=== PATIENT | male | born 1950 | race Caucasian/White ===

== ENCOUNTER 2018-08-12 02:45 | Inpatient (IN) | payer MEDICARE, MEDICAID ==
[~2018-08-12] VITALS: Ht 177.8 cm; Wt 70.3 kg
[~2018-08-12 02:45] MED LIST: BENZ2AMP PO; CALC-261 PO; CLON0.5T PO; DIVA250T4 PO; DIVA500T2 PO; DOCU250C14 PO; HALO2TAB7 PO; HALO5VIA9 IM; IBUP-1955 PO; MAG355OR18 PO; MAGN400O6 PO; MULT1TAB11 PO; PROP20TA7 PO; PSYL1PAC8 PO; TEST200V3 IM; TRAZ-214 PO; TYL2T PO
[2018-08-12] MEDS ORDERED: VANCOMYCIN 1 GM VIAL ONE (03:26)
[2018-08-12] MEDS ORDERED: VANCOMYCIN 1 GM in IV D5W 250 ML IV ONE (03:30)
[2018-08-12] MEDS ORDERED: CEFEPIME 1 GM in IV D5W 50 ML IV ONE (03:30)
[2018-08-12] MEDS ORDERED: IV NS 0.9% 1,000 ML BAG IV ONE (03:30)
--- NOTE | 2018-08-12 03:30 | NUR ---
18G IV TO L AC X 1 ATTEMPT USING ASEPTIC TECH, BLOOD CULT X 2 AND BLOOD HANDED OVER TO THE LAB AT BEDSIDE. IV FLUSHES EASILY WITH NS, NO S/S INFILTRATION NOTED AT THIS TIME.
[2018-08-12 03:44] LABS: BASOPHILS % (AUTO) 0.2 % (0.0-2.0); HEMATOCRIT 33 % (39-51); HEMOGLOBIN 10.7 g/dL (13.5-17.5); LYMPHOCYTES # (AUTO) 0.9 /CMM (0.8-4.8); LYMPHOCYTES % (AUTO) 6.7 % (20.0-44.0); MEAN CORPUSCULAR HGB CONC 33 g/dl (31.0-36.0); MEAN CORPUSCULAR VOLUME 96 fL (80-96); MONOCYTES # (AUTO) 1.2 /CMM (0.1-1.30); MONOCYTES % (AUTO) 8.5 % (2.0-12.0); NEUTROPHILS # (AUTO) 11.8 /CMM (1.8-8.9); NEUTROPHILS % (AUTO) 84.6 % (43.0-81.0); PLATELET COUNT (AUTO) 157 /CMM (150-450); RDW COEFFICIENT OF VARIATION 13.6 (11.5-15.0); RED BLOOD CELL COUNT(AUTO) 3.42 MIL/uL (4.5-6.0); WHITE BLOOD COUNT (AUTO) 13.9 K/uL (4.3-11.0)
[2018-08-12] MEDS ORDERED: CEFEPIME 1 GM VIAL ONE (03:48)
--- NOTE | 2018-08-12 03:50 | NUR ---
URINE SPECIMEN COLLECTED AND SENT TO LAB. ALSO PT WENT TO CT SCAN
[2018-08-12 03:53] LABS: POTASSIUM 4.3 mmol/L (3.5-5.1)
[2018-08-12 03:57] LABS: INR 1.1 (0.87-1.13)
[2018-08-12 03:57] LABS: APPEARANCE,URINE CLEAR (CLEAR); BILIRUBIN,URINE NEGATIVE (NEGATIVE); BLOOD, URINE 3+ Ery/uL (NEGATIVE); COLOR,URINE YELLOW (YELLOW); KETONES,URINE NEGATIVE (NEGATIVE); LEUKOCYTE ESTERASE ,URINE NEGATIVE (NEGATIVE); NITRITE, URINE NEGATIVE (NEGATIVE); PH,URINE 5.5 (5.0-8.0); PROTEIN,URINE NEGATIVE (NEGATIVE); UGLUCOSE NEGATIVE (NEGATIVE); UROBILINOGEN,URINE 0.2 EU/dL (0.2)
[2018-08-12 04:00] LABS: ALBUMIN 3.1 g/dL (3.4-5.0); BILIRUBIN,DIRECT 0.1 mg/dL (0.0-0.2); BILIRUBIN,TOTAL 0.3 mg/dL (0.2-1.0); TOTAL PROTEIN, SERUM 7.1 g/dL (6.4-8.2)
--- NOTE | 2018-08-12 04:00 | NUR ---
PT CAME BACK FROM CT SCAN.
[2018-08-12 04:01] LABS: TROPONIN I 0.07 ng/mL (0.00-0.056)
[2018-08-12 04:15] LABS: BACTERIA,URINE None seen /HPF (None Seen); SQUAMOUS EPITHELIAL CELL,UR Few /HPF (None Seen); WBC,URINE 0-2 /HPF (0-3)
[2018-08-12] MEDS ORDERED: DIVA125C2 PO ×2 (04:58)
[2018-08-12] MEDS ORDERED: ASPI-1169 PO (04:58)
[2018-08-12] MEDS ORDERED: MELA3TAB PO (04:58)
[2018-08-12] MEDS ORDERED: PSYL0.4C2 PO (04:58)
--- NOTE | 2018-08-12 05:15 | NUR ---
REPORT GIVEN TO PAMELA MATTHEW AND TRANSFER THE PT TO TELE 1 FLOOR VIA YELITZA.
[2018-08-12 06:00] VITALS: BP 124/78
[2018-08-12 08:00] VITALS: BP 112/60
[2018-08-12] MEDS ORDERED: DOSE PER PHARMACY (MD SPECIFY MEDICATION) 1 EA IV PRN (08:00)
[2018-08-12] MEDS ORDERED: IV NS 0.9% 1,000 ML BAG IV PRN (08:00)
[2018-08-12] MEDS ORDERED: DIVALPROEX SODIUM 125 MG CAP.SPRINK PO SCH (09:00)
[2018-08-12] MEDS: DIVALPROEX SODIUM 125 MG CAP.SPRINK PO SCH ×2 (09:58→17:03)
[2018-08-12] MEDS: HALOPERIDOL 1 MG TABLET PO SCH ×2 (09:58→17:04)
[2018-08-12] MEDS ORDERED: Z GUARD REMEDY 2 OZ OINT TP PRN (10:00)
[2018-08-12] MEDS: ASPIRIN 81 MG TAB.CHEW PO SCH (10:00)
[2018-08-12] MEDS: PSYLLIUM SEED 1 PKT PACKET PO SCH (10:00)
[2018-08-12] MEDS: MEROPENEM 1 G in IV NS 0.9% 100 ML IV SCH ×2 (10:01→21:47)
[2018-08-12 10:41] LABS: BASOPHILS % (AUTO) 0.2 % (0.0-2.0); EOSINOPHILS % (AUTO) 0.2 % (0.0-6.0); HEMATOCRIT 29 % (39-51); HEMOGLOBIN 9.4 g/dL (13.5-17.5); LYMPHOCYTES # (AUTO) 1.5 /CMM (0.8-4.8); LYMPHOCYTES % (AUTO) 13.7 % (20.0-44.0); MEAN CORPUSCULAR HGB CONC 33 g/dl (31.0-36.0); MEAN CORPUSCULAR VOLUME 95 fL (80-96); MONOCYTES # (AUTO) 1.6 /CMM (0.1-1.30); NEUTROPHILS # (AUTO) 7.5 /CMM (1.8-8.9); NEUTROPHILS % (AUTO) 70.9 % (43.0-81.0); PLATELET COUNT (AUTO) 136 /CMM (150-450); RDW COEFFICIENT OF VARIATION 14.1 (11.5-15.0); RED BLOOD CELL COUNT(AUTO) 3.03 MIL/uL (4.5-6.0); WHITE BLOOD COUNT (AUTO) 10.6 K/uL (4.3-11.0)
[2018-08-12 10:50] LABS: CREATININE 1.9 mg/dL (0.6-1.3); POTASSIUM 3.7 mmol/L (3.5-5.1)
[2018-08-12 12:00] VITALS: BP 132/61
[2018-08-12 16:00] VITALS: BP 133/73
[2018-08-12] MEDS: BENZTROPINE MESYLATE (1 MG) 1 MG TABLET PO SCH (17:04)
[2018-08-12] MEDS: IV NS 0.9% 1,000 ML IV PRN (18:42)
--- NOTE | 2018-08-12 19:20 | NUR ---
SALES FACILITATOR OPENING NOTES RECEIVED PT IN BED AWAKE , A/OX2 .ON TELE MONITORING SR 70.IV LAC #18 , RUNNING NS @ 75ML/HR. PT HAS LOW GRADE TEMPERATURE , WILL CALL FOR TYLENOL ORDER. SAFETY PRECAUTIONS IN PLACE, CALL LIGHT IS WITHIN REACH. WILL CONTINUE TO MONITOR.
--- NOTE | 2018-08-12 19:25 | NUR ---
TEXTED DR BRITTON FOR TYLENOL ORDER AND GOT APPROVED FOR TYLENOL 650 ML Q6H PRN
[2018-08-12 20:00] VITALS: BP 126/63
[2018-08-12] MEDS: TRAZODONE 50 MG TABLET PO SCH (21:47)
[2018-08-12] MEDS: ATORVASTATIN 10 MG TABLET PO SCH (21:48)
[2018-08-12] MEDS: ACETAMINOPHEN 325 MG TABLET PO PRN (21:48)
[2018-08-13] VITALS: BP 131/74
[2018-08-13] MEDS: IV NS 0.9% 1,000 ML IV PRN ×2 (02:21→21:16)
[2018-08-13 04:00] VITALS: BP 126/62
[2018-08-13 05:49] LABS: BASOPHILS % (AUTO) 0.5 % (0.0-2.0); EOSINOPHILS % (AUTO) 1.1 % (0.0-6.0); HEMATOCRIT 30 % (39-51); HEMOGLOBIN 9.9 g/dL (13.5-17.5); LYMPHOCYTES # (AUTO) 1.6 /CMM (0.8-4.8); LYMPHOCYTES % (AUTO) 20.4 % (20.0-44.0); MEAN CORPUSCULAR HGB CONC 33 g/dl (31.0-36.0); MEAN CORPUSCULAR VOLUME 96 fL (80-96); MONOCYTES # (AUTO) 1.1 /CMM (0.1-1.30); MONOCYTES % (AUTO) 13.6 % (2.0-12.0); NEUTROPHILS # (AUTO) 5.1 /CMM (1.8-8.9); NEUTROPHILS % (AUTO) 64.4 % (43.0-81.0); PLATELET COUNT (AUTO) 153 /CMM (150-450); RDW COEFFICIENT OF VARIATION 14.2 (11.5-15.0); RED BLOOD CELL COUNT(AUTO) 3.11 MIL/uL (4.5-6.0); WHITE BLOOD COUNT (AUTO) 7.9 K/uL (4.3-11.0)
[2018-08-13 06:00] LABS: CALCIUM, SERUM 8.4 mg/dL (8.5-10.1); CREATININE 1.2 mg/dL (0.6-1.3); POTASSIUM 3.9 mmol/L (3.5-5.1)
--- NOTE | 2018-08-13 06:51 | NUR ---
ASSISTANT BOOKKEEPER CLOSING NOTES PT IN BED AWAKE , A/OX2 .ON TELE MONITORING SR 62.IV LAC #18 ONGOING NS 0.9% @ 75ML/HR. NO S/S ACUTE DISTRESS NOTED, PT DENIES PAIN AT THIS TIME. WILL ENDORSE TO NEXT SHIFT FOR LEANNA.
--- NOTE | 2018-08-13 07:57 | NUR ---
CIVIL RIGHTS INVESTIGATOR OPENING NOTES RECEIVED PATIENT IN STABLE CONDITION. IN NO APPARENT DISTRESS. BEDSIDE RAILS ARE UPX2. BED IS LOCKED AND LOWERED. CALL LIGHT IS WITHIN REACH. IV LINE IS INTACT AND PATENT. WILL CONTINUE TO MONITOR PATIENT.
--- NOTE | 2018-08-13 07:59 | NUR ---
WOUND CARE CONSULT: PT PRESENTS WITH REDNESS TO BILATERAL LOWER LEGS, SACRAL DIMPLE AND BRUISING TO BUTTOCKS, PRESENT ON ADMISSION. PT IS INCONTINENT. ALL SKIN PROTECTION RECOMMENDATIONS DISCUSSED WITH NURSING STAFF. WILL SEE PRN. BURKETT IN AGREEMENT WITH PLAN OF CARE. Addendum: 08/13/18 at 0800 by MARIE LEONE WNDNU Amended: Links added.
[2018-08-13 08:00] VITALS: BP 143/75
[2018-08-13] MEDS: PSYLLIUM SEED 1 PKT PACKET PO SCH (09:00)
[2018-08-13] MEDS: HALOPERIDOL 1 MG TABLET PO SCH ×2 (09:57→16:11)
[2018-08-13] MEDS: DIVALPROEX SODIUM 125 MG CAP.SPRINK PO SCH ×2 (09:57→16:11)
[2018-08-13] MEDS: BENZTROPINE MESYLATE (1 MG) 1 MG TABLET PO SCH ×2 (09:57→16:12)
[2018-08-13] MEDS: ASPIRIN 81 MG TAB.CHEW PO SCH (09:57)
[2018-08-13] MEDS: MEROPENEM 1 G in IV NS 0.9% 100 ML IV SCH ×2 (09:57→21:16)
[2018-08-13 12:00] VITALS: BP 130/70
[2018-08-13 16:00] VITALS: BP 147/81
--- NOTE | 2018-08-13 18:18 | NUR ---
CONSTRUCTION SAFETY CONSULTANT CLOSING NOTES PATIENT IN STABLE CONDITION. IN NO APPARENT DISTRESS. BEDSIDE RAILS ARE UPX2. BED IS LOCKED AND LOWERED. CALL LIGHT IS WITHIN REACH. IV LINE IS INTACT AND PATENT. ALL NEEDS WERE MET. WILL ENDORSE CARE TO COMPUTED TOMOGRAPHY TECHNOLOGIST NURSE FOR LEANNA.
[2018-08-13 20:00] VITALS: BP 149/73
--- NOTE | 2018-08-13 20:00 | NUR ---
TELE 1 RN NOTE PT IN BED AWAKE. A/O X 1-2, CONFUSED AND TALKING TO SELF AT TIMES. NO SOB, NO DISTRESS OR DISCOMFORT NOTED. DENIES PAIN. ON TELE MONITOR HR 78. IVF NS AT 75 ML/HR INFUSING WELL, NO S/S OF INFILTRATION NOTED. SIDE RAILS UP X 2 AND CALL LIGHT WITHIN REACH. VSS. CONTINUE TO MONITOR HIM.
[2018-08-13] MEDS: TRAZODONE 50 MG TABLET PO SCH (21:17)
[2018-08-13] MEDS: ATORVASTATIN 10 MG TABLET PO SCH (21:17)
[2018-08-14] VITALS (7 sets, daily range): BP systolic 106–160; BP diastolic 41–79
[2018-08-14] MEDS: ACETAMINOPHEN 325 MG TABLET PO PRN ×2 (03:57→12:04)
--- NOTE | 2018-08-14 03:58 | NUR ---
TELE 1 RN NOTE PT NOTED WITH FEVER 100.4, TYLENOL 650 MG PO GIVEN.
--- NOTE | 2018-08-14 05:00 | NUR ---
TELE 1 RN NOTE TEMP CAME DOWN TO 99. PT IN NO DISTRESS OR DISCOMFORT. IVF INFUSING WELL. NO S/S OF INFILTRATION NOTED.
--- NOTE | 2018-08-14 06:40 | NUR ---
TELE 1 RN NOTE PT IN BED ASLEEP, AROUSABLE. NO CHANGE IN CONDITION. IVF INFUSING WELL, NO S/S OF INFILTRATION NOTED. KEPT HIM DRY AND CLEAN. ALL NEEDS ATTENDED. REPOSITION HIM Q2H. WILL ENDORSE TO DAY SHIFT NURSE FOR CONTINUE TO CARE.
--- NOTE | 2018-08-14 07:25 | NUR ---
MATERIAL INSPECTOR OPENING NOTES RECEIVED REPORT FROM [facility] NURSE. PATIENT AWAKE AND RESTLESS. NO APPARENT SIGNS OR SYMPTOMS OF RESPIRATORY DISTRESS OR ACUTE PAIN. IV FLUIDS RUNNING IV SITE CLEAN NO WARMTH OR REDNESS NOTED. WILL CONTINUE TO MONITOR .
--- NOTE | 2018-08-14 07:30 | NUR ---
TRUCK LOADER AND UNLOADER HANDOFF NOTES NABEEL RN TO TAKE OVER PATIENT CARE. REPORT GIVEN
--- NOTE | 2018-08-14 08:00 | NUR ---
MS RN RECEIVED ON BED, AWAKE,ALERT,ORIENTED X2,NOT IN ANY FORM OF DISTRESS, RESPIRATIONS EVEN AND UNLABORED,NO SOB NOTED, LUNGS ARE CLEAR,ABDOMEN SOFT,POSITIVE BOWEL SOUNDS, DENIES PAIN AT THIS TIME, WILL MONITOR PATIENT'S CONDITION.
[2018-08-14] MEDS: BENZTROPINE MESYLATE (1 MG) 1 MG TABLET PO SCH ×2 (09:04→18:52)
[2018-08-14] MEDS: PSYLLIUM SEED 1 PKT PACKET PO SCH (09:04)
[2018-08-14] MEDS: MEROPENEM 1 G in IV NS 0.9% 100 ML IV SCH ×2 (09:04→21:01)
[2018-08-14] MEDS: ASPIRIN 81 MG TAB.CHEW PO SCH (09:04)
[2018-08-14] MEDS: HALOPERIDOL 1 MG TABLET PO SCH ×2 (09:04→18:51)
[2018-08-14] MEDS: DIVALPROEX SODIUM 125 MG CAP.SPRINK PO SCH ×2 (09:04→18:50)
--- NOTE | 2018-08-14 09:30 | NUR ---
MS MATTHEW BREAKFAST SERVED,DUE MEDS GIVEN,TOLERATED WELL.
--- NOTE | 2018-08-14 19:30 | NUR ---
INSULATION ENGINEMAN NOTE PT RECEIVED IN BED. A/0 X1-2 WITH NOTED CONFUSION AND INCOHERENT SPEECH. ON ROOM AIR AND SATURATING WELL. BREATHING REGULAR AND UNLABORED. NO C/O PAIN OR DISCOMFORT NOTED. BED ALARM ENABLED AND LOCKED IN PLACE. CALL LIGHT WITHIN REACH. WILL CONTINUE TO MONITOR.
[2018-08-14] MEDS: IV NS 0.9% 1,000 ML IV PRN (19:43)
[2018-08-14] MEDS: ATORVASTATIN 10 MG TABLET PO SCH (22:19)
[2018-08-14] MEDS: TRAZODONE 50 MG TABLET PO SCH (22:19)
[2018-08-15] VITALS: BP 132/65
[2018-08-15 04:00] VITALS: BP 149/74
--- NOTE | 2018-08-15 06:52 | NUR ---
DEICER FINISHER NOTE NO ACUTE DISTRESS NOTED. ALL NEEDS ATTENDED TO PROMPTLY. BED ALARM ENABLED. REPOSITIONED Q2H. KEPT CLEAN AND DRY. CALL LIGHT WITHIN REACH. WILL ENDORSE TO NEXT SHIFT FOR CONTINUITY OF CARE.
[2018-08-15 08:00] VITALS: BP 112/58
--- NOTE | 2018-08-15 08:00 | NUR ---
RN NOTES RECEIVED PATIENT COMFORTABLY LYINH IN BED,ALERT AND ORIENTESX1, ABLE TO MAKE NEDDS KNOWN, NO SIGN OF DISTRESS AT THIS TIME, BREATHING EVEN AND UNLABORED, WITH NASAL CANNULA AT 2LPM, SATURATING WELL AT 94%, AFEBRILE AT 98.7, ON TELEMONITOR HR AT 74, SINUS RHYTHM, WITH IVC ON THE LEFT ARM, INTACT AND FLUSING WELL, WITH NS RUNNING AT 75CC/HR, ORIENTED TO FLOOR, CALL LIGHT WITHIN EASY REACH, BED LOW AND LOCKED, SRx4 DUE TO PATIENT'S ATTEMPT OF GETTING OUT OF BED, WILL CONTINUE TO MONITOR CLOSELY
[2018-08-15] MEDS: MEROPENEM 1 G in IV NS 0.9% 100 ML IV SCH (08:40)
[2018-08-15] MEDS: PSYLLIUM SEED 1 PKT PACKET PO SCH (08:41)
[2018-08-15] MEDS: DIVALPROEX SODIUM 125 MG CAP.SPRINK PO SCH (08:41)
[2018-08-15] MEDS: HALOPERIDOL 1 MG TABLET PO SCH (08:41)
[2018-08-15] MEDS: ASPIRIN 81 MG TAB.CHEW PO SCH (08:42)
[2018-08-15] MEDS: BENZTROPINE MESYLATE (1 MG) 1 MG TABLET PO SCH (08:42)
[2018-08-15] MEDS: IV NS 0.9% 1,000 ML IV PRN (11:54)
[2018-08-15 12:00] VITALS: BP 134/61
--- NOTE | 2018-08-15 12:00 | NUR ---
RN NOTES SEEN AND EXAMINED BY DR BRITTON. PER MD WILL DISCHARGE PATIENT TODAY
--- NOTE | 2018-08-15 15:37 | NUR ---
RN NOTES REPORT FOR CONTINUITY OF CARE GIVEN TO CUBA MACIAS RN. ALL MEDICATION INSTRUCTION GIVEN TO THE LATER; CONTINUE ALL SNF MEDICATION AND EMPHASIZE ON THE IV ANTIBIOTIC (MEROPENEM 1G) Q 12HR FOR 3 MORE DAYS.
--- NOTE | 2018-08-15 15:55 | NUR ---
RN NOTES PATIENT DISCHARGE. EXIT CARE DONE. PHOTOS TAKEN AND FILED. BELONGINGS CHECKED BUT PATIENT NO BELONGINGS ON ADMISSION. ALL DISCHARGE AND MEDICATION INSTRUCTION GIVEN TO CUBA MACIAS RN (ADMITTING NURSE-EMPERIAL CARE.) ON ENDORSEMEANT. ALL PERTINET INFORMATION DURING HOSPITAL COURSE PRINTED AND FILED ON PACKET. PACKET HANDED TO 2 EMT. PATIENT TRANSFERRED OUT OF THE FACILITY VIA GURNEY ACCOMPANIED BY 2 EMT.
== END 2018-08-15 15:55 | DRG 871 ==
LOC: ER 02:45 → TELE1 05:03 → MEDSG1 08-15 14:06
PROVIDERS: ADMIT Internal Medicine; ATTEND Internal Medicine
DX: A41.9 Sepsis, unspecified organism (principal); I21.4 Non-ST elevation (NSTEMI) myocardial infarction; N39.0 Urinary tract infection, site not specified; G93.40 Encephalopathy, unspecified; N17.9 Acute kidney failure, unspecified; I10 Essential (primary) hypertension; G20 Parkinson's disease; F03.90 Unspecified dementia, unspecified severity, without behavioral disturbance, psychotic disturbance, mood disturbance, and anxiety; D63.8 Anemia in other chronic diseases classified elsewhere; Z87.891 Personal history of nicotine dependence; I25.10 Atherosclerotic heart disease of native coronary artery without angina pectoris; D17.71 Benign lipomatous neoplasm of kidney
CPT/HCPCS: 36415; 71045-TC; 76770-TC; 80048-TC; 80076-TC; 81000-TC; 83605-TC; 83880; 84484-TC; 85025-TC; 85730-TC; 87040-TC; 87081-TC; 87086-TC; 93307-TC; A4606; J0692; J2185; J3370; J7030; J7040; J7060; Q2036; Z7610

== ENCOUNTER 2019-11-30 09:16 | Inpatient (IN) | payer MEDICARE, MEDICAID ==
[2019-11-30] VITALS (19 sets, daily range): BP systolic 73–138; BP diastolic 44–76
[~2019-11-30] VITALS: Ht 175.3 cm; Wt 67.6 kg
[~2019-11-30 09:16] MED LIST changes: +ASPI-1169 PO; -CALC-261 PO; -CLON0.5T PO; +DIVA125C2 PO; -DIVA250T4 PO; -DIVA500T2 PO; -DOCU250C14 PO; +HALO2TAB2 PO; -HALO2TAB7 PO; -HALO5VIA9 IM; -IBUP-1955 PO; -MAG355OR18 PO; -MAGN400O6 PO; +MELA3TAB63 PO; -MULT1TAB11 PO; -PROP20TA7 PO; +PSYL0.4C2 PO; -PSYL1PAC8 PO; -TEST200V3 IM; -TRAZ-214 PO; +TRAZ-257 PO; -TYL2T PO
[2019-11-30 09:44] LABS: BASOPHILS % (AUTO) 0.3 % (0.0-2.0); EOSINOPHILS % (AUTO) 1.3 % (0.0-6.0); HEMATOCRIT 31 % (39-51); HEMOGLOBIN 10.2 g/dL (13.5-17.5); LYMPHOCYTES # (AUTO) 0.8 /CMM (0.8-4.8); LYMPHOCYTES % (AUTO) 4.9 % (20.0-44.0); MEAN CORPUSCULAR HGB CONC 33 g/dl (31.0-36.0); MEAN CORPUSCULAR VOLUME 95 fL (80-96); MONOCYTES # (AUTO) 2.2 /CMM (0.1-1.30); MONOCYTES % (AUTO) 14.2 % (2.0-12.0); NEUTROPHILS # (AUTO) 12.5 /CMM (1.8-8.9); NEUTROPHILS % (AUTO) 79.3 % (43.0-81.0); PLATELET COUNT (AUTO) 201 /CMM (150-450); WHITE BLOOD COUNT (AUTO) 15.8 K/uL (4.3-11.0)
[2019-11-30 09:47] LABS: CALCIUM, SERUM 8.6 mg/dL (8.5-10.1); CARBON DIOXIDE 32 mmol/L (21-32); CHLORIDE 104 mmol/L (98-107); CREATININE 3.1 mg/dL (0.6-1.3); GLUCOSE 90 mg/dL (74-106); POTASSIUM 5.5 mmol/L (3.5-5.1); SODIUM SERUM 145 mmol/L (136-145); UREA NITROGEN, BLOOD 55 mg/dL (7-18)
--- NOTE | 2019-11-30 09:56 | NUR ---
URINE SAMPLE COLLECTED VIA STRAIGHT CATHETER, SENT TO LAB
[2019-11-30 10:01] LABS: ALANINE AMINOTRANSFERASE 12 U/L (12-78); ALBUMIN 2.1 g/dL (3.4-5.0); ALKALINE PHOSPHATASE 110 U/L (46-116); ASPARTATE AMINOTRANSFERASE 19 U/L (15-37); B-TYPE NATRIURETIC PEPTIDE 1892 PG/ML (0-125); BILIRUBIN,TOTAL 0.2 mg/dL (0.2-1.0); TOTAL PROTEIN, SERUM 6.4 g/dL (6.4-8.2)
[2019-11-30 10:02] LABS: APPEARANCE,URINE Clear (CLEAR); BILIRUBIN,URINE Negative (NEGATIVE); BLOOD, URINE Large Ery/uL (NEGATIVE); COLOR,URINE Yellow (YELLOW); KETONES,URINE Negative (NEGATIVE); LEUKOCYTE ESTERASE ,URINE Negative (NEGATIVE); NITRITE, URINE Negative (NEGATIVE); PH,URINE 5.5 (5.0-8.0); PROTEIN,URINE 30 mg/dl (NEGATIVE); UGLUCOSE Negative (NEGATIVE); UROBILINOGEN,URINE 0.2 EU/dL (0.2)
[2019-11-30 10:11] LABS: BACTERIA,URINE Few /HPF (None Seen); RBC,URINE 21-50 /HPF (0-2); SQUAMOUS EPITHELIAL CELL,UR Few /HPF (None Seen)
[2019-11-30] MEDS ORDERED: PIPERACILLIN /TAZOBACTAM 3.375 G in IV D5W 50 ML IV ONE (10:30)
[2019-11-30] MEDS ORDERED: IV NS 0.9% 1,000 ML BAG IV ONE (10:30)
[2019-11-30] MEDS ORDERED: VANCOMYCIN 1 GM in IV D5W 250 ML IV ONE (10:30)
--- NOTE | 2019-11-30 10:57 | NUR ---
CALLED NURSING SUP FOR TELE BED.
--- NOTE | 2019-11-30 11:00 | NUR ---
CALLED [facility].
--- NOTE | 2019-11-30 11:00 | NUR ---
Pt noted to be tachypneic, gurgly O2Sats persistently on 86-88% w/O2FM at 6L Dr Stevenson made aware RT Called for breathing Tx and suctioning
--- NOTE | 2019-11-30 11:07 | NUR ---
PAGED DR. BRITTON
[2019-11-30] MEDS ORDERED: IPRATROPIUM NEB FS 0.5 MG/2.5 ML AMPUL.NEB ONE (11:10)
[2019-11-30] MEDS ORDERED: ALBUTEROL FS 2.5 MG/0.5 ML VIAL.NEB ONE (11:10)
--- NOTE | 2019-11-30 11:10 | NUR ---
RT AT BEDSIDE FOR BREATHING TX
--- NOTE | 2019-11-30 11:17 | NUR ---
CALLED NURSING SUP TO UPGRADE FOR ICU BED.
--- NOTE | 2019-11-30 11:19 | NUR ---
CALLED DR. BRITTON SECOND ATTEMPT.
--- NOTE | 2019-11-30 11:21 | NUR ---
RT AT BEDSIDE FOR SUCTION
[2019-11-30] MEDS ORDERED: IPRATROPIUM NEB FS 0.5 MG/2.5 ML AMPUL.NEB NEB ONE (11:30)
[2019-11-30] MEDS ORDERED: ALBUTEROL FS 2.5 MG/0.5 ML VIAL.NEB NEB ONE (11:30)
--- NOTE | 2019-11-30 11:40 | NUR ---
RT AT BEDSIDE, OLACED PATIENT ON BIPAP. SETTINGS: IPAP 10 EPAP 5 O2 100% RATE 12
--- NOTE | 2019-11-30 12:45 | NUR ---
ROOM 264
--- NOTE | 2019-11-30 13:00 | NUR ---
REPORT GIVEN TO ALONSO OF ICU
--- NOTE | 2019-11-30 13:16 | NUR ---
DR BRITTON AT BEDSIDE
[2019-11-30 13:54] LABS: ABG BASE EXCESS 0.6 mmol/L; ABG OXYGEN SATURATION 98.7 % (92.0-98.5); ABG PCO2 124.8 mmHg (35.0-45.0); ABG PH 7.045 (7.350-7.450); ABG PO2 261.1 mmHg (75.0-100.0); AaDO2 327.1 mmHg; COHb 0.3 % (0.5-1.5); MetHb 0.8 % (0.0-1.5); O2Hb 97.6 % (94.0-97.0); SITE, ABG Right Radial
--- NOTE | 2019-11-30 14:02 | NUR ---
PATIENT UNRESPONSIVE TO PAINFUL STIMULI, MADE MD AWARE, PREPARED FOR INTUBATION
--- NOTE | 2019-11-30 14:17 | NUR ---
DR JARRELL VERBALLY ORDERED ETOMIDATE 20MG IVP AND SUCCINYLCHOLINE 100MG IVP. CARRIED OUT.
--- NOTE | 2019-11-30 14:18 | NUR ---
RT NOTES PT INTUBATED BY ER WITH 7.5 ETT AT 24CM AT THE LIP. COLOR CHANGED ON CO2 DETECTOR NOTED. MIST IN TUBE NOTED. PT HAS GOOD CHEST RISE AND EQUAL BREATH SOUNDS. PT PLACED ON [facility] VENT ON MD ORDERED SETTINGS. SUCTIONED MODERATE AMOUNT OF NICOLE SECRETIONS. ALARMS SET AND AUDIBLE. VENT CONNECTED TO RED OUTLET. AMBUBAG AT BEDSIDE. WILL CONT TO MONITOR. Addendum: 11/30/19 at 1458 by VINNY PARSON RT Amended: Links added.
--- NOTE | 2019-11-30 14:18 | NUR ---
INTUBATION DONE BY DR JARRELL. ET SIZE: 7.5 24 AT THE LIP +COLOR CHANGE +BILATERAL CHEST RISE AND FALL. +BILATERAL LUNG SOUNDS
--- NOTE | 2019-11-30 14:30 | NUR ---
PATIENT ADMITTED FROM ER TO ICU WITH DIAGNOSIS OF RESPIRATORY FAILURE SECONDARY TO PNEUMONIA. PATIENT ORALLY INTUBATED - CONNECTED TO VENT BY RT UPON ARRIVAL. PLACED ON MONITOR- SHOWING AFIB RATE 110. SBP<70'S. WILL PLACED CALL TO ADMITTING MD REGARDING ADMISSION ORDERS.
--- NOTE | 2019-11-30 14:33 | NUR ---
PATIENT BROUGHT TO ICU WITH RT AND TECH.
--- NOTE | 2019-11-30 14:45 | NUR ---
ORDERS FROM DR. BRITTON-PLACED AND CARRIED OUT.
[2019-11-30] MEDS ORDERED: ETOMIDATE 2 MG/ML VIAL IV ONE ×2 (15:00→16:58)
[2019-11-30] MEDS ORDERED: SUCCINYLCHOLINE CHLORIDE 20 MG/ML VIAL IV ONE ×2 (15:00→16:58)
[2019-11-30] MEDS ORDERED: PHENYLEPHRINE 80 MG in IV D5W 250 ML IV PRN (15:00)
--- NOTE | 2019-11-30 15:10 | NUR ---
SPOKE TO DR. NEELIMA GRIFFITHS UPDATED WITH PATIENT CONDITION. REPEAT ABG AT 1600 WITH PARAMETERS GIVEN.
--- NOTE | 2019-11-30 15:15 | NUR ---
SBP REMAINS 70'S- NEOSYNEPRINE GTT STARTED 100 MCG/MIN PER PROTOCOL.
[2019-11-30] MEDS: PROPOFOL 100 ML IV PRN ×2 (15:27→23:38)
[2019-11-30] MEDS: IV NS 0.9% 1,000 ML IV PRN (15:33)
[2019-11-30] MEDS ORDERED: FEE PK DOSING 1 MIN EA MC ONE (15:49)
--- NOTE | 2019-11-30 15:50 | NUR ---
DR. BRITTON NOTIFIED OF PATIENT RHYTHM-AFIB WITH RVR. REPEAT EKG, 2D ECHO ORDERED.
--- NOTE | 2019-11-30 15:55 | NUR ---
UABLE TO REACG FAMILY FOR PICC LINE ANNEMARIE Villarreal MD AWARE. WILL INSERT EMERGENCY PROCEDURE.
--- NOTE | 2019-11-30 16:15 | NUR ---
VERIFIED WITH BERNADETTE PHARMACIST REGARDING ZOSYN DOSE-OKAY TO GIVE..
--- NOTE | 2019-11-30 16:55 | NUR ---
DR. BRITTON MADE AWARE OF EKG RESULT-AFIB WITH NO NEW ORDER GIVEN.
[2019-11-30 16:59] LABS: ABG BASE EXCESS -1.9 mmol/L; ABG OXYGEN SATURATION 98.9 % (92.0-98.5); ABG PCO2 41.4 mmHg (35.0-45.0); ABG PH 7.368 (7.350-7.450); ABG PO2 380.2 mmHg (75.0-100.0); AaDO2 291.4 mmHg; COHb 0.2 % (0.5-1.5); MetHb 0.5 % (0.0-1.5); O2Hb 98.2 % (94.0-97.0); PEEP,BG 5 cm H2O; SITE, ABG Right Radial; VT, ABG 550 mL
--- NOTE | 2019-11-30 17:00 | NUR ---
ABG-7.368 / 41.4 / 380 / 23. WILL TITRATE FIO2 BY RT.
[2019-11-30] MEDS: PIPERACILLIN /TAZOBACTAM 3.375 G in IV D5W 50 ML IV SCH (17:03)
[2019-11-30] MEDS: PANTOPRAZOLE 40 MG VIAL IV SCH (17:03)
--- NOTE | 2019-11-30 17:15 | NUR ---
CONVERTED TO SINUS TIM-DR. BRITTON MADE AWARE.
[2019-11-30] MEDS: HEPARIN SODIUM, PORCINE 5000 UNITS/1 ML VIAL SQ SCH (21:45)
[2019-12-01] VITALS (89 sets, daily range): BP systolic 76–138; BP diastolic 44–72
[2019-12-01] MEDS: PIPERACILLIN /TAZOBACTAM 3.375 G in IV D5W 50 ML IV SCH ×5 (00:53→23:01)
[2019-12-01 05:24] LABS: CALCIUM, SERUM 7.9 mg/dL (8.5-10.1); CARBON DIOXIDE 30 mmol/L (21-32); CHLORIDE 108 mmol/L (98-107); CREATININE 2.6 mg/dL (0.6-1.3); GLUCOSE 74 mg/dL (74-106); POTASSIUM 4.5 mmol/L (3.5-5.1); SODIUM SERUM 145 mmol/L (136-145); UREA NITROGEN, BLOOD 48 mg/dL (7-18)
[2019-12-01] MEDS: IV NS 0.9% 1,000 ML IV PRN (06:00)
[2019-12-01] MEDS: PROPOFOL 100 ML IV PRN ×2 (07:20→18:02)
--- NOTE | 2019-12-01 07:30 | NUR ---
RN NOTE: Received patient in bed, intubated/sedated ETT 7.5 attached to the lip line at 26cm. Respiration even and unlabored saturating well with current ventilator setting. HOB elevated. Remained on NPO status. OGT in placed and placement verification was done by auscultation. (L) UA PICC line noted intact and patent infusing Diprivan @20mcg/min and Neosynephrine drip. Patient was bradycardic 40's-50's heart rate. (B) soft wrist restraints were in placed to prevent the patient from self-extubation. Dewitt catheter in placed draining yellow urine to gravity. Bed alarmed and locked at all times. Needs anticipated. Awaiting for Dr. Thomson to make his rounds.
[2019-12-01] MEDS: HEPARIN SODIUM, PORCINE 5000 UNITS/1 ML VIAL SQ SCH ×2 (08:11→21:40)
--- NOTE | 2019-12-01 08:31 | NUR ---
RN NOTE: Dr. Thomson made rounds and gave him an update regarding the patient's condition including the bradycardia and glucose this morning. MD with new orders, noted and carried out. MD was also asked to do medication reconciliation, but he refused to give any medication at this time. Dr. Thomson wanted OGT to be kept clamped and with no medication administration or any tube feeding.
[2019-12-01] MEDS: IV D5W 1,000 ML IV PRN (08:55)
[2019-12-01] MEDS: DOPamine 400 MG in IV D5W 250 ML IV PRN (09:05)
[2019-12-01] MEDS ORDERED: MULT-439 PO (09:05)
[2019-12-01] MEDS ORDERED: CRAN450C PO (09:05)
[2019-12-01] MEDS ORDERED: AMIN887L PO (09:05)
[2019-12-01] MEDS ORDERED: HALO100A2 IM (09:05)
[2019-12-01] MEDS ORDERED: IPRA3AMP23 IH (09:05)
[2019-12-01] MEDS ORDERED: MAG30ORA PO (09:05)
[2019-12-01] MEDS ORDERED: MAGN400O6 PO (09:05)
[2019-12-01] MEDS ORDERED: FAMO20TA8 PO (09:05)
[2019-12-01] MEDS ORDERED: CALC100T2 PO (09:05)
[2019-12-01] MEDS ORDERED: IBUP-1953 PO (09:05)
[2019-12-01] MEDS ORDERED: LACT10SO PO (09:05)
[2019-12-01] MEDS ORDERED: BENZ1TAB7 PO (09:05)
[2019-12-01] MEDS ORDERED: DOCU-141 PO (09:05)
[2019-12-01] MEDS ORDERED: NA P133E RC (09:05)
--- NOTE | 2019-12-01 10:20 | NUR ---
RN NOTE: Received a new order for the mechanical ventilator setting from Dr. Alvarez based on the current ABG result. RT Flavio aware of the changes.
[2019-12-01] MEDS ORDERED: VANCOMYCIN 1 GM in IV D5W 250 ML IV SCH ×2 (14:00→23:00)
[2019-12-01] MEDS: PANTOPRAZOLE 40 MG VIAL IV SCH (15:29)
--- NOTE | 2019-12-01 19:09 | NUR ---
RN NOTE: Bedside report was given to TIFF Lopez for continuity of care. Patient remained intubated and sedated infusing Diprivan 20mcg/min and Dopamine 5mcg/min. Dewitt catheter in placed with yellow urine draining to gravity. No hematuria noted. Frequent suctioning through the mouth and ETT was rendered by RT Flavio and assigned nurse. No bowel movement during the shift. Patient kept NPO per Dr. Thomson's order.
--- NOTE | 2019-12-01 19:25 | NUR ---
RN NOTE, Received Patient in bed, sedated at this time, on mechanical ventilator tolerating settings well, ETT 75/26, ac 18, tv500, fio2 505, no peep, sinus shay in the tele monitor with hr 50s at this time, ZHENG picc line patent an intact, on Diprivan 20mcg/min, Dopamine 5mcg/min and D5w t 75ml/hr all infusing well and patient tolerated well, Dewitt catheter in placed with yellow urine draining to gravity, on bilateral soft wrist restrains, no abnormality at site or circulation compromised at this time, NPO per Dr. Thomson's order, bilateral s/r of bed up, call light w/i raech, dry and clean and well repositioned at this time, will continue to monitor closely.
[2019-12-02] VITALS (92 sets, daily range): BP systolic 84–158; BP diastolic 46–110
[2019-12-02] MEDS: IV D5W 1,000 ML IV PRN (01:12)
[2019-12-02] MEDS: DOPamine 400 MG in IV D5W 250 ML IV PRN ×2 (01:17→20:53)
[2019-12-02] MEDS: PROPOFOL 100 ML IV PRN ×4 (01:30→20:54)
--- NOTE | 2019-12-02 02:36 | NUR ---
RT NOTE Pt rec'd orally intubated via ETT sz #7.5 secured at 26cm @ the lip line on [facility] vent on AC mode settings. No resp distress or SOB noted. Sx'd for thick mod amt of pale yellow secretions. Alarms are set and audible, Vent plugged into red outlet. Ambu bag bedside. Addendum: 12/02/19 at 0237 by KOBY FORTUNE RT Amended: Links added.
[2019-12-02 04:53] LABS: CALCIUM, SERUM 8.3 mg/dL (8.5-10.1); CARBON DIOXIDE 30 mmol/L (21-32); CHLORIDE 105 mmol/L (98-107); CREATININE 2.4 mg/dL (0.6-1.3); GLUCOSE 97 mg/dL (74-106); POTASSIUM 3.9 mmol/L (3.5-5.1); SODIUM SERUM 142 mmol/L (136-145); UREA NITROGEN, BLOOD 41 mg/dL (7-18)
[2019-12-02] MEDS: PIPERACILLIN /TAZOBACTAM 3.375 G in IV D5W 50 ML IV SCH ×4 (05:34→23:29)
--- NOTE | 2019-12-02 07:17 | NUR ---
RN NOTE: Received patient in bed, intubated/sedated ETT 7.5 attached to the lip line at 26cm. Respiration even and unlabored saturating well with current ventilator setting. HOB elevated. Remained on NPO status. OGT in placed and placement verification was done by auscultation. (L) UA PICC line noted intact and patent infusing Diprivan @20mcg/min and Dopamine 4mcg/min and D5 @75ml/hr. (B) soft wrist restraints were in placed to prevent the patient from self-extubation. Dewitt catheter in placed draining yellow urine to gravity. Bed alarmed and locked at all times. Needs anticipated.
--- NOTE | 2019-12-02 07:18 | NUR ---
RN NOTES, NO SIGNIFICANT CHANGE IN CONDITION DURING THE NIGHT, ENDORSED AT THIS TIME TO TIFF GRAY FOR CONTINUATION OF CARE, CONTINUE ON DIPRIVAN 20MCG , DOPAMINE 4MCG AND D5W AT 100ML/HR 0 ORDERED VIA ZHENG PICC LINE.
--- NOTE | 2019-12-02 07:47 | NUR ---
RT Pt received orally intubated on mechanical ventilation with noted settings. Vent alarms are set and is plugged into red outlet. No SOB or respiratory distress noted. Addendum: 12/02/19 at 0841 by SENTHIL ISAAC RT Amended: Links added.
[2019-12-02 09:13] LABS: ABG BASE EXCESS 3.2 mmol/L; ABG OXYGEN SATURATION 97.9 % (92.0-98.5); ABG PCO2 33.3 mmHg (35.0-45.0); ABG PH 7.511 (7.350-7.450); ABG PO2 122.6 mmHg (75.0-100.0); AaDO2 124.3 mmHg; COHb 0.3 % (0.5-1.5); MetHb 0.4 % (0.0-1.5); O2Hb 97.2 % (94.0-97.0); PEEP,BG 0 cm H2O; SITE, ABG Right Radial; VT, ABG 500 mL
--- NOTE | 2019-12-02 09:16 | NUR ---
RN NOTE: Dr. Nassar was informed of the ABG result for the patient and he ordered a vent change. Order, noted and carried out. RT Flavio made aware.
[2019-12-02] MEDS: HYDROCORTISONE SOD SUCCINATE 100 MG/2 ML VIAL IV SCH ×3 (09:41→16:31)
[2019-12-02] MEDS: HEPARIN SODIUM, PORCINE 5000 UNITS/1 ML VIAL SQ SCH ×2 (09:42→20:43)
[2019-12-02] MEDS ORDERED: IV NS 0.9% 1,000 ML IV PRN (12:00)
[2019-12-02] MEDS: NEPRO 1,000 ML BOTTLE GT PRN (14:25)
[2019-12-02] MEDS: PANTOPRAZOLE 40 MG VIAL IV SCH (16:31)
[2019-12-02] MEDS: VANCOMYCIN 1 GM in IV D5W 250 ML IV SCH (18:46)
--- NOTE | 2019-12-02 19:35 | NUR ---
RN NOTE: Bedside report was given to TIFF Evans for continuity of care. Patient remained sedated and intubated. OGT feeding of Nephro @25ml/hr was well tolerated. Patient with good amount of urine output within the day.
--- NOTE | 2019-12-02 19:45 | NUR ---
RN NOTES RECEIVED PATIENT ORALLY INTUBATED WITH ETT 7.5 AND 26 CM AT LIP LINE WITH VENT SETTING OF AC 16 TV 500 FIO2 35% NO PEEP. NO ACUTE RESPIRATORY DISTRESS. WARMTH TO TOUCH AND ST 120'S ON TELE MONITOR. TEMPERATURE CHECKED WITH LOW GRADE FEVER AT 100 DEGREE FHARENHEIGHT. PATIENT IS MODERATELY AGITATED , ON DIPRIVAN TITRATED ORDERED PROTOCOL. WITH IV SITE ON ZHENG WITH DIPRIVAN , NS AND DOPAMINE INTACT AND PATENT. ALSO HAD OGT NEPHRO @ 25 ML/HR WILL TITRATED TO GOAL OF 40 TOLERATED. KEPT PT CLEAN AND DRY. OFFLOADED EXT WITH PILLOWS. COOLING MEASURES PROVIDED FOR LOW GRADE TEMPERATURE. TURNED AND REPOSITIONED FOR SKIN MGMT. WILL CONT. TO MONITOR.
[2019-12-03] VITALS (51 sets, daily range): BP systolic 74–167; BP diastolic 42–121
[2019-12-03] MEDS: PROPOFOL 100 ML IV PRN ×6 (00:45→23:31)
--- NOTE | 2019-12-03 02:30 | NUR ---
RN NOTES DOPAMINE OFF AT THIS TIME VSS STABLE. SEE VS DATA SCOPE
[2019-12-03 05:02] LABS: CARBON DIOXIDE 28 mmol/L (21-32); CHLORIDE 106 mmol/L (98-107); CREATININE 2.4 mg/dL (0.6-1.3); GLUCOSE 125 mg/dL (74-106); POTASSIUM 3.5 mmol/L (3.5-5.1); SODIUM SERUM 143 mmol/L (136-145); UREA NITROGEN, BLOOD 43 mg/dL (7-18)
[2019-12-03] MEDS: PIPERACILLIN /TAZOBACTAM 3.375 G in IV D5W 50 ML IV SCH ×4 (05:27→23:29)
--- NOTE | 2019-12-03 07:00 | NUR ---
RN NOTES PATIENT SEDATED WITH DIPRIVAN. ETT AND VENT SETTING TOLERATED WELL. AFEBRILE. VSS. NSR ON TELE MONITOR. NO SIGNIFICANT CHANGES THROUGHOUT THE SHIFT. OFF FROM DOPAMINE, DIPRIVAN TITRATED ORDERED. IVF DISCONTINUE BY . F/C DRAINED WELL WITH ADEQ. URINE OUTPUT. KEPT PT CLEAN AND DRY. ENDORSED CONTINUITY OF CARE TO AM NURSE.
--- NOTE | 2019-12-03 07:15 | NUR ---
AUTOMATIC COIL MACHINE OPERATOR NOTES RECEIVED BEDSIDE REPORT FROM NOC. PT SEDATED. NO S/S OF RESPIRATORY DISTRESS. INTUBATED WITH ETT 7.04/06 TOLERATING VENT SETTINGS ORDERED SATURATING 100%. NORMAL SINUS ON MONITOR. WHITLEY CATH DRAINING CLEAR YELLOW URINE. OGT FEEDING NEPRO @ 30 ML/HR WITH GOAL OF 40ML/HR. BILATERAL WRIST RESTRAINTS IN PLACE CIRCULATION CHECKED, ZHENG PICC RUNNING PROPOFOL @ 40 MCG/MIN SAFETY AND ASPIRATION PRECAUTIONS IN PLACE BED IN LOW LOCKED POSITION WILL CONT TO MONITOR ACCORDINGLY
[2019-12-03 08:15] LABS: ABG BASE EXCESS 2.2 mmol/L; ABG OXYGEN SATURATION 98.1 % (92.0-98.5); ABG PCO2 36.2 mmHg (35.0-45.0); ABG PH 7.471 (7.350-7.450); ABG PO2 130.6 mmHg (75.0-100.0); AaDO2 76.9 mmHg; COHb 0.3 % (0.5-1.5); MetHb 0.4 % (0.0-1.5); O2Hb 97.4 % (94.0-97.0); SITE, ABG Right Radial
[2019-12-03] MEDS: HYDROCORTISONE SOD SUCCINATE 100 MG/2 ML VIAL IV SCH ×3 (08:17→17:05)
[2019-12-03] MEDS: IV NS 0.9% 250 ML IV PRN (08:18)
[2019-12-03] MEDS: HEPARIN SODIUM, PORCINE 5000 UNITS/1 ML VIAL SQ SCH ×2 (08:19→20:54)
--- NOTE | 2019-12-03 08:56 | NUR ---
SPOKE WITH PUBLIC GUARDIAN YOAN MC TO STATUS OF PT CONDITION
--- NOTE | 2019-12-03 09:51 | NUR ---
ABGS DRAWN PT PLACED ON 5 LTRS NASAL CANNULA Addendum: 12/03/19 at 1022 by CATARINA ISAAC RN CHARTED ON WRONG PT
--- NOTE | 2019-12-03 14:00 | NUR ---
Bed bath given oral care rendered pt tolerated
[2019-12-03] MEDS: PANTOPRAZOLE 40 MG/PACK PACK GT SCH (15:31)
--- NOTE | 2019-12-03 15:33 | NUR ---
BED BATH GIVEN ORAL CARE RENDERED REPOSITIONED FOR COMFORT
[2019-12-03] MEDS: NEPRO 1,000 ML BOTTLE GT PRN (17:45)
[2019-12-03] MEDS: BLOOD SUGAR DIAGNOSTIC 1 EACH STRIP IN SCH ×2 (17:54→23:36)
[2019-12-03] MEDS ORDERED: BLOOD SUGAR DIAGNOSTIC 1 EACH STRIP IN SCH (18:00)
[2019-12-03] MEDS ORDERED: DEXTROSE 50%-WATER 50 ML DISP.SYRIN IV PRN (18:00)
[2019-12-03] MEDS ORDERED: *INSULIN REGULAR(HUMULIN R)HUM 100 UNIT/ML VIAL SQ PRN (18:00)
[2019-12-03] MEDS: VANCOMYCIN 1 GM in IV D5W 250 ML IV SCH (18:45)
--- NOTE | 2019-12-03 19:19 | NUR ---
No significant changes throughout shift pt stable endorsed to noc
--- NOTE | 2019-12-03 19:30 | NUR ---
RN NOTES RECEIVED PATIENT ORALLY INTUBATED WITH ETT 7.5/26 CM CONNECTED TO VENT SETTING AC 12 TV 500 FIO2 35% NO PEEP TOLERATED WELL. NO ACUTE RESPIRATORY DISTRESS. PATIENT IS SEDATED WITH DIPRIVAN. NSR ON TELE MONITOR. WITH PICC LINE ON A PEDRO PABLO RUNNING WITH PROPOFOL @ 40 MCG/KG/MIN AND IV VANCOMYCIN TOLERATED WELL. OGT INTACT AND PATENT WITH RESIDUAL OF 60 CC. WHITLEY CATH DRAINED VIA GRAVITY KEEP OFF FROM THE FLOOR. HOB KEPT ELEVATED. KEPT PT CLEAN AND DRY. BED LOCKED AND SECURED. WILL CONTINUE TO MONITOR.
--- NOTE | 2019-12-03 20:24 | NUR ---
RECEIVED PT INTUBATED ON VENT. PT TOLERATING VENT SETTINGS. SX'D FOR SML AMT OF THICK WHITE SECRETIONS. VENT ALARMS SET AND AUDIBLE. AMBU BAG AT BEDSIDE. CONTINUE [facility] VENT SUPPORT. Addendum: 12/03/19 at 2024 by DOMINIQUE SYED RT Amended: Links added.
[2019-12-04] VITALS (27 sets, daily range): BP systolic 91–154; BP diastolic 39–118
[2019-12-04 04:39] LABS: BASOPHILS % (AUTO) 0.3 % (0.0-2.0); HEMATOCRIT 27 % (39-51); HEMOGLOBIN 9.2 g/dL (13.5-17.5); LYMPHOCYTES # (AUTO) 1.6 /CMM (0.8-4.8); MEAN CORPUSCULAR HGB CONC 34 g/dl (31.0-36.0); MEAN CORPUSCULAR VOLUME 93 fL (80-96); MONOCYTES # (AUTO) 1.2 /CMM (0.1-1.30); MONOCYTES % (AUTO) 11.5 % (2.0-12.0); NEUTROPHILS # (AUTO) 7.6 /CMM (1.8-8.9); NEUTROPHILS % (AUTO) 73.2 % (43.0-81.0); PLATELET COUNT (AUTO) 193 /CMM (150-450); WHITE BLOOD COUNT (AUTO) 10.4 K/uL (4.3-11.0)
[2019-12-04 05:14] LABS: CALCIUM, SERUM 7.7 mg/dL (8.5-10.1); CARBON DIOXIDE 29 mmol/L (21-32); CHLORIDE 105 mmol/L (98-107); GLUCOSE 100 mg/dL (74-106); POTASSIUM 3.5 mmol/L (3.5-5.1); SODIUM SERUM 144 mmol/L (136-145); UREA NITROGEN, BLOOD 64 mg/dL (7-18)
[2019-12-04] MEDS: PROPOFOL 100 ML IV PRN ×4 (05:18→23:54)
[2019-12-04] MEDS: PIPERACILLIN /TAZOBACTAM 3.375 G in IV D5W 50 ML IV SCH ×3 (05:18→18:07)
--- NOTE | 2019-12-04 05:30 | NUR ---
RN NOTES RECEIVED A CALL FROM RADIOLOGY THAT ENTERIC TUBE NEED TO PUSH DOWN ABOUT 8 CM. DOUBLE CHECKED CXR AND PATENCY OF OGT NO GURGLING SOUND. ADVANCED OGT TUBE 8 CM LONG TUBE AT 60 CM AT LIP WITH GURGLING SOUND HEARD DOUBLE CHECKED BY BRAYDEN AUTO OVERHAULER.
[2019-12-04] MEDS: BLOOD SUGAR DIAGNOSTIC 1 EACH STRIP IN SCH ×3 (06:03→18:06)
--- NOTE | 2019-12-04 06:24 | NUR ---
RN NOTES CONTINUE WITH ETT SAME SETTING TOLERATED WELL. AFEBRILE. REMAINED SEDATED WITH DIPRIVAN. NO ACUTE RESPIRATORY DISTRESS. SB LOWEST 43 WHEN PATIENT ASLEEP, SR MOST OF THE TIME ON DIPRIVAN TITRATED PROTOCOL ORDERED. BEDBATH DONE AND TOLERATED WELL. OGT PUSH DOWN 8 CM RADIOLOGIST STATED WITH GURGLING SOUND AND RESIDUAL. KEPT PT CLEAN AND DRY. WHITLEY CATH KEPT OFF FROM THE FLOOR. WILL CONTINUE TO MONITOR.
--- NOTE | 2019-12-04 07:10 | NUR ---
HOOK AND EYE ATTACHER NOTES RECEIVED BEDSIDE REPORT FROM NOC. PT SEDATED. NO S/S OF RESPIRATORY DISTRESS. INTUBATED WITH ETT 7.04/06 TOLERATING VENT SETTINGS ORDERED SATURATING 100%. NORMAL SINUS ON MONITOR. WHITLEY CATH DRAINING CLEAR YELLOW URINE. OGT FEEDING NEPRO @ 40 ML/HR WITH NO RESIDUAL . BILATERAL WRIST RESTRAINTS IN PLACE CIRCULATION CHECKED, ZHENG PICC RUNNING PROPOFOL @ 25 MCG/MIN SAFETY AND ASPIRATION PRECAUTIONS IN PLACE BED IN LOW LOCKED POSITION WILL CONT TO MONITOR ACCORDINGLY
--- NOTE | 2019-12-04 08:00 | NUR ---
PT ON SEDATION VACATION FOR WEANING PURPOSES ABGS TO BE DRAWN MID AFTERNOON
[2019-12-04] MEDS: PANTOPRAZOLE 40 MG/PACK PACK GT SCH (08:31)
[2019-12-04] MEDS: HYDROCORTISONE SOD SUCCINATE 100 MG/2 ML VIAL IV SCH ×2 (08:31→18:07)
[2019-12-04] MEDS: HEPARIN SODIUM, PORCINE 5000 UNITS/1 ML VIAL SQ SCH ×2 (08:33→21:25)
[2019-12-04] MEDS: IV NS 0.9% 250 ML IV PRN (09:46)
[2019-12-04 09:53] LABS: ABG BASE EXCESS 1.2 mmol/L; ABG OXYGEN SATURATION 96.5 % (92.0-98.5); ABG PCO2 36.2 mmHg (35.0-45.0); ABG PH 7.456 (7.350-7.450); ABG PO2 91.7 mmHg (75.0-100.0); AaDO2 79.7 mmHg; COHb 0.3 % (0.5-1.5); MetHb 0.4 % (0.0-1.5); O2Hb 95.8 % (94.0-97.0); PEEP,BG 5 cm H2O; VT, ABG 500 mL
[2019-12-04] MEDS: INSULIN REGULAR, HUMAN 100 UNIT/ML 3 ML VIAL SQ PRN ×2 (11:48→18:07)
--- NOTE | 2019-12-04 13:00 | NUR ---
Bed bath and oral care rendered pt tolerated.
--- NOTE | 2019-12-04 14:15 | NUR ---
Per Dr Thomson remove Dewitt cath ok to place condom cath on for strict I&Os
--- NOTE | 2019-12-04 14:30 | NUR ---
AMMUNITION ASSEMBLY LABORER NOTES PT REMAINED STABLE AND AFEBRILE THROUGHOUT SHIFT. CONT ON 30MCG OF PROPOFOL FOR AGITATION. NO S/S OF RESPIRATORY DISTRESS OR ACUTE PAIN. KEPT CLEAN AND DRY AND REPOSITIONED NEEDED. SAFETY AND ASPIRATION PRECAUTIONS IN PLACE BED IN LOW LOCKED POSITION CALL LIGHT WITHIN REACH
[2019-12-04] MEDS: NEPRO 1,000 ML BOTTLE GT PRN (18:07)
--- NOTE | 2019-12-04 20:00 | NUR ---
RN NOTES PATIENT IS ORALLY INTUBATED, WIT ETT 7.04/06 ON AC MODE RATE 12 TV 500 AND FIO2 35%. WITH LOW GRADE FEVER 100.[address] ON TELE MONITOR BUT UNABLE TO GET GOOD READING DUE TO PARKINSONS. PATIENT ON CHRISTINE CATH WITH 30 ML OF URINE, OGT NEPHRO @ 40 ML/HR INTACT AND PATENT IV SITE ON PEDRO PABLO PICC LINE WITH PROPOFOL TITRATED ORDERED PROTOCOL. . KEPT PT CLEAN AND DRR WILL CONTINUE TO MONITOR. KEPT PT CLEAN AND DRY. BED LOCKED AND IN LOSE BED IN POSSIBLE LOW POSITION.
[2019-12-05] VITALS (28 sets, daily range): BP systolic 85–191; BP diastolic 46–112
[2019-12-05] MEDS: PIPERACILLIN /TAZOBACTAM 3.375 G in IV D5W 50 ML IV SCH ×4 (00:23→18:13)
[2019-12-05] MEDS: BLOOD SUGAR DIAGNOSTIC 1 EACH STRIP IN SCH ×4 (00:27→18:00)
[2019-12-05 05:04] LABS: CALCIUM, SERUM 8.2 mg/dL (8.5-10.1); CARBON DIOXIDE 28 mmol/L (21-32); CHLORIDE 108 mmol/L (98-107); CREATININE 2.8 mg/dL (0.6-1.3); GLUCOSE 85 mg/dL (74-106); POTASSIUM 3.5 mmol/L (3.5-5.1); SODIUM SERUM 148 mmol/L (136-145); UREA NITROGEN, BLOOD 74 mg/dL (7-18)
[2019-12-05] MEDS: PROPOFOL 100 ML IV PRN ×4 (05:47→20:59)
--- NOTE | 2019-12-05 07:09 | NUR ---
RN NOTES PATIENT REMAINED STABLE. CONTINUE WITH ETT AND VENT SETTING TOLERATED WELL. .SB BR ON TELE MONITOR. CONTINEU WITH DIPRIVAN TITRATED PROTOCOL ORDERED. OGTF TOLERATED WELL. CONDOM CATH REMAINED INTACT AND PATENT. BMX2. KEPT PT CLEAN AND DRY. ENDORSED CONTINUITY OFCARE TO AM NURSE. Addendum: 12/05/19 at 0803 by EMY ZARAGOZA RN Received patient @ 0700. Report received from Cristina MATTHEW. Patient in bed, HOB elevated. Sedated with propofol drip. Intubated, tolerating well AC mode settings. Not in distress. OGtube feeding tolerated well. Soft rerstraints to both wrists intact, circulation intact.
[2019-12-05 07:59] LABS: ABG BASE EXCESS 2.1 mmol/L; ABG OXYGEN SATURATION 95.6 % (92.0-98.5); ABG PCO2 36.5 mmHg (35.0-45.0); ABG PH 7.467 (7.350-7.450); ABG PO2 83.2 mmHg (75.0-100.0); AaDO2 123.9 mmHg; COHb 0.2 % (0.5-1.5); MetHb 0.4 % (0.0-1.5); PEEP,BG 0 cm H2O; SITE, ABG Right Radial; VT, ABG 500 mL
--- NOTE | 2019-12-05 08:17 | NUR ---
Dr. Thomson seen patient today, updated by RN with laboratory results today, re: elevated BUN (74) No new order made.
[2019-12-05] MEDS: PANTOPRAZOLE 40 MG/PACK PACK GT SCH (08:55)
[2019-12-05] MEDS: HYDROCORTISONE SOD SUCCINATE 100 MG/2 ML VIAL IV SCH ×2 (08:56→17:04)
[2019-12-05] MEDS: HEPARIN SODIUM, PORCINE 5000 UNITS/1 ML VIAL SQ SCH ×2 (08:56→21:31)
[2019-12-05] MEDS: IV 1/2NS 1000 ML 1,000 ML IV PRN (08:57)
--- NOTE | 2019-12-05 16:40 | NUR ---
Message sent to Dr. Evan Thomson, re: patient's temperature of 103 F. He replied to order blood cultures X2, 8 ml each bottle, procalcitonin level, LFT, urinalysis, and urine culture. No antipyretic ordered. All labs orders put in. Sponge bath and cold compress rendered to patient. Will monitor temperature.
--- NOTE | 2019-12-05 17:40 | NUR ---
Temp. 101.5. Cooling measures applied continuously.
--- NOTE | 2019-12-05 19:00 | NUR ---
Report given to Melissa Real RN. Patient remains on vent throu ETT, tolerated well. On cooling measures for fever. OGtube tolerated well. Propofol drip and IV 0.45% infusing well to the Left upper arm PICC line.
[2019-12-05 19:03] LABS: ALBUMIN 1.9 g/dL (3.4-5.0); BILIRUBIN,TOTAL 0.2 mg/dL (0.2-1.0); TOTAL PROTEIN, SERUM 5.7 g/dL (6.4-8.2)
[2019-12-05 19:17] LABS: APPEARANCE,URINE CLEAR (CLEAR); BILIRUBIN,URINE NEGATIVE (NEGATIVE); BLOOD, URINE LARGE Ery/uL (NEGATIVE); COLOR,URINE YELLOW (YELLOW); KETONES,URINE NEGATIVE (NEGATIVE); LEUKOCYTE ESTERASE ,URINE NEGATIVE (NEGATIVE); NITRITE, URINE NEGATIVE (NEGATIVE); PROTEIN,URINE NEGATIVE (NEGATIVE); UGLUCOSE NEGATIVE (NEGATIVE); UROBILINOGEN,URINE 0.2 EU/dL (0.2)
--- NOTE | 2019-12-05 19:30 | NUR ---
PATIENT ASSESSMENT COORDINATOR RCD PT W/DX RESP FAIL. PT IS SEDATED ON PROPOFOL AT 35 MCG/KG/MIN. SB 42 ON MONITOR. INTUBATED 7@ 23 W/VENT SETTINGS AC 12 500 35%; RENDERED ORAL CARE PT HAS THIN WHITE SECRETIONS. CONDOM CATH IN PLACE. CONTINUE TO MONITOR.
--- NOTE | 2019-12-05 20:00 | NUR ---
DIRECT MARKETING EXECUTIVE TEMP 101.[address]; NO ACETAMINOPHEN PER MD. CONTINUE TO MONITOR.
[2019-12-06] VITALS (39 sets, daily range): BP systolic 92–165; BP diastolic 43–130
[2019-12-06] MEDS: PROPOFOL 100 ML IV PRN ×3 (01:25→18:18)
[2019-12-06 05:26] LABS: CALCIUM, SERUM 7.4 mg/dL (8.5-10.1); CARBON DIOXIDE 26 mmol/L (21-32); CHLORIDE 112 mmol/L (98-107); GLUCOSE 98 mg/dL (74-106); SODIUM SERUM 149 mmol/L (136-145); UREA NITROGEN, BLOOD 78 mg/dL (7-18)
[2019-12-06 05:30] LABS: POTASSIUM 2.3 mmol/L (3.5-5.1)
[2019-12-06] MEDS: PIPERACILLIN /TAZOBACTAM 3.375 G in IV D5W 50 ML IV SCH ×4 (05:30→12:19)
[2019-12-06] MEDS: BLOOD SUGAR DIAGNOSTIC 1 EACH STRIP IN SCH ×4 (05:30→17:33)
--- NOTE | 2019-12-06 07:00 | NUR ---
TOOL PLANNER PT MAINTAINED TEMP OF 103 WELL BUE TREMORS THROUGHOUT THE SHIFT. NO ORDERS AT THIS TIME. CONTINUE TO MONITOR.
[2019-12-06] MEDS: POTASSIUM CHLORIDE 20 MEQ POWDER PACKET NG SCH ×5 (07:34→11:57)
--- NOTE | 2019-12-06 07:40 | NUR ---
AGRICULTURE SCIENCE TEACHER: pt.is sedated with 35 mcg/kg/m Diprivan, can open eyes spont. for seconds, no SOB, no distress, O2sat over 95%, hands tremor (Parkinson Dx), HR 160-170 on monitor d/t tremor by report, Afib history, SB 45-55 when relax with continues sedation, SBP over 90 below 150, K+ 2.3, saw pt., updated by night nurse, ordered 50 meq KCl(10meq q1h) via GT, confirmed ok for PO meds by report, IVF: 1/2NS@40ml/h, Na+ 149, OGTF residual 15ml, keep HOB over 40, on wrists restraints/skin is intact, no redness
--- NOTE | 2019-12-06 07:41 | NUR ---
HEMSTITCHING MACHINE OPERATOR: note correction- ordered 100meq KCl GT (20meq q1h)
--- NOTE | 2019-12-06 07:45 | NUR ---
ASSOCIATE MEDIA PLANNER: PICC white lumen is occluded
--- NOTE | 2019-12-06 07:50 | NUR ---
REPROGRAPHICS ASSOCIATE: pt is with severe hands tremor now, no grimacing, can open eyes, coughing, RR 18-24, increased Diprivan to 40 mcg/kg/m, SB 45-55, getting KCl
--- NOTE | 2019-12-06 08:15 | NUR ---
WALKING DRAGLINE OPERATOR: RT updated with pt.current condition, sedation level, switched pt.to CPAP mode
--- NOTE | 2019-12-06 08:30 | NUR ---
SUPERVISOR DRILLING AND SHOOTING: pt is on CPAP mode now, O2sat. 98-99%, RR 14-18, decreased sedation of Diprivan, RT is in room/updated, SB 42-46 now, BP 116/67, continue monitoring
[2019-12-06] MEDS: PANTOPRAZOLE 40 MG/PACK PACK GT SCH (08:33)
[2019-12-06] MEDS: HYDROCORTISONE SOD SUCCINATE 100 MG/2 ML VIAL IV SCH ×2 (08:33→17:12)
[2019-12-06] MEDS: HEPARIN SODIUM, PORCINE 5000 UNITS/1 ML VIAL SQ SCH ×2 (08:36→21:33)
--- NOTE | 2019-12-06 09:06 | NUR ---
OPHTHALMOLOGIST: pt is on CPAP, O2sat. 98-99%, RR 23-24, 20 mcg/kg/m Diprivan gtt now, pt.is open eyes, no any eyes contact, tracking reaction, no grimacing, severe arms tremor, upper body tremor, HR 140-160 on monitor ?by tremor, R waves peaks are around 60 beats per min, BP 122/95, next : ABG
--- NOTE | 2019-12-06 10:15 | NUR ---
RAILROAD PURCHASING AGENT: pt.is with 20 mcg/kg/m Diprivan, with open eyes, no contact reaction, unable to decreased sedation d/t pt.severe tremor, suction well, O2sat.97-98%, RR 28-34, waiting ABG, physical therapy asst
[2019-12-06 10:51] LABS: ABG OXYGEN SATURATION 97.6 % (92.0-98.5); ABG PH 7.436 (7.350-7.450); ABG PO2 121.4 mmHg (75.0-100.0); AaDO2 125.9 mmHg; COHb 0.2 % (0.5-1.5); MetHb 0.6 % (0.0-1.5); O2Hb 96.8 % (94.0-97.0); PEEP,BG 5 cm H2O; SITE, ABG Right Radial; VENT MODE, BG CPAP PSV=15
--- NOTE | 2019-12-06 11:00 | NUR ---
DIRECTOR PRODUCT SAFETY: pt.is on CPAP during 2 hrs, tachypnea, RR 28-32, chert laboring, diaphoretic, HR 140-150 on monitor ?d/t tremor, R waves around 60 per min, SBP 158, still with severe tremor, grimacing, on 20mcg/kg/m Diprivan now, ABG: pH7.43/33/121/21, is in room, updated with all above, spoke with RTs, said: place back on AC mode, keep pt.sedated well
[2019-12-06] MEDS: IV 1/2NS 1000 ML 1,000 ML IV PRN (11:24)
--- NOTE | 2019-12-06 12:11 | NUR ---
WOOD PATTERNMAKER: T 101.2, cooling measures initiated
--- NOTE | 2019-12-06 12:45 | NUR ---
FUEL AGENT: is in room, updated with pt.current, neurostatus, VS, SIMV mode attempt during 2 hrs today, severe tremor with low sedation level, distress, IVF, OGTF, IVF, labs, ABG, O2sat., bradycardia, K+ replacement order, I/O, gave verbal order: start Sinemet 25/100mg q6h via GT
[2019-12-06] MEDS ORDERED: MEROPENEM 500 MG in IV NS 0.9% 50 ML IV ONE (14:00)
[2019-12-06] MEDS ORDERED: FEE PK DOSING 1 MIN EA MC ONE (14:00)
[2019-12-06] MEDS: CARBIDOPA/LEVODOPA 25/100 MG 1 UDTAB GT SCH ×2 (14:16→17:33)
--- NOTE | 2019-12-06 15:44 | NUR ---
BOX BLANK MACHINE OPERATOR: notified RT re Sputum induction order
[2019-12-06] MEDS: VANCOMYCIN 1 GM in IV D5W 250 ML IV SCH (15:56)
--- NOTE | 2019-12-06 16:00 | NUR ---
HOUSING MANAGER: O2sat. over 97%, RR 18-20 now, pt rest now, on 40 mcg/kg/m Diprivan gtt, mild tremor, suctioned well, SB 48-55, SBP 100-110, is in room to reevaluate pt./updated
[2019-12-06] MEDS: INSULIN REGULAR, HUMAN 100 UNIT/ML 3 ML VIAL SQ PRN (17:35)
--- NOTE | 2019-12-06 18:44 | NUR ---
HUMAN RESOURCE ASSISTANT: pt is sedated well with 35 mcg/kg/m of Diprivan, reactive by touch, SB, 44-50, up to 80 by activity/suction, O2sat. over 98%, condom cath is intact/patent, all PM/skin/wound care done, Vanush,RT got sputum sample, [id number] miscellaneous order placed in as miscellaneous lab order
[2019-12-06] MEDS: NEPRO 1,000 ML BOTTLE GT PRN ×2 (21:30)
--- NOTE | 2019-12-06 22:20 | NUR ---
PUMP AND STILL OPERATOR PT NOTED WITH INCREASED TREMORS. CONTINUE TO MONITOR.
[2019-12-07] VITALS (24 sets, daily range): BP systolic 117–162; BP diastolic 46–101
[2019-12-07] MEDS: IV NS 0.9% 250 ML IV PRN
--- NOTE | 2019-12-07 | NUR ---
POWER REACTOR SUPERVISOR TEMP 101.2 CONTINUE TO MONITOR NO ORDER AT THIS TIME.
[2019-12-07 05:30] LABS: CALCIUM, SERUM 7.2 mg/dL (8.5-10.1); CARBON DIOXIDE 25 mmol/L (21-32); CHLORIDE 119 mmol/L (98-107); CREATININE 2.4 mg/dL (0.6-1.3); GLUCOSE 173 mg/dL (74-106); UREA NITROGEN, BLOOD 74 mg/dL (7-18)
[2019-12-07] MEDS: BLOOD SUGAR DIAGNOSTIC 1 EACH STRIP IN SCH ×4 (05:30→17:42)
[2019-12-07] MEDS: CARBIDOPA/LEVODOPA 25/100 MG 1 UDTAB GT SCH ×4 (05:30→17:42)
[2019-12-07 05:31] LABS: SODIUM SERUM 156 mmol/L (136-145)
[2019-12-07 05:32] LABS: POTASSIUM 2.4 mmol/L (3.5-5.1)
[2019-12-07] MEDS: INSULIN REGULAR, HUMAN 100 UNIT/ML 3 ML VIAL SQ PRN ×3 (05:44→17:47)
[2019-12-07] MEDS: POTASSIUM CHLORIDE 20 MEQ POWDER PACKET NG SCH ×6 (06:35→12:06)
--- NOTE | 2019-12-07 07:15 | NUR ---
AIR POLLUTION SPECIALIST NOTES RECEIVED PATIENT SEDATED, RESPONSIVE TO PAIN STIMULI NOTED WITH OCCASIONAL TREMORS , NOT IN ACUTE DISTRESS , RESPIRATIONS EVEN AND UNLABORED WITH SPO2 OF 100% , ETT 7.5/ IN PLACE WITH VENT SETTINGS ORDERED , SB 45 ON BEDSIDE MONITOR , CONDOM CATH IN PLACE DRAINING VIA GRAVITY, OGT IN PLACE WITH NEPHRO @ 45MLHR INFUSING WELL WITH NO RESIDUALS , DIPRIVAN @ 15MCG/KG/MIN , WITH 1/S NS @ 40ML/HR INFUSING WELL , ALL NEEDS ATTENDED , BED ON LOW AND LOCKED POSITION , SIDE RAILS X2 CALL LIGHT WITHIN REACH , HOB @ 35 , WILL CONTINUE TO MONITOR
--- NOTE | 2019-12-07 08:10 | NUR ---
SALES DEPARTMENT CLERK NOTES PT ON SEDATION VACATION , DIPRIVAN HELD , PT PLACED ON BILATERAL SOFT WRIST RESTRAINS , TOLERATING CURRENT VENT SETTINGS , WILL CONTINUE TO MONITOR
[2019-12-07] MEDS: HYDROCORTISONE SOD SUCCINATE 100 MG/2 ML VIAL IV SCH ×2 (08:33→16:05)
[2019-12-07] MEDS: PANTOPRAZOLE 40 MG/PACK PACK GT SCH (08:33)
[2019-12-07] MEDS: HEPARIN SODIUM, PORCINE 5000 UNITS/1 ML VIAL SQ SCH ×2 (08:35→20:57)
[2019-12-07 09:12] LABS: ABG BASE EXCESS -1.7 mmol/L; ABG OXYGEN SATURATION 95.4 % (92.0-98.5); ABG PH 7.451 (7.350-7.450); ABG PO2 84.5 mmHg (75.0-100.0); AaDO2 91.8 mmHg; COHb 0.3 % (0.5-1.5); MetHb 0.5 % (0.0-1.5); O2Hb 94.6 % (94.0-97.0); PEEP,BG 0 cm H2O; SITE, ABG Right Radial; VT, ABG 500 mL
--- NOTE | 2019-12-07 10:29 | NUR ---
COOK FRY NOTES SEEN AND EVALUATED BY DR KEEN , NOTIFIED REGARDING PT STATUS ,ABG , LABS , PT ABLE TO OPENS EYES OFF SEDATION , WITH OCCASIONAL TREMORS DUE TO PARKINSONS DISEASE , SB 40-50 WITH HR OF 150-190 DURING TREMORS , TOLERATING CURRENT VENT SETTING , AFEBRILE . PER MD PUT PT ON SIMV MODE OF 4 PSV 12-15 PEEP OF 5 , ORDERS CARRIED OUT , CALLED RT FOR VENT CHANGES
--- NOTE | 2019-12-07 10:59 | NUR ---
ASSOCIATE PROFESSOR OF SOCIOLOGY NOTES PLACE PT ON SIMV MODE SETTINGS ORDERED , PT OPENS EYES , TRACKS , VS STABLE WITH OCCASIONAL TREMORS CAUSING HR OF 150-160 THEN GOES BACK AT SB 45 TO SR OF 60 , VSS AFEBRILE , WILL CONTINUE TO MONITOR .
[2019-12-07] MEDS ORDERED: MEROPENEM 500 MG in IV NS 0.9% 100 ML IV SCH (12:00)
[2019-12-07] MEDS: MEROPENEM 500 MG in IV NS 0.9% 100 ML IV SCH ×3 (12:06)
[2019-12-07 12:20] LABS: ABG BASE EXCESS -2.4 mmol/L; ABG OXYGEN SATURATION 96.4 % (92.0-98.5); ABG PCO2 31.8 mmHg (35.0-45.0); ABG PO2 96.5 mmHg (75.0-100.0); COHb 0.2 % (0.5-1.5); MetHb 0.4 % (0.0-1.5); O2Hb 95.8 % (94.0-97.0); PEEP,BG 5 cm H2O; SITE, ABG Right Radial; VENT MODE, BG SIMV PS=12; VT, ABG 500 mL
--- NOTE | 2019-12-07 12:24 | NUR ---
DIE REPAIRER FORGING NOTES SEEN AND EVALUATED BY DR KEEN ON SIMV MODE , TOLERATING CURRENT VENT SETTINGS , NO DISTRES NOTED , DISCUSSED ABG RESULT , BP OF 142/58 , RR 18-22 , TEMP OF 99.9 , HR OF 40-45 WITH OCCASIONAL HR OF 181 ARTIFACTS ? DUE TO TREMORS , PER MD KEEP SIMV MODE SETTINGS ORDERED AND AC PUT PT ON AC MODE AT NIGHT
[2019-12-07] MEDS ORDERED: POTASSIUM CHLORIDE 20 MEQ POWDER PACKET NG ONE (13:30)
--- NOTE | 2019-12-07 13:45 | NUR ---
HEALTH PSYCHOLOGIST NOTES, PT PLACED ON AC MODE ORDERED , PT RR OF 30-45 CPM , HR 120-130 BPM WITH SEVERE TREMORS NOTED , DIPRIVAN STARTED @ 5MCG/KG/MIN , DR KEEN NOTIFIED
[2019-12-07] MEDS: PROPOFOL 100 ML IV PRN ×2 (13:46)
[2019-12-07] MEDS: PRIMIDONE 50 MG TABLET NG SCH (14:20)
[2019-12-07] MEDS ORDERED: IV D5W 1,000 ML IV PRN (15:30)
[2019-12-07] MEDS: VANCOMYCIN 1 GM in IV D5W 250 ML IV SCH (16:05)
[2019-12-07] MEDS: NEPRO 1,000 ML BOTTLE GT PRN (16:41)
[2019-12-07] MEDS ORDERED: Z GUARD REMEDY 4 OZ OINT TP PRN (17:00)
--- NOTE | 2019-12-07 17:48 | NUR ---
RT NOTE: PATIENT RECEIVED ORALLY INTUBATED WITH 7.5 ETT SECURED AT 26 CM MID LIP LINE ON PB 840 VENT. ALARMS VERIFIED AND AUDIBLE. SUCTIONED AND LAVAGED MODERATE-LARGE THICK NICOLE SECRETIONS. VENT PLUGGED INTO RED OUTLET. AMBU BAG AT [facility].
--- NOTE | 2019-12-07 18:59 | NUR ---
DIRECTOR OF AUDIOLOGY NOTES PATIENT STABLE , SEDATED, RESPONSIVE TO PAIN STIMULI NOTED WITH OCCASIONAL TREMORS , NOT IN ACUTE DISTRESS , RESPIRATIONS EVEN AND UNLABORED WITH SPO2 OF 100% , ETT 7.5/[address] WITH VENT SETTINGS ORDERED , SB 40 ON BEDSIDE MONITOR , CONDOM CATH IN PLACE DRAINING VIA GRAVITY, OGT IN PLACE WITH NEPHRO @ 45MLHR INFUSING WELL WITH NO RESIDUALS , DIPRIVAN @ 05MCG/KG/MIN , WITH D5W @ 40ML/HR INFUSING WELL , ALL NEEDS ATTENDED , BED ON LOW AND LOCKED POSITION , SIDE RAILS X2 CALL LIGHT WITHIN REACH , HOB @ 35 , REPORT GIVEN TO ALMAS FOR CONTINUITY OF CARE
[2019-12-08] VITALS (30 sets, daily range): BP systolic 95–167; BP diastolic 21–149
[2019-12-08] MEDS: CARBIDOPA/LEVODOPA 25/100 MG 1 UDTAB GT SCH ×2 (00:21→06:04)
[2019-12-08] MEDS: BLOOD SUGAR DIAGNOSTIC 1 EACH STRIP IN SCH ×5 (00:21→23:41)
[2019-12-08] MEDS: MEROPENEM 500 MG in IV NS 0.9% 100 ML IV SCH ×3 (00:21→23:41)
[2019-12-08] MEDS: PROPOFOL 100 ML IV PRN ×2 (00:22→10:29)
[2019-12-08 05:37] LABS: CALCIUM, SERUM 7.6 mg/dL (8.5-10.1); CARBON DIOXIDE 25 mmol/L (21-32); CHLORIDE 118 mmol/L (98-107); GLUCOSE 122 mg/dL (74-106); POTASSIUM 3.9 mmol/L (3.5-5.1); SODIUM SERUM 155 mmol/L (136-145); UREA NITROGEN, BLOOD 71 mg/dL (7-18)
--- NOTE | 2019-12-08 06:50 | NUR ---
DESK ASSISTANT PT REMAINED WITH ELEVATE TEMP W/NO ORDERS FOR ANTIPYRETICS. CONTINUE TO MONITOR.
--- NOTE | 2019-12-08 07:15 | NUR ---
DIRECTOR OF ANNUAL GIVING NOTES RECEIVED PATIENT SEDATED, NOTED WITH SEVERE CONTINUOUS TREMORS , NOT IN ACUTE DISTRESS , RESPIRATIONS EVEN AND UNLABORED WITH SPO2 OF 100% , ETT 7.[address] WITH VENT SETTINGS ORDERED , ST 105 ON BEDSIDE MONITOR , CONDOM CATH IN PLACE DRAINING VIA GRAVITY, OGT IN PLACE WITH NEPHRO @ 45MLHR INFUSING WELL WITH NO RESIDUALS , DIPRIVAN @ 20MCG/KG/MIN , WITH D5W @ 40ML/HR INFUSING WELL , ALL NEEDS ATTENDED , BED ON LOW AND LOCKED POSITION , SIDE RAILS X2 CALL LIGHT WITHIN REACH , HOB @ 35 , WILL CONTINUE TO MONITOR
--- NOTE | 2019-12-08 07:15 | NUR ---
AIRCRAFT CLEANER NOTES TEMP OF 103.1 , COOLING MEASURES GIVEN , NOTIFIED DR BRITTON REGARDING TEMP AND CONTINUOUS SEVERE TREMORS , AWAITING FOR CALL BACK
--- NOTE | 2019-12-08 08:00 | NUR ---
MEDICAL INSTRUMENT CABLE FABRICATOR NOTES UNABLE TO DO SEDATION VACATION , PT NOTED WITH HR OF 110-120 , UNCONTROLLED TREMORS , RR OF 30-35 CPM , WITH SPO2 OF 89-92%
[2019-12-08] MEDS: HYDROCORTISONE SOD SUCCINATE 100 MG/2 ML VIAL IV SCH ×2 (08:16→16:14)
[2019-12-08] MEDS: PANTOPRAZOLE 40 MG/PACK PACK GT SCH (08:16)
[2019-12-08] MEDS: PRIMIDONE 50 MG TABLET NG SCH (08:18)
[2019-12-08] MEDS ORDERED: LORAZEPAM INJ 2 MG/ML VIAL IV ONE ×2 (08:30→09:00)
--- NOTE | 2019-12-08 08:30 | NUR ---
READY TO WEAR DEPARTMENT MANAGER NOTES TEMP OF 102.1 , COOLING BLANKET APPLIED WILL CONTINUE TO MONITOR
--- NOTE | 2019-12-08 08:37 | NUR ---
LIGHTING EQUIPMENT OPERATOR NOTES TREMORS STOPPED AFTER GIVING ATIVAN 2MG , BP OF 138/75 , HR 76 , SPO2 OF 95% VIA MECHANICAL VENT SETTINGS ORDERED , RR 25CPM , TEMP OF 102.3 WILL CONTINUE TO MONITOR NOTIFIED DR ORTEZ AND DR BRITTON THAT TREMORS STOPPED AFTER ATIVAN 2MG , PROCEED WITH EEG AND MIGHT START ATIVAN DRIP IF TREMORS COME BACK
--- NOTE | 2019-12-08 09:30 | NUR ---
INSTALLATION DRAFTER NOTES SEEN AND EVALUATED BY DR ORTEZ , DISCUSSED PT STATUS , CURRENT VENT SETTINGS , LABS , TEMP OF 102.1 , NO TREMORS SEIZURE ? AFTER ATIVAN 2MG IVP , EEG ORDERED . PT FAILED WEANING X2 , NEURO STATUS OPENS EYES DOESN'T FOLLOW COMMANDS , NO TRACKING NOTED , ORDERED RAPID INFLUENZA SWAB , ORDER CARRIED OUT
[2019-12-08] MEDS: LORAZEPAM INJ 2 MG/ML VIAL IV PRN ×3 (10:57→23:41)
--- NOTE | 2019-12-08 11:00 | NUR ---
TAR POT WORKER NOTES PT NOTED WITH TREMORS , , SEIZURE LIKE ACTIVITY FOR 35-40 SECONDS , HR OF 120-130 , ATIVAN 2 MG GIVEN , SEIZURES STOP AFTER ATIVAN 2MG IVP , WILL CONTINUE TO MONITOR
[2019-12-08] MEDS: INSULIN REGULAR, HUMAN 100 UNIT/ML 3 ML VIAL SQ PRN ×2 (11:11→23:46)
[2019-12-08] MEDS ORDERED: NEPRO 1,000 ML BOTTLE GT PRN (12:00)
--- NOTE | 2019-12-08 12:01 | NUR ---
WELL DIGGER NOTES NOTIFIED DR BRITTON THAT PT HAS NO CBC SINCE DECEMBER 04 , DIETARY IS RECOMMENDING TO DECREASE GT FEEDING OF NEPHRO FROM 45 TO 35ML/HR , PER MD OK TO ORDER CBC FOR TODAY AND OK TO DECREASE TUBE FEEDING ORDERS CARRIED OUT
--- NOTE | 2019-12-08 12:35 | NUR ---
SUPPORT GROUP MANAGER NOTES NOTIFIED DR SCHULER REGARDING HR OF SB 30-35 BMP POST ATIVAN 2MG , PT ON DIPRIVAN @ 10MCG/KG/MIN , BP OF 124/59 , SEDATED , MD AWARE NO NEW ORDERS
[2019-12-08 12:59] LABS: BASOPHILS # (AUTO) 0.2 /CMM (0.0-0.2); BASOPHILS % (AUTO) 1.1 % (0.0-2.0); HEMATOCRIT 26 % (39-51); HEMOGLOBIN 8.5 g/dL (13.5-17.5); LYMPHOCYTES # (AUTO) 1.9 /CMM (0.8-4.8); LYMPHOCYTES % (AUTO) 13.3 % (20.0-44.0); MEAN CORPUSCULAR HGB CONC 32 g/dl (31.0-36.0); MEAN CORPUSCULAR VOLUME 96 fL (80-96); MONOCYTES # (AUTO) 1.2 /CMM (0.1-1.30); MONOCYTES % (AUTO) 8.2 % (2.0-12.0); NEUTROPHILS # (AUTO) 10.9 /CMM (1.8-8.9); NEUTROPHILS % (AUTO) 77.4 % (43.0-81.0); PLATELET COUNT (AUTO) 327 /CMM (150-450); RED BLOOD CELL COUNT(AUTO) 2.74 MIL/uL (4.5-6.0); WHITE BLOOD COUNT (AUTO) 14.1 K/uL (4.3-11.0)
--- NOTE | 2019-12-08 13:14 | NUR ---
PT RECEIVED ORALLY INTUBATED ON MECHANICAL VENT W/ SETTINGS PER MD. VENT IN RED OUTLET, VENT ALARMS CHECKED AND AUDIBLE, AMBUBAG AT BEDSIDE. PT SX'ED AND LAVAGED PRN. BS EQUAL AND DIMINISHED. ETT TUBE SECURED, PATENT, CLEAN AND DRY. ABG HELD PER DR. ORTEZ. NO RESP DISTRESS NOTED. PLAN IS TO CONTINUE CARE UNDER CURRENT MD ORDERS AND MONITOR FOR CHANGES. Addendum: 12/08/19 at 1314 by BENNIE ADAMES RT Amended: Links added.
[2019-12-08 15:53] LABS: LYMPHOCYTES % (MANUAL) 7 % (16-48); MONOCYTES % (MANUAL) 4 % (0-11.0); NEUTROPHILS % (MANUAL) 89 (42-76)
--- NOTE | 2019-12-08 15:55 | NUR ---
OUTSIDE SALESMAN NOTES NOTIFIED [facility] THAT VANCOMYCIN DOSE IS NOT AVAILABLE , SCHEDULE FOR 1500 , NOTIFIED REGARDING THROUGH , PER PHARMACY THEY WILL SEND IT
[2019-12-08] MEDS: VANCOMYCIN 1 GM in IV D5W 250 ML IV SCH (17:07)
[2019-12-08] MEDS ORDERED: Z GUARD REMEDY 4 OZ OINT TP PRN (17:30)
--- NOTE | 2019-12-08 18:00 | NUR ---
DIGITAL PRESS OPERATOR NOTES POWER MARKETER AT BEDSIDE ,
--- NOTE | 2019-12-08 19:00 | NUR ---
INSURANCE SALES PRODUCER NOTES PATIENT STABLE S/P ATIVAN 2MG DUE TO SEVERE TREMORS , SEDATED NOT IN ACUTE DISTRESS , RESPIRATIONS EVEN AND UNLABORED WITH SPO2 OF 100% , ETT 7.5/[address] WITH VENT SETTINGS ORDERED , SB 35-40 ON BEDSIDE MONITOR , CONDOM CATH IN PLACE DRAINING VIA GRAVITY, OGT IN PLACE WITH NEPHRO @ 35MLHR INFUSING WELL WITH NO RESIDUALS , DIPRIVAN @ 5 MCG/KG/MIN , WITH NS @ TKO INFUSING WELL , ALL NEEDS ATTENDED , BED ON LOW AND LOCKED POSITION , SIDE RAILS X2 CALL LIGHT WITHIN REACH , HOB @ 35 , REPORT GIVEN TO ROGER FOR CONTINUITY OF CARE
[2019-12-09] VITALS (48 sets, daily range): BP systolic 108–153; BP diastolic 47–125
--- NOTE | 2019-12-09 04:51 | NUR ---
PT RECEIVED ORALLY INTUBATED WITH NOTED SETTING. ETT PATENT AND SECURE VIA ANCHOR FAST. CONTROL SYSTEMS SPECIALIST NOTED. PT TOLERATING SETTING WELL. BILATERAL BS NOTED. NO SOB OR DISTRESS NOTED ON SHIFT. VENT TO RED OUTLET AND ALARMS SET AND AUDIBLE. Addendum: 12/09/19 at 0454 by CHRISTIANO MURILLO RT Amended: Links added.
[2019-12-09 05:28] LABS: CALCIUM, SERUM 8.1 mg/dL (8.5-10.1); CARBON DIOXIDE 27 mmol/L (21-32); CHLORIDE 121 mmol/L (98-107); CREATININE 1.6 mg/dL (0.6-1.3); GLUCOSE 136 mg/dL (74-106); UREA NITROGEN, BLOOD 74 mg/dL (7-18)
[2019-12-09 05:49] LABS: POTASSIUM 2.7 mmol/L (3.5-5.1); SODIUM SERUM 156 mmol/L (136-145)
[2019-12-09] MEDS: BLOOD SUGAR DIAGNOSTIC 1 EACH STRIP IN SCH ×3 (06:16→17:53)
[2019-12-09] MEDS: LORAZEPAM INJ 2 MG/ML VIAL IV PRN ×2 (07:26→14:16)
--- NOTE | 2019-12-09 07:48 | NUR ---
PATIENT REMAINS IN NO ACUTE DISTRESS IN BED. PATINET DID NOT HAVE ANY SIGNIFICANT CHANGE IN CONDITION DURING SHIFT. ALL NEEDS MET, ALL ORDERS CARRIED OUT. WILL ENDORSE CARE TO AM RN FOR CONTINUITY OF CARE.
[2019-12-09 07:50] LABS: MAGNESIUM 2.4 mg/dL (1.8-2.4); THYROID STIMULATING HORMONE 0.583 uIU/mL (0.358-3.74)
[2019-12-09] MEDS: POTASSIUM CHLORIDE 20 MEQ POWDER PACKET NG SCH ×4 (08:12→11:53)
[2019-12-09] MEDS: HYDROCORTISONE SOD SUCCINATE 100 MG/2 ML VIAL IV SCH ×2 (08:13→17:52)
[2019-12-09] MEDS: PANTOPRAZOLE 40 MG/PACK PACK GT SCH (08:13)
[2019-12-09 09:31] LABS: ABG PCO2 29.7 mmHg (35.0-45.0); ABG PH 7.468 (7.350-7.450); ABG PO2 73.1 mmHg (75.0-100.0); AaDO2 105.9 mmHg; COHb 0.3 % (0.5-1.5); MetHb 0.6 % (0.0-1.5); O2Hb 93.2 % (94.0-97.0); PEEP,BG 0 cm H2O; SITE, ABG Right Radial; VT, ABG 500 mL
[2019-12-09] MEDS: PROPOFOL 100 ML IV PRN ×2 (09:35→17:55)
[2019-12-09] MEDS: PRIMIDONE 50 MG TABLET NG SCH (09:49)
--- NOTE | 2019-12-09 10:20 | NUR ---
WOUND CARE CONSULT: PT PRESENTS WITH RASH TO INNER THIGHS, PERINEUM AND GROIN AREAS WELL SACRAL SCARRING. PT IS INCONTINENT OF URINE AND STOOL. RECOMMENDATIONS MADE FOR SKIN CARE AND PROTECTION. DISCUSSED WITH NURSING STAFF. PT ON BURTON ISOFLEX LOW AIRLOSS BED. WILL SEE PRN. BURKETT IN AGREEMENT WITH PLAN OF CARE. CURRENT MATHIEU SCORE IS 11. Addendum: 12/09/19 at 1021 by MARIE LEONE WNDNU Amended: Links added.
[2019-12-09] MEDS: MEROPENEM 500 MG in IV NS 0.9% 100 ML IV SCH (11:04)
[2019-12-09] MEDS: IV D5W 1,000 ML IV SCH (13:46)
--- NOTE | 2019-12-09 14:00 | NUR ---
ICU/RN ATIVAN 2MG IV GIVEN ORDERED BEFORE CT SCAN.
--- NOTE | 2019-12-09 15:00 | NUR ---
ICU/RN CT OF THE HEAD DONE ORDERED.PT IS BACK TO THE ROOM.
[2019-12-09] MEDS: JEVITY 1.2 CAL 1,000 ML BOTTLE GT PRN (15:31)
[2019-12-09] MEDS: VANCOMYCIN 1 GM in IV D5W 250 ML IV SCH (15:31)
[2019-12-09] MEDS: CLOTRIMAZOLE 1% 15 GM TUBE TP SCH (15:34)
--- NOTE | 2019-12-09 18:30 | NUR ---
ICU/RN PM CARE PROVIDED.DUE MEDS ARE GIVEN ORDERED.SUCTION PROVIDED.REPOSITION FOR COMFORT.
--- NOTE | 2019-12-09 21:15 | NUR ---
ABA TUTOR. INITIAL ASSESSMENT. RECEIVED THE PT REST ON THE BED, ORALLY INTUBATED. SEDATED WITH DIPRIVAN. ETT 7.5,LIP 26,AC 12,TV 500,FIO2 30%. SAT 96%, PROJECT CREW WORKER SHOWING S TIM. IV LT UPPER ARM PICC LINE DIPRIVAN 5MCG/KG/MIN,IVF D5W 40ML/H. NGT FLESH WITH WATER 150ML Q6H,OGT FEEDING JEVITY 60ML/H. HOB ELEVATED,. PAOLA UPPER EXTREMITY CONTRACTED. WILL CONTINUE TO MONITOR VITALS.
[2019-12-10] VITALS (41 sets, daily range): BP systolic 82–156; BP diastolic 14–93
[2019-12-10] MEDS: MEROPENEM 500 MG in IV NS 0.9% 100 ML IV SCH ×2 (00:05→11:56)
[2019-12-10] MEDS: BLOOD SUGAR DIAGNOSTIC 1 EACH STRIP IN SCH ×3 (00:05→11:56)
--- NOTE | 2019-12-10 04:46 | NUR ---
SUPERVISOR TRAIN OPERATIONS. AM CARE, ORAL CARE, BED BATH GIVEN. LINEN CHANGED. REMAINING SAME VENT SETTING TOLERATED WELL. SAT 96#. NO ACUTE DISTRESS NOTED CARDIAC E SHOWING NSR, AND FC PATENT. URINE DRAINING, TURN AND REPOSITION Q2H. TEMPERATURE 100. WILL CONTINUE TO MONITOR VITALS.
[2019-12-10 04:47] LABS: CALCIUM, SERUM 8.4 mg/dL (8.5-10.1); CARBON DIOXIDE 23 mmol/L (21-32); CREATININE 1.9 mg/dL (0.6-1.3); GLUCOSE 123 mg/dL (74-106); POTASSIUM 4.5 mmol/L (3.5-5.1); UREA NITROGEN, BLOOD 62 mg/dL (7-18)
[2019-12-10 04:58] LABS: SODIUM SERUM 157 mmol/L (136-145)
[2019-12-10 04:59] LABS: CHLORIDE 126 mmol/L (98-107)
[2019-12-10] MEDS: PANTOPRAZOLE 40 MG/PACK PACK GT SCH (08:53)
[2019-12-10] MEDS: HYDROCORTISONE SOD SUCCINATE 100 MG/2 ML VIAL IV SCH ×2 (08:53→17:00)
[2019-12-10] MEDS: PRIMIDONE 50 MG TABLET NG SCH (08:53)
[2019-12-10] MEDS: CLOTRIMAZOLE 1% 15 GM TUBE TP SCH ×2 (08:54→17:00)
[2019-12-10] MEDS: LORAZEPAM INJ 2 MG/ML VIAL IV PRN (11:57)
[2019-12-10] MEDS: IV D5W 1,000 ML IV SCH (14:01)
--- NOTE | 2019-12-10 19:00 | NUR ---
RECEIVED PATIENT ORALLY INTUBATED TO THE VENTILATOR ON AC MODE,ON MILD SEDATION ON PROPOFOL,AWAKENS EASILY ,OPENS EYES, WITH CONTINUOUS TREMORS (pARKINSONS DISEASE) .TREMORS STOPS ONCE IN AN WHILE IN VERY SHORT PERIOD ONLY. NOT IN ANY RESPIRATORY DISTRESS. ON TUBE FEEDING VIA OGT,TOLERATING WELL,ASPIRATION PRECAUTION IMPLEMENTED. COMFORT CARE DONE.
--- NOTE | 2019-12-10 22:00 | NUR ---
STILL WITH TREMORS, EASILY AWAKENS,OPENS EYES,DOES NOT FOLLOW COMMANDS.IF CALM /WITH NO TREMORS, HR=60'S. BUT ASYMPTOMATIC.
[2019-12-11] VITALS (48 sets, daily range): BP systolic 85–183; BP diastolic 46–111
--- NOTE | 2019-12-11 | NUR ---
FEBRILE,T=101.4, COOLING MEASURES DONE. STILL WITH CONTINUOUS TREMORS. 0015 TREMORS IS WORST , THAT PATIENT IS BECOMING TACHYPNEIC RR=30'S, TACHYCARDIC NN=536'S. PIP=38 WITH LABORED BREATHING.ATIVAN 2 MG IVP GIVEN.
[2019-12-11] MEDS: LORAZEPAM INJ 2 MG/ML VIAL IV PRN ×4 (00:15→22:19)
--- NOTE | 2019-12-11 00:15 | NUR ---
PATIENT WITH BAD TREMORS THAT PATIENT BECOMING TACHYPNEIC, WITH VERY LABORED BREATHING , PIP=38, RR=38. ATIVAN 2 MG IVP GIVEN
--- NOTE | 2019-12-11 02:00 | NUR ---
PATIENT NOW CALM, WITH NO TREMORS AFTER ATIVAN DOSE.WHEN CALM HR=55-60'S , BP STABLE
[2019-12-11] MEDS: JEVITY 1.2 CAL 1,000 ML BOTTLE GT PRN (03:59)
--- NOTE | 2019-12-11 04:00 | NUR ---
AM BATH DONE.
[2019-12-11 05:00] LABS: CALCIUM, SERUM 7.5 mg/dL (8.5-10.1); CARBON DIOXIDE 25 mmol/L (21-32); CHLORIDE 122 mmol/L (98-107); GLUCOSE 176 mg/dL (74-106); POTASSIUM 4.4 mmol/L (3.5-5.1); SODIUM SERUM 155 mmol/L (136-145); UREA NITROGEN, BLOOD 60 mg/dL (7-18)
--- NOTE | 2019-12-11 06:00 | NUR ---
STATUS UNCHANGED,STARTED TREMORING AGAIN . PRN ATIVAN GIVEN
--- NOTE | 2019-12-11 07:00 | NUR ---
REPORT GIVEN TO BERTO MATTHEW.
--- NOTE | 2019-12-11 07:30 | NUR ---
REACTOR TECHNICIAN OPENING NOTE RECEIVED REPORT FROM PM NURSE.PATIENT ORALLY INTUBATED TO THE VENTILATOR ON AC MODE.TOLERATING SETTINGS WELL.NO SOB NO DISTRESS NOTED.ON PROPOFOL.AWAKENS EASILY ,OPENS EYES, WITH TREMORS. ON TUBE FEEDING VIA OGT,TOLERATING WELL.SAFETY AND ASPIRATION PRECAUTIONS IN PLACE.BED I SLOW AND IN LOCKED POSITION.CALL LIGHT IN REACH.BED ALARM ON.SRX3.WILL CONTINUE TO MONITOR.
--- NOTE | 2019-12-11 07:55 | NUR ---
RT PATIENT REC'D ORALLY INTUBATED ON [facility] VENT WITH ORDERED SETTINGS. VENT ALARMS CHECKED + AUDIBLE. CONT CURRENT PLAN OF RESP CARE. Addendum: 12/11/19 at 1047 by JACK LANGSTON RT Amended: Links added.
[2019-12-11] MEDS: HYDROCORTISONE SOD SUCCINATE 100 MG/2 ML VIAL IV SCH ×2 (09:06→16:40)
[2019-12-11] MEDS: PANTOPRAZOLE 40 MG/PACK PACK GT SCH (09:06)
[2019-12-11] MEDS: IV D5W 1,000 ML IV SCH (09:12)
[2019-12-11] MEDS: CLOTRIMAZOLE 1% 15 GM TUBE TP SCH ×2 (09:12→16:38)
--- NOTE | 2019-12-11 09:30 | NUR ---
LOGISTICS TECHNICIAN NOTE SEEN BY .UPDATED ABOUT PATIENT CONDITION.NNO.WILL CONTINUE TO MONITOR.
[2019-12-11] MEDS: PROPOFOL 100 ML IV PRN ×3 (12:54→22:20)
--- NOTE | 2019-12-11 19:19 | NUR ---
DIRECTOR MEDICARE SALES CLOSING NOTE PATIENT ORALLY INTUBATED TO THE VENTILATOR ON AC MODE.TOLERATING SETTINGS WELL.NO SOB NO DISTRESS NOTED.ON PROPOFOL.AWAKENS EASILY ,OPENS EYES, WITH TREMORS. ON TUBE FEEDING VIA OGT,TOLERATING WELL.SAFETY AND ASPIRATION PRECAUTIONS IN PLACE.BED IS LOW AND IN LOCKED POSITION.CALL LIGHT IN REACH.BED ALARM ON.SRX3.AFEBRILE.ENDORSED TO PM NURSE FOR LEANNA.
[2019-12-12] VITALS (45 sets, daily range): BP systolic 56–164; BP diastolic 30–99
[2019-12-12] MEDS: JEVITY 1.2 CAL 1,000 ML BOTTLE GT PRN (01:00)
[2019-12-12 05:02] LABS: CALCIUM, SERUM 7.9 mg/dL (8.5-10.1); CARBON DIOXIDE 27 mmol/L (21-32); CHLORIDE 121 mmol/L (98-107); CREATININE 1.5 mg/dL (0.6-1.3); GLUCOSE 144 mg/dL (74-106); POTASSIUM 3.7 mmol/L (3.5-5.1); SODIUM SERUM 155 mmol/L (136-145); UREA NITROGEN, BLOOD 56 mg/dL (7-18)
[2019-12-12] MEDS: LORAZEPAM INJ 2 MG/ML VIAL IV PRN ×4 (05:27→21:32)
[2019-12-12] MEDS: PROPOFOL 100 ML IV PRN ×2 (06:42→16:01)
--- NOTE | 2019-12-12 07:05 | NUR ---
Patient remains in no acute distress in bed. patient did not have any significant change in condition during shift. all needs met, all order carried out, will endorse care to am rn for continuity of care. patient tolerated vent setting well.
[2019-12-12] MEDS: IV D5W 1,000 ML IV SCH (07:47)
--- NOTE | 2019-12-12 08:31 | NUR ---
received pt from restaurant shift leader, calmly sedated on Diprivan at 20mcg, does not follow commands, tremors at times, SB, intubated, lungs partially congested, some non pitting edema, OG to feeding tolerates well, f/c OK output, v/s stable, no pain, pt turned and repositioned, seen by Dr Hassan.
[2019-12-12 08:41] LABS: ABG BASE EXCESS -0.8 mmol/L; ABG PCO2 29.4 mmHg (35.0-45.0); ABG PH 7.491 (7.350-7.450); ABG PO2 101.2 mmHg (75.0-100.0); AaDO2 78.2 mmHg; COHb 0.3 % (0.5-1.5); MetHb 0.8 % (0.0-1.5); O2Hb 95.9 % (94.0-97.0); PEEP,BG 0 cm H2O; SITE, ABG Right Radial
[2019-12-12] MEDS: HYDROCORTISONE SOD SUCCINATE 100 MG/2 ML VIAL IV SCH ×2 (09:32→16:22)
[2019-12-12] MEDS: PANTOPRAZOLE 40 MG/PACK PACK GT SCH (09:32)
[2019-12-12] MEDS: CLOTRIMAZOLE 1% 15 GM TUBE TP SCH ×2 (09:33→16:23)
--- NOTE | 2019-12-12 16:15 | NUR ---
pt is resting in the bed, calmly sedated on Diprivan at 20mcg, SR, tolerates feeding, OK urine output, v/s stable, no pain, pt cleaned, changed and repositioned q2hrs.
--- NOTE | 2019-12-12 20:02 | NUR ---
PT RCVD ORALLY INTUBATED WITH 7.5 ETT SECURED @ 26 CM LIP LINE ON VENT WITH NOTED SETTINGS. PT IS SEDATED . VENT ALARMS ARE SET AND AUDIBLE. EQUAL CHEST RISE NOTED. VENT PLUGGED INTO RED OUTLET. MIXING SUPERVISOR DONE. SUCTIONED DONE PRN. AMBU BAG @ BEDSIDE. WILL CONTINUE TO MONITOR THE PT T/O SHIFT.
--- NOTE | 2019-12-12 20:55 | NUR ---
icurn notes Received pt from Day shift, remains on ventilator with ac settings well tolerated by pt,On SB on the monitor ,Pt is calmly sedated on Diprivan at 20mcg, does not follow commands, tremors at times, intubated, lungs sound diminished , OG to feeding jevity 1.2 at 60cc/hr tolerates well no residual noted v/s stable afebrile ,sating 97% ,Hob elevated at all times for aspiration precaution ,Pt turned and repositioned.no sob no distress noted ,all needs attended too , suction secretion done.pt on piccline at jeremy 3lumen intact and patent, will continue to monitor .on condom cath draining with yellowish urine output.kept pts clean dry and comfortable .
[2019-12-13] VITALS (41 sets, daily range): BP systolic 102–173; BP diastolic 28–131
[2019-12-13] MEDS: JEVITY 1.2 CAL 1,000 ML BOTTLE GT PRN (00:14)
[2019-12-13] MEDS: PROPOFOL 100 ML IV PRN ×4 (00:15→22:46)
[2019-12-13] MEDS: LORAZEPAM INJ 2 MG/ML VIAL IV PRN ×4 (01:57→21:13)
--- NOTE | 2019-12-13 07:13 | NUR ---
sericulture teacher notes pt in bed remain on ventilator ,intubated and sedated ,on propolol at 20mcg ,sb on monitor , no sob no distress noted ,will endorse to rn day shift for continuity of care.
[2019-12-13] MEDS: IV D5W 1,000 ML IV SCH (07:38)
--- NOTE | 2019-12-13 08:13 | NUR ---
received pt from awake overnight counselor, calmly sedated on Diprivan at 20mcg, SB, on the vent, lungs partially congested, some non pitting edema, tolerates feeding, condom cath good output, v/s stable, no pain, pt turned and repositioned.
[2019-12-13] MEDS: HYDROCORTISONE SOD SUCCINATE 100 MG/2 ML VIAL IV SCH ×2 (08:56→16:44)
[2019-12-13] MEDS: PANTOPRAZOLE 40 MG/PACK PACK GT SCH (08:56)
[2019-12-13] MEDS: CLOTRIMAZOLE 1% 15 GM TUBE TP SCH ×2 (08:57→16:40)
[2019-12-13 09:54] LABS: ABG BASE EXCESS 0.4 mmol/L; ABG PH 7.484 (7.350-7.450); ABG PO2 87.9 mmHg (75.0-100.0); AaDO2 88.4 mmHg; COHb 0.3 % (0.5-1.5); MetHb 0.6 % (0.0-1.5); O2Hb 95.1 % (94.0-97.0); PEEP,BG 0 cm H2O; SITE, ABG Left Radial; VT, ABG 500 mL
--- NOTE | 2019-12-13 16:21 | NUR ---
pt is calmly sedated on Diprivan at 20mcg, SR, tolerating diet, good urine output, v/s stable, no pain, pt cleaned, changed and repositioned.
--- NOTE | 2019-12-13 20:00 | NUR ---
icurn notes Received pt in bed, remains on ventilator with ac settings well tolerated by pt,On SB-45 on the monitor ,Pt is calmly sedated on Diprivan at 25mcg, does not follow commands, tremors at times, intubated, lungs sound diminished , OG to feeding jevity 1.2 at 60cc/hr tolerates well no residual noted v/s stable afebrile ,sating 99% ,Hob elevated at all times for aspiration precaution ,Pt turned and repositioned.no sob no distress noted ,all needs attended too , suction secretion done.pt on piccline at jeremy 3lumen intact and patent, will continue to monitor .on condom cath draining with yellowish urine output.kept pts clean dry and comfortable .
[2019-12-14] VITALS (30 sets, daily range): BP systolic 92–172; BP diastolic 44–126
[2019-12-14] MEDS: PROPOFOL 100 ML IV PRN ×4 (05:39→23:31)
[2019-12-14 05:53] LABS: BASOPHILS # (AUTO) 0.1 /CMM (0.0-0.2); BASOPHILS % (AUTO) 0.6 % (0.0-2.0); EOSINOPHILS % (AUTO) 2.2 % (0.0-6.0); HEMATOCRIT 28 % (39-51); LYMPHOCYTES # (AUTO) 1.6 /CMM (0.8-4.8); LYMPHOCYTES % (AUTO) 16.2 % (20.0-44.0); MEAN CORPUSCULAR HGB CONC 33 g/dl (31.0-36.0); MEAN CORPUSCULAR VOLUME 96 fL (80-96); MONOCYTES # (AUTO) 0.7 /CMM (0.1-1.30); MONOCYTES % (AUTO) 6.9 % (2.0-12.0); NEUTROPHILS # (AUTO) 7.4 /CMM (1.8-8.9); NEUTROPHILS % (AUTO) 74.1 % (43.0-81.0); PLATELET COUNT (AUTO) 381 /CMM (150-450)
--- NOTE | 2019-12-14 05:53 | NUR ---
sustainable agriculture faculty notes pt in bed remain on ventilator ,intubated and sedated ,on propolol at 20mcg ,sb on monitor , no sob no distress noted ,will endorse to rn day shift for continuity of care.
[2019-12-14 06:03] LABS: ALBUMIN 1.8 g/dL (3.4-5.0); BILIRUBIN,TOTAL 0.2 mg/dL (0.2-1.0); CREATININE 1.2 mg/dL (0.6-1.3); POTASSIUM 3.4 mmol/L (3.5-5.1)
[2019-12-14 06:07] LABS: CALCIUM, SERUM 7.6 mg/dL (8.5-10.1)
--- NOTE | 2019-12-14 07:20 | NUR ---
CHERRY PICKER OPERATOR NOTES [facility]. NO DISCOMFORT NOTED AT THIS TIME. ORAL FEEDING TUBE AUSCULTATED AND NO RESIDUAL NOTED AT THIS TIME. PN JEVITY 1.2 60 ML/HR TOLERATING WELL. PATIENT ON CONDOM CATHETER. NO ISOLATION , ZHENG PICC LINE PATENT ON D5 40 ML/HR. CALL LIGHT WITHIN REACH, BED AT THE LOWEST POSITION LOCKED, PATIENT BODY ALIGNED AT ANATOMICAL POSITION, BONY PROMINENCES COVERED WITH PILLOW. WILL CONTINUE TO MONITOR.
--- NOTE | 2019-12-14 07:45 | NUR ---
RT RECEIVED PT ORALLY INTUBATED, VENT DEPENDENT W/ ETT 7.5 MARKED @ 26CM LIP, WITH NOTED VENT SETTINGS. GAMMA FACILITIES OPERATOR DONE AND AIRWAY IS SECURE. VENT ALARMS CHECKED AND AUDIBLE. VENT PLUGGED IN RED OUTLET. AMBU BAG NOTED HOB. PAOLA B/S DIMINISHED, SX W/ MOD THK YELLOW SECRETIONS. WILL CONTINUE TO MONITOR T/O SHIFT.
[2019-12-14] MEDS: PANTOPRAZOLE 40 MG/PACK PACK GT SCH (08:49)
[2019-12-14] MEDS: HYDROCORTISONE SOD SUCCINATE 100 MG/2 ML VIAL IV SCH ×2 (08:50→14:00)
[2019-12-14] MEDS: CLOTRIMAZOLE 1% 15 GM TUBE TP SCH ×2 (08:53→17:14)
[2019-12-14] MEDS: JEVITY 1.2 CAL 1,000 ML BOTTLE GT PRN (09:33)
[2019-12-14] MEDS: IV D5W 1,000 ML IV PRN (10:22)
[2019-12-14] MEDS ORDERED: POTASSIUM CHLORIDE 20 MEQ POWDER PACKET PO SCH (11:30)
--- NOTE | 2019-12-14 15:01 | NUR ---
TOMBSTONE ERECTOR NOTES CONTACTED DR BRITTON ABOUT THE [address] BRITTON ORDERED NOT TO ADMINISTER THE MED. IT WAS GIVEN IN THE MORNING. MED NOT ADMINISTRATED.
--- NOTE | 2019-12-14 19:10 | NUR ---
COLOR TECHNICIAN NOTE RECEIVED PATIENT IN BED WITH HOB ELEVATED. PATIENT IS ON PROPOFOL IV. SEDATED. ON D5 IV HYDRATION. ON VENT. BREATHING IS EVEN AND NON LABORED. ON ORAL TUBE FEEDING, JEVITY 1.2 AT 60 ML/HR RUNNING. ON CONDOM CATH. URINE APPEARS CLEAR AND YELLOW IN COLOR. BED IS LOWERED TO LOWEST POSITION FOR SAFETY. CALL LIGHT IS WITHIN REACH. WILL CONTINUE TO MONITOR.
--- NOTE | 2019-12-14 19:36 | NUR ---
BUSINESS UNIT LEADER NOTES PATIENT IN BED ON PROPOFOL, NO RESIDUAL NOTED AT THIS TIME. NO SOB OR DISCOMFORT NOTED. ALL NEEDS ATTENDED, MEDICATION ADMINISTRATED. CALL LIGHT WITHIN REACH, BED AT THE LOWEST POSITION LOCKED. ENDORSED TO NEEDLE PUNCH OPERATOR NURSE FOR LEANNA.
[2019-12-14] MEDS: LORAZEPAM INJ 2 MG/ML VIAL IV PRN (21:13)
[2019-12-15] VITALS (25 sets, daily range): BP systolic 94–166; BP diastolic 51–107
[2019-12-15] MEDS: JEVITY 1.2 CAL 1,000 ML BOTTLE GT PRN (02:00)
--- NOTE | 2019-12-15 02:25 | NUR ---
DECORATING SUPERVISOR NOTE PATIENT IS IN BED RESTING WITH HOB ELEVATED. STILL ON PROPOFOL AND IV HYDRATION ORDERED AND TOLERATED WELL. IN NO APPARENT DISTRESS NOTED AT THIS TIME. BREATHING IS EVEN AND NON LABORED. ON VENT. ON ORAL TUBE FEEDING AND TOLERATED WELL. ON CONDOM CATH AND DRAINING WELL. CALL LIGHT IS WITHIN EASY REACH. WILL ENDORSE TO DECORATING SUPERVISOR FOR CONTINUATION OF CARE.
--- NOTE | 2019-12-15 02:30 | NUR ---
CLINICAL SERVICES CONSULTANT NOTES RESUMED CARE OF THIS 69 YEAR OLD MALE, ORALLY INTUBATED ON MECHANICAL VENTILATION. ZHENG PICC INFUSING IV FLUIDS D5W @ 40ML/HR AND DIPRIVAN DRIP, CURRENTLY @ 35 MCG/KG/MIN. PATIENT SEDATED, NOT IN ACUTE DISTRESS AT THIS TIME. WILL CONTINUE TO CLOSELY MONITOR
[2019-12-15] MEDS: PROPOFOL 100 ML IV PRN ×4 (03:02→20:54)
--- NOTE | 2019-12-15 04:00 | NUR ---
TECHNICAL COMMUNICATOR NOTES FULL BED BATH GIVEN, PATIENT TOLERATED WELL. NO SIGNS AND SYMPTOMS OF INCREASED AGITATION NOTED. WILL CONTINUE CLOSE MONITORING
[2019-12-15 05:38] LABS: CALCIUM, SERUM 7.3 mg/dL (8.5-10.1); CARBON DIOXIDE 27 mmol/L (21-32); CHLORIDE 111 mmol/L (98-107); CREATININE 1.4 mg/dL (0.6-1.3); GLUCOSE 102 mg/dL (74-106); POTASSIUM 3.6 mmol/L (3.5-5.1); SODIUM SERUM 143 mmol/L (136-145); UREA NITROGEN, BLOOD 40 mg/dL (7-18)
[2019-12-15] MEDS: PANTOPRAZOLE 40 MG/PACK PACK GT SCH (08:08)
[2019-12-15] MEDS: HYDROCORTISONE SOD SUCCINATE 100 MG/2 ML VIAL IV SCH (08:08)
[2019-12-15] MEDS: CLOTRIMAZOLE 1% 15 GM TUBE TP SCH ×2 (09:07→17:43)
[2019-12-15] MEDS: IV D5W 1,000 ML IV PRN ×2 (14:00→18:57)
--- NOTE | 2019-12-15 14:30 | NUR ---
RT NOTE Pt rec'd orally intubated via ETT sz #7.5 secured @ 26cm at the lipline. Pt on [facility] vent on AC mode settings as charted. pt shows no signs of resp distress or sob. pt sx'd for thick mod amt of pale yellow secretions. Alarms are set and audible. Vent plugged into red outlet. Will continue to monitor. Addendum: 12/15/19 at 1431 by KOBY FORTUNE RT Amended: Links added.
--- NOTE | 2019-12-15 17:30 | NUR ---
Called shoe repair supervisor, Jaja at [facility] for patients most recent doctors orders/ MAR for med reconciliation. Melanie stated she will fax this evening.
[2019-12-16] VITALS (29 sets, daily range): BP systolic 93–163; BP diastolic 42–109
--- NOTE | 2019-12-16 | NUR ---
RN NOTES Patient has fever of 100.2 F.patient has no order for Tylenol at this time. will do cooling measures instead. will recheck body temp in an hour and will call MD if body temp is not WNL. will continue to monitor patient closely.
[2019-12-16] MEDS: PROPOFOL 100 ML IV PRN ×5 (02:05→22:30)
[2019-12-16] MEDS: IV D5W 1,000 ML IV PRN (05:18)
--- NOTE | 2019-12-16 08:00 | NUR ---
ICU/RN AM SHIFT OPENING NOTES RECEIVED PT ASLEEP IN BED, EASILY AROUSED, PT ALERT, OPEN EYES, NON-VERBAL, NO GRIMACING OR DISTRESS NOTED. PT IS INTUBATED, WITH 25CM ON LIP, VENT RATES: AC 12, TV 500, FIO2 50%, PEEP 0. SATURATING @ 100%, RESPIRATIONS EVEN & UNLABORED, LUNG SOUNDS, CLEAR, SUCTIONED FOR AIRWAY CLEARANCE. ON TELE WITH SINUS RHYTHM, HR 64. WITH ON GOING IV INFUSION OF PROPOFOL WITH 35MCG/KG/MIN AND D5W @ 40CC/HR, PICC LINE PATENT WITH NO S/S OF INFECTION. FEEDING VIA OG @ 60CC/HR, NO GASTRIC RESIDUAL NOTED. ABG DRAWN, PENDING RESULT. PT IS COMFORTABLE, SCHEDULED AM MEDS TO BE GIVEN. CL WITHIN REACHED AND SAFETY MAINTAINED. ON GOING MONITORING.
[2019-12-16 08:37] LABS: ABG BASE EXCESS -1.5 mmol/L; ABG OXYGEN SATURATION 98.2 % (92.0-98.5); ABG PCO2 29.4 mmHg (35.0-45.0); AaDO2 49.4 mmHg; MetHb 0.4 % (0.0-1.5); O2Hb 97.8 % (94.0-97.0); PEEP,BG 0 cm H2O; SITE, ABG Right Brachial; VT, ABG 500 mL
[2019-12-16] MEDS: PANTOPRAZOLE 40 MG/PACK PACK GT SCH (08:42)
[2019-12-16] MEDS: HYDROCORTISONE SOD SUCCINATE 100 MG/2 ML VIAL IV SCH (08:42)
[2019-12-16] MEDS: CLOTRIMAZOLE 1% 15 GM TUBE TP SCH ×2 (08:42→17:14)
--- NOTE | 2019-12-16 09:18 | NUR ---
ICU/RN VENT CHANGE - TV NOTIFIED DR. ORTEZ OF RESULT OF ABG. RECEIVED VERBAL ORDER TO REDUCE TIDAL VOLUME FROM 500 TO 450. RTSILVINO NOTIFIED. ORDER NOTED AND CARRIED. MONITORING CONTINUED.
--- NOTE | 2019-12-16 12:11 | NUR ---
ICU/RN ROUNDS - DR. BRITTON UPDATED PT'S CONDITION. PT SEEN & EXAMINED BY DR. BRITTON. NO NEW ORDER RECEIVED. MONITORING CONTINUED.
[2019-12-16] MEDS: JEVITY 1.2 CAL 1,000 ML BOTTLE GT PRN (12:45)
--- NOTE | 2019-12-16 17:00 | NUR ---
ICU/RN AFTERNOON ROUNDS PM CARE PROVIDED. NO CHANGE OF CONDITION. ON GOING MONITORING.
--- NOTE | 2019-12-16 17:48 | NUR ---
RT NOTE: PATIENT RECEIVED ORALLY INTUBATED WITH 7.5 ETT SECURED AT 26 CM MID LIP LINE ON PB840 VENT. VENT PLUGGED INTO RED OUTLET. AMBU BAG AT [facility].
--- NOTE | 2019-12-16 19:00 | NUR ---
RN OPENING NOTES RECEIVED PATIENT IN BED, SEDATED. ON TELE MONITOR SR WITH HR 70'S. ON ETT [facility] VENT SETTINGS: AC 12, TV 450, FIO2 30%, PEEP 0, TOLERATING WELL, SATURATING 99%, NO SOB OR RESP DISTRESS NOTED. IV SITE ZHENG PICC FLUSHING AND PATENT, SITE C/D/I, WITH ON GOING IV INFUSION OF PROPOFOL WITH 35MCG/KG/MIN AND D5W AT 40ML/HR, TOLERATING WELL, NO INFILTRATION NOTED. FEEDING VIA OG AT 60ML/HR, MINIMAL RESIDUAL NOTED. CONDOM CATH INTACT AND DRAINING WELL. SAFETY MEASURES IN PLACE; CL WITHIN REACH, SR UP X2, HOB ELEVATED, BED LOCKED AND IN LOWEST POSITION. WILL CONT TO MONITOR PT CLOSELY.
--- NOTE | 2019-12-16 19:20 | NUR ---
ICU/RN AM SHIFT END NOTES ALL NEEDS MET. NO ACUTE CHANGE OF CONDITION NOTED DURING THE SHIFT. PT ENDORSED TO PM NURSE TO CONTINUE CARE. CL WITHIN REACHED AND SAFETY MAINTAINED.
[2019-12-16] MEDS: LORAZEPAM INJ 2 MG/ML VIAL IV PRN (22:56)
--- NOTE | 2019-12-16 22:56 | NUR ---
RN NOTES PATIENT NOTED WITH TREMORS AND TACHYPNEIC WITH RR 27-29BPM. ADMINISTERED PRN ATIVAN 2MG IVP. WILL CONT TO MONITOR CLOSELY.
[2019-12-17] VITALS (35 sets, daily range): BP systolic 95–212; BP diastolic 46–124
[2019-12-17] MEDS: PROPOFOL 100 ML IV PRN (03:31)
[2019-12-17] MEDS: IV D5W 1,000 ML IV PRN (04:00)
[2019-12-17] MEDS: JEVITY 1.2 CAL 1,000 ML BOTTLE GT PRN (04:02)
--- NOTE | 2019-12-17 07:00 | NUR ---
ICU/RN AM SHIFT OPENING NOTES RECEIVED PT AWAKE, ALERT, EYES OPEN, TRACKS. NO GRIMACING OR DISTRESS NOTED. PT IS INTUBATED, WITH 25CM ON LIP, STARTED SIMV MODE: RATE 4, PEEP 5, PSV 15. PROPOFOL IS OFF, RESTRAINTS PLACED FOR SAFETY. SATURATING @ 100%, RESPIRATIONS EVEN & UNLABORED, LUNG SOUNDS, CLEAR, SUCTIONED FOR AIRWAY CLEARANCE. ON TELE WITH SINUS RHYTHM, HR 69. WITH ON GOING IV INFUSION OF D5W @ 40CC/HR, PICC LINE PATENT WITH NO S/S OF INFECTION. FEEDING VIA OG @ 60CC/HR, NO GASTRIC RESIDUAL NOTED. PT IS COMFORTABLE, SCHEDULED AM MEDS TO BE GIVEN. CL WITHIN REACHED AND SAFETY MAINTAINED. ON GOING MONITORING. Addendum: 12/17/19 at 0753 by ALISA MEIER RN ADDENDUM: CONDOM CATHETER INTACT, NOTED WITH CLEAR YELLOW URINE OUTPUT.
--- NOTE | 2019-12-17 07:15 | NUR ---
RN CLOSING NOTES PATIENT RESTING IN BED, A/OX1, NONVERBAL. PROPOFOL ON HOLD PER MD ORDER, TITRATED PER PROTOCOL. ON TELE MONITOR SR WITH HR 80'S. ON ETT MECH VENT SETTINGS TOLERATING WELL, NO SOB OR RESP DISTRESS NOTED, SATURATING 100%. IV SITE ZHENG PICC FLUSHING AND PATENT, SITE C/D/I, WITH ON GOING IV INFUSION D5W AT 40ML/HR, TOLERATING WELL, NO INFILTRATION NOTED. FEEDING VIA OG AT 60ML/HR, MINIMAL RESIDUAL NOTED. CONDOM CATH INTACT AND DRAINING WELL. REPOSITIONED Q2H. KEPT PT CLEAN, DRY, AND COMFORTABLE. SAFETY MEASURES IN PLACE; CL WITHIN REACH, SR UP X2, HOB ELEVATED, BED LOCKED AND IN LOWEST POSITION. ENDORSED TO AM RN FOR LEANNA.
--- NOTE | 2019-12-17 07:29 | NUR ---
vent changes below for weaning trial as order. SIMV 4 VT 450 ML PS 15 FIO2 30% PEEP +5 Addendum: 12/17/19 at 0730 by NINO JACOBS RT Amended: Links added.
[2019-12-17] MEDS: HYDROCORTISONE SOD SUCCINATE 100 MG/2 ML VIAL IV SCH (08:28)
[2019-12-17] MEDS: PANTOPRAZOLE 40 MG/PACK PACK GT SCH (08:28)
[2019-12-17] MEDS: CLOTRIMAZOLE 1% 15 GM TUBE TP SCH ×2 (08:28→17:53)
--- NOTE | 2019-12-17 08:57 | NUR ---
WOUND CARE FOLLOW UP: PT SEEN FOR RASH ON PERINEUM, INNER THIGHS/BUTTOCKS WHICH IS NOW IMPROVING BUT PT CONTINUES TO BE INCONTINENT AND NOTED TO HAVE INCONTINENCE ASSOCIATED SKIN DAMAGE TO GLUTEAL CREASE AREA OVER PREVIOUS SCARRING. RECOMMENDATIONS MADE FOR SKIN CARE AND PROTECTION. DISCUSSED WITH NURSING STAFF. PT ON CHANTE ISOFLEX LOW AIRLOSS BED. PT REMAINS INTUBATED. WILL SEE PRN. BURKETT IN AGREEMENT WITH PLAN OF CARE. Addendum: 12/17/19 at 0859 by MARIE LEONE WNDNU Amended: Links added.
[2019-12-17] MEDS ORDERED: DC PROPOFOL WHEN EXTUBATED XX PRN (09:00)
--- NOTE | 2019-12-17 09:00 | NUR ---
ICU/OFFICE MANAGER EXECUTIVE ASSISTANT RE-ASSESSMENT PT SEEN BY WOUND NURSE MARIE. RE-ASSESSED PT'S SKIN CONDITION.
[2019-12-17 09:12] LABS: ABG BASE EXCESS 0.5 mmol/L; ABG OXYGEN SATURATION 97.4 % (92.0-98.5); ABG PH 7.431 (7.350-7.450); ABG PO2 103.3 mmHg (75.0-100.0); COHb 0.3 % (0.5-1.5); MetHb 0.3 % (0.0-1.5); O2Hb 96.8 % (94.0-97.0); PEEP,BG 5 cm H2O; SITE, ABG Right Radial; VT, ABG 450 mL
--- NOTE | 2019-12-17 09:30 | NUR ---
PT. IS AWAKE AND FOLLOW COMMANDS EXTUBATED @ 0930 AND PLACED ON NASAL CANNULA @ 2 LPM O2 FLOW. SPO2 96 - 98% NO SOB NOTED. Addendum: 12/17/19 at 1025 by NINO JACOBS RT Amended: Links added.
--- NOTE | 2019-12-17 09:30 | NUR ---
ICU/RN EXTUBATED PT EXTUBATED, PT PLACED ON 2L O2 VIA N/C. DEEP SUCTIONING PROVIDED, PT VERY CONGESTED.
--- NOTE | 2019-12-17 10:00 | NUR ---
ICU/RN GASTRO TUBE UNABLE TO INSET NASAL GT, RESISTANCE NOTED ON BOTH NARES. ATTEMPTED TO PLACE ORAL GT, ALSO UNABLE. CHARGE NURSE AWARE. ON GOING MONITORING.
--- NOTE | 2019-12-17 11:39 | NUR ---
ICU/RN MOUTH BREATHER PT PLACED ON 4L SIMPLE MASK, SATURATING @ 96%, AT THIS TIME. MONITORING CONTINUED.
[2019-12-17] MEDS: ACETYLCYSTEINE 10% SOLN 400 MG/4 ML VIAL NEB SCH ×2 (11:53→15:46)
--- NOTE | 2019-12-17 12:00 | NUR ---
ICU/RN NASAL TRUMPET RT INSERTED NASAL TRUMPET ON LEFT NARE. MONITORING CONTINUED.
--- NOTE | 2019-12-17 17:00 | NUR ---
ICU/RN AFTERNOON ROUNDS PM CARE AND DEEP SUCTIONING PROVIDED. UNABLE TO COMPLETELY CLEAR SECRETION. ON 6L O2 SIMPLE MASK, SATURATING WELL. ON GOING MONITORING.
--- NOTE | 2019-12-17 19:33 | NUR ---
ICU/RN AM SHIFT END NOTES ALL NEEDS MET. PT STILL HAS CONGESTION, UNABLE TO COMPLETELY CLEAR SECRETION EVEN WITH DEEP SUCTIONING. NO GASTRO ACCESS, UNABLE TO INSERT WITH MULTIPLE ATTEMPTS DURING SHE SHIFT. WITH ON GOING IV INFUSION OF DW5 @ 40CC/HR. PT ENDORSED TO PM NURSE TO CONTINUE CARE. CL WITHIN REACHED AND SAFETY MAINTAINED.
--- NOTE | 2019-12-17 19:45 | NUR ---
ICU/FOOD PORTER RECEIVED REPORT FROM DAY NURSE. SEE NURSING FLOWSHEET FOR ASSESSMENT. THERE ARE MANY SKIN ISSUES WHICH ARE ADDRESSED ON THE FLOWSHEET ALONG WITH THE INTERVENTIONS. PT WAS ORALLY EXTUBATED TODAY, TOLERATING CURRENT SIMPLE MASK WITH SATURATION AT 95%.PT REQUIRES FREQUENT SUCTIONING. PT NO LONGER HAS ANY TUBE FEEDING, UNABLE TO REINSERT THIS.NO ACUTE DISTRESS SEEN AT THIS TIME, PT WAS TURNED AND REPOSITIONED FOR COMFORT AND CARE WILL CONTINUE TO MONITOR THIS PT.
--- NOTE | 2019-12-17 20:10 | NUR ---
ICU/MACHINE LACER PT REQUIRES FREQUENT SUCTIONING. THERE IS THICK, WHITE SECRETIONS WHEN SUCTIONED THROUGH THE LEFT NARE. WILL CONTINUE TO MONITOR THIS PT AND CONTINUE TO SUCTION PT NEEDED. SATURATION IS 96-97%. PT JUST EXTUBATED EARLIER DURING DAY SHIFT.
--- NOTE | 2019-12-17 21:18 | NUR ---
ICU/GRADUATE ENGINEER CALLED THE LABEL PRINTING MACHINIST FOR DR BRITTON FOR SBP INCREASING OVER THE PAST FEW HOURS TO WHAT IT IS NOW CURRENTLY 175/104. LINO ZACARIAS GAVE ORDER FOR VASOTEC 1.25MG IVP FOR SBP GREATER THAN 160 EVERY 4 HOURS. THIS ORDER WAS NOTED AND PLACED INTO THE COMPUTER AND CARRIED OUT. WILL CONTINUE TO MONITOR THIS PT AND HIS BLOOD PRESSURE.
[2019-12-17] MEDS: ENALAPRILAT INJ (1.25 MG/ML) 1.25 MG/ML VIAL IV PRN (21:34)
--- NOTE | 2019-12-17 23:16 | NUR ---
ICU/BOOKING POLICE OFFICER PT REQUIRES EVERY 30-45 MINUTES SUCTIONING, LOTS OF THICK MUCOUS. SATURATION IS CURRENTLY 96% ON 6 LITERS SIMPLE MASK. WILL CONTINUE TO MONITOR THIS PT AND HIS SATURATION.
[2019-12-18] VITALS (26 sets, daily range): BP systolic 88–180; BP diastolic 50–96
--- NOTE | 2019-12-18 00:30 | NUR ---
ICU/GREASE CUP FILLER PT'S MIDNIGHT TEMP WAS 101.8, NO TYLENOL NOR WILL MD GIVE AN ORDER FOR IT. COOLING MEASURES WERE PUT IN PLACE WITH ICE PACKS. WILL CONTINUE TO MONITOR PT'S TEMP.
[2019-12-18] MEDS: ENALAPRILAT INJ (1.25 MG/ML) 1.25 MG/ML VIAL IV PRN (03:14)
--- NOTE | 2019-12-18 03:26 | NUR ---
ICU/PUMP ASSEMBLER VASOTEC 1.25MG IVP GIVEN FOR SBP 169/89 BY NEWSPAPER PHOTO EDITOR FOR THIS. ALSO AT THIS TIME RECHECKED PT'S TEMP IT WAS 99.8 AX FROM 101.8 AT MIDNIGHT. WILL CONTINUE TO MONITOR THIS PT FOR HIS INCREASED BLOOD PRESSURE AND ALSO TEMPERATURE.
--- NOTE | 2019-12-18 04:30 | NUR ---
ICU/LIGHTING TECHNICIAN TEMP WAS RECHECKED NOW IS 99.1 FROM 101.8. WILL CONTINUE TO MONITOR THIS PT'S TEMP.
[2019-12-18] MEDS: IV D5W 1,000 ML IV PRN (04:54)
--- NOTE | 2019-12-18 07:00 | NUR ---
SCREEN MACHINE OPERATOR- OPENING PATIENT A/OX1 PATIENT RESPONDS TO NAME, ABLE TO ANSWER SIMPLE QUESTIONS. PATIENT IS ON 6 L SIMPLE MASK PATIENT IS SATURATING WELL >95 % PATIENT , NO PAIN, NO ACUTE RESPIRATORY DISTRESS. LUNG SOUNDS SECRETIONS ON BILATERAL LOBES. PATIENT HAS CONDOMCATH. PATENT AND INTACT. SACRAL SCARE COVERED WITH MEPILEX. L 4 ARM PICC WITH ALL LINES PATIENT AND INTACT. NO SIGNS OF INFILTRATION, OR INFECTION. PATIENT HAS D5W @ 40ML/ HR. BED LOCKED AND LOWEST POSITION CALL LIGHT WITH IN REACH ALL SAFETY MEASURES IMPLEMENTED PER HOSPITAL POLICY
[2019-12-18] MEDS: CLOTRIMAZOLE 1% 15 GM TUBE TP SCH ×2 (09:09→17:34)
[2019-12-18] MEDS: ACETYLCYSTEINE 10% SOLN 400 MG/4 ML VIAL NEB SCH ×2 (09:15→16:05)
--- NOTE | 2019-12-18 12:00 | NUR ---
[employer] - AFTER NOON PATIENT SECRETIONS SUCTIONED 2X TIMES.
[2019-12-18 12:29] LABS: ALANINE AMINOTRANSFERASE 21 U/L (12-78); ALKALINE PHOSPHATASE 88 U/L (46-116); ASPARTATE AMINOTRANSFERASE 19 U/L (15-37); BILIRUBIN,TOTAL 0.4 mg/dL (0.2-1.0); CARBON DIOXIDE 28 mmol/L (21-32); CHLORIDE 101 mmol/L (98-107); CREATININE 1.4 mg/dL (0.6-1.3); GLUCOSE 275 mg/dL (74-106); POTASSIUM 3.9 mmol/L (3.5-5.1); SODIUM SERUM 135 mmol/L (136-145); TOTAL PROTEIN, SERUM 5.5 g/dL (6.4-8.2); UREA NITROGEN, BLOOD 28 mg/dL (7-18)
--- NOTE | 2019-12-18 13:30 | NUR ---
SPOKE TO DR. BRITTON-PLACE PATIENT ON NPO, HOLD ANY TUBE FEEDINGS FOR NOW. WILL REPEAT SWALLOW BOBO IN 2 DAYS.
--- NOTE | 2019-12-18 13:35 | NUR ---
SOLUTIONS MANAGER - DR BRITTON PER DR BRITTON ORDERS 1/ NS W K+ 20MEG 70ML/HR CHANGE PATIENT PICC LINE- POSSIBLE SITE OF INFECTION. PERF. IV ACCESS IF POSSIBLE. IF NOT ORDER MIDLINE FOR PATIENT
--- NOTE | 2019-12-18 18:42 | NUR ---
HAND RIGGER- OPENING PATIENT A/OX1 PATIENT RESPONDS TO NAME, ABLE TO ANSWER SIMPLE QUESTIONS. PATIENT IS ON 10L SIMPLE MASK PATIENT IS SATURATING WELL >95 % PATIENT , NO PAIN, NO ACUTE RESPIRATORY DISTRESS. LUNG SOUNDS SECRETIONS ON BILATERAL LOBES. PATIENT HAS CONDOMCATH. PATENT AND INTACT. SACRAL SCARE COVERED WITH MEPILEX. L 4 ARM PICC WITH ALL LINES PATIENT AND INTACT. NO SIGNS OF INFILTRATION, OR INFECTION. PATIENT HAS 1/2 NS WITH K + 20MEG @ 70 ML/HR..PATIENT TURNED AND REPOSITIONED PER HOSPITAL POLICY BED LOCKED AND LOWEST POSITION CALL LIGHT WITH IN REACH ALL SAFETY MEASURES IMPLEMENTED PER HOSPITAL POLICY Addendum: 12/18/19 at 1843 by ROGER LOPEZ RN HAND RIGGER- CLOSING PATIENT A/OX1 PATIENT RESPONDS TO NAME, ABLE TO ANSWER SIMPLE QUESTIONS. PATIENT IS ON 10L SIMPLE MASK PATIENT IS SATURATING WELL >95 % PATIENT , NO PAIN, NO ACUTE RESPIRATORY DISTRESS. LUNG SOUNDS SECRETIONS ON BILATERAL LOBES. PATIENT HAS CONDOMCATH. PATENT AND INTACT. SACRAL SCARE COVERED WITH MEPILEX. L 4 ARM PICC WITH ALL LINES PATIENT AND INTACT. NO SIGNS OF INFILTRATION, OR INFECTION. PATIENT HAS 1/2 NS WITH K + 20MEG @ 70 ML/HR..PATIENT TURNED AND REPOSITIONED PER HOSPITAL POLICY BED LOCKED AND LOWEST POSITION CALL LIGHT WITH IN REACH ALL SAFETY MEASURES IMPLEMENTED PER HOSPITAL POLICY
--- NOTE | 2019-12-18 19:30 | NUR ---
DISPLAY DEPARTMENT MANAGER NOTE RECEIVED PT A/O TO NAME WITH GARBLED SPEECH AND MUMBLING. ABLE TO FOLLOW SIMPLE COMMANDS. FOUND ON 10L OF O2 VIA SIMPLE FACE MASK AND SATURATING 100%. NOTED WITH PRODUCTIVE COUGH BUT PT SWALLOWS SECRETIONS. HOB ELEVATED AND ON ASPIRATION PRECAUTIONS. TELE- SR. IV ZHENG PICC PATENT WITH IV FLUIDS INFUSING. CONDOM CATHETER IN PLACE AND DRAINING. BED ALARM ENABLED. CALL LIGHT WITHIN REACH. WILL NG SUCTION NEEDED. WILL MONITOR.
[2019-12-19] VITALS (26 sets, daily range): BP systolic 110–144; BP diastolic 59–98
[2019-12-19 04:42] LABS: BASOPHILS # (AUTO) 0.1 /CMM (0.0-0.2); BASOPHILS % (AUTO) 0.8 % (0.0-2.0); EOSINOPHILS % (AUTO) 0.9 % (0.0-6.0); HEMATOCRIT 29 % (39-51); HEMOGLOBIN 9.3 g/dL (13.5-17.5); LYMPHOCYTES # (AUTO) 1.5 /CMM (0.8-4.8); LYMPHOCYTES % (AUTO) 10.1 % (20.0-44.0); MEAN CORPUSCULAR HGB CONC 32 g/dl (31.0-36.0); MEAN CORPUSCULAR VOLUME 95 fL (80-96); MONOCYTES # (AUTO) 0.8 /CMM (0.1-1.30); MONOCYTES % (AUTO) 5.6 % (2.0-12.0); NEUTROPHILS # (AUTO) 11.9 /CMM (1.8-8.9); NEUTROPHILS % (AUTO) 82.6 % (43.0-81.0); PLATELET COUNT (AUTO) 341 /CMM (150-450); RED BLOOD CELL COUNT(AUTO) 3.03 MIL/uL (4.5-6.0); WHITE BLOOD COUNT (AUTO) 14.4 K/uL (4.3-11.0)
--- NOTE | 2019-12-19 06:51 | NUR ---
AUTOMOTIVE INTERNET SALES MANAGER NOTE PT REMAINED STABLE DURING SHIFT. NO ACUTE DISTRESS NOTED. HOB ELEVATED AND ON ASPIRATION PRECAUTIONS. TITRATED PT TO 6L OF O2 VIA SIMPLE FACE MASK AND TOLERATING WELL. NG SUCTIONED REPEATEDLY WITH NOSE TRUMPET IN PLACE. PT REMAINS WITH GOOD SATURATION. ALL NEEDS ATTENDED TO PROMPTLY. REPOSITIONED Q2H. REMAINS NPO. WILL ENDORSE TO NEXT SHIFT FOR CONTINUITY OF CARE.
--- NOTE | 2019-12-19 07:51 | NUR ---
BILLING SUPERVISOR: ptis A/Ox1 now,
--- NOTE | 2019-12-19 07:52 | NUR ---
GROCERY CASHIER: pt.is A/Ox1 now, no pain now, rest, slightly hands tremor now, unable to follow commands now, SR, SBP over 100, on 6L O2 SM, O2sat. over 94%, no SOB, was NT suctioned q2h with large amount over night by report, LatashaRT is aware, NPO, waiting second swallow eval by report, condom cath is intact, injury prevention measures are implemented, got POC explanation
[2019-12-19 08:10] LABS: ABG BASE EXCESS -2.5 mmol/L; ABG OXYGEN SATURATION 98.6 % (92.0-98.5); ABG PCO2 40.5 mmHg (35.0-45.0); ABG PH 7.365 (7.350-7.450); ABG PO2 180.2 mmHg (75.0-100.0); AaDO2 87.4 mmHg; COHb 0.3 % (0.5-1.5); MetHb 0.5 % (0.0-1.5); O2Hb 97.8 % (94.0-97.0); SITE, ABG Right Radial; VENT MODE, BG S/M 6LPM
[2019-12-19] MEDS: CLOTRIMAZOLE 1% 15 GM TUBE TP SCH ×2 (08:15→17:25)
--- NOTE | 2019-12-19 08:45 | NUR ---
NAVAL ARCHITECT: is in room, updated with pt.current condition, neuro status, VS, ABG, large amount of suction, see new orders
[2019-12-19] MEDS: ACETYLCYSTEINE 10% SOLN 400 MG/4 ML VIAL NEB SCH ×2 (09:12→16:51)
--- NOTE | 2019-12-19 09:37 | NUR ---
PIPE MACHINE OPERATOR: ST updated with pt.current condition, suction amount
--- NOTE | 2019-12-19 10:59 | NUR ---
REPAIRER HELPER: pt.was suctioned nasopharyngeally deeply x2 by RT, o2sat. over 96%, no SOB, pt.is uncooperative with suction, got detailed explanation for suction reason and desaturation risks, encouraged to be cooperative for resp.Tx and suction
--- NOTE | 2019-12-19 14:20 | NUR ---
TILE GRADER: O2sat.92-94% now, RR 16 on 10L SM
--- NOTE | 2019-12-19 14:21 | NUR ---
SOLUTION MAKE UP OPERATOR: previous note is error
--- NOTE | 2019-12-19 15:15 | NUR ---
RAILROAD INSPECTOR: pt is A/Ox1, uncooperative, said: don't touch me, no any pain, O2sat. 97-99% now, no SOB, coughing/gargling, but pt needs to be suction well, got explanation for risks/encouraged to follow POC and prevent for aspiration, NPh suctioned with large secretion amount
--- NOTE | 2019-12-19 17:37 | NUR ---
BUCKLE FRAME SHAPER: pt.is A/Ox1, no pain now, more awake, got resp.Tx, suctioned deeply again with large suction amount as multiple times before by RT/RN, lungs sounds are better now, O2sat. over 94% on 6L SM, no SOB, SR, SBP over 100, all PM/skin/wound care done, pt.is with uncooperative Tx refusing episodes, encouraged again to get Tx, suction well, pt.is still unable to cough up well/spit out secretion/saliva, got explanation re aspiration risk and need upper airway toilet/suction well, still hands tremor episodes
[2019-12-19] MEDS: LORAZEPAM INJ 2 MG/ML VIAL IV PRN (23:46)
[2019-12-20] VITALS (28 sets, daily range): BP systolic 121–166; BP diastolic 61–112
--- NOTE | 2019-12-20 07:50 | NUR ---
MAINTENANCE SUPERVISOR 2ND SHIFT: pt is A/Ox1, more awake then yesterday, rest now, no pain, hands tremors with activity, uncooperative for suction/got explanation re POC, aspiration risk, request for good suction/upper airway toilet, anxious, SR, SBP over 100 below 160, O2sat. over 97% on 6L SM, RT,Vanush updated/follows for regular deep suction, resp.Tx, pt.is NPO, ST was unable to perform swallow eval yesterday d/t large secretion, IVF: 1/2NS with 20 meq KCl@70ml/h, no labs today/will s/w , Midline is in, no order for PICC tip micro, will remove PICC per order, T WNL
[2019-12-20] MEDS: CLOTRIMAZOLE 1% 15 GM TUBE TP SCH ×2 (08:58→16:57)
--- NOTE | 2019-12-20 09:45 | NUR ---
BILLET STRAIGHTENER: is in room, updated with pt.current condition, neurostatus, VS, NPh suction amount, O2sat. on 6L SM, ABG, CXR from yesterday, IVF, NPO, swallow eval failed, meds, wants to see labs today, said: keep pt.in ICU and suction well with resp.Tx
[2019-12-20] MEDS: ACETYLCYSTEINE 10% SOLN 400 MG/4 ML VIAL NEB SCH ×2 (10:12→17:00)
[2019-12-20 10:20] LABS: BASOPHILS # (AUTO) 0.1 /CMM (0.0-0.2); BASOPHILS % (AUTO) 1.1 % (0.0-2.0); EOSINOPHILS % (AUTO) 2.4 % (0.0-6.0); HEMATOCRIT 23 % (39-51); HEMOGLOBIN 7.4 g/dL (13.5-17.5); LYMPHOCYTES # (AUTO) 0.9 /CMM (0.8-4.8); LYMPHOCYTES % (AUTO) 8.6 % (20.0-44.0); MEAN CORPUSCULAR HGB CONC 32 g/dl (31.0-36.0); MEAN CORPUSCULAR VOLUME 95 fL (80-96); MONOCYTES # (AUTO) 0.6 /CMM (0.1-1.30); MONOCYTES % (AUTO) 5.7 % (2.0-12.0); NEUTROPHILS # (AUTO) 8.1 /CMM (1.8-8.9); NEUTROPHILS % (AUTO) 82.2 % (43.0-81.0); PLATELET COUNT (AUTO) 263 /CMM (150-450); RED BLOOD CELL COUNT(AUTO) 2.45 MIL/uL (4.5-6.0); WHITE BLOOD COUNT (AUTO) 9.9 K/uL (4.3-11.0)
[2019-12-20 10:26] LABS: CALCIUM, SERUM 7.1 mg/dL (8.5-10.1); POTASSIUM 3.8 mmol/L (3.5-5.1)
--- NOTE | 2019-12-20 11:00 | NUR ---
HEAD MILLER: pt.got respTx and suctioned well by RT, pt.is restless now, agitating, tried x2 to remove O2mask, O2sat. over 9&%, SR, severe hands tremor, PICC was removed f/u protocol/no bleeding
[2019-12-20] MEDS: LORAZEPAM INJ 2 MG/ML VIAL IV PRN ×2 (11:20→22:49)
--- NOTE | 2019-12-20 11:26 | NUR ---
INSTRUCTIONAL AIDE: BG 61, pt.is NPO, spoke with /ordered: add D5 to IVF
[2019-12-20] MEDS: Potassium Chloride 20 MEQ in IV D5/0.45 NACL 1,000 ML IV PRN (12:50)
--- NOTE | 2019-12-20 16:44 | NUR ---
GRAPHITE DISK ASSEMBLER: is in room, updated with pt.current condition, neuro status, nasopharyngeally deeply suction amount, O2sat., VS, I/O, NPO, current IVF, failed swallow eval attempt, LAbs, H/H, ordered: place in NGT, start NGTF Jevity 1.2 rate 10ml/h, increase by 10 ml q4h, goal 60ml/h, keep pt.in ICU
--- NOTE | 2019-12-20 17:30 | NUR ---
HEAVY EQUIPMENT FIELD MECHANIC: L.NGT is placed in with Angelica,RN verification, pt was suctioned deeply well before
[2019-12-20] MEDS: JEVITY 1.2 CAL 1,000 ML BOTTLE GT PRN (18:12)
--- NOTE | 2019-12-20 19:30 | NUR ---
HAND FUR CLEANER NOTE RECEIVED PT AWAKE/ALERT TO SELF. ON 6L OF O2 VIA FACE MASK AND SATURATING WELL. ON ASPIRATION PRECAUTIONS AND HOB ELEVATED. BREATHING UNLABORED. DENIES PAIN. TELE-SR. NOTED WITH A PRODUCTIVE COUGH AND NASOTRACHEAL SUCTIONED WITH MODERATE CLEAR/WHITE SECRETIONS. INSTRUCTED PT TO COUGH UP SECRETIONS AND SPIT OUT AND PT UNABLE TO FOLLOW. PT REFUSING TO BE SUCTIONED AND EXPLAINED RISKS AND BENEFITS WITH REINFORCEMENT NEEDED. WILL SUCTION NEEDED. NGT IN PLACE WITH POSITIVE PLACEMENT AND NO RESIDUALS NOTED. CONDOM CATHETER IN PLACE AND DRAINING. BED ALARM ENABLED AND LOCKED IN PLACE. WILL MONITOR.
[2019-12-21] VITALS (25 sets, daily range): BP systolic 118–178; BP diastolic 59–122
[2019-12-21] MEDS: Potassium Chloride 20 MEQ in IV D5/0.45 NACL 1,000 ML IV PRN (04:19)
--- NOTE | 2019-12-21 07:15 | NUR ---
SURVEILLANCE ANALYST NOTES RECEIVED PATIENT AWAKE ALERT TO SELF , NOT IN ACUTE DISTRESS , RESPIRATIONS EVEN AND UNLABORED WITH SPO2 OF 100% VIA 6LPM SIMPLE MASK , ST 105 ON BEDSIDE MONITOR , CONDOM CATH IN PLACE DRAINING VIA GRAVITY , LEFT NARE NGT PATENT AND INTACT WITH JEVITY @ 30ML/HR INFUSING WELL WITH NO RESIDUALS NOTED , PEDRO PABLO MIDLINE WITH D5 1/2 NS WITH 20 MEQ KCL @ 70ML/HR INFUSING WELL , ALL NEEDS ATTENDED , BED ON LOW AND LOCKED POSITION , SIDE RAILS X2, CALL LIGHT WITHIN REACH , HOB @ 45 WILL CONTINUE TO MONITOR
[2019-12-21] MEDS: CLOTRIMAZOLE 1% 15 GM TUBE TP SCH ×2 (08:21→17:08)
[2019-12-21] MEDS: ACETYLCYSTEINE 10% SOLN 400 MG/4 ML VIAL NEB SCH ×2 (10:07→17:20)
--- NOTE | 2019-12-21 14:05 | NUR ---
WIND TURBINE MACHINIST NOTES PAGED [facility] TO NOTIFY BUN 78 , CREATININE 3.1 , PHOS 6.6 AND MAG OF 2.5 WITH GOOD URINE OUTPUT , SPOKE WITH STEVEN AWAITING FOR CALL BACK Addendum: 12/21/19 at 1411 by JOSE L COURTNEY RN WRONG PATIENT
--- NOTE | 2019-12-21 14:06 | NUR ---
CHEMICAL ENGINEERING TECHNICIAN NOTES NOTIFIED DR QUIROS REGARDING HIGH BP OF 176/101 AFTER HYDRALAZINE 20MG @ 1205 AND LOPRESSOR 5MG @ 1315 , PER MD ALEJO PT ON CLONIDINE PATCH 0.3MG Q WEEK , ORDER CARRIED OUT Addendum: 12/21/19 at 1411 by JOSE L COURTNEY RN WRONG PT
[2019-12-21] MEDS ORDERED: CLONIDINE HCL 0.3 MG/24H PTWK 1 EA PATCH TD SCH (14:30)
[2019-12-21] MEDS: LORAZEPAM INJ 2 MG/ML VIAL IV PRN ×2 (16:11→21:14)
--- NOTE | 2019-12-21 16:30 | NUR ---
CONFIGURATION SPECIALIST NOTES SEEN AND EVALUATED BY DR BRITTON , DISCUSSED PT CURRENT STATUS , VSS STABLE ,AFEBRILE , MORE AWAKE , MODERATE THICK SECRETIONS VIA DEEP SUCTIONING , ON 6LPM MASK SPO2 OF 100% NO DISTRESS , TOLERATING GT FEEDING OF JEVITY @ 60ML/HR , NOTIFIED PT HAS NO LABS TODAY , PER MD ORDER BMP CBC AND BNP , DC IVF AND ADD H2O FLUSHES 250ML Q6 , ORDERS CARRIED OUT
--- NOTE | 2019-12-21 18:33 | NUR ---
LSW NOTES SPOKE WITH DR BRITTON , NOTIFIED PT IS COMPLAINING OF PAIN 6/10 ON HIS BACK , PER MD START PT ON TYLENOL 650MG Q4 PRN , ORDER CARRIED OUT
[2019-12-21] MEDS: ACETAMINOPHEN 650 MG/20.3 ML UDC NG PRN (18:48)
--- NOTE | 2019-12-21 20:00 | NUR ---
ARMATURE AND ROTOR WINDER NOTES RECEIVED PATIENT AWAKE ALERT TO SELF , NOT IN ACUTE DISTRESS , RESPIRATIONS EVEN AND UNLABORED WITH SPO2 OF 100% VIA 6LPM SIMPLE MASK , ST 105 ON BEDSIDE MONITOR , CONDOM CATH IN PLACE DRAINING VIA GRAVITY , LEFT NARE NGT PATENT AND INTACT WITH JEVITY @ 60 ML/HR INFUSING WELL WITH NO RESIDUALS NOTED , PEDRO PABLO MIDLINE , ALL NEEDS ATTENDED , BED ON LOW AND LOCKED POSITION , SIDE RAILS X2, CALL LIGHT WITHIN REACH , HOB @ 45 WILL CONTINUE TO MONITOR
[2019-12-22] VITALS (28 sets, daily range): BP systolic 111–157; BP diastolic 54–118
[2019-12-22] MEDS: LORAZEPAM INJ 2 MG/ML VIAL IV PRN (03:10)
[2019-12-22 04:13] LABS: BASOPHILS # (AUTO) 0.1 /CMM (0.0-0.2); BASOPHILS % (AUTO) 0.7 % (0.0-2.0); EOSINOPHILS % (AUTO) 4.3 % (0.0-6.0); HEMATOCRIT 26 % (39-51); HEMOGLOBIN 8.3 g/dL (13.5-17.5); LYMPHOCYTES # (AUTO) 0.9 /CMM (0.8-4.8); LYMPHOCYTES % (AUTO) 11.1 % (20.0-44.0); MEAN CORPUSCULAR HGB CONC 33 g/dl (31.0-36.0); MEAN CORPUSCULAR VOLUME 94 fL (80-96); MONOCYTES # (AUTO) 0.7 /CMM (0.1-1.30); MONOCYTES % (AUTO) 7.8 % (2.0-12.0); NEUTROPHILS # (AUTO) 6.5 /CMM (1.8-8.9); NEUTROPHILS % (AUTO) 76.1 % (43.0-81.0); PLATELET COUNT (AUTO) 280 /CMM (150-450); RED BLOOD CELL COUNT(AUTO) 2.72 MIL/uL (4.5-6.0); WHITE BLOOD COUNT (AUTO) 8.5 K/uL (4.3-11.0)
[2019-12-22 04:39] LABS: CALCIUM, SERUM 8.5 mg/dL (8.5-10.1); CREATININE 1.1 mg/dL (0.6-1.3); POTASSIUM 3.7 mmol/L (3.5-5.1)
[2019-12-22] MEDS: JEVITY 1.2 CAL 1,000 ML BOTTLE GT PRN ×2 (06:46→23:22)
--- NOTE | 2019-12-22 07:40 | NUR ---
ICU/TN PT IS IN THE BED ON SIMPLE MASK AT 6L ,SAT 02-100%.PT HAS A LOT OF SECRETIONS UNABLE TO COUGH THEM OUT,NEEDS DEEP SUCTIONING. S/P EXTUBATION 12/17/09.HAS NG TUBE INFUSING WITH JEVITY AT 60 ML/HR.NO RESIDUAL NOTED.V/S STABLE,AFEBRILE.NO PAIN REPORTED AT THIS TIME.RIGHT ML-HL.CONDOM CATH DRAINING WITH YELLOW URINE.PT IS CONTRACTED,HAS TREMOR.OPEN EYES,SPEECH UNCLEAR.REPOSITION FOR COMFORT.
[2019-12-22] MEDS: CLOTRIMAZOLE 1% 15 GM TUBE TP SCH ×2 (08:11→16:28)
[2019-12-22] MEDS: ACETYLCYSTEINE 10% SOLN 400 MG/4 ML VIAL NEB SCH ×2 (09:03→17:34)
--- NOTE | 2019-12-22 11:00 | NUR ---
ICU/RN DEEP SUCTION PROVIDED.PT PLACED ON 4L N/C .SAT O2-99%.V/S STABLE.CONTINUE MONITORING.
[2019-12-22] MEDS: ACETAMINOPHEN 650 MG/20.3 ML UDC NG PRN (17:00)
--- NOTE | 2019-12-22 17:00 | NUR ---
ICU/RN PM CARE PROVIDED.WOUND DRESSING DONE ORDERED. T-100.6.TYLENOL 650 MG VIA NG TUBE GIVEN.SUCTION PROVIDED.REPOSITION FOR COMFORT.
--- NOTE | 2019-12-22 20:20 | NUR ---
BEADWORKER NOTES RECEIVED PATIENT AWAKE, NOT IN ACUTE DISTRESS , RESPIRATIONS EVEN AND UNLABORED WITH SPO2 OF 100% VIA 3L NC, ST 86 ON BEDSIDE MONITOR , CONDOM CATH WAS REPLACED, DRAINING VIA GRAVITY , LEFT NARE NGT PATENT AND INTACT WITH JEVITY @ 60 ML/HR INFUSING WELL WITH NO RESIDUALS NOTED , PEDRO PABLO MIDLINE, PATENT AND NO S/S OF INFILTRATION NOTED. BED ON LOW AND LOCKED POSITION , SIDE RAILS X3, CALL LIGHT WITHIN REACH , HOB @ 45 WILL CONTINUE TO MONITOR
[2019-12-23] VITALS (29 sets, daily range): BP systolic 118–188; BP diastolic 55–132
--- NOTE | 2019-12-23 07:30 | NUR ---
MELLOWING MACHINE OPERATOR NOTES PATIENT IN BED SLEEPING, NOT IN ACUTE DISTRESS , RESPIRATIONS EVEN AND UNLABORED WITH SPO2 OF 100% VIA 3L NC, ST 100 ON BEDSIDE MONITOR , CONDOM CATH DRAINING CLEAR YELLOW URIN VIA GRAVITY , LEFT NARE NGT PATENT AND INTACT WITH JEVITY @ 60 ML/HR INFUSING WELL WITH NO RESIDUALS NOTED , PEDRO PABLO MIDLINE, PATENT AND NO S/S OF INFILTRATION NOTED. BED ON LOW AND LOCKED POSITION , SIDE RAILS X3, CALL LIGHT WITHIN REACH , HOB @ 45 ENDORSED THE PATIENT TO AM RN FOR LEANNA
[2019-12-23] MEDS: ACETYLCYSTEINE 10% SOLN 400 MG/4 ML VIAL NEB SCH ×2 (08:09→16:36)
[2019-12-23] MEDS: ACETAMINOPHEN 650 MG/20.3 ML UDC NG PRN (08:33)
[2019-12-23] MEDS: CLOTRIMAZOLE 1% 15 GM TUBE TP SCH ×2 (08:44→16:42)
--- NOTE | 2019-12-23 08:50 | NUR ---
NGT PLACEMENT CONFIRMED WITH AUSCULTATION NO RESIDUALS MEDS GIVEN
[2019-12-23] MEDS: VALPROIC ACID 250 MG/5 ML UDC NG SCH ×2 (13:21→21:13)
--- NOTE | 2019-12-23 15:41 | NUR ---
BED BATH GIVEN ORAL CARE AND WOUND CARE RENDERED
[2019-12-23] MEDS: risperiDONE LIQUID 1 MG/ML ML NG SCH ×2 (15:50→21:13)
[2019-12-23] MEDS: JEVITY 1.2 CAL 1,000 ML BOTTLE GT PRN (16:42)
--- NOTE | 2019-12-23 19:00 | NUR ---
Received patient awake,alert,talking loud ,seems to be aware, knows what he wants but not answering any questions of orientation,seems to understand but wont follow any commands. + twitching/shaking a lot.Unable to get accurate BP reading from the arms due to shaking(BP cuff placed on the leg). On O2 via nasal cannula 3 L/min. not in any respiratory distress but has copious amount of secretions and patient unable to clear out airway himself,requiring very frequent suctioning.Aspiration Precaution implemented,maintained on high means's position.On tube feeding via NGT ,closely monitor residuals.
--- NOTE | 2019-12-23 19:33 | NUR ---
REPORT ENDORSED TO NOC
--- NOTE | 2019-12-23 22:00 | NUR ---
REMAINS STABLE,NOT IN NEO DISTRESS BUT STILL HAVING TREMORS.COMFORT CARE DONE.
[2019-12-24] VITALS (43 sets, daily range): BP systolic 103–187; BP diastolic 48–132
--- NOTE | 2019-12-24 | NUR ---
STATUS UNCHANGED,STILL REQUIRES VERY FREQUENT SUCTIONING.ASPIRATION PRECAUTION ONSERVED AT ALL TIMES
--- NOTE | 2019-12-24 04:00 | NUR ---
REMAINS STABLE,NOT IN ANY RESPIRATORY DISTRESS.AM BATH DONE,TOLERATED WELL.
--- NOTE | 2019-12-24 06:00 | NUR ---
STATUS UNCHAGED,STILL WITH TREMORS,STILL WITH COPIOUS AMOUNT OF SECRETIONS REQUIRING FREQUENT SUCTIONING.NOT INANY DISTRESS,SATURATING 98-99% ON 3 L VIA NC. 0700 REPORT GIVEN TO BERTO MATTHEW.
--- NOTE | 2019-12-24 07:30 | NUR ---
FINANCIAL SALES ADVISOR OPENING NOTE 'RECEIVED REPORT FROM PM NURSE.PATIENT IN BED.AXOX1.NO SOB NO DISTRESS NOTED.ON O2 3L VOA NASAL CANULA.CONGESTION NOTED.ORAL SUCTION DONE.PATIENT ABLE TO COUGH.IV LINE INTACT AND PATENT.CONDOM CATH DRAINING CLEAR YELLOW URINE.ON GT FEEDING.SAFETY AND ASPIRATION MEASURES IN PLACE.BED IS LOW AND IN LOCKED POSITION.CALL LIGHT IN REACH.BED ALARM ON SRX3.WILL CONTINUE TO MONITOR.
--- NOTE | 2019-12-24 08:27 | NUR ---
CLIENT SUPPORT ADMINISTRATOR NOTE SEEN BY ,UPDATED ABOUT PATIENT DONT HAVE ANY TWITCHING MOVEMENT WHILE ASSESSING TRAIN OF FOUR.OFF FROM [place] .RECOMMENDING TO TAPER DOWN FENTANYL AND VERSED AND TO MONITOR HIS MENTAL STATUS.LEFT MESSAGE TO .SPOKE TO BROOK IN DOCTORS OFFICE.GOT CALL BACK FROM ,UPDATED ABOUT PATIENT CONDITION AND TRAIN OF FOUR ASSESSMENT5 AND RESULT.MADE AWARE PATIENT OFF FROM [place].REQUESTED ABOUT COVER SEAMER RECOMMENDATION. PER NO MORE TITRATING DOWN VERSED AND FENTANYL UNTIL PATIENT BACK FROM [place] EFFECT.WAIT UNTIL TOMORROW MORNING.CONTINUE TO MONITOR. MADE AWARE THAT PATIENT HAS ABDOMINAL DISTENTION AND GENERALIZED EDEMA.GOT NEW ORDER FOR KUB.WILL CONTINUE TO MONITOR. Addendum: 12/24/19 at 1023 by BERTO MILLIGAN RN ERROR WRONG ENTRY
[2019-12-24] MEDS: ACETYLCYSTEINE 10% SOLN 400 MG/4 ML VIAL NEB SCH ×2 (08:29→16:12)
[2019-12-24] MEDS: FUROSEMIDE 20 MG/2 ML VIAL IV SCH (09:11)
[2019-12-24] MEDS: VALPROIC ACID 250 MG/5 ML UDC NG SCH ×2 (09:11→21:54)
[2019-12-24] MEDS: risperiDONE LIQUID 1 MG/ML ML NG SCH ×2 (09:11→21:54)
[2019-12-24] MEDS: CLOTRIMAZOLE 1% 15 GM TUBE TP SCH ×2 (09:12→17:44)
--- NOTE | 2019-12-24 09:15 | NUR ---
WOOD TURNER NOTE SEEN BY UPDATED ABOUT PATIENT CONDITION.GOT NEW ORDER FOR SWALLOW EVAL.NOTED AND CARRIED OUT.
[2019-12-24] MEDS: ENALAPRILAT INJ (1.25 MG/ML) 1.25 MG/ML VIAL IV PRN (09:16)
[2019-12-24] MEDS: JEVITY 1.2 CAL 1,000 ML BOTTLE GT PRN (09:24)
--- NOTE | 2019-12-24 14:57 | NUR ---
ONCOLOGY TRANSPLANT NETWORK MANAGER NOTE SWALLOW EVAL DONE BY SPEECH THERAPIST.GOT NEW ORDERS.
--- NOTE | 2019-12-24 18:59 | NUR ---
NAVAL AIRCREWMAN TACTICAL HELICOPTER CLOSING NOTE .PATIENT IN BED.AXOX1.NO SOB NO DISTRESS NOTED.ON O2 3L VOA NASAL CANULA.CONGESTION NOTED.ORAL SUCTION DONE.PATIENT ABLE TO COUGH.IV LINE INTACT AND PATENT.CONDOM CATH DRAINING CLEAR YELLOW URINE.ON GT FEEDING.SAFETY AND ASPIRATION MEASURES IN PLACE.BED IS LOW AND IN LOCKED POSITION.CALL LIGHT IN REACH.BED ALARM ON SRX3.ENDORSEE TO PM NURSE FOR LEANNA.EAT 30% FOR DINNER
--- NOTE | 2019-12-24 19:20 | NUR ---
CONFIGURATION MANAGEMENT ARCHITECT NOTES, PATIENT IN BED AWAKE A/O TO SELF, ABLE TO VERBALIZED NEEDS AND CONCERNS, ON 3LPM VIA NC, NO SOB/ DISTRESS NOTED AT THIS TIME, NSR IN TELE MONITOR WITH HR IN 80S AT HIS TIME, PEDRO PABLO MIDLINE IN PLACED PATENT AND INTACT, NOTED PATIENT WITH INCREASED SECRETIONS AND ORALLY SUCTIONED PROVIDED, OPTIMAL O2 SATURATION AT THIS TIME, > 98%, AND PATIENT ALSO ABLE TO COUGH SECRETIONS, CONDOM CATH IN PLACED DRAINING CLEAR YELLOW URINE BY GRAVITY, NG TUBE IN LEFT NARE, ON JEVITY 1.2 AT 60ML/HR, MINIMAL RESIDUAL NOTED, ASPIRATION MEASURES IN PLACE, BED LOCKED AND IN LOWEST POSITION, CALL LIGHT W/I REACH, BED ALARM ON SRX3, WILL CONTINUE TO MONITOR CLOSELY.
[2019-12-25] VITALS (33 sets, daily range): BP systolic 81–129; BP diastolic 30–103
[2019-12-25] MEDS: JEVITY 1.2 CAL 1,000 ML BOTTLE GT PRN (03:37)
--- NOTE | 2019-12-25 07:00 | NUR ---
SHIP'S ENGINEER CLOSING NOTE: PATIENT IN BED SLEEPING, ON 3 LPM VIA NC, NO SOB/ DISTRESS NOTED AT THIS TIME, NSR IN TELE MONITOR WITH HR IN 70'S AT HIS TIME, RIGHT UPPER ARM MIDLINE IN PLACE, MIDLINE PATENT AND INTACT. PATIENT SECRETIONS IMPROVED WITH O2 SAT 99-100%, CONDOM CATH IN PLACE, DRAINING CLEAR YELLOW URINE BY GRAVITY, NG TUBE IN LEFT NARE AND INTACT. PATIENT ON JEVITY 1.2 FEEDING RUNNING AT 60ML/HR WITH MINIMAL RESIDUAL NOTED, ASPIRATION MEASURES IN PLACE, BED LOCKED AND IN LOWEST POSITION, CALL LIGHT WITHIN REACH, BED ALARM ON, WILL ENDORSE PATIENT TO AM NURSE FOR LEANNA..
[2019-12-25] MEDS: ACETYLCYSTEINE 10% SOLN 400 MG/4 ML VIAL NEB SCH ×2 (07:44→16:38)
--- NOTE | 2019-12-25 08:34 | NUR ---
received pt from anaesthesiologist, alert, follows commands, SR, on 3L 02 sat well, lungs partially congested, no edema, NG to feeding tolerates well, condom cath good output, v/s stable, no pain, pt turned and repositioned.
[2019-12-25] MEDS: VALPROIC ACID 250 MG/5 ML UDC NG SCH ×2 (08:43→21:07)
[2019-12-25] MEDS: CLOTRIMAZOLE 1% 15 GM TUBE TP SCH ×2 (08:43→16:23)
[2019-12-25] MEDS: risperiDONE LIQUID 1 MG/ML ML NG SCH ×2 (08:43→21:07)
[2019-12-25] MEDS: FUROSEMIDE 20 MG/2 ML VIAL IV SCH (08:43)
--- NOTE | 2019-12-25 16:21 | NUR ---
pt is resting in the bed, alert, follows commands, SR, on 3L sat well, tolerated feeding, good urine output, v/s stable, no pain, pt cleaned, changed and repositioned q2hrs.
[2019-12-26] VITALS (17 sets, daily range): BP systolic 118–138; BP diastolic 60–89
[2019-12-26] MEDS: JEVITY 1.2 CAL 1,000 ML BOTTLE GT PRN (05:19)
[2019-12-26] MEDS: ACETYLCYSTEINE 10% SOLN 400 MG/4 ML VIAL NEB SCH ×2 (08:11→17:35)
--- NOTE | 2019-12-26 08:21 | NUR ---
received pt from manufacturing supervisor 2nd shift, alert, follows commands, SR, on 3L 02 sat well, no edema, NG to feeding tolerates well, condom cath good urine output, v/s stable, no pain, seen by Dr Thomson, pt turned and repositioned.
[2019-12-26] MEDS: CLOTRIMAZOLE 1% 15 GM TUBE TP SCH ×2 (08:48→18:15)
[2019-12-26] MEDS: VALPROIC ACID 250 MG/5 ML UDC NG SCH ×2 (08:48→20:47)
[2019-12-26] MEDS: FUROSEMIDE 20 MG/2 ML VIAL IV SCH (08:48)
[2019-12-26] MEDS: risperiDONE LIQUID 1 MG/ML ML NG SCH ×2 (08:48→20:47)
[2019-12-26 09:56] LABS: CALCIUM, SERUM 8.5 mg/dL (8.5-10.1); CREATININE 1.2 mg/dL (0.6-1.3); POTASSIUM 3.9 mmol/L (3.5-5.1)
--- NOTE | 2019-12-26 10:30 | NUR ---
RN NOTE RECEIVED PATIENT VIA BED. REPORT GIVEN AT BEDSIDE. ON 3L, NO COMPLAINS OF ANY SOB OR PAIN AT THIS TIME. ALERT AND ORIENTED X2, DELAYED SPEECH. HAS A CONDOM CATH WITH CLEAR AND YELLOW URINE. HAS A RIGHT UA IV SITE. DR BRITTON SAW THE PATIENT THIS AM. NNO. BED LOCKED AND IN LOWEST POSITION. CALL LIGHT WITHIN REACH. WILL CONTINUE TO MONITOR
--- NOTE | 2019-12-26 10:51 | NUR ---
pt transferred to [facility], ACLS followed, v/s stable, no pain.
--- NOTE | 2019-12-26 17:16 | NUR ---
RN NOTE CALLED PHARMACY AND ASKED FOR LOTRIMIN CREAM
--- NOTE | 2019-12-26 18:43 | NUR ---
RN CLOSING NOTE PATIENT IN BED, ASLEEP BUT EASILY AROUSABLE. PATIENT REFUSED TO EAT DINNER RIGHT NOW, HE SAID WILL EAT LATER. HE WANTED TO REST. NO COMPLAINS OF ANY SOB NOR PAIN, ON 3L NC. ALL DUE MEDS GIVEN. ALL NEEDS MET. REPOSITIONED PER PROTOCOL. WILL ENDORSE TO NOC SHIFT FOR LEANNA
--- NOTE | 2019-12-26 19:25 | NUR ---
[facility]/RN NOTES PATIENT RECEIVED IN BED, AWAKE, WATCHING TV. ALERT AND ORIENTED X2. IN NO ACUTE DISTRESS. BREATHING EVEN AND UNLABORED. NO SHORTNESS OF BREATH NOTED. ON O2 3LPM VIA NASAL CANULA. ON TELE WITH SINUS RHYTHM. MIDLINE IN PLACE. PATENT, FLUSHED WITH NS. CONDOM CATH IN PLACE, PATENT, DRAINING WITH YELLOW COLOR URINE. SAFETY MAINTAINED, BED AT THE LOWEST, LOCKED POSITION. CALL LIGHT WITHIN REACH. WILL CONTINUE TO MONITOR PER PLAN OF CARE.
[2019-12-26] MEDS: ACETAMINOPHEN 650 MG/20.3 ML UDC NG PRN (22:18)
[2019-12-27] VITALS: BP 128/77
[2019-12-27 04:00] VITALS: BP 128/69
--- NOTE | 2019-12-27 06:55 | NUR ---
[facility]/RN NOTES PATIENT REMAINED IN BED, RESTING COMFORTABLY , ALERT AND ORIENTED X2. IN NO ACUTE DISTRESS. BREATHING EVEN AND UNLABORED. NO SHORTNESS OF BREATH NOTED. ON O2 3LPM VIA NASAL CANULA, SATURATION 97%. ON TELE WITH SINUS RHYTHM. MIDLINE IN PLACE. PATENT, FLUSHED WITH NS. CONDOM CATH IN PLACE, PATENT, DRAINING WITH YELLOW COLOR URINE. SAFETY MAINTAINED, BED AT THE LOWEST, LOCKED POSITION. CALL LIGHT WITHIN REACH. KEPT CLEAN AND DRY. HOB REMAINED ELEVAED TO SEMI TOM POSITION. NEEDS ATTENDANT. DUE MEDS GIVEN ORDERED, TOLERATED WELL. TREATMENTS RENDEREED. WILL ENDORSE TO AM SHIFT NURSE FOR LEANNA.
[2019-12-27 07:11] LABS: BASOPHILS % (AUTO) 0.5 % (0.0-2.0); EOSINOPHILS % (AUTO) 4.9 % (0.0-6.0); HEMATOCRIT 29 % (39-51); HEMOGLOBIN 9.3 g/dL (13.5-17.5); LYMPHOCYTES # (AUTO) 1.5 /CMM (0.8-4.8); LYMPHOCYTES % (AUTO) 19.3 % (20.0-44.0); MEAN CORPUSCULAR HGB CONC 33 g/dl (31.0-36.0); MEAN CORPUSCULAR VOLUME 92 fL (80-96); MONOCYTES # (AUTO) 0.7 /CMM (0.1-1.30); MONOCYTES % (AUTO) 9.5 % (2.0-12.0); NEUTROPHILS # (AUTO) 5.1 /CMM (1.8-8.9); NEUTROPHILS % (AUTO) 65.8 % (43.0-81.0); PLATELET COUNT (AUTO) 240 /CMM (150-450); RED BLOOD CELL COUNT(AUTO) 3.11 MIL/uL (4.5-6.0); WHITE BLOOD COUNT (AUTO) 7.7 K/uL (4.3-11.0)
--- NOTE | 2019-12-27 07:30 | NUR ---
RN NOTES RECEIVED PATIENT IN BED. AWAKE, ALERT AND ORIENTED X2, ABLE TO MAKE NEEDS KNOWN, ABLE TO RESPOND APPROPRIATELY. BREATHING EVEN AND UNLABORED. NO SHORTNESS OF BREATH NOTED AT THIS TIME. ON OXYGEN SUPPORT VIA NASAL CANNULA WITH 3LPMM. SATING FINE. NO COMPLAINTS OF PAIN NOTED AT THIS TIME. MIDLINE NOTED ON THE PEDRO PABLO: SALINE LOCKED. "CAN I HAVE ICE CREAM?" INFORMED PATIENT THAT BREAKFAST WILL BE SERVE SOON. HOB KEPT ELEVATED. SAFETY MEASURES OBSERVED AND MAINTAINED. BED INN LOW AND LOCKED CALL LIGHT WITHIN REACHH. WILL CCONTINUE TO MONITOR PATIENT ACCORDINGLY
[2019-12-27] MEDS: ACETYLCYSTEINE 10% SOLN 400 MG/4 ML VIAL NEB SCH ×2 (07:34→15:08)
[2019-12-27 07:51] LABS: B-TYPE NATRIURETIC PEPTIDE 252 PG/ML (0-125); CALCIUM, SERUM 8.8 mg/dL (8.5-10.1); CARBON DIOXIDE 34 mmol/L (21-32); CHLORIDE 101 mmol/L (98-107); CREATININE 1.4 mg/dL (0.6-1.3); GLUCOSE 91 mg/dL (74-106); POTASSIUM 4.5 mmol/L (3.5-5.1); SODIUM SERUM 141 mmol/L (136-145); UREA NITROGEN, BLOOD 38 mg/dL (7-18)
[2019-12-27 08:00] VITALS: BP 125/75
[2019-12-27] MEDS: FUROSEMIDE 20 MG/2 ML VIAL IV SCH (08:38)
[2019-12-27] MEDS: risperiDONE LIQUID 1 MG/ML ML NG SCH ×2 (08:39→21:00)
[2019-12-27] MEDS: VALPROIC ACID 250 MG/5 ML UDC NG SCH ×2 (08:39→22:07)
[2019-12-27] MEDS: CLOTRIMAZOLE 1% 15 GM TUBE TP SCH ×2 (08:39→16:33)
[2019-12-27 12:00] VITALS: BP 117/68
[2019-12-27 16:00] VITALS: BP 119/77
--- NOTE | 2019-12-27 19:18 | NUR ---
RN NOTES ENDORSED PATIENT FOR CONTINUITY OF CARE. NOT ON ANY FORM OF DISTRESS. NO SHORTNESS OF BREATH NOTED. NO INDICATION OF PAIN. CHEST TUBE IN PLACCE AND ATTACHED PROPERLY. ALL NURSING NEEDS ATTENDED AND MET. SAFETY MEASURES IN PLACE. HOB ELEVAATED. CALL LIGHT WITHIN REACH. Addendum: 12/27/19 at 1918 by KADY WEEKS RN DISREGARD " CHHEST TUBE IN PLACE PROPERLY
[2019-12-27 20:00] VITALS: BP 121/76
[2019-12-27] MEDS: PRIMIDONE 50 MG TABLET PO SCH (22:07)
[2019-12-28] VITALS (7 sets, daily range): BP systolic 127–136; BP diastolic 72–79
--- NOTE | 2019-12-28 07:41 | NUR ---
RN NOTES RECEIVED PATIENT IN BED. AWAKE, ALERT AND ORIENTED X2, ABLE TO MAKE NEEDS KNOWN, ABLE TO RESPOND BREATHING EVEN AND UNLABORED. NO SHORTNESS OF BREATH NOTED AT THIS TIME. ON OXYGEN S VIA NASAL CANNULA WITH 3LPMM. NO COMPLAINTS OF PAIN NOTED AT THIS TIME. MIDLINE NOTED ON THE PEDRO PABLO IN PLACE ,HOB KEPT ELEVATED. SAFETY MEASURES OBSERVED AND MAINTAINED. BED IN LOW AND LOCKED CALL LIGHT WITHIN REACH. WILL CONTINUE TO MONITOR PATIENT CLOSELY, TURN REPOSITION DONE, RT AT BEDSIDE ON BREATHING TX
[2019-12-28] MEDS: ACETYLCYSTEINE 10% SOLN 400 MG/4 ML VIAL NEB SCH ×2 (07:44→17:12)
[2019-12-28] MEDS: VALPROIC ACID 250 MG/5 ML UDC NG SCH ×2 (08:49→21:29)
[2019-12-28] MEDS: CLOTRIMAZOLE 1% 15 GM TUBE TP SCH ×2 (08:50→16:52)
[2019-12-28] MEDS: risperiDONE LIQUID 1 MG/ML ML NG SCH ×2 (09:39→21:28)
--- NOTE | 2019-12-28 10:47 | NUR ---
[facility] RN NOTE TURN REPOSITION, ALL NEEDS ATTENDED, WILL F\U
--- NOTE | 2019-12-28 16:00 | NUR ---
POLICE CAPTAIN NOTE DR BRITTON AT BEDSIDE AWARE THAT PATIENT STILL COUGH WITH ORDER PT EVAL ,ORDER CARRIED OUT
--- NOTE | 2019-12-28 19:22 | NUR ---
STORAGE BRINE WORKER NOTE ALL NEEDS ATTENDED ,NO SOB NOTED AT THIS TIME ,CALL LIGHT WITHIN REACH, WILL CONT TO MONITOR
--- NOTE | 2019-12-28 19:30 | NUR ---
RN NOTES RECEIVED PATIENT IN BED, AWAKE , ALERT AND ORIENTED X2, ABLE TO VERBALIZED NEEDS AND CONCERNS, BREATHING EVEN AND UNLABORED, NO SOB/ACUTE DISTRESS NOTED AT THIS TIME, ON 2LPM VIA NC SATING WELL, DENIES PAIN OR DISCOMFORT AT THIS TIME, PEDRO PABLO MIDLINE IN PLACED, FLUSHED PATENT AND INTACT, HOB KEPT ELEVATED, SAFETY MEASURES OBSERVED AND MAINTAINED, BED LOCKED AND LOW POSITION, CALL LIGHT WITHIN REACH, WILL CONTINUE TO MONITOR CLOSELY.
[2019-12-28] MEDS: PRIMIDONE 50 MG TABLET PO SCH (21:30)
[2019-12-29] VITALS: BP 121/69
[2019-12-29 04:00] VITALS: BP 122/65
--- NOTE | 2019-12-29 06:47 | NUR ---
RN NOTES, NO SIGNIFICANT CHANGE IN CONDITION DURING THE NIGHT, WILL ENDORSE CONTINUITY OF CARE TO ONCOMING NURSE.
--- NOTE | 2019-12-29 07:40 | NUR ---
RN OPENING NOTES Patient received on 3L o2 nasal cannula. Patient remains a/o x1 at this time. Shows no S/S of pain at this time. Condom cath present. Pureed diet. Awaiting for PT eval for possible DC. Bed at the lowest setting, call light within reach, side rails u px2.
[2019-12-29 08:00] VITALS: BP 134/70
[2019-12-29] MEDS: risperiDONE LIQUID 1 MG/ML ML NG SCH ×2 (08:23→21:22)
[2019-12-29] MEDS: CLOTRIMAZOLE 1% 15 GM TUBE TP SCH ×2 (08:24→17:17)
[2019-12-29] MEDS: VALPROIC ACID 250 MG/5 ML UDC NG SCH ×2 (08:24→21:21)
[2019-12-29] MEDS: ACETYLCYSTEINE 10% SOLN 400 MG/4 ML VIAL NEB SCH ×2 (08:58→17:54)
--- NOTE | 2019-12-29 11:19 | NUR ---
WOUND CARE CONSULT: PT PRESENTS WITH RASH TO CHEST AND RESOLVING RASH TO GROIN/PERINEAL AREAS, WITH RESOLVING INCONTINENCE ASSOCIATED SKIN DAMAGE TO GLUTEAL CREASE OVER PREVIOUS SCARRING (SACRAL SCARRING NOTED PRESENT ON ADMISSION). DR BRITTON IN TO EXAMINE PT AND ORDERS RECEIVED FOR CHEST RASH. DISCUSSED WITH NURSING STAFF. WILL SEE PRN. BURKETT IN AGREEMENT WITH PLAN OF CARE. PT ON [address] [facility]OFLEX LOW AIRLOSS BED. Addendum: 12/29/19 at 1122 by MARIE LEONE WNDNU Amended: Links added.
[2019-12-29 12:00] VITALS: BP 135/69
[2019-12-29 14:53] LABS: ALBUMIN 2.2 g/dL (3.4-5.0); BILIRUBIN,TOTAL 0.1 mg/dL (0.2-1.0); CALCIUM, SERUM 8.8 mg/dL (8.5-10.1); CREATININE 1.2 mg/dL (0.6-1.3); TOTAL PROTEIN, SERUM 6.3 g/dL (6.4-8.2)
[2019-12-29 16:00] VITALS: BP 132/68
[2019-12-29] MEDS: FLUOCINONIDE 0.05% CREAM 60 GM TUBE TP SCH (17:00)
--- NOTE | 2019-12-29 18:05 | NUR ---
rn closing notes Patient remains on 3L nasal cannula, no sob noted, patient denies pain at this time. Patient able to verbalize needs and wants. Condom cath remains intact and is draining. Pureed diet with crushed medications. No new labs today. Bed at the lowest setting, call light within reach, side rails up x2.
--- NOTE | 2019-12-29 19:30 | NUR ---
RN NOTES, RECEIVED PATIENT IN BED, AWAKE , ALERT AND ORIENTED X2, ABLE TO VERBALIZED NEEDS AND CONCERNS, BREATHING EVEN AND UNLABORED, NO SOB/ACUTE DISTRESS NOTED AT THIS TIME, ON 3LPM VIA NC SATING WELL, DENIES PAIN OR DISCOMFORT AT THIS TIME, PEDRO PABLO MIDLINE IN PLACED, PATENT AND INTACT, HOB ELEVATED, AT ALL TIMES FOR ASPIRATION PRECAUTIONS, SAFETY MEASURES OBSERVED AND MAINTAINED, BED LOCKED AND LOW POSITION, CALL LIGHT WITHIN REACH, WILL CONTINUE TO MONITOR CLOSELY.
[2019-12-29 20:00] VITALS: BP 124/77
[2019-12-29] MEDS: PRIMIDONE 50 MG TABLET PO SCH (21:22)
[2019-12-30] VITALS (7 sets, daily range): BP systolic 124–148; BP diastolic 66–77
--- NOTE | 2019-12-30 06:52 | NUR ---
RN NOTES, PATIENT IN BED, ASLEEP AT THIS TIME, BUT AROUSABLE TO VERBAL STIMULI, BREATHING EVEN AND UNLABORED, NO SOB/ACUTE DISTRESS NOTED, NO SIGNIFICANT CHANGE IN CONDITION DURING THE NIGHT, HOB ELEVATED FOR ASPIRATION PRECAUTION, ALL SAFETY MEASURES IN PLACED, S/R OF BED ORDERED, WILL ENDORSE CONTINUITY OF CARE TO ONCOMING NURSE.
[2019-12-30 07:30] LABS: BASOPHILS # (AUTO) 0.1 /CMM (0.0-0.2); BASOPHILS % (AUTO) 0.5 % (0.0-2.0); EOSINOPHILS % (AUTO) 3.5 % (0.0-6.0); HEMATOCRIT 31 % (39-51); HEMOGLOBIN 10.2 g/dL (13.5-17.5); LYMPHOCYTES # (AUTO) 1.8 /CMM (0.8-4.8); LYMPHOCYTES % (AUTO) 15.4 % (20.0-44.0); MEAN CORPUSCULAR HGB CONC 33 g/dl (31.0-36.0); MEAN CORPUSCULAR VOLUME 92 fL (80-96); MONOCYTES # (AUTO) 1.1 /CMM (0.1-1.30); MONOCYTES % (AUTO) 9.2 % (2.0-12.0); NEUTROPHILS # (AUTO) 8.3 /CMM (1.8-8.9); NEUTROPHILS % (AUTO) 71.4 % (43.0-81.0); PLATELET COUNT (AUTO) 369 /CMM (150-450); WHITE BLOOD COUNT (AUTO) 11.7 K/uL (4.3-11.0)
--- NOTE | 2019-12-30 08:00 | NUR ---
filament welder Opening Notes Patient received from night shift supervisor. Patient is resting in bed comfortably. No signs of distress. No complaints of pain. VSS. Bed in lowest position and call light within reach. All measures taken to ensure patient safety.
[2019-12-30] MEDS: risperiDONE LIQUID 1 MG/ML ML NG SCH (08:47)
[2019-12-30] MEDS: VALPROIC ACID 250 MG/5 ML UDC NG SCH (08:48)
[2019-12-30] MEDS: CLOTRIMAZOLE 1% 15 GM TUBE TP SCH (08:48)
--- NOTE | 2019-12-30 08:54 | NUR ---
cytology technologist Note Fluocinonide cream not on unit. Spoke with pharmacy who will deliver shortly.
[2019-12-30] MEDS: FLUOCINONIDE 0.05% CREAM 60 GM TUBE TP SCH (09:00)
[2019-12-30] MEDS: ACETYLCYSTEINE 10% SOLN 400 MG/4 ML VIAL NEB SCH (09:16)
[2019-12-30] MEDS ORDERED: PNEUMOCOCCAL 23-VAL P-SAC VAC 0.5 ML VIAL SQ ONE (15:00)
--- NOTE | 2019-12-30 15:20 | NUR ---
rn note pt discharged to [facility], FOR LEANNA, REPORT GIVEN TO BULL, ADMISION COORDINATOR. PT BEEN IN STABLE CONDITION, DISCHARGE INSTRUCTIONS PROVIDED, TEACHING REINFORCED, PT SLEEPY AND PASSIVE, PT VERBALIZED UNDERSTANDING, EXIT CARE DONE, PT 'S SKIN PICTURES TAKEN AND PLACED IN THE CHART, PNA VACCINE GIVEN TODAY, AND PT UP-TO-DATE WITH FLU VACCINE, MIDLINE REMOVED, TELEMETRY BOX REMOVED, ID BAND REMOVED, CONDOM CATH KEPT IN PLACE, PT HAD NO BELONGINGS ON THE BELONGINGS LIST.
== END 2019-12-30 15:30 | DRG 870 ==
LOC: ER 09:20 → ICU 13:09 → TELE-TD 12-26 10:29 → TELE1 12-28 15:55
PROVIDERS: ADMIT Internal Medicine; ATTEND Internal Medicine
PROC: 5A1955Z Respiratory Ventilation, Greater than 96 Consecutive Hours (ICD-10-PCS; principal; 2019-11-30)
PROC: 0BH17EZ Insertion of Endotracheal Airway into Trachea, Via Natural or Artificial Opening (ICD-10-PCS; 2019-11-30)
PROC: 02HV33Z Insertion of Infusion Device into Superior Vena Cava, Percutaneous Approach (ICD-10-PCS; 2019-11-30)
PROC: B548ZZA Ultrasonography of Superior Vena Cava, Guidance (ICD-10-PCS; 2019-11-30)
PROC: 05H533Z Insertion of Infusion Device into Right Subclavian Vein, Percutaneous Approach (ICD-10-PCS; 2019-12-20)
DX: A41.9 Sepsis, unspecified organism (principal); J69.0 Pneumonitis due to inhalation of food and vomit; R65.21 Severe sepsis with septic shock; G92 Toxic encephalopathy; R57.1 Hypovolemic shock; J96.01 Acute respiratory failure with hypoxia; J96.02 Acute respiratory failure with hypercapnia; N17.9 Acute kidney failure, unspecified; E87.2 Acidosis; E87.0 Hyperosmolality and hypernatremia; N39.0 Urinary tract infection, site not specified; E27.40 Unspecified adrenocortical insufficiency; J44.0 Chronic obstructive pulmonary disease with (acute) lower respiratory infection; J90 Pleural effusion, not elsewhere classified; D63.1 Anemia in chronic kidney disease; E78.5 Hyperlipidemia, unspecified; E87.6 Hypokalemia; F02.80 Dementia in other diseases classified elsewhere, unspecified severity, without behavioral disturbance, psychotic disturbance, mood disturbance, and anxiety; Z93.1 Gastrostomy status; Z87.440 Personal history of urinary (tract) infections; Z87.891 Personal history of nicotine dependence; N18.9 Chronic kidney disease, unspecified; I48.0 Paroxysmal atrial fibrillation; I49.5 Sick sinus syndrome; G47.30 Sleep apnea, unspecified; R25.1 Tremor, unspecified; E16.2 Hypoglycemia, unspecified; Z79.82 Long term (current) use of aspirin; T17.990A Other foreign object in respiratory tract, part unspecified in causing asphyxiation, initial encounter; X58.XXXA Exposure to other specified factors, initial encounter; Y93.9 Activity, unspecified; Y92.129 Unspecified place in nursing home as the place of occurrence of the external cause; E87.70 Fluid overload, unspecified; I12.9 Hypertensive chronic kidney disease with stage 1 through stage 4 chronic kidney disease, or unspecified chronic kidney disease; Z79.899 Other long term (current) drug therapy
CPT/HCPCS: 31720; 36410; 36415; 36569; 36600; 70450-TC; 71045-TC; 76770-TC; 80048-TC; 80053-TC; 80076-TC; 80202-TC; 81000-TC; 82533; 82803-TC; 82962-TC; 83605-TC; 83735-TC; 83880; 84439-TC; 84443-TC; 84478-TC; 84484-TC; 85025-TC; 85730-TC; 87040-TC; 87070-TC; 87081-TC; 87086-TC; 90732; 92526; 92611-TC; 93307-TC; 94002-TC; 94003-TC; 94640-TC; 94760-TC; 94762-TC; 94799-TC; 95819-TC; 97530-TC; A4216; A4349; A4624; C1751; C9113; G0378; J0330; J1265; J1644; J1720; J1815; J1940; J2060; J2185; J2370; J2543; J3370; J3480; J3490; J7030; J7040; J7042; J7050; J7060; J7070

== ENCOUNTER 2020-11-20 08:44 | Inpatient (IN) | payer MEDICARE, OTHER ==
[2020-11-20] VITALS (34 sets, daily range): BP systolic 69–140; BP diastolic 49–99
[~2020-11-20] VITALS: Ht 182.9 cm; Wt 82.1 kg
[~2020-11-20 08:44] MED LIST changes: +AMIN887L PO; -ASPI-1169 PO; +BENZ1TAB7 PO; -BENZ2AMP PO; +CALC100T2 PO; +CRAN450C PO; +DOCU-141 PO; +FAMO20TA8 PO; +HALO100A2 IM; +IBUP-1953 PO; +IPRA3AMP23 IH; +LACT10SO PO; +MAG30ORA PO; +MAGN400O6 PO; -MELA3TAB63 PO; +MULT-439 PO; +NA P133E RC
--- NOTE | 2020-11-20 08:44 | NUR ---
PT BIBRA FROM SNF C/O MORE ALTERED THAN USUAL, LOW O2 SAT AND LOW BP. PT IS AAOX0, NOT NOTED RESPIRATORY DISTRESS, HOOKED TO O2 AT 15LPM VIA NB AND SAND BLASTER, KEPT RESTED AND COMFORTABLE WILL CONTINUE TO MONITOR.
--- NOTE | 2020-11-20 08:52 | NUR ---
SEEN AND EXAMINED BY .
--- NOTE | 2020-11-20 09:00 | NUR ---
SEAM PRESS OPERATOR AT BEDSIDE FOR XRAY.
[2020-11-20 09:19] LABS: ABG BASE EXCESS -5.7 mmol/L; ABG OXYGEN SATURATION 97.9 % (92.0-98.5); ABG PCO2 99.7 mmHg (35.0-45.0); ABG PH 7.052 (7.350-7.450); ABG PO2 144.7 mmHg (75.0-100.0); AaDO2 468.6 mmHg; COHb 0.8 % (0.5-1.5); MetHb 0.5 % (0.0-1.5); O2Hb 96.6 % (94.0-97.0); SITE, ABG Right Radial; VENT MODE, BG NRB 100%
--- NOTE | 2020-11-20 09:30 | NUR ---
AND RT AT BEDSIDE FOR INTUBATION.
--- NOTE | 2020-11-20 09:34 | NUR ---
PROPOFOL 50MG IV GIVEN ORDERED BY AT BEDSIDE.
--- NOTE | 2020-11-20 09:37 | NUR ---
INTUBATION DONE BY . ET SIZE 7 24CM AT THE LIP. POSITIVE COLOR CHANGED.
[2020-11-20] MEDS ORDERED: CARB-93 PO (09:49)
[2020-11-20] MEDS ORDERED: BENZ0.5T43 PO (09:49)
[2020-11-20] MEDS ORDERED: ATOR10TA PO (09:49)
[2020-11-20] MEDS ORDERED: RISP2TAB5 PO (09:49)
[2020-11-20] MEDS ORDERED: ASCO500T20 PO (09:49)
[2020-11-20] MEDS ORDERED: RISP2TAB85 PO (09:49)
[2020-11-20] MEDS ORDERED: ZOLP5TAB8 PO (09:49)
[2020-11-20] MEDS ORDERED: ASPI-1169 PO (09:49)
[2020-11-20] MEDS ORDERED: ZINC1CAP3 PO (09:49)
[2020-11-20] MEDS ORDERED: AMLO-212 PO (09:49)
[2020-11-20 10:08] LABS: CALCIUM, SERUM 8.4 mg/dL (8.5-10.1); CARBON DIOXIDE 25 mmol/L (21-32); CHLORIDE 102 mmol/L (98-107); GLUCOSE 185 mg/dL (74-106); SODIUM SERUM 139 mmol/L (136-145); UREA NITROGEN, BLOOD 19 mg/dL (7-18)
[2020-11-20 10:13] LABS: POTASSIUM 5.4 mmol/L (3.5-5.1)
[2020-11-20 10:22] LABS: ALKALINE PHOSPHATASE 120 U/L (46-116); ASPARTATE AMINOTRANSFERASE 25 U/L (15-37); BILIRUBIN,TOTAL 0.3 mg/dL (0.2-1.0)
[2020-11-20 10:23] LABS: ALANINE AMINOTRANSFERASE 7 U/L (12-78); ALBUMIN 2.3 g/dL (3.4-5.0); B-TYPE NATRIURETIC PEPTIDE 1462 PG/ML (0-125)
[2020-11-20 10:24] LABS: TOTAL PROTEIN, SERUM 7.5 g/dL (6.4-8.2)
[2020-11-20] MEDS ORDERED: MIDAZOLAM HCL 2 MG/2ML VIAL ONE (10:26)
[2020-11-20] MEDS ORDERED: MIDAZOLAM HCL 2 MG/2ML VIAL IV ONE (10:30)
[2020-11-20] MEDS ORDERED: PROPOFOL 200 MG/20 ML VIAL IV ONE (10:30)
[2020-11-20 11:21] LABS: CREATINE KINASE, TOTAL 80 U/L (39-308); FERRITIN 239 ng/mL (8-388)
[2020-11-20 11:25] LABS: C-REACTIVE PROTEIN 14.5 mg/dL (0.0-0.9)
[2020-11-20 12:00] LABS: EOSINOPHILS % (AUTO) 0.5 % (0.0-6.0); HEMATOCRIT 31 % (39-51); HEMOGLOBIN 9.6 g/dL (13.5-17.5); LYMPHOCYTES # (AUTO) 0.9 /CMM (0.8-4.8); LYMPHOCYTES % (AUTO) 5.8 % (20.0-44.0); MEAN CORPUSCULAR HGB CONC 31 g/dl (31.0-36.0); MEAN CORPUSCULAR VOLUME 96 fL (80-96); MONOCYTES # (AUTO) 2.5 /CMM (0.1-1.30); MONOCYTES % (AUTO) 16.3 % (2.0-12.0); NEUTROPHILS # (AUTO) 11.9 /CMM (1.8-8.9); NEUTROPHILS % (AUTO) 77.4 % (43.0-81.0); PLATELET COUNT (AUTO) 144 /CMM (150-450); WHITE BLOOD COUNT (AUTO) 15.4 K/uL (4.3-11.0)
--- NOTE | 2020-11-20 12:07 | NUR ---
ROOM 263
--- NOTE | 2020-11-20 12:57 | NUR ---
REPORT GIVEN TO TIFF HAQUE OF ICU FOR LEANNA.
[2020-11-20 13:17] LABS: D-DIMER 18.22 mg/L(FEU (0.17-0.50)
[2020-11-20] MEDS ORDERED: Z GUARD REMEDY 2 OZ OINT TP PRN (14:30)
[2020-11-20] MEDS ORDERED: HYDROCODONE/APAP 5/325MG TABLET PO PRN (14:30)
[2020-11-20] MEDS ORDERED: ACETAMINOPHEN 325 MG TABLET PO PRN (14:30)
[2020-11-20] MEDS ORDERED: ONDANSETRON HCL/PF 4 MG/2 ML VIAL IVP PRN (14:30)
[2020-11-20] MEDS ORDERED: MAGNESIUM HYDROXIDE 30 ML UDC PO PRN (14:30)
[2020-11-20] MEDS ORDERED: IV NS 0.9% 1,000 ML IV ONE (14:30)
[2020-11-20 14:40] LABS: BILIRUBIN,URINE SMALL (NEGATIVE); COLOR,URINE YELLOW (YELLOW); LEUKOCYTE ESTERASE ,URINE MODERATE (NEGATIVE); NITRITE, URINE NEGATIVE (NEGATIVE); PROTEIN,URINE 100 mg/dl (NEGATIVE); UGLUCOSE NEGATIVE (NEGATIVE); UROBILINOGEN,URINE 0.2 EU/dL (0.2)
[2020-11-20 14:58] LABS: ABG BASE EXCESS -2.6 mmol/L; ABG OXYGEN SATURATION 99.1 % (92.0-98.5); ABG PCO2 41.6 mmHg (35.0-45.0); ABG PH 7.356 (7.350-7.450); ABG PO2 170.9 mmHg (75.0-100.0); AaDO2 138.8 mmHg; COHb 0.3 % (0.5-1.5); MetHb 0.1 % (0.0-1.5); O2Hb 98.7 % (94.0-97.0); PEEP,BG 5 cm H2O; SITE, ABG Left Radial; VT, ABG 500 mL
[2020-11-20] MEDS: PROPOFOL 100 ML IV PRN (15:01)
[2020-11-20 15:18] LABS: BACTERIA,URINE 4+ /HPF (None Seen); RBC,URINE 21-50 /HPF (0-2); SQUAMOUS EPITHELIAL CELL,UR 0-2 /HPF (None Seen); WBC,URINE 21-50 /HPF (0-3); YEAST,URINE Many /HPF (None Seen)
[2020-11-20 15:44] LABS: BAND % (MANUAL) 4 % (0.0-5.0); LYMPHOCYTES % (MANUAL) 6 % (16-48); MONOCYTES % (MANUAL) 15 % (0-11.0); NEUTROPHILS % (MANUAL) 75 (42-76)
[2020-11-20] MEDS ORDERED: LEVOFLOXACIN 500 MG /D5W 100ML 500 MG in PREMIX 1 EA IV ONE (16:00)
[2020-11-20] MEDS: IV NS 0.9% 1,000 ML IV PRN (16:23)
[2020-11-20] MEDS: DEXAMETHASONE SOD PHOSPHATE 10 MG/ML VIAL IV SCH (16:27)
[2020-11-20] MEDS ORDERED: NOREPINEPHRINE 32 MG in IV NS 0.9% 218 ML IV PRN (16:30)
[2020-11-20] MEDS: APIXABAN 5 MG TABLET PO SCH (16:30)
[2020-11-20] MEDS: NOREPINEPHRINE 8 MG in IV NS 0.9% 242 ML IV PRN (17:26)
--- NOTE | 2020-11-20 18:36 | NUR ---
RN NOTE 1440: Admitted 70 yo male patient from ED, intubated in ED. Primary Dx PNA, RF, HX of Covid + from [facility]. Still noted with PNA in CXR. 7.04/05 AC 22 500 50% +5. Rendered skin assessment, noted with sacral redness, taken pic and attached to chart. SR 100's. Dewitt cath intact, noted with amelia colored urine with sediments. LH g20PIV intact. 1520: Dr. Mckeon seen ABG with order to place FIO2 to 40%. 1600: S/E by Elizabeth TELEPHONE INSTRUMENT SUPERVISOR, made aware, unable to reach family or public guardian to get consent for PICC line, obtained order to may use midline until able to get PICC line. Still noted with low BP, even on NS Bolus. 1830: On Levo @1mcg, Diprivan @ 5mcg. SB 50- SR 60's, 100% sat. Kept clean, warm and dry. Needs attended. Isolation prec for Covid maintained and observed.
[2020-11-20] MEDS ORDERED: MEROPENEM 500 MG in IV NS 0.9% 50 ML IV SCH (20:00)
[2020-11-20] MEDS ORDERED: MEROPENEM 500 MG in IV NS 0.9% 50 ML IV ONE (20:00)
[2020-11-20] MEDS ORDERED: FLUCONAZOLE IN NS 100 MG in PREMIX 1 EA IV SCH ×2 (20:00)
[2020-11-20] MEDS: IPRATROPIUM/ALBUTEROL INHALER IH SCH (20:51)
[2020-11-20] MEDS ORDERED: MEROPENEM 500 MG VIAL IV ONE (20:54)
[2020-11-21] VITALS (94 sets, daily range): BP systolic 91–166; BP diastolic 60–89
[2020-11-21] MEDS: IPRATROPIUM/ALBUTEROL INHALER IH SCH ×4 (00:41→17:13)
[2020-11-21] MEDS: IV NS 0.9% 1,000 ML IV PRN ×2 (03:00→16:53)
[2020-11-21 04:43] LABS: BASOPHILS # (AUTO) 0.1 /CMM (0.0-0.2); BASOPHILS % (AUTO) 0.8 % (0.0-2.0); HEMATOCRIT 34 % (39-51); HEMOGLOBIN 10.9 g/dL (13.5-17.5); LYMPHOCYTES # (AUTO) 0.4 /CMM (0.8-4.8); LYMPHOCYTES % (AUTO) 4.3 % (20.0-44.0); MEAN CORPUSCULAR HGB CONC 32 g/dl (31.0-36.0); MEAN CORPUSCULAR VOLUME 90 fL (80-96); MONOCYTES # (AUTO) 0.5 /CMM (0.1-1.30); MONOCYTES % (AUTO) 4.5 % (2.0-12.0); NEUTROPHILS # (AUTO) 9.5 /CMM (1.8-8.9); NEUTROPHILS % (AUTO) 90.4 % (43.0-81.0); PLATELET COUNT (AUTO) 177 /CMM (150-450); RED BLOOD CELL COUNT(AUTO) 3.72 MIL/uL (4.5-6.0); WHITE BLOOD COUNT (AUTO) 10.5 K/uL (4.3-11.0)
[2020-11-21 05:06] LABS: CALCIUM, SERUM 7.8 mg/dL (8.5-10.1); CREATININE 1.3 mg/dL (0.6-1.3); MAGNESIUM 1.9 mg/dL (1.8-2.4); POTASSIUM 4.7 mmol/L (3.5-5.1)
--- NOTE | 2020-11-21 06:34 | NUR ---
Patient remains in no acute distress in bed. patient did not have any significant change in condition during shift. Patient tolerated vent setting well. all needs met, all orders carried out. will endorse care to am RN for continuity of care.
[2020-11-21] MEDS: PROPOFOL 100 ML IV PRN (06:48)
[2020-11-21] MEDS ORDERED: MEROPENEM 1 G in IV NS 0.9% 100 ML IV ONE (07:00)
[2020-11-21] MEDS: NOREPINEPHRINE 8 MG in IV NS 0.9% 242 ML IV PRN (07:51)
[2020-11-21] MEDS ORDERED: FLUCONAZOLE IN NS,PREMIX 200 MG in PREMIX 1 EA IV SCH ×2 (09:00)
[2020-11-21] MEDS: DEXAMETHASONE SOD PHOSPHATE 10 MG/ML VIAL IV SCH (09:06)
[2020-11-21] MEDS: APIXABAN 5 MG TABLET PO SCH (09:07)
[2020-11-21 10:15] LABS: ABG BASE EXCESS -1.5 mmol/L; ABG OXYGEN SATURATION 98.9 % (92.0-98.5); ABG PCO2 33.7 mmHg (35.0-45.0); ABG PH 7.436 (7.350-7.450); ABG PO2 144.5 mmHg (75.0-100.0); AaDO2 101.9 mmHg; COHb 0.3 % (0.5-1.5); MetHb 0.2 % (0.0-1.5); O2Hb 98.4 % (94.0-97.0); PEEP,BG 5 cm H2O; SITE, ABG Right Radial; VT, ABG 500 mL
[2020-11-21] MEDS ORDERED: NEUTRA PHOS 1 POWD.PACKET PO ONE (11:30)
[2020-11-21] MEDS: MEROPENEM 1 G in IV NS 0.9% 100 ML IV SCH ×2 (15:25→23:00)
[2020-11-21] MEDS ORDERED: LEVOFLOXACIN 250 MG /D5W 50 ML 250 MG in PREMIX 1 EA IV SCH (16:00)
--- NOTE | 2020-11-21 18:00 | NUR ---
RN NOTES PT TOLERAING SIMV MODE WELL, O2 SAT WNL, NO SIGNFICANT CHANGES NOTED ON THIS SHIFT , WILL ENDORSE TO LASER BEAM CUTTER NURSE FOR CONTINUITY OF CARE
--- NOTE | 2020-11-21 20:38 | NUR ---
Received patient intubated on vent, SIMV settings as charted. On ET tube 7.0 24cm @ lip. No respiratory distress noted. Pt. alert and awake. Suctioned small amounts of thick yellow secretions. Will continue to monitor. Addendum: 11/21/20 at 2039 by ROGER SHELTON RT Amended: Links added.
[2020-11-22] VITALS (86 sets, daily range): BP systolic 106–156; BP diastolic 38–111
[2020-11-22 04:06] LABS: BASOPHILS # (AUTO) 0.1 /CMM (0.0-0.2); HEMATOCRIT 29 % (39-51); HEMOGLOBIN 9.6 g/dL (13.5-17.5); LYMPHOCYTES # (AUTO) 0.6 /CMM (0.8-4.8); LYMPHOCYTES % (AUTO) 6.3 % (20.0-44.0); MEAN CORPUSCULAR HGB CONC 33 g/dl (31.0-36.0); MEAN CORPUSCULAR VOLUME 90 fL (80-96); MONOCYTES # (AUTO) 0.4 /CMM (0.1-1.30); MONOCYTES % (AUTO) 4.6 % (2.0-12.0); NEUTROPHILS # (AUTO) 8.6 /CMM (1.8-8.9); NEUTROPHILS % (AUTO) 88.1 % (43.0-81.0); PLATELET COUNT (AUTO) 172 /CMM (150-450); RED BLOOD CELL COUNT(AUTO) 3.23 MIL/uL (4.5-6.0); WHITE BLOOD COUNT (AUTO) 9.8 K/uL (4.3-11.0)
[2020-11-22 04:19] LABS: CALCIUM, SERUM 7.4 mg/dL (8.5-10.1); CREATININE 1.1 mg/dL (0.6-1.3); POTASSIUM 4.3 mmol/L (3.5-5.1)
[2020-11-22] MEDS: PROPOFOL 100 ML IV PRN ×2 (04:47→18:52)
[2020-11-22] MEDS: IV NS 0.9% 1,000 ML IV PRN ×2 (05:16→15:59)
[2020-11-22] MEDS: IPRATROPIUM/ALBUTEROL INHALER IH SCH ×4 (06:00→17:50)
[2020-11-22] MEDS: MEROPENEM 1 G in IV NS 0.9% 100 ML IV SCH ×2 (06:20→15:43)
--- NOTE | 2020-11-22 08:00 | NUR ---
RN NOTES Received patient intubated on EET vent tolerated setting well, no acute respiratory distress, On ET tube 7.0 /24cm @ lip. Pt. alert and awake. Suctioned small amounts of thick yellow secretions.infusing Diprivan 5mcg/kg/hr intact, and Merrem 33.33 extended dose on PEDRO PABLO intact. ogt clamped, hob elevated, assist turn ad reposition q 2 hr, philip draining gravity. restrain bilateral wrist checked circulation. Will continue to monitor.
[2020-11-22] MEDS: DEXAMETHASONE SOD PHOSPHATE 10 MG/ML VIAL IV SCH (09:20)
[2020-11-22] MEDS: ENOXAPARIN SODIUM 40 MG/0.4 ML DISP.SYRIN SQ SCH (09:22)
--- NOTE | 2020-11-22 09:37 | NUR ---
WOUND CARE CONSULT: REVIEWED CHART, NURSING DOCUMENTATION AND PHOTOS WHICH INDICATE SACRAL SCARRING, PRESENT ON ADMISSION. RECOMMENDATIONS MADE FOR SKIN PROTECTION. DISCUSSED WITH NURSING STAFF. PT IS ON [facility] LOW AIRLOSS BED. MD IN AGREEMENT WITH PLAN OF CARE.
--- NOTE | 2020-11-22 13:00 | NUR ---
rn notes TITRATED DIPRIVAN TO 10 MCG/kg/hr AT THIS TIME BECAUSE OF MILD AGITATION, PATIENT CALM AND COOPERATIVE, SUCTION, ORAL CARE DONE, ASSIST TURN AND REPOSTION Q 2 HR, PATIENT JITTERING MOVEMENT BECAUSE OF PARKINSON, NOTIFIED HOSPITALIST Dr BRITTON FOR MEDICATION VERIFICATION.
[2020-11-22] MEDS: CARBIDOPA/LEVODOPA 25/100 MG 1 UDTAB PO SCH (16:53)
--- NOTE | 2020-11-22 17:50 | NUR ---
RN NOTES PATIENT INTUBATED UNABLE TO GET INHALER PO.
--- NOTE | 2020-11-22 18:38 | NUR ---
RN NOTES PM CARE DONE, SUCTION, MOUTH CARE DONE. ADMINISTERED SCHEDULED MEDICATION VIS OGT, OGT CLAMPED. PATIENT EET VENT TOLERATED WELL, CALM AND COOPERATIVE, INFUSING DIPRIVAN 10MCG/KG/HR, AND NS AT 100 ML/HR, INFUSING WELL ON RIGHT UA MIDLINE. PATIENT HAVING HAND SHAKINESS BECAUSE OF PARKINSON. WHITLEY DRAINING GRAVITY OUTPUT WAS 350 ML, NO BM. CALL LIGHT WITHIN TO REACH. CALL LIGHT WITHIN TO REACH.ASSIST TURN AND REPOSTION Q 2 HR. ENDORSED ONCOMING NURSE FOLLOW PLAN OF CARE.
[2020-11-22] MEDS: PRIMIDONE 50 MG TABLET PO SCH (22:07)
[2020-11-23] VITALS (25 sets, daily range): BP systolic 108–154; BP diastolic 45–111
[2020-11-23] MEDS: IV NS 0.9% 1,000 ML IV PRN ×2 (02:40→18:15)
[2020-11-23] MEDS: PROPOFOL 100 ML IV PRN (03:58)
[2020-11-23] MEDS: IPRATROPIUM/ALBUTEROL INHALER IH SCH ×4 (06:00→18:16)
--- NOTE | 2020-11-23 06:29 | NUR ---
RT Adapter not available to administer MDI.
[2020-11-23] MEDS ORDERED: DC PROPOFOL WHEN EXTUBATED XX PRN (08:00)
--- NOTE | 2020-11-23 08:00 | NUR ---
PT RECEIVED IN BED ON SIMV SETTINGS, RT CHANGED TO NOW CPAP. O2 SAT 96% AND ABOVE. PT IS ALERT AND CAN TRACK, NO LONGER ON DIPROVAN. PT ON BILATERAL SOFT WRIST RESTRAINTS ORDERED. PT HAS OGT CLAMPLED WITH MINIMAL RESIDUAL. PT IV ACCESS FLUSHED AND INTACT, NO SIGNS OF INFECTION OR INFILTRATION. ALL SAFETY MEASURES IN PLACE. WILL CONTINUE TO MONITOR CLOSELY
[2020-11-23] MEDS: CARBIDOPA/LEVODOPA 25/100 MG 1 UDTAB PO SCH ×3 (08:12→16:38)
[2020-11-23] MEDS: PANTOPRAZOLE 40 MG/PACK PACK GT SCH (08:12)
[2020-11-23] MEDS: DEXAMETHASONE SOD PHOSPHATE 10 MG/ML VIAL IV SCH (08:12)
[2020-11-23 08:44] LABS: ABG BASE EXCESS -3.6 mmol/L; ABG PCO2 31.7 mmHg (35.0-45.0); ABG PO2 162.3 mmHg (75.0-100.0); AaDO2 86.4 mmHg; COHb 0.3 % (0.5-1.5); MetHb 0.1 % (0.0-1.5); O2Hb 98.6 % (94.0-97.0); SITE, ABG Right Femoral; VENT MODE, BG CPAP 5 / PS 15
--- NOTE | 2020-11-23 10:00 | NUR ---
PT DIPROVAN WITHHELD FOR EXTUBATION. PT EXTUBATED, CURRENTLY 3L NC 100% O2 SATURATION. PATIENT IS ALERT AND ORIENTED X 3. SWALLOW EVAL ORDERED, PER MD BRITTON, ABLE TO ADVANCE DIET TO PUREED.
[2020-11-23] MEDS: ENOXAPARIN SODIUM 40 MG/0.4 ML DISP.SYRIN SQ SCH (10:04)
[2020-11-23 12:31] LABS: ABG BASE EXCESS -3.9 mmol/L; ABG OXYGEN SATURATION 98.7 % (92.0-98.5); ABG PCO2 32.8 mmHg (35.0-45.0); ABG PH 7.405 (7.350-7.450); ABG PO2 139.4 mmHg (75.0-100.0); AaDO2 50.4 mmHg; COHb 0.3 % (0.5-1.5); MetHb 0.1 % (0.0-1.5); O2Hb 98.3 % (94.0-97.0); SITE, ABG Right Radial
--- NOTE | 2020-11-23 13:00 | NUR ---
PT TRANSFERRED TO ICU OVERFLOW, REPORT AND PATIENT GIVEN TO KARI IN [facility].
--- NOTE | 2020-11-23 13:31 | NUR ---
icu over flow rn note received patient from icu from kimmy rn ,patient alert oriented on 1l saturation 97% at this time, on tele monitor sr hr 47 with philip cath to gravity with yellow color urine, rt upper arm midline in place on ivf as ordered bed in lowest and locked position will cont to monitor ,call light within reach
--- NOTE | 2020-11-23 13:41 | NUR ---
ICU OVER FLOW RN NOTE PER ST [facility] TO HAVE PUREE DIET
--- NOTE | 2020-11-23 18:40 | NUR ---
ICU OVER FLOW FED BY PUPPY SITTER NOT IN DISTRESS, CONT ON IVF ORDERED ON1L NC, SATURATION 95% WILL CONT TO MONITOR
--- NOTE | 2020-11-23 19:20 | NUR ---
RECEIVED PT ON BED AWAKE A/O X3 ON O2 1L VIA NC SPO2 97% NO SIGN AND SYMPTOMS OF DISTRESS, NO PAIN COMPLAINT, TELEMONITOR READS SINUS TIM 40-50'S HAVE PEDRO PABLO MIDLINE PATENT AND FLUSHED WITH ONGOING NS @ 70ML/HR INFUSING WELL HAVE WHITLEY CATHETER DRAINING VIA GRAVITY WITH YELLOW URINE, DROPLET ISOLATION MAINTAINED FOR COVID 19 BED ON LOWEST POSITION AND LOCKED SIDE RAILS UP X2 CALL LIGHT WITHIN REACH WILL CONT TO MONITOR
--- NOTE | 2020-11-23 19:55 | NUR ---
PT IS ASKING IF HE CAN HAVE AMBIEN TO SLEEP, BUT HE DONT HAVE ANY ORDER INFORM DR. BRITTON ABOUT THE REQUEST OF THE PT, DR. BRITTON ORDER TRAZODONE 50MG PO @ HS INSTEAD, NOTED AND CARRIED OUT
[2020-11-23] MEDS: PRIMIDONE 50 MG TABLET PO SCH (21:26)
[2020-11-23] MEDS: TRAZODONE 50 MG TABLET PO SCH (21:26)
[2020-11-24] VITALS (15 sets, daily range): BP systolic 91–132; BP diastolic 53–72
--- NOTE | 2020-11-24 00:03 | NUR ---
PT ON BED ASLEEP EASY TO WAKE UP SPO2 98% WITH O2 1L NC NO SIGN OF DISTRESS HR IS 44 WILL CONT TO MONITOR
[2020-11-24] MEDS: IPRATROPIUM/ALBUTEROL INHALER IH SCH ×4 (00:06→18:17)
[2020-11-24] MEDS: IV NS 0.9% 1,000 ML IV PRN ×2 (06:55→18:49)
--- NOTE | 2020-11-24 07:15 | NUR ---
RN OPENING NOTE PATIENT AWAKE IN BED, A&OX3, TOLERATING O2 THERAPY WELL VIA NC AT 2 LPM. SATTING AT 99%. NO SOB NOTED. DENIES PAIN. NO ACUTE DISTRESS NOTED AT THIS TIME. RIGHT UPPER MIDLINE RUNNING .9% NS AT 70 ML/HR. PATIENT AND INTACT. RIGHT HAND #20 ZIGGY INTACT AND PATENT. LEFT HAND #20 ZIGGY INTACT AND PATENT. PATIENT TELE READING SINUS BRADYCARDIA 40'S. SAFETY PRECAUTIONS IMPLEMENTED. BED LOCKED IN LOWEST POSITION. SIDE RAILS UP X2. CALL LIGHT WITHIN REACH. WILL CONTINUE TO MONITOR AND PROVIDE CARE THROUGHOUT SHIFT.
--- NOTE | 2020-11-24 07:41 | NUR ---
PT ON BED ASLEEP EASY TO WAKE UP ON O2 VIA NC @ 2L SPO2 99% TELE MONITOR READS SINUS TIM ON LOW 40'S, NO SIGNIFICANT CHANGES ON CONDITION NOTED ALL NEEDS ATTENDED DROPLET ISOLATION MAINTAINED BED ON LOWETS POSITION AND LOCKED SIDE RAILS UP X 2 CALL LIGHT WITHIN REACH WILL ENDORSED TO AM SHIFT NURSE
[2020-11-24] MEDS: PANTOPRAZOLE 40 MG/PACK PACK GT SCH (08:02)
[2020-11-24] MEDS: CARBIDOPA/LEVODOPA 25/100 MG 1 UDTAB PO SCH ×3 (08:03→17:26)
[2020-11-24] MEDS: DEXAMETHASONE SOD PHOSPHATE 10 MG/ML VIAL IV SCH (08:03)
[2020-11-24] MEDS: ENOXAPARIN SODIUM 40 MG/0.4 ML DISP.SYRIN SQ SCH (08:07)
--- NOTE | 2020-11-24 19:05 | NUR ---
RN CLOSING NOTE PATIENT AWAKE IN BED, A&OX3, TOLERATING O2 THERAPY WELL VIA NC AT 2 LPM. SATTING AT 99%. NO SOB NOTED. DENIES PAIN. NO ACUTE DISTRESS NOTED AT THIS TIME. RIGHT UPPER MIDLINE RUNNING .9% NS AT 70 ML/HR. PATENT AND INTACT. RIGHT HAND #20 ZIGGY INTACT AND PATENT. LEFT HAND #20 ZIGGY INTACT AND PATENT. PATIENT TELE READING SINUS BRADYCARDIA 50'S. SAFETY PRECAUTIONS IMPLEMENTED. BED LOCKED IN LOWEST POSITION. SIDE RAILS UP X2. CALL LIGHT WITHIN REACH. WILL ENDORSE TO UPCOMING SHIFT FOR CONTINUATION OF CARE.
--- NOTE | 2020-11-24 19:40 | NUR ---
RN CLOSING NOTE PATIENT IN BED, AWAKE A&OX3, ON NC AT 2 LPM, WITH OPTIMAL O2 SAT LEVEL > 95%, NO SOB OR ACUTE DISTRESS NOTED T THIS TIME, DENIES PAIN OR DISCOMFORT, RIGHT UPPER MIDLINE IN PLACE, 0.9% NS AT 70 ML/HR, INFUSING WELL ND PATIENT TOLERATED WELL, SINUS RHYTHM IN THE MONITOR WITH HR IN 50S AT THIS TIME, SAFETY PRECAUTIONS IMPLEMENTED. BED LOCKED IN LOWEST POSITION, SIDE RAILS UP X2, CALL LIGHT WITHIN REACH, WILL CONTINUE TO MONITOR CLOSELY. Addendum: 11/25/20 at 0126 by ARCADIO ORELLANA RN OPENING NOTES
[2020-11-24] MEDS: PRIMIDONE 50 MG TABLET PO SCH (23:14)
[2020-11-24] MEDS: TRAZODONE 50 MG TABLET PO SCH (23:14)
[2020-11-25] VITALS: BP 114/62
--- NOTE | 2020-11-25 00:30 | NUR ---
CIRCUITS ENGINEER NOTES, ENDORSED PATENT TO JOHNNY FOR CONTINUATION OF CARE, PATIENT IN STABLE CONDITION WITH STABLE VITAL SINS.
[2020-11-25 04:31] VITALS: BP 119/58
[2020-11-25] MEDS: IPRATROPIUM/ALBUTEROL INHALER IH SCH ×4 (05:50→17:10)
--- NOTE | 2020-11-25 06:11 | NUR ---
QUALITATIVE FIELD COORDINATOR CLOSING NOTE Patient asleep in bed, A/O x3. Breathing even, unlabored on 2 LPM NC, O2sat 96%. Afebrile. Patient denies pain. Tele monitor reading sinus shay. Skin warm, pink, dry. Redness noted on sacrum. Turn and repositioned q2h. Bony prominences off loaded. IV site PEDRO PABLO midline running NS @ 70 ml/hr. No signs of redness or infiltration. Patient void via philip cather, output 400 ml. Urine clear, yellow, without sediment. All scheduled medications administered. All needs met. Bed in low position, wheels locked, side rails up x2, call light within reach. Will endorse to oncoming nurse.
[2020-11-25] MEDS: IV NS 0.9% 1,000 ML IV PRN (06:28)
--- NOTE | 2020-11-25 07:30 | NUR ---
crusher operator OPENING NOTE Patient is alert and oriented x 3/4. No s/s of respiratory distress noted. No c/o pain or discomfort. Patient noted with right upper mid line which is intact and free of s/s of bleeding. Patient is on 2 lpm via n/c with 02 saturation of 95%. Patient's tele reading is sinus bradycardia.Dewitt cath intact and hanging to gravity with clear yellow urine. Head of the bed kept elevated. Call light with in reach. Will continue to monitor.
[2020-11-25 08:00] VITALS: BP 115/65
[2020-11-25] MEDS ORDERED: DEXAMETHASONE 4 MG TABLET PO SCH (09:00)
[2020-11-25] MEDS: ENOXAPARIN SODIUM 40 MG/0.4 ML DISP.SYRIN SQ SCH (09:10)
[2020-11-25] MEDS: CARBIDOPA/LEVODOPA 25/100 MG 1 UDTAB PO SCH ×3 (09:11→17:09)
[2020-11-25 12:00] VITALS: BP 102/55
[2020-11-25 16:00] VITALS: BP 104/54
--- NOTE | 2020-11-25 18:25 | NUR ---
SIEVE REPAIRER NOTES Received order from Dr Mullen to discharge patient and to D/C midline and peripheral lines and to d/c lovenox. Patient's midline discontinued and no s/s of bleedng noted. Report called in to [facility] and spoke to Kylie MATTHEW. Patient is currently in good stable condition. Dewitt cath hanging to gravity with clear yellow urine noted. 02 saturation of 96% on 2lpm via n/c, No c/o sob and no s/s of respiratory depression noted. Addendum: 11/25/20 at 1830 by RICH DAVISON RN Dr Thomson
--- NOTE | 2020-11-25 18:57 | NUR ---
GRAIN MANAGER-1 CLOSING NOTES Patient is alert and oriented x 3 with episodes of forgetfulness. No s/s of respiratory distress noted. No c/o pain or discomfort. Patient is s/p right upper midline removal with no s/s of active bleeding noted. Patient is on 2 lpm via n/c with 02 saturation of 97%. Patient's tele reading is sinus bradycardia.Dewitt cath intact and hanging to gravity with clear yellow urine AND urine output of 1100cc duright shift. Head of the bed kept elevated, .Patient currently awaiting transport for discharge to [facility]. will endorse to next shift to follow up regarding discharge.
--- NOTE | 2020-11-25 19:05 | NUR ---
skein yarn drier opening notes received pt in bed awake alert and oriented x 3 bale to make simple needs known on 2 l via nc tolerating well respirations even and unlabored with equal rise and fall of chest, denies any pain or discomfort, patient is set for discharge, sacral redness skin is intact. pt is clean awaiting potato picker. remains comfortable will continue to monitor.
--- NOTE | 2020-11-25 20:15 | NUR ---
varnisher apprentice notes ambulance here for pick for patient discharge to [facility]. vs wnl 138/71,18,78,97.8,97%. discharge paperwork given to emt, no belongings present. iv to right hand removed no bleeding, id bands removed. patient left in stable condition.
== END 2020-11-25 20:10 | DRG 871 ==
LOC: ER 08:46 → ICU 12:38 → ICUOV 11-23 12:57 → TELE1 11-24 11:03
PROVIDERS: ADMIT Nurse Practitioner Acute Care; ATTEND Internal Medicine
PROC: 5A1945Z Respiratory Ventilation, 24-96 Consecutive Hours (ICD-10-PCS; principal; 2020-11-20)
PROC: 0BH18EZ Insertion of Endotracheal Airway into Trachea, Via Natural or Artificial Opening Endoscopic (ICD-10-PCS; 2020-11-20)
PROC: 05HY33Z Insertion of Infusion Device into Upper Vein, Percutaneous Approach (ICD-10-PCS; 2020-11-20)
DX: A41.89 Other specified sepsis (principal); U07.1 COVID-19; R65.21 Severe sepsis with septic shock; J96.01 Acute respiratory failure with hypoxia; J96.02 Acute respiratory failure with hypercapnia; J12.82 Pneumonia due to coronavirus disease 2019; G93.41 Metabolic encephalopathy; N17.0 Acute kidney failure with tubular necrosis; J15.9 Unspecified bacterial pneumonia; J69.0 Pneumonitis due to inhalation of food and vomit; N39.0 Urinary tract infection, site not specified; J44.1 Chronic obstructive pulmonary disease with (acute) exacerbation; D68.69 Other thrombophilia; E87.2 Acidosis; J44.0 Chronic obstructive pulmonary disease with (acute) lower respiratory infection; Z87.891 Personal history of nicotine dependence; R73.03 Prediabetes; E86.1 Hypovolemia; N18.9 Chronic kidney disease, unspecified; I12.9 Hypertensive chronic kidney disease with stage 1 through stage 4 chronic kidney disease, or unspecified chronic kidney disease; N13.9 Obstructive and reflux uropathy, unspecified; E87.5 Hyperkalemia; F99 Mental disorder, not otherwise specified; G20 Parkinson's disease; D63.8 Anemia in other chronic diseases classified elsewhere; E78.5 Hyperlipidemia, unspecified; E87.70 Fluid overload, unspecified
CPT/HCPCS: 31720; 36410; 36415; 36600; 71045-TC; 80048-TC; 80053-TC; 80061-TC; 81001; 82248-TC; 82550-TC; 82728-TC; 82803-TC; 83605-TC; 83615-TC; 83735-TC; 83880; 84100-TC; 84484-TC; 85025-TC; 85378-TC; 85385-TC; 85730-TC; 86140-TC; 87040-TC; 87070-TC; 87081-TC; 87086-TC; 92526; 92611-TC; 94002-TC; 94003-TC; 94760-TC; 94762-TC; 94799-TC; A4216; G0378; J1100; J1450; J1650; J1956; J2185; J2250; J3490; J7030; J7050; J8540; U0003

== ENCOUNTER 2021-03-07 06:01 | Inpatient (IN) | payer MEDICARE, OTHER ==
[~2021-03-07] VITALS: Ht 182.9 cm; Wt 85.3 kg
[2021-03-07] VITALS (45 sets, daily range): BP systolic 84–160; BP diastolic 49–88
[~2021-03-07 06:01] MED LIST changes: -AMIN887L PO; +AMLO-212 PO; +ASCO500T20 PO; +ASPI-1169 PO; +ATOR10TA PO; +BENZ0.5T43 PO; -BENZ1TAB7 PO; -CALC100T2 PO; +CARB-300 PO; -CRAN450C PO; -DIVA125C2 PO; -DOCU-141 PO; -FAMO20TA8 PO; -HALO100A2 IM; -HALO2TAB2 PO; -IBUP-1953 PO; -LACT10SO PO; -MAG30ORA PO; -MAGN400O6 PO; -NA P133E RC; -PSYL0.4C2 PO; +RISP2TAB5 PO; +RISP2TAB85 PO; +ZINC1CAP3 PO; +ZOLP5TAB8 PO
--- NOTE | 2021-03-07 06:01 | NUR ---
TO ER BED 8 BIB EMS FROM [facility] C/O RESPIRATORY DISTRESS. O2 SAT 82% PER EMS REPORT. 89% ON BVM UPON ARRIVAL TO ER. RT AT BEDSIDE TO CONTINUS BVM. PLACED PT ON CARDIAC MONITORING, CONTINUOUSPOX, O2 VIA BVM. PT UNRESPONSIVE, PINPOINT PUPILS, HOT TO TOUCH. NO RESPONSE TO PAIFUL STIMULI. STARTED SL 18G TO R HAND, BLOOD DRANW AND SENT TO LAB. ER MD AT BEDSIDE TO EVAL PT WITH ORDERS RECEIVED. WILL CARRY OUT ORDERS.
[2021-03-07] MEDS ORDERED: NALOXONE PREFILLED SYRINGE 2 MG/2 ML SYRINGE ONE (06:12)
--- NOTE | 2021-03-07 06:15 | NUR ---
BLOOD WORK COLLECTED, SENT TO LAB.
--- NOTE | 2021-03-07 06:26 | NUR ---
ER MD REMAINS AT BEDSIDE WITH ORDER TO PREP PT FOR INTUBATION.
[2021-03-07] MEDS ORDERED: ROCURONIUM BROMIDE 100 MG/10 ML VIAL IV ONE (06:30)
[2021-03-07] MEDS ORDERED: NALOXONE PREFILLED SYRINGE 2 MG/2 ML SYRINGE IV ONE (06:30)
[2021-03-07] MEDS ORDERED: IV NS 0.9% 1,000 ML BAG IV ONE (06:30)
[2021-03-07] MEDS ORDERED: ETOMIDATE 2 MG/ML VIAL IV ONE ×2 (06:30→13:53)
[2021-03-07 06:36] LABS: BASOPHILS % (AUTO) 0.1 % (0.0-2.0); EOSINOPHILS % (AUTO) 0.2 % (0.0-6.0); HEMATOCRIT 38 % (39-51); HEMOGLOBIN 11.9 g/dL (13.5-17.5); LYMPHOCYTES # (AUTO) 0.9 /CMM (0.8-4.8); LYMPHOCYTES % (AUTO) 4.2 % (20.0-44.0); MEAN CORPUSCULAR HGB CONC 31 g/dl (31.0-36.0); MEAN CORPUSCULAR VOLUME 89 fL (80-96); MONOCYTES # (AUTO) 1.5 /CMM (0.1-1.30); MONOCYTES % (AUTO) 7.2 % (2.0-12.0); NEUTROPHILS # (AUTO) 18.6 /CMM (1.8-8.9); NEUTROPHILS % (AUTO) 88.3 % (43.0-81.0); PLATELET COUNT (AUTO) 231 /CMM (150-450); WHITE BLOOD COUNT (AUTO) 21.1 K/uL (4.3-11.0)
[2021-03-07 06:37] LABS: BILIRUBIN,URINE NEGATIVE (NEGATIVE); COLOR,URINE YELLOW (YELLOW); LEUKOCYTE ESTERASE ,URINE NEGATIVE (NEGATIVE); NITRITE, URINE NEGATIVE (NEGATIVE); PH,URINE 5.5 (5.0-8.0); PROTEIN,URINE TRACE mg/dl (NEGATIVE); UGLUCOSE NEGATIVE (NEGATIVE); UROBILINOGEN,URINE 0.2 EU/dL (0.2)
[2021-03-07] MEDS ORDERED: PROPOFOL 100 ML ONE (06:38)
--- NOTE | 2021-03-07 06:42 | NUR ---
PER ER TO START PT ON DIPRIVAN.
--- NOTE | 2021-03-07 06:49 | NUR ---
SPOKE TO ER REGARDING PT BEING HYPOTENSIVE, WILL HOLD DIPRIVAN.
--- NOTE | 2021-03-07 06:49 | NUR ---
XRAY AT BEDSIDE FOR POST INTUBATION XRAY
--- NOTE | 2021-03-07 06:51 | NUR ---
BHAVNAID SWABBED, SENT TO LAB.
--- NOTE | 2021-03-07 06:58 | NUR ---
RT pt arrived due to resp distress. pt unresponsive. intubated. ett size 6.5, 23 @ lip. vent settings: AC 16 500 100% +5. ett secure. suctioned large thick yellow looney secretions via ett. ambu bag at [facility]. vent plugged in to red outlet. abg in 1 hr. will endorse to oncoming shift
[2021-03-07] MEDS ORDERED: CEFEPIME 1 GM in IV D5W 50 ML IV ONE (07:00)
[2021-03-07] MEDS ORDERED: VANCOMYCIN 1 GM in IV D5W 250 ML IV ONE (07:00)
--- NOTE | 2021-03-07 07:03 | NUR ---
PT BP STABLE. ER AWARE. WILL START DIPRIVAN.
--- NOTE | 2021-03-07 07:05 | NUR ---
CALLED PHARMACY REGARDING MEDS.
--- NOTE | 2021-03-07 07:18 | NUR ---
PER ER MD, INCREASE DIPRIVAN TO 10MCG/KG/MIN. VITALS STABLE.
[2021-03-07 07:19] LABS: ALANINE AMINOTRANSFERASE 15 U/L (12-78); ALBUMIN 3.2 g/dL (3.4-5.0); ALKALINE PHOSPHATASE 97 U/L (46-116); ASPARTATE AMINOTRANSFERASE 12 U/L (15-37); BILIRUBIN,TOTAL 0.1 mg/dL (0.2-1.0); CALCIUM, SERUM 8.6 mg/dL (8.5-10.1); CARBON DIOXIDE 29 mmol/L (21-32); CHLORIDE 106 mmol/L (98-107); CREATININE 1.5 mg/dL (0.6-1.3); GLUCOSE 163 mg/dL (74-106); SODIUM SERUM 141 mmol/L (136-145); TOTAL PROTEIN, SERUM 6.8 g/dL (6.4-8.2); UREA NITROGEN, BLOOD 22 mg/dL (7-18)
[2021-03-07] MEDS ORDERED: PROPOFOL 100 ML IV ONE (07:30)
--- NOTE | 2021-03-07 07:33 | NUR ---
REPORT GIVEN TO CECI RN FOR LEANNA.
--- NOTE | 2021-03-07 07:46 | NUR ---
RECEIVED THE PATIENT IN ER BED #8. PATIENT IS INTUBATED, ET 6.5 AT LIP, VENT SETTINGS ARE AC 16, V 500, O2 IS 100% AND PEEP 5. THE PATIENT IS TOLERATING VENT SETTINGS. WHITLEY CATH PRESENT AND DRAINING CLEAR, YELLOW COLOR URINE. NO BLADDER DISTENSION NOTED. PROPOFOL INFUSING AT 10 MCG/KG/MIN. BP IS 119/77 AND HR IS 85. WILL CONTINUE TO MONITOR THE PATIENT.
--- NOTE | 2021-03-07 07:47 | NUR ---
EPIC PAGED. AWAITING CALL BACK FROM DR JAMISON.
--- NOTE | 2021-03-07 07:51 | NUR ---
GOING TO ICU 259
[2021-03-07 07:54] LABS: BACTERIA,URINE Rare /HPF (None Seen); SQUAMOUS EPITHELIAL CELL,UR Rare /HPF (None Seen); WBC,URINE 0-2 /HPF (0-3)
[2021-03-07 07:59] LABS: ABG BASE EXCESS -4.6 mmol/L; ABG OXYGEN SATURATION 97.8 % (92.0-98.5); ABG PCO2 47.9 mmHg (35.0-45.0); ABG PH 7.283 (7.350-7.450); ABG PO2 135.7 mmHg (75.0-100.0); AaDO2 529.4 mmHg; COHb 0.3 % (0.5-1.5); MetHb 0.7 % (0.0-1.5); O2Hb 96.8 % (94.0-97.0); SITE, ABG Right Radial; VENT MODE, BG AC 16 500 100% +5
--- NOTE | 2021-03-07 08:00 | NUR ---
COVID NEGATIVE PER LAB @0800
[2021-03-07] MEDS ORDERED: IPRA4AER IH (08:24)
[2021-03-07] MEDS ORDERED: PRIM50TA27 PO (08:24)
[2021-03-07] MEDS ORDERED: HYDR-4209 PO (08:24)
[2021-03-07] MEDS ORDERED: MAGN400O6 PO (08:24)
[2021-03-07] MEDS ORDERED: RISP0.2515 PO ×2 (08:24)
--- NOTE | 2021-03-07 08:33 | NUR ---
REPORT GIVEN TO TIFF RODRÍGUEZ FROM ICU.
--- NOTE | 2021-03-07 08:39 | NUR ---
rt note patient 6.5 ett advanced 2.5 cm per md orders and now @25.5cm at the lip. equal bilateral breath sounds. no sob or distress noted at this time. pt stable. will continue to monitor.
--- NOTE | 2021-03-07 09:21 | NUR ---
THE PATIENT IS TRANSFERED TO CT THAN ICU ROOM 259 PER ACLS PROTOCOL
[2021-03-07] MEDS ORDERED: HYDROCODONE/APAP 5/325MG TABLET PO PRN ×2 (09:30)
[2021-03-07] MEDS ORDERED: Z GUARD REMEDY 2 OZ OINT TP PRN (09:30)
[2021-03-07] MEDS ORDERED: ONDANSETRON HCL/PF 4 MG/2 ML VIAL IVP PRN (09:30)
[2021-03-07] MEDS ORDERED: Medication Not On Formulary EA (Ipratropium/Albuterol Sulfate (Duoneb 2.5-0.5 Mg/3 Ml So IH PRN (09:30)
[2021-03-07] MEDS ORDERED: MAG HYDROX/AL HYDROX/SIMETH 30 ML UDC PO PRN (09:30)
[2021-03-07] MEDS ORDERED: ZOLPIDEM TARTRATE 5 MG TABLET PO PRN (09:30)
[2021-03-07] MEDS ORDERED: MAGNESIUM HYDROXIDE 30 ML UDC PO PRN ×2 (09:30)
[2021-03-07] MEDS ORDERED: ACETAMINOPHEN 325 MG TABLET PO PRN (09:30)
--- NOTE | 2021-03-07 09:30 | NUR ---
RN NOTES RECEIVED PATIENT FROM ER NURSE CECI AND RT VIA JONY AND DANTE PROTOCOL. PATIENT IS ORALLY INTUBATED AND SEDATED. WHITLEY IN PLACE. PERIPHERAL LINES ON EITHER HAND. ANDREA IN PROGRESS AND PROPOFOL AT 10MCG. SAFETY CHECKS IN PLACE. WILL CONTINUE TO MONITOR.
[2021-03-07] MEDS ORDERED: IPRATROPIUM NEB FS 0.5 MG/2.5 ML AMPUL.NEB NEB PRN (10:00)
[2021-03-07] MEDS ORDERED: ALBUTEROL HALF STRENGTH 1.25 MG/3 ML VIAL.NEB NEB SCH (10:00)
[2021-03-07] MEDS: PROPOFOL 100 ML IV PRN ×2 (10:00→18:07)
[2021-03-07] MEDS ORDERED: ALBUTEROL FS 2.5 MG/0.5 ML VIAL.NEB NEB PRN (10:00)
[2021-03-07] MEDS: IV NS 0.9% 1,000 ML IV SCH ×2 (10:46→14:07)
[2021-03-07] MEDS: HEPARIN SODIUM, PORCINE 5000 UNITS/1 ML VIAL SQ SCH ×2 (10:51→21:10)
[2021-03-07] MEDS: ALBUTEROL FS 2.5 MG/0.5 ML VIAL.NEB NEB SCH ×4 (11:14→23:43)
[2021-03-07] MEDS: IPRATROPIUM NEB FS 0.5 MG/2.5 ML AMPUL.NEB NEB SCH ×4 (11:15→23:43)
--- NOTE | 2021-03-07 11:15 | NUR ---
RT Pt received orally intubated on mechanical ventilation with noted settings. Vent is plugged into red outlet. No SOB or respiratory distress noted. Addendum: 03/07/21 at 1142 by SENTHIL ISAAC RT Amended: Links added.
[2021-03-07] MEDS ORDERED: IPRATROPIUM NEB FS 0.5 MG/2.5 ML AMPUL.NEB NEB SCH (11:30)
[2021-03-07] MEDS ORDERED: Medication Not On Formulary EA (Ipratropium/Albuterol Sulfate (Combivent Respimat 20-100 IH SCH (12:00)
[2021-03-07 13:40] LABS: BILIRUBIN,DIRECT 0.1 mg/dL (0.0-0.2); BILIRUBIN,TOTAL 0.2 mg/dL (0.2-1.0); TOTAL PROTEIN, SERUM 2.8 g/dL (6.4-8.2)
[2021-03-07 13:50] LABS: ALBUMIN 1.1 g/dL (3.4-5.0)
[2021-03-07] MEDS ORDERED: ROCURONIUM BROMIDE 50 MG/5 ML IV ONE (13:53)
[2021-03-07] MEDS: CARBIDOPA/LEVODOPA 25/100 MG 1 UDTAB PO SCH ×2 (14:08→16:24)
[2021-03-07] MEDS: BENZTROPINE MESYLATE (1 MG) 1 MG TABLET PO SCH (16:24)
[2021-03-07] MEDS: IV NS 0.9% 1,000 ML IV PRN (18:00)
--- NOTE | 2021-03-07 18:56 | NUR ---
RN CLOSING NOTES PATIENT REMAINS ORALLY INTUBATED AND SEDATED. PERIPHERAL LINES ON EITHER HAND. IVF AT 100ML/HR AND PROPOFOL AT 10MCG/KG. WHITLEY DRAINED 400MLS. SAFETY CHECKS IN PLACE. APPEARS COMFORTABLE AT THIS TIME. WILL ENDORSE TO NIGHT RN FOR CONTINUITY OF CARE.
--- NOTE | 2021-03-07 19:25 | NUR ---
RN OPENING NOTES RECEIVED PT IN BED, ORALLY INTUBATED ON MECHANICAL VENTILATION. SEDATED. ETT 6.5/25.5 AC 22 TV 500 FIO2 50% PEEP OF 5. TOLERATING VENT SETTINGS WELL. NO S/S OF RESP DISTRESS OR SOB NOTED. ON BEDSIDE MONITOR PRESENTS WITH NSR WITH HEART RATE 70. PT HAD NG LEFT NARE. AUSCULTATED FOR PLACEMENT, FLUSHED. CLAMPED, PT NPO EXCEPT MEDS. PT HAS IV SITES RIGHT AND LEFT HAND BOTH FLUSHED. NO S/S OF INFILTRATION NOTED. PT HAS NS RUNNING AT 100ML/HR AND DIPRIVAN AT 10MCG/KG/MIN. TOLERATING WELL. PT STILL WITHDRAWS FROM PAIN. PT HAS WHITLEY CATH DRAINING VIA GRAVITY. APPLICABLE ISOLATION PRECAUTIONS IN PLACE. RESTRAINTS IN PLACE. SAFETY MEASURES IN PLACE. HOB ELEVATED, SIDE RAILS UP X3. BED LOCKED IN LOWEST POSITION. WILL CONT TO MONITOR FOR CHANGE OF CONDITION THROUGHOUT SHIFT.
[2021-03-07] MEDS: CEFEPIME 2 GM in IV D5W 100 ML IV SCH (20:30)
--- NOTE | 2021-03-07 20:30 | NUR ---
RN NOTE PT NOTED WITH TEMP OF 99.8. COOLING MEASURES IN PLACE. COLD COMPRESS APPLIED TO HEAD, ICE PACKS TO AXILLARY AND GROIN. WILL CONT TO CLOSELY MONITOR
[2021-03-07] MEDS: PRIMIDONE 50 MG TABLET PO SCH (21:09)
[2021-03-07] MEDS: TRAZODONE 50 MG TABLET PO SCH (21:09)
[2021-03-07] MEDS: risperiDONE 0.25 MG TABLET PO SCH (21:09)
[2021-03-07] MEDS ORDERED: ATORVASTATIN 10 MG TABLET PO SCH (22:00)
--- NOTE | 2021-03-07 22:30 | NUR ---
RN NOTE PT HAS BECOME MORE ALERT, IMMEDIATELY BEGAN TO BREATHE OVER VENT. HEART RATE INCREASED TO 100S AND BP TO 160S. REORIENTED PT TO ENVIRONMENT. PT SHAKING, REACHING FOR TUBE, INCREASED PROPOFOL, TITRATING ORDERED. AFTER INCREASE, PT IS NOW CALM SEDATED, NOT BREATHING OVER VENT. AT THIS TIME. VS WITHIN BASELINE OF PT
--- NOTE | 2021-03-07 23:39 | NUR ---
RN NOTE TEMP IS 97.9 AT THIS TIME
[2021-03-08] VITALS (69 sets, daily range): BP systolic 82–141; BP diastolic 47–78
[2021-03-08] MEDS: VANCOMYCIN 1.25 GM in IV D5W 250 ML IV SCH ×2 (01:03→20:30)
--- NOTE | 2021-03-08 02:40 | NUR ---
RN NOTE PT BED BATH DONE, LINENS GOWN CHANGED. PT TOLERATED HYGIENE CARE WELL. VS WNL.
[2021-03-08] MEDS: PROPOFOL 100 ML IV PRN ×5 (03:18→22:08)
[2021-03-08] MEDS: ALBUTEROL FS 2.5 MG/0.5 ML VIAL.NEB NEB SCH ×6 (03:33→23:27)
[2021-03-08] MEDS: IPRATROPIUM NEB FS 0.5 MG/2.5 ML AMPUL.NEB NEB SCH ×6 (03:33→23:27)
--- NOTE | 2021-03-08 03:35 | NUR ---
RN NOTE PT OCCASIONALLY BREATHES OVER VENT FOR BRIEF MOMENTS OF AGITATION, PT RESPONDS WELL TO REORIENTATION
[2021-03-08 04:27] LABS: BASOPHILS # (AUTO) 0.1 /CMM (0.0-0.2); BASOPHILS % (AUTO) 0.5 % (0.0-2.0); EOSINOPHILS % (AUTO) 0.7 % (0.0-6.0); HEMATOCRIT 34 % (39-51); HEMOGLOBIN 10.8 g/dL (13.5-17.5); LYMPHOCYTES # (AUTO) 1.4 /CMM (0.8-4.8); LYMPHOCYTES % (AUTO) 9.9 % (20.0-44.0); MEAN CORPUSCULAR HGB CONC 32 g/dl (31.0-36.0); MEAN CORPUSCULAR VOLUME 88 fL (80-96); MONOCYTES # (AUTO) 1.2 /CMM (0.1-1.30); MONOCYTES % (AUTO) 8.2 % (2.0-12.0); NEUTROPHILS # (AUTO) 11.4 /CMM (1.8-8.9); NEUTROPHILS % (AUTO) 80.7 % (43.0-81.0); PLATELET COUNT (AUTO) 166 /CMM (150-450); RED BLOOD CELL COUNT(AUTO) 3.88 MIL/uL (4.5-6.0); WHITE BLOOD COUNT (AUTO) 14.2 K/uL (4.3-11.0)
[2021-03-08 04:48] LABS: CALCIUM, SERUM 7.9 mg/dL (8.5-10.1); CREATININE 1.3 mg/dL (0.6-1.3); MAGNESIUM 1.6 mg/dL (1.8-2.4); PHOSPHORUS 2.2 mg/dL (2.5-4.9); POTASSIUM 3.8 mmol/L (3.5-5.1)
--- NOTE | 2021-03-08 06:52 | NUR ---
RN CLOSING NOTES PT REMAINS IN STABLE CONDITION AT THIS TIME. TOLERATING VENT SETTINGS WELL. NO S/S OF RESP DISTRESS OR SOB NOTED. ON BEDSIDE MONITOR PRESENTS WITH NSR WITH HEART RATE 58. NGT STILL CLAMPED, PT NPO EXCEPT MEDS. PT HAS IV SITES RIGHT AND LEFT HAND REMAINS INTACT WITH NO S/S OF INFILTRATION NOTED. NS RUNNING AT 100ML/HR AND DIPRIVAN AT 25MCG/KG/MIN. RESTRAINTS IN PLACE, SKIN CHECKED CIRCULATION CHECKED. SAFETY MEASURES IN PLACE. HOB ELEVATED, SIDE RAILS UP X3. BED LOCKED IN LOWEST POSITION. WILL ENDORSE TO ONCOMING NURSE FOR CONTINUATION OF CARE.
--- NOTE | 2021-03-08 07:31 | NUR ---
RN OPENING NOTES RECEIVED PATIENT SEDATED AND ORALLY INTUBATED. APPEARS COMFORTABLE AND NOT IN ANY RESPIRATORY DISTRESS. MECHVENT SETTINGS OF AC 22 TV 500 FIO2 50% PEEP 5. NSR ON TELE MONITOR RATE 56. NG LEFT NARE CLAMPED. RIGHT HAND IV WITH DIPRIVAN AT 25MCG, LEFT HAND IV WITH N/S AT 100ML/HR. BILATERAL SOFT RESTRAINTS NOTED, PERIPHERAL CIRCULATION INTACT. WHITLEY DRAINING VIA GRAVITY. DVT PUMPS IN PLACE. SAFETY CHECKS IN PLACE. WILL CONTINUE TO MONITOR.
[2021-03-08] MEDS: ASPIRIN 81 MG TAB.CHEW PO SCH (08:12)
[2021-03-08] MEDS: BENZTROPINE MESYLATE (1 MG) 1 MG TABLET PO SCH ×2 (08:12→16:51)
[2021-03-08] MEDS: ASCORBIC ACID 500 MG TABLET PO SCH (08:12)
[2021-03-08] MEDS: CARBIDOPA/LEVODOPA 25/100 MG 1 UDTAB PO SCH ×3 (08:12→16:51)
[2021-03-08] MEDS: CEFEPIME 2 GM in IV D5W 100 ML IV SCH ×2 (08:12→19:48)
[2021-03-08] MEDS: ZINC SULFATE 220 MG CAPSULE PO SCH (08:13)
[2021-03-08] MEDS: risperiDONE 0.25 MG TABLET PO SCH ×2 (08:13→21:22)
[2021-03-08] MEDS: AMLODIPINE BESYLATE 5 MG TABLET PO SCH (08:13)
[2021-03-08] MEDS: HEPARIN SODIUM, PORCINE 5000 UNITS/1 ML VIAL SQ SCH ×2 (08:15→21:22)
[2021-03-08 08:16] LABS: ABG BASE EXCESS -4.3 mmol/L; ABG OXYGEN SATURATION 98.7 % (92.0-98.5); ABG PCO2 27.7 mmHg (35.0-45.0); ABG PH 7.447 (7.350-7.450); ABG PO2 131.2 mmHg (75.0-100.0); AaDO2 194.1 mmHg; COHb 0.3 % (0.5-1.5); MetHb 0.1 % (0.0-1.5); O2Hb 98.3 % (94.0-97.0); SITE, ABG Right Radial
[2021-03-08] MEDS: Magnesium 1GM/D5W 100ML PREMIX 100 ML IV SCH ×2 (08:57→09:59)
[2021-03-08] MEDS: NEUTRA PHOS 1 POWD.PACKET PO SCH ×2 (08:58→16:51)
[2021-03-08] MEDS ORDERED: IV NS 0.9% 500 ML BAG IV ONE (10:00)
--- NOTE | 2021-03-08 10:00 | NUR ---
RN NOTE NOTIFIED DR ORTEZ RE: HYPOTENSION NEFTALY WITH DIPRIVAN IN PROGRESS. DR ORDERED TO D/C PEEP, BOLUS 500ML N/S AND IF SBP REMAINS BELOW 90, MAY START PRESSORS.
[2021-03-08] MEDS: IV NS 0.9% 1,000 ML IV PRN ×2 (12:25→23:37)
--- NOTE | 2021-03-08 13:14 | NUR ---
RN NOTE PATIENT'S BP TRENDING IN THE 80'S AGAIN. LEVOPHED ORDERED.
[2021-03-08] MEDS ORDERED: NOREPINEPHRINE 8 MG in IV NS 0.9% 242 ML IV PRN (13:30)
--- NOTE | 2021-03-08 15:45 | NUR ---
RN NOTE DISCUSSED THE PATIENT'S SINUS BRADYCARDIA TRENDING IN THE LOWER 40'S AND HIGHER 30'S WITH DR ORTEZ WHO ORDERED FOR DOPAMINE DRIP AND LEVO CAN THEN BE TAPERED.
--- NOTE | 2021-03-08 16:30 | NUR ---
RN NOTE PATIENT IS GETTING RESTLESS AND AGITATED, FIGHTING THE VENT. DIPRIVAN INCREASED ACCORDINGLY. TACHYPNEIC AND BP IN THE 130'S, THUS LEVO TAPERED DOWN. DOPAMINE NOT STARTED YET HR IN THE 60'S-70'S.
[2021-03-08] MEDS: DOPamine 400 MG in IV D5W 250 ML IV PRN (17:46)
--- NOTE | 2021-03-08 18:41 | NUR ---
RN CLOSING NOTES PATIENT REMAINS SEDATED AND ORALLY INTUBATED WITH MECHVENT SETTINGS OF AC 22 TV 450 FIO2 40% PEEP 0. NSR ON TELE MONITOR RATE 55. NG LEFT NARE CLAMPED. PERIPHERAL G18 ON LEFT HAND AND ANOTHER G18 RIGHT HAND. MIDLINE AT LEFT UPPER ARM WITH DOPAMINE AT 5MCG/KG, DIPRIVAN AT 60MCG/KG, AND N/S AT 100ML/HR IN PROGRESS. BILATERAL SOFT RESTRAINTS IN PLACE, PERIPHERAL CIRCULATION INTACT. WHITLEY DRAINED 1300MLS THIS SHIFT. DVT PUMPS IN PLACE. SAFETY CHECKS IN PLACE. WILL ENDORSE TO NIGHT RN FOR CONTINUITY OF CARE.
--- NOTE | 2021-03-08 19:30 | NUR ---
MICHAEL/ONCOLOGY NAVIGATOR OPENING NOTE RECEIVED PATIENT IN BED. SEDATED. ON MECHANICAL VENT, 6.5/25 AC 22 TV 450 FIO2 40 PEEP 0. RESPIRATIONS ARE EVEN AND UNLABORED. NO S/S RESP DISTRESS. NO S/S PAIN AT THIS TIME. EXTERNAL TELE MONITOR READS SINUS TIM HR 54. IN NO APPARENT DISTRESS. IV ACCESS IN ZHENG MIDLINE RUNNING NS@100ML, DOPAMINE @5MCG AND DIPRIVAN @60MCG. OTHER IV ACCESS IN RIGHT AND LEFT HAND #18 PATENT AND SALINE LOCKED. NG TUBE PRESENT, CLAMPED, NO FEEDING AT THIS TIME. WHITLEY CATHETER IS PRESENT, DRAINING TO GRAVITY, URINE IS YELLOW AND CLEAR. BILATERAL SOFT WRIST RESTRAINTS PRESENT, NO REDNESS NOTED, GOOD CAP REFILL. BED IS LOW AND LOCKED, HOB ELEVATED IN SEMI FOWLERS, SIDE RIALS UP X3. WILL CONTINUE TO MONITOR.
[2021-03-08] MEDS: PRIMIDONE 50 MG TABLET PO SCH (21:22)
[2021-03-08] MEDS: TRAZODONE 50 MG TABLET PO SCH (21:22)
--- NOTE | 2021-03-08 22:32 | NUR ---
MICHAEL/COOK HOUSE LABORERMEDICAL OFFICE WORKER OF CARE NOTE REPORT GIVEN TO BRAYDEN COOK HOUSE LABORER. PATIENT IN BED. SEDATED. ON MECHANICAL VENT MAINTAINED, NO CHANGES IN SETTINGS. NO RESP DISTRESS. NO PAIN NOTED. TELE MONITOR READS SINUS TIM. NO DISTRESS. IV ACCESS MAINTAINED IN ZHENG MIDLINE RUNNING NS@100ML, DOPAMINE @4MCG AND DIPRIVAN @55MCG. IV ACCESS IN RIGHT AND LEFT HAND #18 MAINTAINED. NG TUBE REMAINS CLAMPED. WHITLEY CATHETER MAINTAINED, OUTPUT 2200ML. BILATERAL SOFT WRIST RESTRAINTS MAINTAINED, NO REDNESS NOTED, GOOD CIRCULATION. BED REMAINS LOW AND LOCKED, HOB ELEVATED IN SEMI FOWLERS, SIDE RIALS UP X3.
--- NOTE | 2021-03-08 22:55 | NUR ---
Received patient from [facility] for closer monitory cue to AMS.Patient unresponsive, slight blinking of eyes to very deep pain,slight withdrawal of extremities but otherwiswe no movement noted,breathing regular but shallow ,on NC 2 L/min. saturating 94-95 %. Icteric sclera,jaundiced all over,noted erythema all over the back.+ ascites.PIV left hand with IV 1//2 NSS @ 75 ml/hr. 2300 Dewitt cath. F 16 inserted with ease, NGT inserted for meds administration(lactulose) via right nares. Addendum: 03/09/21 at 0428 by BLANCO JACOB RN please disregard above note,wrong patient.
--- NOTE | 2021-03-08 23:00 | NUR ---
Assumed care of patient ,received patient orally intubated to the ventilator on AC mode,sedated on Propofol drip,RASS-3.not in any distress,breathing regular and non labored. + slight cough and gag on suctioning,withdraws extremities to pain.On Dopamine drip for heart rate (HR=low 50's). and BP support . Hypothermic,warming measures,hyperthermic blanket applied.
[2021-03-09] VITALS (61 sets, daily range): BP systolic 100–166; BP diastolic 45–103
[2021-03-09] MEDS: PROPOFOL 100 ML IV PRN ×2 (01:51→05:43)
[2021-03-09] MEDS: IPRATROPIUM NEB FS 0.5 MG/2.5 ML AMPUL.NEB NEB SCH ×6 (03:22→23:31)
[2021-03-09] MEDS: ALBUTEROL FS 2.5 MG/0.5 ML VIAL.NEB NEB SCH ×6 (03:22→23:31)
--- NOTE | 2021-03-09 04:00 | NUR ---
Remains stable,still on Propofol drip ,arousable to pain stimulus,+ cough,+ gag.AM bath done.
[2021-03-09 04:26] LABS: BASOPHILS % (AUTO) 0.4 % (0.0-2.0); EOSINOPHILS % (AUTO) 1.9 % (0.0-6.0); HEMATOCRIT 32 % (39-51); HEMOGLOBIN 10.6 g/dL (13.5-17.5); LYMPHOCYTES # (AUTO) 0.9 /CMM (0.8-4.8); MEAN CORPUSCULAR HGB CONC 33 g/dl (31.0-36.0); MEAN CORPUSCULAR VOLUME 86 fL (80-96); MONOCYTES # (AUTO) 0.6 /CMM (0.1-1.30); MONOCYTES % (AUTO) 5.7 % (2.0-12.0); NEUTROPHILS # (AUTO) 8.5 /CMM (1.8-8.9); PLATELET COUNT (AUTO) 219 /CMM (150-450); RED BLOOD CELL COUNT(AUTO) 3.67 MIL/uL (4.5-6.0); WHITE BLOOD COUNT (AUTO) 10.3 K/uL (4.3-11.0)
[2021-03-09 04:51] LABS: ALBUMIN 2.2 g/dL (3.4-5.0); BILIRUBIN,TOTAL 0.3 mg/dL (0.2-1.0); CALCIUM, SERUM 8.2 mg/dL (8.5-10.1); CREATININE 0.9 mg/dL (0.6-1.3); MAGNESIUM 2.1 mg/dL (1.8-2.4); PHOSPHORUS 2.7 mg/dL (2.5-4.9); POTASSIUM 3.1 mmol/L (3.5-5.1); TOTAL PROTEIN, SERUM 5.6 g/dL (6.4-8.2)
--- NOTE | 2021-03-09 06:53 | NUR ---
Status unchanged,remains sedated, remains on Dopamine hweart rate still in the low 50's.Temperature improved with the warming blanket (temp.=97.8 F ).
--- NOTE | 2021-03-09 07:20 | NUR ---
RN INITIAL NOTES RECEIVED PT INTUBATED, ON VENT. NO RESPIRATORY DISTRESS NOTED. NO SIGNS OF PAIN NOTED. PT SEDATED,ON DIPRIVAN. WILL TITRATE ACCORDINGLY. ZHENG MIDLINE IN PLACE. DOPAMINE DRIP INFUSING. NGT IN PLACE, CLAMPED. WHITLEY IN PLACE. BLE ELEVATED. WILL CLOSELY MONITOR.
[2021-03-09] MEDS: CEFEPIME 2 GM in IV D5W 100 ML IV SCH ×2 (08:44→20:41)
[2021-03-09] MEDS: BENZTROPINE MESYLATE (1 MG) 1 MG TABLET PO SCH (08:45)
[2021-03-09] MEDS: AMLODIPINE BESYLATE 5 MG TABLET PO SCH (08:45)
[2021-03-09] MEDS: ZINC SULFATE 220 MG CAPSULE PO SCH (08:45)
[2021-03-09] MEDS: ASPIRIN 81 MG TAB.CHEW PO SCH (08:45)
[2021-03-09] MEDS: risperiDONE 0.25 MG TABLET PO SCH (08:45)
[2021-03-09] MEDS: ASCORBIC ACID 500 MG TABLET PO SCH (08:45)
[2021-03-09] MEDS: CARBIDOPA/LEVODOPA 25/100 MG 1 UDTAB PO SCH (08:45)
[2021-03-09] MEDS: HEPARIN SODIUM, PORCINE 5000 UNITS/1 ML VIAL SQ SCH ×3 (08:46→21:52)
[2021-03-09] MEDS ORDERED: MAGNESIUM HYDROXIDE 30 ML UDC NG PRN (09:39)
[2021-03-09] MEDS ORDERED: MAG HYDROX/AL HYDROX/SIMETH 30 ML UDC NG PRN (09:39)
--- NOTE | 2021-03-09 09:40 | NUR ---
RN NOTES DR ORTEZ AWARE OF ABG RESULT. PT ON SIMV MODE. HR 110-120S. PT A/O, FOLLOWS SIMPLE COMMANDS. NO RESPIRATORY DISTRESS. FOR CPAP TRIAL IN AM. WILL CLOSELY MONITOR.
[2021-03-09] MEDS: IV NS 0.9% 1,000 ML IV PRN ×2 (09:59→19:44)
[2021-03-09] MEDS: POTASSIUM CHLORIDE 20 MEQ POWDER PACKET PO SCH ×2 (10:22→11:24)
[2021-03-09 10:23] LABS: ABG OXYGEN SATURATION 97.4 % (92.0-98.5); ABG PCO2 26.3 mmHg (35.0-45.0); ABG PH 7.465 (7.350-7.450); COHb 0.3 % (0.5-1.5); MetHb 0.3 % (0.0-1.5); O2Hb 96.8 % (94.0-97.0); PEEP,BG 5 cm H2O; SITE, ABG Left Radial; VENT MODE, BG SIMV 4 PS 12; VT, ABG 400 mL
[2021-03-09] MEDS: DOPamine 400 MG in IV D5W 250 ML IV PRN (10:29)
[2021-03-09] MEDS: CARBIDOPA/LEVODOPA 25/100 MG 1 UDTAB NG SCH ×2 (12:29→16:49)
[2021-03-09] MEDS: VANCOMYCIN 1.25 GM in IV D5W 250 ML IV SCH (13:51)
[2021-03-09] MEDS: BENZTROPINE MESYLATE (1 MG) 1 MG TABLET NG SCH (16:49)
--- NOTE | 2021-03-09 18:24 | NUR ---
RN CLOSING NOTES PT REMAINS INTUBATED, ON SIMV MODE. NO RESPIRATORY DISTRESS NOTED. HOB ELEVATED. NO SIGNS OF PAIN NOTED. KEPT COMFORTABLE. REPOSITIONED Q2. WILL ENDORSE FOR CONTINUITY OF CARE.
--- NOTE | 2021-03-09 19:55 | NUR ---
aviculturist. initial assessment. received the pt rest on the bed. orally intubated. pt on simv mode. pt awake, alert. ett 6.5, lip 25, simv 4, ps 12, fio2 40%, peep 5. sat 98%. no acute distress noted. computer network engineer showing s tach. ngt intact. clamped. hob elevated. fc patent. urine draining. lt upper arm mid line. ivf ns 100ml/h. neelam soft wrist restraint checked and released .no injury or redness noted. temperature 100.5. will continue to monitor vitals.
--- NOTE | 2021-03-09 21:25 | NUR ---
horticultural specialty grower.heparin 2100 not given.tomorrow schedule for surgery. atif [place] notified Addendum: 03/09/21 at 2148 by JAVAD WANG RN 2100 hearin given . documentation is error
[2021-03-09] MEDS: TRAZODONE 50 MG TABLET NG SCH (21:33)
[2021-03-09] MEDS: VANCOMYCIN 1 GM in IV D5W 250 ML IV SCH (21:33)
[2021-03-09] MEDS: PRIMIDONE 50 MG TABLET NG SCH (21:33)
[2021-03-09] MEDS: risperiDONE LIQUID 1 MG/ML ML NG SCH (21:33)
--- NOTE | 2021-03-09 23:55 | NUR ---
agricultural education teacher.temperature 100.5. cold bath given. will continue to monitor.
[2021-03-10] VITALS (51 sets, daily range): BP systolic 90–174; BP diastolic 45–120
--- NOTE | 2021-03-10 01:39 | NUR ---
agriculture mechanic, remaining same vent setting tolerated well
[2021-03-10] MEDS: ALBUTEROL FS 2.5 MG/0.5 ML VIAL.NEB NEB SCH ×6 (03:17→23:14)
[2021-03-10] MEDS: IPRATROPIUM NEB FS 0.5 MG/2.5 ML AMPUL.NEB NEB SCH ×6 (03:17→23:14)
[2021-03-10 04:25] LABS: BASOPHILS % (AUTO) 0.3 % (0.0-2.0); EOSINOPHILS % (AUTO) 0.2 % (0.0-6.0); HEMATOCRIT 33 % (39-51); HEMOGLOBIN 10.3 g/dL (13.5-17.5); LYMPHOCYTES # (AUTO) 1.3 /CMM (0.8-4.8); LYMPHOCYTES % (AUTO) 8.7 % (20.0-44.0); MEAN CORPUSCULAR HGB CONC 32 g/dl (31.0-36.0); MEAN CORPUSCULAR VOLUME 88 fL (80-96); MONOCYTES # (AUTO) 1.1 /CMM (0.1-1.30); MONOCYTES % (AUTO) 7.4 % (2.0-12.0); NEUTROPHILS % (AUTO) 83.4 % (43.0-81.0); PLATELET COUNT (AUTO) 243 /CMM (150-450); RED BLOOD CELL COUNT(AUTO) 3.69 MIL/uL (4.5-6.0); WHITE BLOOD COUNT (AUTO) 14.4 K/uL (4.3-11.0)
[2021-03-10 04:31] LABS: CALCIUM, SERUM 8.1 mg/dL (8.5-10.1); CREATININE 1.1 mg/dL (0.6-1.3); MAGNESIUM 1.7 mg/dL (1.8-2.4); PHOSPHORUS 3.3 mg/dL (2.5-4.9); POTASSIUM 3.5 mmol/L (3.5-5.1)
--- NOTE | 2021-03-10 04:37 | NUR ---
neonatal icu coordinator. am care given. remaining same vent setting tolerated well. sat 96%, no acute distress noted./engine monitor showing s tach.iv f ns 100 ml/h.npo. hob elevated. turn and reposition q2h. fc patent, urine draining,neelam soft wrist restraint checked and released. no injury or redness noted.
--- NOTE | 2021-03-10 05:59 | NUR ---
RT NOTE PT RECEIVED ORALLY INTUBATED AND ON [facility] VENT ON ORDERED SETTINGS. VENT IS PLUGGED INTO RED OUTLET W BMV @ HOB. ALARMS ARE SET AND AUDIBLE. PT SX FOR MODERATE THICK SECRETIONS. NO RESP DISTRESS NOTED T/O SHIFT. Addendum: 03/10/21 at 0559 by REY CERVANTES RT Amended: Links added.
--- NOTE | 2021-03-10 07:15 | NUR ---
PAPER PRODUCTS MACHINE OPERATOR NOTES RECEIVED PATIENT IN BED RESTING COMFORTABLY IN MODERATE HIGH BACK REST, ON SIMV TOLERATING CURRENT SETTING SCHEDULED FOR CPAP TODAY AND POSS, EXTUBATION, NOTED WITH SOFT BILATERAL RESTRAINT.CIRCULATION CHECKED, IV ACCESS ON ZHENG MIDLINEWITH NS RUNNING @100 ML/HR, NOTED WITH NG TUBE WITH NO 50 RSV, NOTED WITH FC, INTACT AND PATENT, DRAINING VIA GRAVITY. SAFETY MEASURES IN PLACE, BED IN LOWEST LOCKED POSITION WITH SIDE RAILS UP X2, CALL LIGHT WITHIN REACH, WILL CONTINUE TO MONITOR.
[2021-03-10] MEDS: CEFEPIME 2 GM in IV D5W 100 ML IV SCH ×2 (08:02→20:58)
[2021-03-10] MEDS: BENZTROPINE MESYLATE (1 MG) 1 MG TABLET NG SCH ×2 (08:03→16:27)
[2021-03-10] MEDS: ZINC SULFATE 220 MG CAPSULE NG SCH (08:03)
[2021-03-10] MEDS: ASCORBIC ACID 500 MG TABLET NG SCH (08:03)
[2021-03-10] MEDS: ASPIRIN 81 MG TAB.CHEW NG SCH (08:20)
[2021-03-10] MEDS: AMLODIPINE BESYLATE 5 MG TABLET NG SCH (08:20)
[2021-03-10] MEDS: CARBIDOPA/LEVODOPA 25/100 MG 1 UDTAB NG SCH ×3 (08:20→16:27)
[2021-03-10] MEDS: risperiDONE LIQUID 1 MG/ML ML NG SCH ×3 (08:23→23:16)
[2021-03-10] MEDS: HEPARIN SODIUM, PORCINE 5000 UNITS/1 ML VIAL SQ SCH ×2 (08:26→21:22)
[2021-03-10] MEDS: NITROGLYCERIN 30 GM TUBE TP SCH ×2 (10:17→21:00)
[2021-03-10] MEDS: IV NS 0.9% 1,000 ML IV PRN (10:55)
[2021-03-10] MEDS: Magnesium 1GM/D5W 100ML PREMIX 100 ML IV SCH ×2 (11:37→12:44)
[2021-03-10] MEDS: PROPOFOL 100 ML IV PRN ×3 (12:13→23:54)
--- NOTE | 2021-03-10 19:10 | NUR ---
DRYWALL TAPER HELPER NOTES PATIENT IN BED RESTING COMFORTABLY IN MODERATE HIGH BACK REST, SEDATED AND ON A VENT TOLERATING CURRENT SETTING, NOTED WITH SOFT BILATERAL RESTRAINT.CIRCULATION CHECKED, IV ACCESS ON ZHENG MIDLINEWITH NS RUNNING @100 ML/HR, PROPOFOL @30 MCG/KG/MIN, NOTED WITH NG TUBE WITH NO 50 RSV, NOTED WITH FC, INTACT AND PATENT, DRAINING VIA GRAVITY. SAFETY MEASURES IN PLACE, BED IN LOWEST LOCKED POSITION WITH SIDE RAILS UP X2, CALL LIGHT WITHIN REACH, ENDORSE TO CUSTOMER EXPERIENCE RETAIL CLERK NURSE FOR LEANNA.
--- NOTE | 2021-03-10 19:34 | NUR ---
agricultural purchasing agent. initial assessment. received pt rest on the bed. orally intubated. sedated with diprivan, weaning [place] . ett 6.5,lip 25,ac 14,tv 400,fio2 40%,peep 5. sat 97%. no acute distress noted. patient monitor showing s shay. rate is 42. neelam; soft wrist restraint checked and released. no injury or redness noted. iv lt upper arm mid line. ivf ns 100ml/h. diprivan 30mcg/kg/minlt nare ngt intact. npo except meds. fc patent urine draining. hob elevated.will continue to monitor vitals.
--- NOTE | 2021-03-10 20:03 | NUR ---
RECEIVED PT ORALLY INTUBATED WITH ETT 6.5 SECURED @ 25 CM LIP LINE ON VENT WITH THE SETTINGS OF AC 14, VT 400, PEEP 5 , FIO2 40%. Q4 BREATHING TX GIVEN. NO ADVERSE REACTION NOTED. SX'D DONE. NO RESPIRATORY DISTRESS NOTED @ THIS TIME. VENT ALARMS SET AND AUDIBLE. ETT CUFF CHECKED. VENT PLUGGED INTO RED OUTLET. WILL CONTINUE TO MONITOR PT T/O SHIFT.
[2021-03-10] MEDS: VANCOMYCIN 1 GM in IV D5W 250 ML IV SCH (21:14)
[2021-03-10] MEDS: TRAZODONE 50 MG TABLET NG SCH (21:15)
[2021-03-10] MEDS: PRIMIDONE 50 MG TABLET NG SCH (21:15)
[2021-03-11] VITALS (64 sets, daily range): BP systolic 89–176; BP diastolic 46–98
--- NOTE | 2021-03-11 01:34 | NUR ---
assistant superintendent for curriculum. remaining same vent setting tolerated well. no changes
[2021-03-11] MEDS: IV NS 0.9% 1,000 ML IV PRN ×2 (01:51→15:31)
[2021-03-11] MEDS: IPRATROPIUM NEB FS 0.5 MG/2.5 ML AMPUL.NEB NEB SCH ×6 (03:23→23:43)
[2021-03-11] MEDS: ALBUTEROL FS 2.5 MG/0.5 ML VIAL.NEB NEB SCH ×6 (03:23→23:43)
[2021-03-11 04:18] LABS: BASOPHILS # (AUTO) 0.1 /CMM (0.0-0.2); BASOPHILS % (AUTO) 0.5 % (0.0-2.0); EOSINOPHILS % (AUTO) 3.1 % (0.0-6.0); HEMATOCRIT 29 % (39-51); HEMOGLOBIN 9.6 g/dL (13.5-17.5); LYMPHOCYTES # (AUTO) 1.3 /CMM (0.8-4.8); LYMPHOCYTES % (AUTO) 12.4 % (20.0-44.0); MEAN CORPUSCULAR HGB CONC 33 g/dl (31.0-36.0); MEAN CORPUSCULAR VOLUME 87 fL (80-96); MONOCYTES # (AUTO) 0.8 /CMM (0.1-1.30); MONOCYTES % (AUTO) 7.4 % (2.0-12.0); NEUTROPHILS # (AUTO) 7.9 /CMM (1.8-8.9); NEUTROPHILS % (AUTO) 76.6 % (43.0-81.0); PLATELET COUNT (AUTO) 225 /CMM (150-450); RED BLOOD CELL COUNT(AUTO) 3.37 MIL/uL (4.5-6.0); WHITE BLOOD COUNT (AUTO) 10.4 K/uL (4.3-11.0)
[2021-03-11 04:34] LABS: ALBUMIN 2.1 g/dL (3.4-5.0); BILIRUBIN,TOTAL 0.3 mg/dL (0.2-1.0); CALCIUM, SERUM 8.2 mg/dL (8.5-10.1); CREATININE 0.9 mg/dL (0.6-1.3); MAGNESIUM 2.2 mg/dL (1.8-2.4); PHOSPHORUS 2.8 mg/dL (2.5-4.9); POTASSIUM 3.6 mmol/L (3.5-5.1); TOTAL PROTEIN, SERUM 5.5 g/dL (6.4-8.2)
[2021-03-11] MEDS: PROPOFOL 100 ML IV PRN (05:37)
--- NOTE | 2021-03-11 06:27 | NUR ---
agriculture research director. am care given. linen changed, remaining same vent setting tolerated well. sat 98%. no acute distress noted. library monitor showing s shay. iv lt upper aarm ivf ns 100 ml/h. hob elevated. temperature 100. cold bath given. fc patent. urine draining, turn and reposition q2h. neelam soft wrist restraint checked and released no injury or redness noted, will continue to monitor vitals
--- NOTE | 2021-03-11 07:00 | NUR ---
RN NOTES RECEIVED PT ON BED , INTUBATED, SEDATED ON DIPRIVAN AT 30MCG/KG/MIN, TOLERATING VENT SETTING WELL, ON TELE SR HR IN 60'S , WHITLEY DRAINING TO GRAVITY, LEFT NARE NGT INTACT, L UPPER ARM SITE CLEAN, DRY AND INTACT, NS AT 100CC/HR RUNNING , SR UP x3, CALL LIGHT WITHIN EASY REACH, BED LOCKED AND IN LOWEST POSITION, CONTINUE TO MONITOR .
[2021-03-11] MEDS: CEFEPIME 2 GM in IV D5W 100 ML IV SCH ×2 (08:29→20:39)
[2021-03-11] MEDS: HEPARIN SODIUM, PORCINE 5000 UNITS/1 ML VIAL SQ SCH ×2 (08:31→20:44)
[2021-03-11] MEDS: ASPIRIN 81 MG TAB.CHEW NG SCH (08:31)
[2021-03-11] MEDS: ZINC SULFATE 220 MG CAPSULE NG SCH (08:31)
[2021-03-11] MEDS: AMLODIPINE BESYLATE 5 MG TABLET NG SCH (08:32)
[2021-03-11] MEDS: BENZTROPINE MESYLATE (1 MG) 1 MG TABLET NG SCH ×2 (08:32→16:10)
[2021-03-11] MEDS: ASCORBIC ACID 500 MG TABLET NG SCH (08:32)
[2021-03-11] MEDS: CARBIDOPA/LEVODOPA 25/100 MG 1 UDTAB NG SCH ×3 (08:32→16:10)
[2021-03-11] MEDS: risperiDONE LIQUID 1 MG/ML ML NG SCH ×2 (08:34→21:07)
[2021-03-11] MEDS: NITROGLYCERIN 30 GM TUBE TP SCH ×2 (08:34→20:41)
[2021-03-11] MEDS ORDERED: DC PROPOFOL WHEN EXTUBATED XX PRN (09:00)
[2021-03-11 11:23] LABS: ABG OXYGEN SATURATION 98.5 % (92.0-98.5); ABG PCO2 27.3 mmHg (35.0-45.0); ABG PH 7.381 (7.350-7.450); ABG PO2 128.6 mmHg (75.0-100.0); AaDO2 125.2 mmHg; COHb 0.3 % (0.5-1.5); MetHb 0.1 % (0.0-1.5); O2Hb 98.1 % (94.0-97.0); SITE, ABG Right Radial
--- NOTE | 2021-03-11 11:45 | NUR ---
PT EXTUBATED PLACED ON 4 LPM ZERO DISTRESS NOTED. B/S EQUAL STRONG COUGH. RN AWARE
--- NOTE | 2021-03-11 11:45 | NUR ---
RN NOTES PT EXTUBATED PER DR ORTEZ ORDER BY RT, TOLERATED WELL, VSS STABLE, PLACED ON 4 L O2 N/C, NO RESPIRATORY DISTRESS NOTED, CONTINUE TO MONITOR .
[2021-03-11 14:28] LABS: ABG BASE EXCESS -10.3 mmol/L; ABG OXYGEN SATURATION 98.1 % (92.0-98.5); ABG PCO2 26.3 mmHg (35.0-45.0); ABG PH 7.344 (7.350-7.450); ABG PO2 112.5 mmHg (75.0-100.0); AaDO2 106.5 mmHg; COHb 0.3 % (0.5-1.5); MetHb 0.3 % (0.0-1.5); O2Hb 97.5 % (94.0-97.0); SITE, ABG Right Radial
--- NOTE | 2021-03-11 18:00 | NUR ---
RN NOTES PT REMANINS ON 2L O2 N/C , O2 SAT WNL, NO DISTRESS NOTED, PT IS ALERT/ ORIENTED x3, SR UP x3, CALL LIGHT WITHIN EASY REACH, WILL ENDORSE TO MISDRAW HAND NURSE FOR CONTINUITY OF CARE .
[2021-03-11] MEDS: TRAZODONE 50 MG TABLET NG SCH (21:07)
[2021-03-11] MEDS: PRIMIDONE 50 MG TABLET NG SCH (21:08)
[2021-03-11] MEDS: VANCOMYCIN 1 GM in IV D5W 250 ML IV SCH (21:37)
[2021-03-12] VITALS (19 sets, daily range): BP systolic 89–137; BP diastolic 40–82
[2021-03-12] MEDS: ALBUTEROL FS 2.5 MG/0.5 ML VIAL.NEB NEB SCH ×5 (03:46→20:28)
[2021-03-12] MEDS: IPRATROPIUM NEB FS 0.5 MG/2.5 ML AMPUL.NEB NEB SCH ×5 (03:46→20:29)
[2021-03-12 04:46] LABS: BASOPHILS # (AUTO) 0.1 /CMM (0.0-0.2); BASOPHILS % (AUTO) 0.5 % (0.0-2.0); EOSINOPHILS % (AUTO) 3.3 % (0.0-6.0); HEMATOCRIT 28 % (39-51); LYMPHOCYTES # (AUTO) 1.8 /CMM (0.8-4.8); LYMPHOCYTES % (AUTO) 18.2 % (20.0-44.0); MEAN CORPUSCULAR HGB CONC 32 g/dl (31.0-36.0); MEAN CORPUSCULAR VOLUME 87 fL (80-96); MONOCYTES # (AUTO) 0.8 /CMM (0.1-1.30); MONOCYTES % (AUTO) 7.8 % (2.0-12.0); NEUTROPHILS # (AUTO) 6.9 /CMM (1.8-8.9); NEUTROPHILS % (AUTO) 70.2 % (43.0-81.0); PLATELET COUNT (AUTO) 251 /CMM (150-450); RED BLOOD CELL COUNT(AUTO) 3.22 MIL/uL (4.5-6.0); WHITE BLOOD COUNT (AUTO) 9.8 K/uL (4.3-11.0)
[2021-03-12 04:48] LABS: CALCIUM, SERUM 7.9 mg/dL (8.5-10.1); MAGNESIUM 1.7 mg/dL (1.8-2.4); PHOSPHORUS 3.2 mg/dL (2.5-4.9); POTASSIUM 3.5 mmol/L (3.5-5.1)
--- NOTE | 2021-03-12 06:15 | NUR ---
SOUND CUTTER: NO SIGNIFICANT LEANNA DURING THE SHIFT. REMAINED A/O X 2-3. STILL ON 2L 02 VIA NC WT NO ACUTE DISTRESS. SR-SB ON CARDIAC TELE. REMAINED AFEBRILE THROUGHOUT THE SHIFT. NT SUCTIONING PERFORMED BY RT SEVERAL TIMES DURING THE SHIFT D/T CONGESTION WT SMALL AMT. OF THICK NICOLE SECRETIONS. CONTINUE ON NS AT 50ML/HR WT NO S/S OF MIDLINE INFILTRATION. ON ON ATB THERAPY WT NO ASE. F/C PATENT AND INTACT DRAINING YELLOW URINE TO GRAVITY. HOB AT 35 DEGREES, BED IN LOWEST POSITION AND LOCKED, BED ALARM ACTIVATED. SIDE RAILS UPX3. CALL LIGHT WITHIN REACH.
--- NOTE | 2021-03-12 07:45 | NUR ---
RN OPENING NOTES RECEIVED PATIENT AWAKE, ALERT AND ORIENTED. SATURATING 98% ON 2L NC. NOT IN ANY RESPIRATORY DISTRESS. NGT IN LEFT NARE. LEFT UA MIDLINE IN PLACE. WHITLEY DRAINING TO GRAVITY. SAFETY MEASURES IN PLACE. APPEARS COMFORTABLE AT THIS TIME. WILL CONTINUE TO MONITOR.
[2021-03-12] MEDS: ASPIRIN 81 MG TAB.CHEW NG SCH (08:33)
[2021-03-12] MEDS: BENZTROPINE MESYLATE (1 MG) 1 MG TABLET NG SCH ×2 (08:33→16:05)
[2021-03-12] MEDS: ASCORBIC ACID 500 MG TABLET NG SCH (08:33)
[2021-03-12] MEDS: ZINC SULFATE 220 MG CAPSULE NG SCH (08:33)
[2021-03-12] MEDS: CEFEPIME 2 GM in IV D5W 100 ML IV SCH ×2 (08:33→23:14)
[2021-03-12] MEDS: CARBIDOPA/LEVODOPA 25/100 MG 1 UDTAB NG SCH ×3 (08:33→16:05)
[2021-03-12] MEDS: AMLODIPINE BESYLATE 5 MG TABLET NG SCH (08:34)
[2021-03-12] MEDS: NITROGLYCERIN 30 GM TUBE TP SCH ×2 (08:35→21:39)
[2021-03-12] MEDS: risperiDONE LIQUID 1 MG/ML ML NG SCH ×2 (08:36→21:33)
[2021-03-12] MEDS: HEPARIN SODIUM, PORCINE 5000 UNITS/1 ML VIAL SQ SCH ×2 (08:37→21:43)
[2021-03-12] MEDS: Magnesium 1GM/D5W 100ML PREMIX 100 ML IV SCH ×2 (10:03→10:34)
[2021-03-12] MEDS ORDERED: FUROSEMIDE 20 MG/2 ML VIAL IV ONE (10:30)
[2021-03-12] MEDS ORDERED: Magnesium 1GM/D5W 100ML PREMIX 100 ML IV SCH (10:30)
[2021-03-12] MEDS: POTASSIUM CHLORIDE 20 MEQ TAB.PRT.SR PO SCH ×3 (10:33→12:06)
[2021-03-12] MEDS ORDERED: JEVITY 1.2 CAL 1,000 ML BOTTLE GT PRN (12:00)
--- NOTE | 2021-03-12 16:30 | NUR ---
RN NOTES REPORT GIVEN TO LADDER OPERATOR FOR CONTINUITY OF CARE. TRANSFERRED VIA ACLS PROTOCOL AND ARRIVED AT 310-1 IN STABLE CONDITION. NO SIGNS OF RESPIRATORY DISTRESS OR ANY UNUSUALITIES DURING TRANSPORT. NO PATIENT BELONGINGS. MEDICATIONS HANDED OVER TO RN.
--- NOTE | 2021-03-12 19:30 | NUR ---
HARBORMASTER OPENING NOTES PATIENT ALERT AND ORIENTED X 2. NO SIGNS OF DISTRESS OR SHORTNESS OF BREATH NOTED. PATIENT ON 2LPM OF OXYGEN VIA NASAL CANNULA WITH SPO2 OF 100%. NGT ON LEFT NARE INTACT AND RUNNING AT 20 ML/HR. WHITLEY CATHETER INTACT AND DRAINING. LEFT UA MIDLINE INTACT. PATIENT REFUSED DVT PUMPS, RISKS AND BENEFITS EXPLAINED TO PATIENT, PATIENT VERBALIZED UNDERSTANDING. PATIENT ABLE TO MAKE NEEDS KNOWN. SAFETY MEASURES IN PLACE, BED LOCKED IN LOWEST POSITION, CALL LIGHT WITHIN REACH, BED ALARM ON. WILL CONTINUE TO MONITOR
[2021-03-12] MEDS: PRIMIDONE 50 MG TABLET NG SCH (21:24)
[2021-03-12] MEDS: TRAZODONE 50 MG TABLET NG SCH (21:24)
[2021-03-12] MEDS: VANCOMYCIN 1 GM in IV D5W 250 ML IV SCH (23:54)
[2021-03-13] VITALS: BP_SYST 100; BP_SYST 130; BP_DIAS 55
[2021-03-13] MEDS: ALBUTEROL FS 2.5 MG/0.5 ML VIAL.NEB NEB SCH ×7 (00:34→23:31)
[2021-03-13] MEDS: IPRATROPIUM NEB FS 0.5 MG/2.5 ML AMPUL.NEB NEB SCH ×7 (00:36→23:32)
[2021-03-13 04:00] VITALS: BP 110/57
--- NOTE | 2021-03-13 05:46 | NUR ---
NGT DISLODGED NGT was dislodged. Notified RAVEN Isaacs. Re inserted new NGT Fr 16 to left nare with depth 60. Chest Xray stat to check placement.
[2021-03-13 06:25] LABS: BASOPHILS % (AUTO) 0.6 % (0.0-2.0); EOSINOPHILS % (AUTO) 4.7 % (0.0-6.0); HEMATOCRIT 31 % (39-51); HEMOGLOBIN 10.2 g/dL (13.5-17.5); LYMPHOCYTES # (AUTO) 1.3 /CMM (0.8-4.8); LYMPHOCYTES % (AUTO) 16.7 % (20.0-44.0); MEAN CORPUSCULAR HGB CONC 33 g/dl (31.0-36.0); MEAN CORPUSCULAR VOLUME 86 fL (80-96); MONOCYTES # (AUTO) 0.7 /CMM (0.1-1.30); MONOCYTES % (AUTO) 9.3 % (2.0-12.0); NEUTROPHILS # (AUTO) 5.2 /CMM (1.8-8.9); NEUTROPHILS % (AUTO) 68.7 % (43.0-81.0); PLATELET COUNT (AUTO) 311 /CMM (150-450); RED BLOOD CELL COUNT(AUTO) 3.59 MIL/uL (4.5-6.0); WHITE BLOOD COUNT (AUTO) 7.6 K/uL (4.3-11.0)
--- NOTE | 2021-03-13 06:54 | NUR ---
OPTICAL DESIGN ENGINEER CLOSING NOTES PATIENT ALERT AND ORIENTED X 2. NO SIGNS OF DISTRESS OR SHORTNESS OF BREATH NOTED. PATIENT ON 2 LPM OF OXYGEN VIA NASAL CANNULA. X-RAY RESULTS PENDING FOR NEW NGT PLACEMENT ON LEFT NARE. WHITLEY CATHETER INTACT AND DRAINING. LEFT UPPER ARM MIDLINE INTACT BUT NOT PATENT, RIGHT HAND IV ACCESS SALINE LOCKED. PATIENT ON TELE, SINUS TIM, HR 53. MEDICATIONS GIVEN ORDERED, AND PATIENT NEEDS MET THROUGHOUT SHIFT. SAFETY MEASURES IN PLACE, BED LOCKED IN LOWEST POSITION, CALL LIGHT WITHIN REACH, BED ALARM ON. WILL ENDORSE TO DAY SHIFT NURSE FOR CONTINUITY OF CARE.
--- NOTE | 2021-03-13 07:22 | NUR ---
HAMMER DRIVER OPENING NOTES PATIENT ALERT AND ORIENTED X 2. NO SIGNS OF DISTRESS OR SHORTNESS OF BREATH NOTED. PATIENT ON 2LPM OF OXYGEN VIA NASAL CANNULA WITH SPO2 OF 100%. NGT ON LEFT NARE WAS REMOVED AND REINSERTED, AWAITING XRAY FOR PLACEMENT. WHITLEY CATHETER INTACT AND DRAINING. LEFT UA MIDLINE IS NOT PATENT, BUT PATIENT HAS RIGHT HAND #22 SL. PATIENT REFUSED DVT PUMPS, RISKS AND BENEFITS EXPLAINED TO PATIENT, PATIENT VERBALIZED UNDERSTANDING PER REPORT. NO EVIDENCE OF PAIN NOTED. SAFETY MEASURES IN PLACE, BED LOCKED IN LOWEST POSITION, CALL LIGHT WITHIN REACH, BED ALARM ON. WILL CONTINUE TO MONITOR
[2021-03-13 07:34] LABS: CREATININE 0.9 mg/dL (0.6-1.3); MAGNESIUM 1.9 mg/dL (1.8-2.4); PHOSPHORUS 2.9 mg/dL (2.5-4.9); POTASSIUM 3.8 mmol/L (3.5-5.1)
[2021-03-13] MEDS ORDERED: POTASSIUM CHLORIDE 20 MEQ TAB.PRT.SR PO SCH (08:00)
[2021-03-13] MEDS ORDERED: FUROSEMIDE 20 MG/2 ML VIAL IV ONE (08:00)
[2021-03-13] MEDS: CEFEPIME 2 GM in IV D5W 100 ML IV SCH (08:14)
[2021-03-13 08:18] VITALS: BP 139/73
--- NOTE | 2021-03-13 08:41 | NUR ---
RN NOTES PATIENT WAS SEEN BY SPEECH THERAPIST. DIET WAS ADVANCED TO PUREE DIET. WILL CONTINUE TO MONITOR
[2021-03-13] MEDS: BENZTROPINE MESYLATE (1 MG) 1 MG TABLET NG SCH ×2 (08:53→16:23)
[2021-03-13] MEDS: ASCORBIC ACID 500 MG TABLET NG SCH (08:53)
[2021-03-13] MEDS: ZINC SULFATE 220 MG CAPSULE NG SCH (08:53)
[2021-03-13] MEDS: ASPIRIN 81 MG TAB.CHEW NG SCH (08:53)
[2021-03-13] MEDS: CARBIDOPA/LEVODOPA 25/100 MG 1 UDTAB NG SCH ×3 (08:53→16:23)
[2021-03-13] MEDS: AMLODIPINE BESYLATE 5 MG TABLET NG SCH (08:53)
--- NOTE | 2021-03-13 08:53 | NUR ---
RN NOTES ZHENG MIDLINE ASSESSED FOR PATENCY. IV SITE HAS NO REDNESS NOR SWELLING. 20-GAUGE LINE WAS REPOSITIONED, NOTED W/ BLOOD RETURN, PATENT WHEN FLUSHED. DRESSING CHANGE DONE. WILL CONTINUE TO MONITOR.
[2021-03-13] MEDS: HEPARIN SODIUM, PORCINE 5000 UNITS/1 ML VIAL SQ SCH ×2 (08:54→20:59)
[2021-03-13] MEDS: POTASSIUM CHLORIDE 20 MEQ POWDER PACKET NG SCH ×2 (08:54→09:56)
[2021-03-13] MEDS: risperiDONE LIQUID 1 MG/ML ML NG SCH ×2 (09:01→21:09)
[2021-03-13] MEDS: NITROGLYCERIN 30 GM TUBE TP SCH ×2 (09:01→20:57)
[2021-03-13 15:56] VITALS: BP 106/60
--- NOTE | 2021-03-13 18:33 | NUR ---
DENTIST PRIVATE PRACTICE CLOSING NOTES PATIENT ALERT AND ORIENTED X 2. NO SIGNS OF DISTRESS OR SHORTNESS OF BREATH NOTED. PATIENT ON 2 LPM OF OXYGEN VIA NASAL CANNULA. PATIENT IS TOLERATING PUREE DIET. WHITLEY CATHETER INTACT AND DRAINING. LEFT UPPER ARM MIDLINE INTACT AND PATENT. PATIENT ON TELE, SINUS RYTHMN HR 68. SKIN INTACT. MEDICATIONS GIVEN ORDERED, AND PATIENT NEEDS MET THROUGHOUT SHIFT. SAFETY MEASURES IN PLACE, BED LOCKED IN LOWEST POSITION, CALL LIGHT WITHIN REACH, BED ALARM ON. WILL ENDORSE TO ONCOMING SHIFT NURSE FOR CONTINUITY OF CARE.
--- NOTE | 2021-03-13 19:45 | NUR ---
RELIEF PHARMACIST OPENING NOTES PATIENT ALERT AND ORIENTED X 2. NO SIGNS OF DISTRESS OR SHORTNESS OF BREATH NOTED. PATIENT ON 2LPM OF OXYGEN VIA NASAL CANNULA WITH SPO2 OF 96%. WHITLEY CATHETER INTACT AND DRAINING WELL. LEFT UPPER ARM MIDLINE INTACT AND PATENT. PATIENT ON TELE, SINUS RHYTHM, HR 71. PATIENT ABLE TO MAKE NEEDS KNOWN. SAFETY MEASURES IN PLACE, BED LOCKED IN LOWEST POSITION, CALL LIGHT WITHIN REACH, BED ALARM ON. WILL CONTINUE TO MONITOR
[2021-03-13 20:00] VITALS: BP 110/60
[2021-03-13] MEDS: PRIMIDONE 50 MG TABLET NG SCH (21:09)
[2021-03-13] MEDS: TRAZODONE 50 MG TABLET NG SCH (21:09)
[2021-03-14] VITALS: BP 110/62
[2021-03-14] MEDS: ALBUTEROL FS 2.5 MG/0.5 ML VIAL.NEB NEB SCH ×4 (03:30→15:38)
[2021-03-14] MEDS: IPRATROPIUM NEB FS 0.5 MG/2.5 ML AMPUL.NEB NEB SCH ×4 (03:30→15:38)
[2021-03-14 04:00] VITALS: BP 110/59
--- NOTE | 2021-03-14 06:41 | NUR ---
WOOD PREPARATION SUPERVISOR CLOSING NOTES PATIENT ALERT AND ORIENTED X 2. NO SIGNS OF DISTRESS OR SHORTNESS OF BREATH NOTED. PATIENT ON 2LPM OF OXYGEN VIA NASAL CANNULA WITH SPO2 OF 98%. WHITLEY CATHETER INTACT AND DRAINING WELL WITH OUTPUT OF 800. LEFT UPPER ARM MIDLINE INTACT AND PATENT. PATIENT ON TELE, SINUS RHYTHM, HR 63. PATIENT ABLE TO MAKE NEEDS KNOWN. ALL MEDICATIONS GIVEN ORDERED. NEEDS ANTICIPATED AND ATTENDED TO. SAFETY MEASURES IN PLACE, BED LOCKED IN LOWEST POSITION, CALL LIGHT WITHIN REACH, BED ALARM ON. PLAN FOR VIDEO SWALLOW EVAL. WILL ENDORSE TO DAY SHIFT NURSE FOR CONTINUITY OF CARE.
--- NOTE | 2021-03-14 07:16 | NUR ---
BLEACHER SULFITE PULP OPENING NOTES PATIENT ALERT AND ORIENTED X 2, RESTING IN BED. NO SIGNS OF DISTRESS OR SHORTNESS OF BREATH NOTED. PATIENT ON 2 LPM OF OXYGEN VIA NASAL CANNULA. WHITLEY CATHETER INTACT AND DRAINING. LEFT UPPER ARM MIDLINE INTACT AND PATENT. PATIENT ON TELE, SINUS RHYTHM HR 68. SKIN INTACT. SAFETY MEASURES IN PLACE, BED LOCKED IN LOWEST POSITION, CALL LIGHT WITHIN REACH, BED ALARM ON.
[2021-03-14] MEDS: ASPIRIN 81 MG TAB.CHEW NG SCH (08:17)
[2021-03-14] MEDS: risperiDONE LIQUID 1 MG/ML ML NG SCH (08:17)
[2021-03-14] MEDS: ASCORBIC ACID 500 MG TABLET NG SCH (08:17)
[2021-03-14] MEDS: BENZTROPINE MESYLATE (1 MG) 1 MG TABLET NG SCH ×2 (08:17→16:28)
[2021-03-14] MEDS: ZINC SULFATE 220 MG CAPSULE NG SCH (08:17)
[2021-03-14] MEDS: CARBIDOPA/LEVODOPA 25/100 MG 1 UDTAB NG SCH ×3 (08:17→16:27)
[2021-03-14] MEDS: AMLODIPINE BESYLATE 5 MG TABLET NG SCH (08:17)
[2021-03-14] MEDS: NITROGLYCERIN 30 GM TUBE TP SCH (08:18)
[2021-03-14] MEDS: HEPARIN SODIUM, PORCINE 5000 UNITS/1 ML VIAL SQ SCH (08:19)
[2021-03-14 08:32] VITALS: BP 139/86
[2021-03-14] MEDS ORDERED: POTASSIUM CHLORIDE 20 MEQ TAB.PRT.SR PO SCH (09:00)
[2021-03-14] MEDS ORDERED: FUROSEMIDE 40 MG TABLET PO SCH (09:00)
--- NOTE | 2021-03-14 09:48 | NUR ---
RN NOTES SPOKE WITH SPEECH THERAPIST. PATIENT HAD VIDEO SWALLOW STUDY. THE STUDY SHOWED SMALL AMOUNTS OF ASPIRATION ON PUREE DIET. RECOMMENDATIONS ARE STRICT ASPIRATION PRECAUTIONS HOB ELEVATED AT 90 DURING MEAL TIMES, 1 HOUR HOB ELEVATED AFTER MEALS. PATIENT STABLE AT THIS TIME. WILL CONTINUE TO MONITOR.
[2021-03-14 10:59] LABS: BASOPHILS % (AUTO) 0.6 % (0.0-2.0); EOSINOPHILS % (AUTO) 3.3 % (0.0-6.0); HEMATOCRIT 36 % (39-51); HEMOGLOBIN 11.5 g/dL (13.5-17.5); LYMPHOCYTES % (AUTO) 11.7 % (20.0-44.0); MEAN CORPUSCULAR HGB CONC 32 g/dl (31.0-36.0); MEAN CORPUSCULAR VOLUME 87 fL (80-96); MONOCYTES # (AUTO) 0.9 /CMM (0.1-1.30); MONOCYTES % (AUTO) 10.7 % (2.0-12.0); NEUTROPHILS # (AUTO) 6.5 /CMM (1.8-8.9); NEUTROPHILS % (AUTO) 73.7 % (43.0-81.0); PLATELET COUNT (AUTO) 337 /CMM (150-450); RED BLOOD CELL COUNT(AUTO) 4.11 MIL/uL (4.5-6.0); WHITE BLOOD COUNT (AUTO) 8.8 K/uL (4.3-11.0)
[2021-03-14 11:11] LABS: CALCIUM, SERUM 9.2 mg/dL (8.5-10.1); CREATININE 0.8 mg/dL (0.6-1.3); MAGNESIUM 1.9 mg/dL (1.8-2.4); PHOSPHORUS 2.5 mg/dL (2.5-4.9); POTASSIUM 3.8 mmol/L (3.5-5.1)
--- NOTE | 2021-03-14 14:42 | NUR ---
RN NOTES GAVE REPORT TO [facility] IN REGARDS TO PATIENT TRANSFER LATER THIS AFTERNOON.
[2021-03-14 16:00] VITALS: BP 114/58
--- NOTE | 2021-03-14 18:14 | NUR ---
UNDERWEAR WELTER NOTE RECEIVED ORDER FOR DISCHARGE . PATIENT IS ALERT AND ORIENTED X 2, RESTING IN BED. NO SIGNS OF DISTRESS OR SHORTNESS OF BREATH NOTED. PATIENT ON 2 LPM OF OXYGEN VIA NASAL CANNULA. WHITLEY CATHETER WAS REMOVED, PATIENT TOLERATED WELL. LEFT UPPER ARM MIDLINE AND ID BAND REMOVED. PATIENT HAD NO BELONGINGS ON ADMISSION, BELONGINGS FORM SIGNED BY 2 RNS PATIENT UNABLE TO SIGN. PATIENT WAS PICKED UP BY AMBULANCE. 2 EMT PRESENT. PATIENT LEFT IN STABLE CONDITION AND WILL BE TAKEN TBACK TO [facility].
== END 2021-03-14 18:23 | DRG 871 ==
LOC: ER 06:03 → ICU 07:52 → TELE 03-12 16:29 → MED 03-14 10:49
PROVIDERS: ADMIT Family Medicine
PROC: 5A1945Z Respiratory Ventilation, 24-96 Consecutive Hours (ICD-10-PCS; principal; 2021-03-07)
PROC: 0BH18EZ Insertion of Endotracheal Airway into Trachea, Via Natural or Artificial Opening Endoscopic (ICD-10-PCS; 2021-03-07)
PROC: 05H633Z Insertion of Infusion Device into Left Subclavian Vein, Percutaneous Approach (ICD-10-PCS; 2021-03-08)
PROC: B547ZZA Ultrasonography of Left Subclavian Vein, Guidance (ICD-10-PCS; 2021-03-08)
DX: A41.9 Sepsis, unspecified organism (principal); N17.0 Acute kidney failure with tubular necrosis; J69.0 Pneumonitis due to inhalation of food and vomit; J96.01 Acute respiratory failure with hypoxia; J96.02 Acute respiratory failure with hypercapnia; D68.69 Other thrombophilia; E44.1 Mild protein-calorie malnutrition; G93.49 Other encephalopathy; J44.0 Chronic obstructive pulmonary disease with (acute) lower respiratory infection; I12.9 Hypertensive chronic kidney disease with stage 1 through stage 4 chronic kidney disease, or unspecified chronic kidney disease; D63.8 Anemia in other chronic diseases classified elsewhere; E78.5 Hyperlipidemia, unspecified; F32.9 Major depressive disorder, single episode, unspecified; G20 Parkinson's disease; I25.10 Atherosclerotic heart disease of native coronary artery without angina pectoris; I25.2 Old myocardial infarction; I48.0 Paroxysmal atrial fibrillation; K21.9 Gastro-esophageal reflux disease without esophagitis; Z86.73 Personal history of transient ischemic attack (TIA), and cerebral infarction without residual deficits; Z20.822 Contact with and (suspected) exposure to COVID-19; N18.9 Chronic kidney disease, unspecified; E88.09 Other disorders of plasma-protein metabolism, not elsewhere classified; F02.80 Dementia in other diseases classified elsewhere, unspecified severity, without behavioral disturbance, psychotic disturbance, mood disturbance, and anxiety; M19.90 Unspecified osteoarthritis, unspecified site; F39 Unspecified mood [affective] disorder; N40.0 Benign prostatic hyperplasia without lower urinary tract symptoms; L40.9 Psoriasis, unspecified; Z86.16 Personal history of COVID-19; E83.42 Hypomagnesemia; E83.39 Other disorders of phosphorus metabolism; R27.0 Ataxia, unspecified; R65.20 Severe sepsis without septic shock; Z68.25 Body mass index [BMI] 25.0-25.9, adult; G30.9 Alzheimer's disease, unspecified; Z87.891 Personal history of nicotine dependence
CPT/HCPCS: 31720; 36410; 36415; 36600; 70450-TC; 71045-TC; 74230-TC; 80048-TC; 80053-TC; 80061-TC; 80076-TC; 80202-TC; 81001; 82803-TC; 83605-TC; 83735-TC; 84100-TC; 84484-TC; 85025-TC; 85730-TC; 87040-TC; 87070-TC; 87081-TC; 87086-TC; 92526; 92611-TC; 94002-TC; 94003-TC; 94760-TC; 94799-TC; 99082-TC; C1751; G0378; J0692; J1265; J1644; J1940; J2310; J3370; J3475; J3490; J7030; J7040; J7050; J7060; U0003

== ENCOUNTER 2021-03-16 22:30 | Inpatient (IN) | payer MEDICARE, OTHER ==
[~2021-03-16] VITALS: Ht 177.8 cm; Wt 70.9 kg
[~2021-03-16 22:30] MED LIST changes: +HYDR-4209 PO; +IPRA4AER IH; +MAGN400O6 PO; -MULT-439 PO; +PRIM50TA27 PO; +RISP0.2515 PO; -RISP2TAB5 PO; -RISP2TAB85 PO
--- NOTE | 2021-03-16 22:35 | NUR ---
PT [facility] FROM [facility] C/O SOB. PER RA, O2 SAT 70% ON SCENE ON 4L NC, PER RA PT IS NORMALLY ON 4L NC. ARRIVED TO [facility] ER ON 10L WITH O2 SAT 96%. PT AAOX4. RESPIRATIONS EVEN AND UNLABORED. WARM TO TOUCH. NOTED HYPERTENSION ON ARRIVAL, AWARE. PLACED IN GOWN AND ON CONTINUOUS SPECIAL DELIVERY MAIL CARRIER AND PULSE OX, WILL CONTINUE TO MONITOR
--- NOTE | 2021-03-16 22:40 | NUR ---
IV INITIATED L FOREARM 18G. LABS DRAWN FROM SITE. RESIDENTIAL BUILDER AT BEDSIDE FOR COLLECTION. IV INTACT AND PATENT, PLACED ON SALINE LOCK. PT ALSO ARRIVED TO [facility] ER WITH IV HEPLOCK 22G R INDEX FINGER, INTACT AND PATENT.
--- NOTE | 2021-03-16 22:43 | NUR ---
URINE COLLECTED AND SENT TO LAB
[2021-03-16] MEDS ORDERED: PIPERACILLIN /TAZOBACTAM 3.375 G VIAL IV ONE (22:46)
[2021-03-16] MEDS ORDERED: VANCOMYCIN 1 GM VIAL ONE (22:46)
[2021-03-16 22:50] LABS: BASOPHILS # (AUTO) 0.1 /CMM (0.0-0.2); BASOPHILS % (AUTO) 0.4 % (0.0-2.0); HEMATOCRIT 35 % (39-51); HEMOGLOBIN 11.1 g/dL (13.5-17.5); LYMPHOCYTES # (AUTO) 1.4 /CMM (0.8-4.8); LYMPHOCYTES % (AUTO) 6.1 % (20.0-44.0); MEAN CORPUSCULAR HGB CONC 32 g/dl (31.0-36.0); MEAN CORPUSCULAR VOLUME 85 fL (80-96); MONOCYTES # (AUTO) 1.4 /CMM (0.1-1.30); MONOCYTES % (AUTO) 6.2 % (2.0-12.0); NEUTROPHILS # (AUTO) 20.4 /CMM (1.8-8.9); NEUTROPHILS % (AUTO) 87.3 % (43.0-81.0); PLATELET COUNT (AUTO) 302 /CMM (150-450); RED BLOOD CELL COUNT(AUTO) 4.09 MIL/uL (4.5-6.0); WHITE BLOOD COUNT (AUTO) 23.3 K/uL (4.3-11.0)
[2021-03-16] MEDS ORDERED: IV NS 0.9% 500 ML BAG IV ONE ×2 (23:00)
[2021-03-16] MEDS ORDERED: PIPERACILLIN /TAZOBACTAM 3.375 G in IV D5W 50 ML IV ONE (23:00)
[2021-03-16] MEDS ORDERED: VANCOMYCIN HCL 1 GM in IV D5W 260 ML IV ONE (23:00)
[2021-03-16 23:06] LABS: BILIRUBIN,URINE SMALL (NEGATIVE); COLOR,URINE YELLOW (YELLOW); LEUKOCYTE ESTERASE ,URINE NEGATIVE (NEGATIVE); NITRITE, URINE NEGATIVE (NEGATIVE); PH,URINE 5.5 (5.0-8.0); PROTEIN,URINE 100 mg/dl (NEGATIVE); UGLUCOSE NEGATIVE (NEGATIVE); UROBILINOGEN,URINE 0.2 EU/dL (0.2)
[2021-03-16 23:13] LABS: BACTERIA,URINE Many /HPF (None Seen); RBC,URINE 21-50 /HPF (0-2); SQUAMOUS EPITHELIAL CELL,UR Few /HPF (None Seen); WBC,URINE 0-2 /HPF (0-3)
[2021-03-16 23:14] LABS: COARSE GRANULAR CASTS,URINE Few /LPF (None Seen); URINE AMORPHOUS URATE Moderate /HPF (None Seen)
[2021-03-16 23:25] LABS: CALCIUM, SERUM 8.4 mg/dL (8.5-10.1); CARBON DIOXIDE 32 mmol/L (21-32); CHLORIDE 100 mmol/L (98-107); CREATININE 1.7 mg/dL (0.6-1.3); GLUCOSE 123 mg/dL (74-106); POTASSIUM 4.2 mmol/L (3.5-5.1); SODIUM SERUM 141 mmol/L (136-145); UREA NITROGEN, BLOOD 25 mg/dL (7-18)
--- NOTE | 2021-03-16 23:25 | NUR ---
PT IS ASKING FOR AMBIEN AND HIS PARKINSONS MEDICATION, MADE AWARE WILL F/U
--- NOTE | 2021-03-16 23:30 | NUR ---
PT ON 6L SIMPLE MASK, O2 SAT 100%. NO ACUTE DISTRESS NOTED AT THIS TIME, WILL CONTINUE TO MONITOR
[2021-03-16 23:38] LABS: ALANINE AMINOTRANSFERASE 7 U/L (12-78); ALBUMIN 2.8 g/dL (3.4-5.0); ALKALINE PHOSPHATASE 79 U/L (46-116); ASPARTATE AMINOTRANSFERASE 19 U/L (15-37); B-TYPE NATRIURETIC PEPTIDE 1335 PG/ML (0-125); BILIRUBIN,DIRECT 0.1 mg/dL (0.0-0.2); BILIRUBIN,TOTAL 0.2 mg/dL (0.2-1.0); TOTAL PROTEIN, SERUM 6.9 g/dL (6.4-8.2)
--- NOTE | 2021-03-16 23:47 | NUR ---
TELE 115
[2021-03-17] VITALS (38 sets, daily range): BP systolic 74–127; BP diastolic 49–70
[2021-03-17] MEDS ORDERED: PIPERACILLIN /TAZOBACTAM 3.375 G in IV D5W 50 ML IV SCH
[2021-03-17] MEDS ORDERED: CARBIDOPA/LEVA CR 25/100MG 1 TAB.SA PO SCH
[2021-03-17] MEDS ORDERED: ONDANSETRON HCL/PF 4 MG/2 ML VIAL IVP PRN
[2021-03-17] MEDS ORDERED: NOREPINEPHRINE 8 MG in IV NS 0.9% 250 ML IV PRN
[2021-03-17] MEDS ORDERED: CARBIDOPA/LEVODOPA 25/100 MG 1 UDTAB ONE (00:01)
--- NOTE | 2021-03-17 00:02 | NUR ---
REPORT GIVEN TO TIFF MCCOY FOR LEANNA
--- NOTE | 2021-03-17 00:10 | NUR ---
ICU 259
--- NOTE | 2021-03-17 00:22 | NUR ---
REPORT GIVEN TO TIFF GABRIEL [facility] LEANNA
[2021-03-17] MEDS ORDERED: ALBUTEROL FS 2.5 MG/0.5 ML VIAL.NEB NEB SCH (00:30)
[2021-03-17] MEDS ORDERED: Medication Not On Formulary EA (Ipratropium/Albuterol Sulfate (Duoneb 2.5-0.5 Mg/3 Ml So IH PRN (00:30)
[2021-03-17] MEDS ORDERED: MAGNESIUM HYDROXIDE 30 ML UDC PO PRN (00:30)
--- NOTE | 2021-03-17 00:55 | NUR ---
PT TRANSFERRED PER ACLS PROTOCOL
[2021-03-17] MEDS ORDERED: IPRATROPIUM BROMIDE 14 GM INHALER (or 12.9 GM) IH SCH (01:00)
[2021-03-17] MEDS: methylPREDNISolone SOD SUCC 40 MG/ML VIAL IV SCH ×2 (01:05→08:21)
[2021-03-17] MEDS ORDERED: IPRATROPIUM NEB FS 0.5 MG/2.5 ML AMPUL.NEB IH PRN ×2 (01:30→08:30)
[2021-03-17] MEDS: IPRATROPIUM NEB FS 0.5 MG/2.5 ML AMPUL.NEB IH SCH ×2 (01:30→07:35)
[2021-03-17] MEDS ORDERED: ALBUTEROL FS 2.5 MG/0.5 ML VIAL.NEB NEB PRN ×2 (01:30→08:30)
[2021-03-17] MEDS: ALBUTEROL FS 2.5 MG/0.5 ML VIAL.NEB NEB SCH ×2 (01:30→07:35)
--- NOTE | 2021-03-17 02:24 | NUR ---
SECONDARY ENGLISH TEACHER. ADMISSION. RECEIVED THE PT FROM ER VIA [facility]. ADMITTED FOR HYPOTENSION. PT AWAKE, ALERT. FOLLOW COMMANDS. BEAM DEPARTMENT SUPERVISOR SHOWING NSR. OXYGEN 6L VIA NASALCANNULA. SAT 97%. NO ACUTE DISTRESS NOTED. IV LT HAND 18G. SALINE LOCK. HOB ELEVATED. SACRAL WOUND NOTED. FC PATENT. URINE DRAINING. WILL CONTINUE TO MONITOR.
[2021-03-17 04:16] LABS: BASOPHILS # (AUTO) 0.1 /CMM (0.0-0.2); BASOPHILS % (AUTO) 0.3 % (0.0-2.0); HEMATOCRIT 34 % (39-51); HEMOGLOBIN 10.8 g/dL (13.5-17.5); LYMPHOCYTES # (AUTO) 0.9 /CMM (0.8-4.8); LYMPHOCYTES % (AUTO) 4.5 % (20.0-44.0); MEAN CORPUSCULAR HGB CONC 32 g/dl (31.0-36.0); MEAN CORPUSCULAR VOLUME 87 fL (80-96); MONOCYTES # (AUTO) 0.4 /CMM (0.1-1.30); MONOCYTES % (AUTO) 2.2 % (2.0-12.0); NEUTROPHILS # (AUTO) 17.8 /CMM (1.8-8.9); PLATELET COUNT (AUTO) 257 /CMM (150-450); RED BLOOD CELL COUNT(AUTO) 3.92 MIL/uL (4.5-6.0); WHITE BLOOD COUNT (AUTO) 19.2 K/uL (4.3-11.0)
[2021-03-17 04:32] LABS: ALANINE AMINOTRANSFERASE 8 U/L (12-78); ALBUMIN 2.7 g/dL (3.4-5.0); ALKALINE PHOSPHATASE 78 U/L (46-116); ASPARTATE AMINOTRANSFERASE 23 U/L (15-37); BILIRUBIN,TOTAL 0.2 mg/dL (0.2-1.0); CARBON DIOXIDE 31 mmol/L (21-32); CHLORIDE 104 mmol/L (98-107); CREATININE 1.6 mg/dL (0.6-1.3); GLUCOSE 139 mg/dL (74-106); MAGNESIUM 1.7 mg/dL (1.8-2.4); PHOSPHORUS 3.7 mg/dL (2.5-4.9); POTASSIUM 4.6 mmol/L (3.5-5.1); SODIUM SERUM 142 mmol/L (136-145); TOTAL PROTEIN, SERUM 6.7 g/dL (6.4-8.2); UREA NITROGEN, BLOOD 25 mg/dL (7-18)
--- NOTE | 2021-03-17 04:39 | NUR ---
AIR CONDITIONING SUPERVISOR.AM CARE GIVEN. REMAINING SAME OXYGEN TOLERATED WELL.AFEBRILE. HOB ELEVATED. TURN AND REPOSITION Q2H. FC PATENT. URINE DRAINING. WILL CONTINUE TO MONITOR VITALS
[2021-03-17 04:52] LABS: CHOLESTEROL 161 mg/dL (<200); HDL CHOLESTEROL 29 mg/dL (40-60); LDL 101 mg/dL (0-99); THYROID STIMULATING HORMONE 0.777 uIU/mL (0.358-3.74); TRIGLYCERIDES 127 mg/dL (30-150)
[2021-03-17] MEDS ORDERED: PIPERACILLIN /TAZOBACTAM 3.375 G VIAL IV ONE (04:52)
[2021-03-17] MEDS ORDERED: ZOSYN IVPB 3.375 G in IV D5W 50ml IV ONE (05:00)
[2021-03-17] MEDS ORDERED: Medication Not On Formulary EA (Ipratropium/Albuterol Sulfate (Combivent Respimat 20-100 IH SCH (06:00)
[2021-03-17 06:38] LABS: ABG OXYGEN SATURATION 98.8 % (92.0-98.5); ABG PCO2 52.8 mmHg (35.0-45.0); ABG PH 7.362 (7.350-7.450); ABG PO2 147.2 mmHg (75.0-100.0); AaDO2 113.6 mmHg; COHb 0.3 % (0.5-1.5); MetHb 0.4 % (0.0-1.5); O2Hb 98.1 % (94.0-97.0); SITE, ABG Right Radial; VENT MODE, BG 6L SM
--- NOTE | 2021-03-17 07:24 | NUR ---
RN NOTES RECEIVED PT ON BED, A/Ox3-4, FOLLOWS SIMPLE COMMAND, ON 4L O2 N/C, O2 SAT WNL, NO SOB NOTED, ON TELE SR HR IN 60'S , WHITLEY DRAINING TO GRAVITY, L FA IV G 18 AND R MIDDLE FINGER IV G 22 SITES CLEAN, DRY AND INTACT, SR UP x3, CALL LIGHT WITHIN EASY REACH, BED LOCKED AND IN LOWEST POSITION, CONTINUE TO MONITOR.
[2021-03-17] MEDS: IPRATROPIUM/ALBUTEROL INHALER IH SCH ×3 (08:09→19:30)
[2021-03-17] MEDS: PANTOPRAZOLE 40 MG VIAL IV SCH (08:21)
[2021-03-17] MEDS: ASCORBIC ACID 500 MG TABLET PO SCH (08:21)
[2021-03-17] MEDS: ASPIRIN 81 MG TAB.CHEW PO SCH (08:21)
[2021-03-17] MEDS: ZINC SULFATE 220 MG CAPSULE PO SCH (08:21)
[2021-03-17] MEDS: BENZTROPINE MESYLATE (1 MG) 1 MG TABLET PO SCH ×2 (08:21→17:45)
[2021-03-17] MEDS: CARBIDOPA/LEVODOPA 25/100 MG 1 UDTAB PO SCH ×3 (08:21→17:45)
[2021-03-17] MEDS: IV D5/0.45 NACL 1,000 ML IV SCH (08:24)
[2021-03-17] MEDS ORDERED: IPRATROPIUM/ALBUTEROL INHALER IH PRN (08:30)
--- NOTE | 2021-03-17 09:41 | NUR ---
RN NOTES PT REFUSED NGT INSERTION, STATED WANTS THE FEEDING TUBE TO HIS STOMACH ,NOT IN HIS NOSE . DR NEELIMA GARCIA, ORDER RECEIVED FOR CONSULT REGARDING WHO MAKES MEDICAL DECISIONS .
[2021-03-17] MEDS: Magnesium 1GM/D5W 100ML PREMIX 100 ML IV SCH ×2 (09:48→10:51)
[2021-03-17] MEDS: PIPERACILLIN /TAZOBACTAM 3.375 G in IV D5W 50 ML IV SCH ×2 (12:45→17:41)
[2021-03-17] MEDS: VANCOMYCIN 1 GM in IV D5W 250 ML IV SCH (15:27)
--- NOTE | 2021-03-17 16:38 | NUR ---
SS Consult received for locating next of kin or responsible democrat. SW to follow up.
--- NOTE | 2021-03-17 18:00 | NUR ---
RN NOTES NO SIGNIFICANT CHANGES NOTED ON THIS SHIFT, PT REMANINS NPO, ORAL SUCTIONING DONE PRN, PT HAS PRODUCTIVE COUGH UNABLE TO SWALLOW HIS SALIVA AT TIMES , MD AWARE , PT KEEP NPO, WILL ENDORSE TO THERMAL CUTTING TRACER MACHINE OPERATOR NURSE FOR CONTINUITY OF CARE.
[2021-03-17] MEDS ORDERED: IV NS 0.9% 500 ML IV ONE (18:30)
--- NOTE | 2021-03-17 19:34 | NUR ---
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 received the pt rest on the bed. awake, alert. following simple commands. monitor car operator showing nsr. oxygen 4l via nasal cannula. sat 98%. no acute distress noted. iv lt fa 18g. ivf d5 1/2ns 75ml/h. hob elevated. fc patent. urine draining. pt is npo. waiting for gt placement. will continue to monitor vitals.
--- NOTE | 2021-03-17 19:40 | NUR ---
BREATHING TX NOT GIVEN DUE TO PENDING RESULT FOR PCR COVID TEST. TIFF ORO NOTIFIED
--- NOTE | 2021-03-17 20:00 | NUR ---
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 left hand received with ivf infiltrated. iv site changed.will continue to monitor
--- NOTE | 2021-03-17 21:08 | NUR ---
20:25 RN/ PREETHI ASKED THE EXAM TO BE DONE TOMORROW MORNING.
[2021-03-17] MEDS: ATORVASTATIN 10 MG TABLET PO SCH (22:00)
[2021-03-18] VITALS (21 sets, daily range): BP systolic 92–142; BP diastolic 51–71
[2021-03-18] MEDS: PRIMIDONE 50 MG TABLET PO SCH ×2 (00:12→22:00)
[2021-03-18] MEDS: risperiDONE 1 MG TABLET PO SCH ×2 (00:12→22:00)
[2021-03-18] MEDS: ATORVASTATIN 10 MG TABLET PO SCH ×2 (00:12→22:00)
[2021-03-18] MEDS: PIPERACILLIN /TAZOBACTAM 3.375 G in IV D5W 50 ML IV SCH ×4 (00:13→17:32)
[2021-03-18] MEDS: IV D5/0.45 NACL 1,000 ML IV SCH ×2 (01:36→17:32)
[2021-03-18] MEDS: IPRATROPIUM/ALBUTEROL INHALER IH SCH ×4 (01:36→19:12)
--- NOTE | 2021-03-18 01:36 | NUR ---
breathing tx was given by rn nurse lucinda. pcr covid result is negative.
--- NOTE | 2021-03-18 03:06 | NUR ---
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 sat 98%. no acute distress noted. curriculum and instruction director showing s shay. afebrile. will continue t0 monitor vitals
[2021-03-18 04:24] LABS: BASOPHILS % (AUTO) 0.2 % (0.0-2.0); HEMATOCRIT 31 % (39-51); HEMOGLOBIN 9.9 g/dL (13.5-17.5); LYMPHOCYTES # (AUTO) 1.2 /CMM (0.8-4.8); LYMPHOCYTES % (AUTO) 9.3 % (20.0-44.0); MEAN CORPUSCULAR HGB CONC 32 g/dl (31.0-36.0); MEAN CORPUSCULAR VOLUME 86 fL (80-96); MONOCYTES # (AUTO) 1.3 /CMM (0.1-1.30); NEUTROPHILS # (AUTO) 10.6 /CMM (1.8-8.9); NEUTROPHILS % (AUTO) 80.5 % (43.0-81.0); PLATELET COUNT (AUTO) 253 /CMM (150-450); RED BLOOD CELL COUNT(AUTO) 3.61 MIL/uL (4.5-6.0); WHITE BLOOD COUNT (AUTO) 13.2 K/uL (4.3-11.0)
[2021-03-18 04:37] LABS: CALCIUM, SERUM 8.1 mg/dL (8.5-10.1); CREATININE 1.3 mg/dL (0.6-1.3); MAGNESIUM 2.2 mg/dL (1.8-2.4); PHOSPHORUS 3.4 mg/dL (2.5-4.9); POTASSIUM 3.6 mmol/L (3.5-5.1)
--- NOTE | 2021-03-18 04:55 | NUR ---
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 linen changed. remaining same oxygen tolerated well. sat 98%. no acute distress noted, surveillance monitor showing s shay. hob elevated. afebrile. rt foot iv 24. ivf d5 1/2ns 75ml/h;. will continue to monitor vitals
--- NOTE | 2021-03-18 07:00 | NUR ---
RN NOTES RECEIVED PT ON BED, A/Ox3-4, FOLLOWS SIMPLE COMMAND, ON 4L O2 N/C, O2 SAT WNL, NO SOB NOTED, ON TELE SR HR IN 50'S , WHITLEY DRAINING TO GRAVITY, R FOOT IV G 24 SITE CLEAN, DRY AND INTACT, SR UP x3, CALL LIGHT WITHIN EASY REACH, BED LOCKED AND IN LOWEST POSITION, CONTINUE TO MONITOR.
[2021-03-18] MEDS: PANTOPRAZOLE 40 MG VIAL IV SCH (08:52)
[2021-03-18] MEDS: BENZTROPINE MESYLATE (1 MG) 1 MG TABLET PO SCH ×2 (08:53→17:30)
[2021-03-18] MEDS: ZINC SULFATE 220 MG CAPSULE PO SCH (08:53)
[2021-03-18] MEDS: CARBIDOPA/LEVODOPA 25/100 MG 1 UDTAB PO SCH ×3 (08:53→17:30)
[2021-03-18] MEDS: methylPREDNISolone SOD SUCC 40 MG/ML VIAL IV SCH (08:53)
[2021-03-18] MEDS: ASPIRIN 81 MG TAB.CHEW PO SCH (08:53)
[2021-03-18] MEDS: ASCORBIC ACID 500 MG TABLET PO SCH (08:53)
--- NOTE | 2021-03-18 10:22 | NUR ---
WOUND CARE CONSULT: PT PRESENTS WITH UNSTAGEABLE ULCER TO SACRUM, PRESENT ON ADMISSION. SURGICAL CONSULT CALLED TO DR JACQUELYN BONDS. DISCUSSED SKIN PROTECTION AND WOUND CARE WITH NURSING STAFF AND SURGICAL Estela CARRASCO. FIRST STEP LOW [facility] ORDERED. IN AGREEMENT WITH PLAN OF CARE. Addendum: 03/18/21 at 1023 by MARIE LEONE WNDNU Amended: Links added.
[2021-03-18] MEDS ORDERED: HYDROGEL DRESSING 90 GM TUBE TP PRN (10:30)
[2021-03-18] MEDS: VANCOMYCIN 1 GM in IV D5W 250 ML IV SCH (10:34)
[2021-03-18] MEDS: Z GUARD REMEDY 2 OZ OINT TP SCH (10:37)
[2021-03-18] MEDS: HYDROGEL DRESSING 90 GM TUBE TP SCH (11:09)
[2021-03-18 11:11] LABS: BILIRUBIN,URINE NEGATIVE (NEGATIVE); COLOR,URINE YELLOW (YELLOW); LEUKOCYTE ESTERASE ,URINE NEGATIVE (NEGATIVE); NITRITE, URINE POSITIVE (NEGATIVE); PH,URINE 5.5 (5.0-8.0); PROTEIN,URINE 100 mg/dl (NEGATIVE); UGLUCOSE NEGATIVE (NEGATIVE); UROBILINOGEN,URINE 0.2 EU/dL (0.2)
[2021-03-18 11:22] LABS: CREATININE, URINE 115.1 MG/DL (30.0-125.0); URINE TOTAL PROTEIN 111.2 mg/dL (0-11.9)
[2021-03-18 11:32] LABS: WBC,URINE 0-2 /HPF (0-3)
[2021-03-18 11:33] LABS: BACTERIA,URINE Moderate /HPF (None Seen); RBC,URINE 81-100 /HPF (0-2); SQUAMOUS EPITHELIAL CELL,UR Few /HPF (None Seen); URIC ACID CRYSTALS,URINE Many /HPF (None Seen); URINE AMORPHOUS URATE Moderate /HPF (None Seen)
--- NOTE | 2021-03-18 12:00 | NUR ---
RN NOTES PT STABLE, NO DISTRESS NOTED, CONTINUE TO MONITOR .
[2021-03-18 13:26] LABS: EOSINOPHIL,URINE None Seen
--- NOTE | 2021-03-18 16:15 | NUR ---
RN NOTES PT TRANSFERRED TO ROOM 325-2 TELE STATUS, VIA ACLS PROTOCOL , IN STABLE CONDITION. REPORT GIVEN TO KARELY MATTHEW FOR CONTINUITY OF CARE .
--- NOTE | 2021-03-18 16:15 | NUR ---
RN NOTES NO BELONGING NOTED .
--- NOTE | 2021-03-18 16:28 | NUR ---
HIGH SCHOOL HVAC R INSTRUCTOR NOTE PATIENT IS TRANSFERRED FROM ICU, PATIENT IS IN NO ACUTE DISTRESS. PATIENT IS ON 4L VIA NC. VITAL SIGNS ARE WITHIN NORMAL LIMITS. PATIENT IS ON TELE MONITOR READING SINUS TIM 57. PATIENT HAS WHITLEY CATH. SAFETY PRECAUTIONS ARE ON, BED IS LOCKED AND IN THE LOWEST POSITION, WITH SIDE RAILS UP. CALL LIGHT WITHIN REACH. WILL CONTINUE TO MONITOR.
--- NOTE | 2021-03-18 18:40 | NUR ---
SHELLFISH GROWER CLOSING NOTE PATIENT IS IN BED, PATIENT IS IN NO ACUTE DISTRESS. PATIENT IS ON 4L VIA NC. VITAL SIGNS ARE WITHIN NORMAL LIMITS. PATIENT IS ON TELE MONITOR READING SINUS TIM 57. PATIENT HAS WHITLEY CATH. SAFETY PRECAUTIONS ARE ON, BED IS LOCKED AND IN THE LOWEST POSITION, WITH SIDE RAILS UP. CALL LIGHT WITHIN REACH. ENDORSE PATIENT TO PICKET LABOR UNION NURSE FOR LEANNA.
--- NOTE | 2021-03-18 23:45 | NUR ---
MS/TELE/RN HS MEDS NOT ADMINISTERED, PER SPEECH THERAPIST, PATIENT IS NOT SAFE TO SWALLOW.
[2021-03-19] VITALS: BP 130/64
[2021-03-19] MEDS: PIPERACILLIN /TAZOBACTAM 3.375 G in IV D5W 50 ML IV SCH ×5 (00:03→23:45)
[2021-03-19] MEDS: IPRATROPIUM/ALBUTEROL INHALER IH SCH ×4 (01:09→19:37)
[2021-03-19] MEDS: VANCOMYCIN 1 GM in IV D5W 250 ML IV SCH ×2 (03:54→22:00)
[2021-03-19 04:00] VITALS: BP 122/64
[2021-03-19] MEDS: IV D5/0.45 NACL 1,000 ML IV SCH ×2 (06:10→17:06)
--- NOTE | 2021-03-19 06:17 | NUR ---
MS/TELE/RN PATIENT APPEAR SLEEPING, APPEAR COMFORTABLE, NO SIGNS OF DISTRESS NOTED, IVF INFUSING, CALL LIGHT IN REACH, ALL NEEDS ATTENDED AT THIS TIME, WILL CONTINUE TO MONITOR.
[2021-03-19 06:30] LABS: BASOPHILS % (AUTO) 0.3 % (0.0-2.0); EOSINOPHILS % (AUTO) 0.2 % (0.0-6.0); HEMATOCRIT 28 % (39-51); HEMOGLOBIN 9.2 g/dL (13.5-17.5); LYMPHOCYTES # (AUTO) 1.3 /CMM (0.8-4.8); LYMPHOCYTES % (AUTO) 17.2 % (20.0-44.0); MEAN CORPUSCULAR HGB CONC 33 g/dl (31.0-36.0); MEAN CORPUSCULAR VOLUME 87 fL (80-96); MONOCYTES # (AUTO) 0.8 /CMM (0.1-1.30); MONOCYTES % (AUTO) 10.6 % (2.0-12.0); NEUTROPHILS # (AUTO) 5.6 /CMM (1.8-8.9); NEUTROPHILS % (AUTO) 71.7 % (43.0-81.0); PLATELET COUNT (AUTO) 265 /CMM (150-450); RED BLOOD CELL COUNT(AUTO) 3.28 MIL/uL (4.5-6.0); WHITE BLOOD COUNT (AUTO) 7.8 K/uL (4.3-11.0)
[2021-03-19 06:39] LABS: CALCIUM, SERUM 8.3 mg/dL (8.5-10.1); CARBON DIOXIDE 32 mmol/L (21-32); CHLORIDE 106 mmol/L (98-107); CREATININE 1.1 mg/dL (0.6-1.3); GLUCOSE 130 mg/dL (74-106); POTASSIUM 3.2 mmol/L (3.5-5.1); SODIUM SERUM 140 mmol/L (136-145); UREA NITROGEN, BLOOD 24 mg/dL (7-18)
--- NOTE | 2021-03-19 07:49 | NUR ---
BRAND AMBASSADOR OPENING NOTE RECEIVED PATIENT SLEEPING IN BED. EASILY AWAKENED. A/O X1. ON ROOM AIR, NO SOB NOTED. IN NO APPARENT DISTRESS. BREATHING IS EVEN AND UNLABORED. KEPT HOB ELEVATED AT 40 DEG. IV ACCESS ON PEDRO PABLO MIDLINE, INTACT AND PATENT, D5 1/2 NS CURRENTLY RUNNING AT 75 ML/HR. WHITLEY CATHETER IN PLACE, DRAINING YELLOW URINE. SAFETY MEASURES MAINTAINED. BED IN LOWEST POSITION, BRAKES LOCKED. SIDE RAILS UP X2. CALL LIGHT WITHIN REACH. WILL CONTINUE PLAN OF CARE. Addendum: 03/19/21 at 0838 by MISAEL ANGEL RN CORRECTION: PT IS ON NC AT 4 LPM
[2021-03-19 08:00] VITALS: BP 119/51
[2021-03-19] MEDS: methylPREDNISolone SOD SUCC 40 MG/ML VIAL IV SCH (08:52)
[2021-03-19] MEDS: ZINC SULFATE 220 MG CAPSULE PO SCH (08:52)
[2021-03-19] MEDS: ASPIRIN 81 MG TAB.CHEW PO SCH (08:52)
[2021-03-19] MEDS: PANTOPRAZOLE 40 MG VIAL IV SCH (08:52)
[2021-03-19] MEDS: CARBIDOPA/LEVODOPA 25/100 MG 1 UDTAB PO SCH ×3 (08:52→16:19)
[2021-03-19] MEDS: BENZTROPINE MESYLATE (1 MG) 1 MG TABLET PO SCH ×2 (08:52→16:19)
[2021-03-19] MEDS: ASCORBIC ACID 500 MG TABLET PO SCH (08:52)
[2021-03-19] MEDS: HYDROGEL DRESSING 90 GM TUBE TP SCH (08:53)
[2021-03-19] MEDS: Z GUARD REMEDY 2 OZ OINT TP SCH (08:53)
--- NOTE | 2021-03-19 10:31 | NUR ---
MS RN NOTE ORDERED BACTROBAN/MUPIROCIN OINTMENT 2% FOR MRSA. ORDER CARRIED OUT.
[2021-03-19] MEDS: MUPIROCIN OINT 2% 22 GM TUBE NS SCH ×3 (11:23→21:58)
[2021-03-19] MEDS: POTASSIUM CHLORIDE 20 MEQ TAB.PRT.SR PO SCH ×2 (12:18→13:20)
--- NOTE | 2021-03-19 12:50 | NUR ---
MS RN NOTE CALLED YOAN PHAN (POJohn) TO GET A CONSENT FOR THE PEG PLACEMENT PROCEDURE. NO ONE ANSWERED, LEFT A VM INSTEAD. WILL CONTINUE TO FOLLOW UP. YOAN'S NO [phone]
[2021-03-19 16:00] VITALS: BP 134/61
--- NOTE | 2021-03-19 18:04 | NUR ---
MS RN CLOSING NOTE PATIENT RESTING IN BED. A/O X2-3. NC AT 4 LPM. NO SOB NOTED. NO S/S OF RESPIRATORY DISTRESS. KEPT HOB ELEVATED AT 40 DEG. IV ACCESS ON PEDRO PABLO MIDLINE, INTACT AND PATENT, D5 1/2 NS CURRENTLY RUNNING AT 75 ML/HR. WHITLEY CATHETER IN PLACE, DRAINING YELLOW URINE, 1000 CC OUTPUT. ALL DUE MEDS GIVEN ORDERED. ALL NEEDS HAVE BEEN MET AND ATTENDED. SAFETY MEASURES MAINTAINED. BED IN LOWEST POSITION, BRAKES LOCKED. SIDE RAILS UP X2. CALL LIGHT WITHIN REACH. WILL ENDORSE CONTINUITY OF CARE TO ONCOMING SHIFT.
[2021-03-19 20:00] VITALS: BP 148/76
--- NOTE | 2021-03-19 20:37 | NUR ---
MS/TELE/RN PLACED A CALL TO YOAN PHAN, PATIENT'S DPOA, TEL NO. [phone], TO GET CONSENT FOR THE PROCEDURE IN A.M. LEFT MESSAGE.
[2021-03-19] MEDS: PRIMIDONE 50 MG TABLET PO SCH (21:54)
[2021-03-19] MEDS: risperiDONE 1 MG TABLET PO SCH (21:55)
[2021-03-19] MEDS: ATORVASTATIN 10 MG TABLET PO SCH (21:55)
--- NOTE | 2021-03-19 23:16 | NUR ---
MS/TELE/RN VANCOMYCIN TROUGH IS 22, VANCOMYCIN NOT ADMINISTERED,
[2021-03-20] VITALS (10 sets, daily range): BP systolic 127–150; BP diastolic 64–91
[2021-03-20] MEDS: IPRATROPIUM/ALBUTEROL INHALER IH SCH ×4 (02:10→19:30)
[2021-03-20 05:36] LABS: BASOPHILS % (AUTO) 0.5 % (0.0-2.0); HEMATOCRIT 31 % (39-51); HEMOGLOBIN 9.7 g/dL (13.5-17.5); LYMPHOCYTES # (AUTO) 1.6 /CMM (0.8-4.8); LYMPHOCYTES % (AUTO) 18.3 % (20.0-44.0); MEAN CORPUSCULAR HGB CONC 32 g/dl (31.0-36.0); MEAN CORPUSCULAR VOLUME 88 fL (80-96); MONOCYTES # (AUTO) 0.9 /CMM (0.1-1.30); MONOCYTES % (AUTO) 10.5 % (2.0-12.0); NEUTROPHILS # (AUTO) 6.1 /CMM (1.8-8.9); NEUTROPHILS % (AUTO) 70.7 % (43.0-81.0); PLATELET COUNT (AUTO) 302 /CMM (150-450); RED BLOOD CELL COUNT(AUTO) 3.51 MIL/uL (4.5-6.0); WHITE BLOOD COUNT (AUTO) 8.7 K/uL (4.3-11.0)
[2021-03-20] MEDS: PIPERACILLIN /TAZOBACTAM 3.375 G in IV D5W 50 ML IV SCH ×4 (05:59→23:13)
[2021-03-20] MEDS: IV D5/0.45 NACL 1,000 ML IV SCH ×2 (06:03→17:30)
[2021-03-20 06:18] LABS: CALCIUM, SERUM 8.5 mg/dL (8.5-10.1); CREATININE 0.9 mg/dL (0.6-1.3); MAGNESIUM 1.8 mg/dL (1.8-2.4); PHOSPHORUS 2.9 mg/dL (2.5-4.9); POTASSIUM 3.5 mmol/L (3.5-5.1)
--- NOTE | 2021-03-20 06:28 | NUR ---
MS/TELE/RN MORNING CARE WAS DONE, BOWEL MOVEMENT NOTED, GOOD SKIN CARE DONE, TOTAL LINEN CHANGE RENDERED, REPOSITIONED TO COMFORT, ALL NEEDS ATTENDED AT THIS TIME, WILL CONTINUE TO MONITOR.
--- NOTE | 2021-03-20 07:40 | NUR ---
TELE/MS RN OPENING NOTE RECEIVED PATIENT AWAKE IN BED. A/O X3. PATIENT ON 2L NASAL CANNULA. NO SOB NOTED. NO SIGNS OR SYMPTOMS OF DISTRESS NOTED. IV ACCESS ON PEDRO PABLO MIDLINE, INTACT AND PATENT. WHITLEY CATHETER IN INTACT, DRAINING YELLOW URINE. SAFETY MEASURES MAINTAINED. BED IN LOWEST POSITION, BRAKES LOCKED. SIDE RAILS UP X2. CALL LIGHT WITHIN REACH. WILL CONTINUE TO MONITOR THROUGHOUT SHIFT.
--- NOTE | 2021-03-20 08:16 | NUR ---
TELE/OPERATIONAL METEOROLOGIST NOTES CALLED [facility]ITAL PHAN, NO ANSWER. LEFT MESSAGE TO CALL [facility] TO OBTAIN CONSENT.
[2021-03-20] MEDS: PANTOPRAZOLE 40 MG VIAL IV SCH (09:07)
[2021-03-20] MEDS: ZINC SULFATE 220 MG CAPSULE PO SCH (09:09)
[2021-03-20] MEDS: methylPREDNISolone SOD SUCC 40 MG/ML VIAL IV SCH (09:09)
[2021-03-20] MEDS: CARBIDOPA/LEVODOPA 25/100 MG 1 UDTAB PO SCH ×3 (09:09→17:27)
[2021-03-20] MEDS: ASPIRIN 81 MG TAB.CHEW PO SCH (09:09)
[2021-03-20] MEDS: ASCORBIC ACID 500 MG TABLET PO SCH (09:10)
[2021-03-20] MEDS: BENZTROPINE MESYLATE (1 MG) 1 MG TABLET PO SCH ×2 (09:10→17:27)
[2021-03-20] MEDS: HYDROGEL DRESSING 90 GM TUBE TP SCH (09:11)
[2021-03-20] MEDS: Z GUARD REMEDY 2 OZ OINT TP PRN ×2 (09:13→09:21)
[2021-03-20 09:15] LABS: ABG BASE EXCESS 2.9 mmol/L; ABG OXYGEN SATURATION 96.9 % (92.0-98.5); ABG PH 7.418 (7.350-7.450); ABG PO2 87.3 mmHg (75.0-100.0); AaDO2 89.4 mmHg; COHb 0.3 % (0.5-1.5); MetHb 0.3 % (0.0-1.5); O2Hb 96.3 % (94.0-97.0); SITE, ABG Right Radial
[2021-03-20] MEDS: MUPIROCIN OINT 2% 22 GM TUBE NS SCH ×2 (09:21→21:13)
[2021-03-20] MEDS: Z GUARD REMEDY 2 OZ OINT TP SCH (09:22)
--- NOTE | 2021-03-20 10:14 | NUR ---
TELE/DICE DEALER NOTES CALLED X2 DPOA YOAN PHAN, NO ANSWER. LEFT MESSAGE TO CALL [facility] TO OBTAIN CONSENT. CALLED DUTY WORKER [phone] NO ANSWER; UNABLE TO LM.
[2021-03-20] MEDS: VANCOMYCIN 1 GM in IV D5W 250 ML IV SCH (13:38)
--- NOTE | 2021-03-20 13:50 | NUR ---
RN NOTES PATIENT ALERT AND ORIENTED X4. UNABLE TO USE HAND TO SIGN CONSENT, HOWEVER, VERBALLY CONSENTED TO EGD AND PEG PLACEMENT WITNESSED BY ANESTHESIOLOGIST DR. SALCIDO AND LCAC RADAR OPERATOR/NAVIGATOR DR. OCASIO. CONSENT WITNESSED BY 2 RNS. PATIENT PICKED UP AT 1340 TO SURGERY.
--- NOTE | 2021-03-20 13:50 | NUR ---
RN NOTES PATIENT IS ALERT AND ORIENTED X4. ABLE TO VERBALIZED NEEDS. UNABLE TO USE HAND TO SIGN CONSENT BECAUSE OF WEAKNESS, HOWEVER VERBALLY CONSENTED TO EGD AND PEG PLACEMENT WITNESSED BY ANESTHESIOLOGIST DR. SALCIDO, HVAC INSTRUCTOR DR. OCASIO. CONSENT OBTAINED VERBALLY BY ME AND TIFF BURDICK. PATIENT PICKED UP AT 1340 TO SURGERY.
--- NOTE | 2021-03-20 14:56 | NUR ---
RN NOTES PT RETURNED TO UNIT AT 1445 S/P EGD AND PEG PLACEMENT BY DR OCASIO ACCOMPANIED O.R. TIFF GOODRICH. PT WITH PEG TUBE FR#20, DRESSING IN PLACE AT SITE WITH NO ACTIVE BLEEDING TO SITE. G-TUBE OK TO USE FOR H20 AND MEDS AFTER 4HRS (7PM). USE PEG TUBE FEEDING TMRW IN THE AM PER DR. OCASIO. WILL ENDORSE TO NEXT SHIFT NURSE.
--- NOTE | 2021-03-20 18:20 | NUR ---
RN CLOSING NOTES PATIENT IS RESTING IN BED. ALERT AND ORIENTED X 3. ABLE TO VERBALIZE NEEDS. PATIENT IS ON 2L NC. D5 1/2 NS CURRENTLY RUNNING AT 75 ML/HR. WHITLEY CATHETER IN INTACT, DRAINING YELLOW URINE. SURGICAL SITE IS CLEAN, DRY AND INTACT. NO REDNESS OR DRAINAGE OBSERVED AROUND SURGICAL SITE. SAFETY MEASURES AND SEIZURE PRECAUTIONS IN PLACE. WILL ENDORSE TO ONCOMING SHIFT PLAN OF CARE.
--- NOTE | 2021-03-20 19:36 | NUR ---
MS RN OPENING NOTES PATIENT A/OX3; ABLE TO MAKE NEEDS KNOWN. ON O2 2LPM VIA N/C; TOLERATING WELL WITH NO SOB. GTUBE PEG INTACT. F/C DRAINING CLEAR YELLOW URINE; PATENT AND INTACT. PEDRO PABLO MIDLINE 1/2 NS @ 75 ML/HR; PATENT AND INTACT. DENIES PAIN OR DISCOMFORT. SAFETY MEASURES IN PLACE: BED IN LOWEST LOCKED POSITION, CALL LIGHT WITHIN EASY REACH, SIDE RAILS UPX2; BED ALARMS ON. PATIENT MEDICALLY STABLE AT THIS TIME. WILL CONTINUE PLAN OF CARE
--- NOTE | 2021-03-20 20:57 | NUR ---
MS RN NOTE PATIENT REFUSED IPRATROPIUM ALBUTEROL INHALER AND REQUESTED FOR NEBULIZER. KATIE COMMUNITY SPECIALIST ORDERED FOR NEBULIZER AND D/C INHALER. ORDERS CARRIED OUT.
[2021-03-20] MEDS: ATORVASTATIN 10 MG TABLET PO SCH (21:14)
[2021-03-20] MEDS: risperiDONE 1 MG TABLET PO SCH (21:14)
[2021-03-20] MEDS: PRIMIDONE 50 MG TABLET PO SCH (21:14)
[2021-03-20] MEDS: ALBUTEROL FS 2.5 MG/0.5 ML VIAL.NEB NEB SCH ×2 (22:00→23:58)
[2021-03-20] MEDS ORDERED: ZOLPIDEM TARTRATE 10 MG TABLET PO SCH (22:00)
--- NOTE | 2021-03-20 22:18 | NUR ---
MS RN NOTE PATIENT REQUESTED FOR AMBIEN TO HELP WITH INSOMNIA. KINZA WILSON NP ORDERED FOR AMBIEN 10MG PO HS. ORDERS CARRIED OUT.
--- NOTE | 2021-03-20 23:59 | NUR ---
RT NOTE PT REQUESTED EARLY TX AT THIS TIME. TIFF LO IS AWARE. NO ADVERSE REACTIONS NOTED. PT CURRENTLY ON 28% NASAL CANNULA. NO RESPIRATORY DISTRESS NOTED.
[2021-03-21] MEDS: IV D5/0.45 NACL 1,000 ML IV SCH (03:12)
[2021-03-21] MEDS ORDERED: JEVITY 1.2 CAL 1,000 ML BOTTLE GT PRN (06:00)
[2021-03-21] MEDS: PIPERACILLIN /TAZOBACTAM 3.375 G in IV D5W 50 ML IV SCH ×2 (06:34→13:03)
[2021-03-21 07:06] LABS: BASOPHILS % (AUTO) 0.5 % (0.0-2.0); EOSINOPHILS % (AUTO) 0.2 % (0.0-6.0); HEMATOCRIT 30 % (39-51); HEMOGLOBIN 9.7 g/dL (13.5-17.5); LYMPHOCYTES # (AUTO) 1.7 /CMM (0.8-4.8); LYMPHOCYTES % (AUTO) 21.8 % (20.0-44.0); MEAN CORPUSCULAR HGB CONC 32 g/dl (31.0-36.0); MEAN CORPUSCULAR VOLUME 87 fL (80-96); MONOCYTES # (AUTO) 0.8 /CMM (0.1-1.30); MONOCYTES % (AUTO) 9.8 % (2.0-12.0); NEUTROPHILS # (AUTO) 5.4 /CMM (1.8-8.9); NEUTROPHILS % (AUTO) 67.7 % (43.0-81.0); PLATELET COUNT (AUTO) 314 /CMM (150-450); RED BLOOD CELL COUNT(AUTO) 3.45 MIL/uL (4.5-6.0)
--- NOTE | 2021-03-21 07:35 | NUR ---
MS RN OPENING NOTES PATIENT A/OX3; ABLE TO MAKE NEEDS KNOWN. ON O2 2LPM VIA N/C; TOLERATING WELL WITH NO SOB. GTUBE PEG INTACT RUNNING FEEDING @ 20ML/HR. F/C DRAINING CLEAR YELLOW URINE; PATENT AND INTACT. PEDRO PABLO MIDLINE 1/2 NS @ 75 ML/HR; PATENT AND INTACT. SKIN PER REPORT HAS SACRUM UNSTAGEABLE. DENIES PAIN OR DISCOMFORT. SAFETY MEASURES IN PLACE: BED IN LOWEST LOCKED POSITION, CALL LIGHT WITHIN EASY REACH, SIDE RAILS UPX2; BED ALARMS ON. PATIENT MEDICALLY STABLE AT THIS TIME. WILL CONTINUE TO MONITOR
[2021-03-21] MEDS: ALBUTEROL FS 2.5 MG/0.5 ML VIAL.NEB NEB SCH ×2 (07:51→13:02)
[2021-03-21 08:00] VITALS: BP 118/60
--- NOTE | 2021-03-21 08:00 | NUR ---
MS RN CLOSING NOTES PATIENT A/OX3; NOTED WITH CONFUSION. ABLE TO MAKE NEEDS KNOWN. ON O2 2LPM VIA N/C; TOLERATING WELL WITH NO SOB. GTUBE PEG INTACT JEVITY 1.2 @ 20 ML/HR; TOLERATING WELL. F/C DRAINING CLEAR ETTA URINE; PATENT AND INTACT. PEDRO PABLO MIDLINE 1/2 NS @ 75 ML/HR; PATENT AND INTACT. DENIES PAIN OR DISCOMFORT. SAFETY MEASURES IN PLACE: BED IN LOWEST LOCKED POSITION, CALL LIGHT WITHIN EASY REACH, SIDE RAILS UPX2; BED ALARMS ON. PATIENT MEDICALLY STABLE AT THIS TIME. ENDORSED PLAN OF CARE TO ONCOMING MORNING RN
[2021-03-21 08:07] LABS: CALCIUM, SERUM 8.6 mg/dL (8.5-10.1); CREATININE 0.9 mg/dL (0.6-1.3); MAGNESIUM 1.8 mg/dL (1.8-2.4); PHOSPHORUS 2.8 mg/dL (2.5-4.9); POTASSIUM 3.8 mmol/L (3.5-5.1)
[2021-03-21] MEDS: methylPREDNISolone SOD SUCC 40 MG/ML VIAL IV SCH (08:22)
[2021-03-21] MEDS: PANTOPRAZOLE 40 MG VIAL IV SCH (08:22)
[2021-03-21] MEDS ORDERED: IV D5/0.45 NACL 1,000 ML IV PRN (09:00)
[2021-03-21] MEDS: ASCORBIC ACID 500 MG TABLET PO SCH (09:34)
[2021-03-21] MEDS: MUPIROCIN OINT 2% 22 GM TUBE NS SCH (09:34)
[2021-03-21] MEDS: HYDROGEL DRESSING 90 GM TUBE TP SCH (09:34)
[2021-03-21] MEDS: ZINC SULFATE 220 MG CAPSULE PO SCH (09:34)
[2021-03-21] MEDS: CARBIDOPA/LEVODOPA 25/100 MG 1 UDTAB PO SCH ×2 (09:34→13:02)
[2021-03-21] MEDS: BENZTROPINE MESYLATE (1 MG) 1 MG TABLET PO SCH (09:34)
[2021-03-21] MEDS: ASPIRIN 81 MG TAB.CHEW PO SCH (09:34)
[2021-03-21] MEDS: Z GUARD REMEDY 2 OZ OINT TP SCH (09:35)
[2021-03-21] MEDS: Z GUARD REMEDY 2 OZ OINT TP PRN (09:35)
[2021-03-21] MEDS ORDERED: LEVO500T90 PO (10:08)
[2021-03-21] MEDS: VANCOMYCIN 1 GM in IV D5W 250 ML IV SCH (12:03)
--- NOTE | 2021-03-21 14:12 | NUR ---
RN NOTES GAVE REPORT TO RN SUPERVISOR SANDING LUNA AT [facility]. NOTIFIED THEM TURN SEWER TIME WAS 1500
--- NOTE | 2021-03-21 15:21 | NUR ---
MS SENIOR RECEPTIONIST NOTES RECEIVED DISCHARGE ORDER. PATIENT A/OX3; ABLE TO MAKE NEEDS KNOWN. ON O2 2LPM VIA N/C; TOLERATING WELL WITH NO SOB. GTUBE PEG INTACT. PATIENTS SKIN HAS SACRUM UNSTAGEABLE. PATIENT WAS GIVEN VERBAL AND PRINTED DISCHARGE INSTRUCTIONS. REPORT WAS GIVEN TO [facility]. PATIENTS IV AND ID BAND WAS REMOVED. DENIES PAIN OR DISCOMFORT. PATIENT WAS PICKED UP VIA AMBULANCE WITH 2 CALLIOPE PLAYER PRESENT. PATIENT LEFT IN STABLE CONDITION.
[2021-03-21] MEDS ORDERED: ZOLPIDEM TARTRATE 10 MG TABLET PO SCH (22:00)
[2021-03-21] MEDS ORDERED: ALBUTEROL FS 2.5 MG/0.5 ML VIAL.NEB NEB SCH (22:00)
== END 2021-03-21 15:20 | DRG 871 ==
LOC: ER 22:33 → TELE1 03-17 00:04 → ICU 03-17 00:13 → TELE 03-18 16:20 → MED 03-19 09:27
PROVIDERS: ADMIT Registered Nurse; ATTEND Internal Medicine
PROC: 05H633Z Insertion of Infusion Device into Left Subclavian Vein, Percutaneous Approach (ICD-10-PCS; 2021-03-18)
PROC: B547ZZA Ultrasonography of Left Subclavian Vein, Guidance (ICD-10-PCS; 2021-03-18)
PROC: 0DH63UZ Insertion of Feeding Device into Stomach, Percutaneous Approach (ICD-10-PCS; principal; 2021-03-20)
DX: A41.9 Sepsis, unspecified organism (principal); G92 Toxic encephalopathy; R65.21 Severe sepsis with septic shock; J96.21 Acute and chronic respiratory failure with hypoxia; J15.9 Unspecified bacterial pneumonia; J15.6 Pneumonia due to other Gram-negative bacteria; N17.0 Acute kidney failure with tubular necrosis; R57.1 Hypovolemic shock; J96.22 Acute and chronic respiratory failure with hypercapnia; J44.0 Chronic obstructive pulmonary disease with (acute) lower respiratory infection; E46 Unspecified protein-calorie malnutrition; G40.909 Epilepsy, unspecified, not intractable, without status epilepticus; I12.9 Hypertensive chronic kidney disease with stage 1 through stage 4 chronic kidney disease, or unspecified chronic kidney disease; I25.10 Atherosclerotic heart disease of native coronary artery without angina pectoris; G20 Parkinson's disease; Z86.73 Personal history of transient ischemic attack (TIA), and cerebral infarction without residual deficits; N18.9 Chronic kidney disease, unspecified; K21.9 Gastro-esophageal reflux disease without esophagitis; N40.0 Benign prostatic hyperplasia without lower urinary tract symptoms; K21.00 Gastro-esophageal reflux disease with esophagitis, without bleeding; K25.9 Gastric ulcer, unspecified as acute or chronic, without hemorrhage or perforation; K29.70 Gastritis, unspecified, without bleeding; E78.5 Hyperlipidemia, unspecified; D63.1 Anemia in chronic kidney disease; F32.9 Major depressive disorder, single episode, unspecified; I25.2 Old myocardial infarction; E83.42 Hypomagnesemia; E87.6 Hypokalemia; I48.91 Unspecified atrial fibrillation; Z86.16 Personal history of COVID-19; Z87.891 Personal history of nicotine dependence; L89.150 Pressure ulcer of sacral region, unstageable; K44.9 Diaphragmatic hernia without obstruction or gangrene; Z20.822 Contact with and (suspected) exposure to COVID-19; F02.80 Dementia in other diseases classified elsewhere, unspecified severity, without behavioral disturbance, psychotic disturbance, mood disturbance, and anxiety; F39 Unspecified mood [affective] disorder; K22.70 Barrett's esophagus without dysplasia; R13.10 Dysphagia, unspecified
CPT/HCPCS: 36415; 36600; 43246; 71045-TC; 76770-TC; 80048-TC; 80053-TC; 80061-TC; 80076-TC; 80202-TC; 81001; 82570-TC; 82803-TC; 83605-TC; 83735-TC; 83880; 84100-TC; 84155-TC; 84300-TC; 84443-TC; 84484-TC; 85025-TC; 85730-TC; 87040-TC; 87081-TC; 87086-TC; 92526; 92611-TC; 94664; 94760-TC; 94799-TC; A6248; C1751; C9113; C9803; G0378; J2543; J2704; J2920; J3370; J3475; J3490; J7030; J7060; U0003

== ENCOUNTER 2022-03-12 01:50 | Emergency (ER) | payer MEDICARE, OTHER ==
[~2022-03-12] VITALS: Ht 177.8 cm; Wt 81.2 kg
[~2022-03-12 01:50] MED LIST changes: +LEVO500T90 PO
--- NOTE | 2022-03-12 02:05 | NUR ---
ALMA Cline FROM [facility] C/O PT "UNCONSIOUS" SINCE 2329. DESIGN TECHNICIAN EMS BS 83. PT RESPONSIVE TO PAIN STIMULI & OPENS EYES. TOLERATING R/A WELL WITH NO SOB. CONNECTED PT TO POX AND MONITOR WITH NO SOB. SAFETY MEASURES IN PLACE.
[2022-03-12] MEDS ORDERED: LIDOCAINE 2% JEL UROJET 10 ML MM ONE (02:07)
--- NOTE | 2022-03-12 02:16 | NUR ---
LEASE ADMINISTRATION ANALYST AT PT'S BEDSIDE
--- NOTE | 2022-03-12 02:32 | NUR ---
PT TAKEN TO CT VIA JONY
--- NOTE | 2022-03-12 02:32 | NUR ---
URINE COLLECTED AND SENT TO LAB
[2022-03-12 02:35] LABS: BASOPHILS # (AUTO) 0.1 K/uL (0.0-0.2); BASOPHILS % (AUTO) 0.8 % (0.0-2.0); EOSINOPHILS % (AUTO) 1.3 % (0.0-6.0); HEMATOCRIT 38 % (39-51); HEMOGLOBIN 12.7 g/dL (13.5-17.5); LYMPHOCYTES # (AUTO) 1.5 K/uL (0.8-4.8); LYMPHOCYTES % (AUTO) 19.3 % (20.0-44.0); MEAN CORPUSCULAR HGB CONC 34 g/dl (31.0-36.0); MEAN CORPUSCULAR VOLUME 89 fL (80-96); MONOCYTES # (AUTO) 0.5 K/uL (0.1-1.30); MONOCYTES % (AUTO) 6.2 % (2.0-12.0); NEUTROPHILS # (AUTO) 5.7 K/uL (1.8-8.9); NEUTROPHILS % (AUTO) 72.4 % (43.0-81.0); PLATELET COUNT (AUTO) 192 K/uL (150-450); RED BLOOD CELL COUNT(AUTO) 4.26 MIL/uL (4.5-6.0); WHITE BLOOD COUNT (AUTO) 7.9 K/uL (4.3-11.0)
--- NOTE | 2022-03-12 02:37 | NUR ---
PER RASHEL MATTHEW FROM [facility] PT USUALLY A/OX2, TALKING & RESPONSIVE. PT DID NOT RESPOND TO PAIN STIMULI AT [facility]. PT REFUSED MEDS & FOOD
--- NOTE | 2022-03-12 02:44 | NUR ---
PT RETURNED TO ER BED [address]
[2022-03-12 02:52] LABS: BILIRUBIN,URINE NEGATIVE (NEGATIVE); COLOR,URINE YELLOW (YELLOW); LEUKOCYTE ESTERASE ,URINE NEGATIVE (NEGATIVE); NITRITE, URINE NEGATIVE (NEGATIVE); PH,URINE 7.5 (5.0-8.0); PROTEIN,URINE NEGATIVE (NEGATIVE); UGLUCOSE NEGATIVE (NEGATIVE); UROBILINOGEN,URINE 0.2 EU/dL (0.2)
[2022-03-12 02:55] LABS: ALANINE AMINOTRANSFERASE 50 U/L (12-78); ALBUMIN 3.2 g/dL (3.4-5.0); ALKALINE PHOSPHATASE 204 U/L (46-116); ASPARTATE AMINOTRANSFERASE 26 U/L (15-37); BILIRUBIN,DIRECT 0.1 mg/dL (0.0-0.2); BILIRUBIN,TOTAL 0.3 mg/dL (0.2-1.0); CALCIUM, SERUM 9.5 mg/dL (8.5-10.1); CARBON DIOXIDE 28 mmol/L (21-32); CHLORIDE 105 mmol/L (98-107); CREATININE 1.3 mg/dL (0.6-1.3); GLUCOSE 84 mg/dL (74-106); POTASSIUM 4.8 mmol/L (3.5-5.1); SODIUM SERUM 141 mmol/L (136-145); TOTAL PROTEIN, SERUM 6.9 g/dL (6.4-8.2); UREA NITROGEN, BLOOD 31 mg/dL (7-18)
--- NOTE | 2022-03-12 04:55 | NUR ---
PT WILL BE TRANSPORTED BACK TO FACILITY AT 0700 VIA [facility].
--- NOTE | 2022-03-12 05:10 | NUR ---
Report given to Angy MATTHEW from [facility] for LEANNA
--- NOTE | 2022-03-12 07:49 | NUR ---
PICKED UP BY TRANSPORT IN STABLE CONDITION
[2022-03-12 07:50] VITALS: BP 143/82
[2022-03-14] MEDS ORDERED: KEY,NONCONTROL,TO KEEP IN PYXI 1 EA MC ONE (08:13)
== END 2022-03-12 07:51 | disposition home or self-care (01) ==
LOC: ER 02:01
DX: F20.2 Catatonic schizophrenia (principal); I10 Essential (primary) hypertension; I25.2 Old myocardial infarction; J44.9 Chronic obstructive pulmonary disease, unspecified; I48.91 Unspecified atrial fibrillation; K21.9 Gastro-esophageal reflux disease without esophagitis; F32.9 Major depressive disorder, single episode, unspecified; E78.5 Hyperlipidemia, unspecified; Z86.69 Personal history of other diseases of the nervous system and sense organs; Z87.09 Personal history of other diseases of the respiratory system; Z87.448 Personal history of other diseases of urinary system; Z87.19 Personal history of other diseases of the digestive system; Z88.8 Allergy status to other drugs, medicaments and biological substances; Z79.899 Other long term (current) drug therapy
CPT/HCPCS: 36415; 70450; 71045; 80048; 80076; 81003; 84484 ×2; 85025; 85730; 93005; 99285; J3490

== ENCOUNTER 2022-03-14 07:07 | Inpatient (IN) | payer MEDICARE, OTHER ==
[2022-03-14] VITALS (53 sets, daily range): BP systolic 76–147; BP diastolic 42–70
[~2022-03-14] VITALS: Ht 188 cm; Wt 70.3 kg
--- NOTE | 2022-03-14 07:15 | NUR ---
ALMA86 FROM [facility] FOR RESPIRATORY DISTRESS AND ALTERED MENTAL STATUS. 1 REI TX GIVEN SHIRRING MACHINE OPERATOR BS 160. PATIENT BASELINE IS A&OX3 BUT ARRIVED A&OX0. PLACED IN BED 08 ON MONITOR AND POX.
[2022-03-14] MEDS ORDERED: PROPOFOL 100 ML ONE (07:18)
--- NOTE | 2022-03-14 07:21 | NUR ---
DR. RENE VERBAL ORDERS FOR 0719 : ETOMIDATE 20MG IVP 0720 : SUCC 100MG IVP PT SEDATED
--- NOTE | 2022-03-14 07:23 | NUR ---
INTUBATION INSERTION: AT PT'S BEDSIDE FOR INTUBATION INSERTION : ETT SIZE 7; 25CM AT THE LIP PT TOLERATING PROCEDURE WELL VSS.
--- NOTE | 2022-03-14 07:28 | NUR ---
DR RENE AT BEDSIDE FOR PICC LINE INSERTION
[2022-03-14] MEDS ORDERED: SUCCINYLCHOLINE CHLORIDE 20 MG/ML VIAL IV ONE ×2 (07:30→09:32)
[2022-03-14] MEDS ORDERED: ETOMIDATE 2 MG/ML VIAL IV ONE ×2 (07:30→09:32)
--- NOTE | 2022-03-14 07:30 | NUR ---
VENT SETTINGS MODE: A/C VC FIO2: 100% VT: 500 RATE: 20 I:E 1:2 PEEP: 5 PMAX: 40
[2022-03-14] MEDS ORDERED: FENTANYL PF 100MCG/2ML AMPUL ONE (07:34)
--- NOTE | 2022-03-14 07:39 | NUR ---
ALEXANDER Collins FEMORAL INSERTED BY DR RENE
--- NOTE | 2022-03-14 07:57 | NUR ---
ROOM [facility]
--- NOTE | 2022-03-14 07:59 | NUR ---
16FR WHITLEY PLACED, URINE OUTPUT OF 60CC. URINE COLLECTED AND SENT TO LAB.
[2022-03-14] MEDS ORDERED: MIDAZOLAM HCL 50 MG in IV NS 0.9% 40 ML IV PRN (08:00)
[2022-03-14] MEDS ORDERED: IV NS 0.9% 1,000 ML BAG IV ONE (08:00)
[2022-03-14] MEDS ORDERED: PIPERACILLIN /TAZOBACTAM 3.375 G in IV D5W 50 ML IV ONE (08:00)
[2022-03-14] MEDS ORDERED: FENTANYL CITRAT IV 2,500 MCG in IV NS 0.9% 200 ML IV PRN ×3 (08:00→13:00)
[2022-03-14] MEDS ORDERED: MIDAZOLAM HCL 100 MG in IV NS 0.9% 80 ML IV PRN ×4 (08:00→13:00)
[2022-03-14] MEDS ORDERED: VANCOMYCIN 1 GM in IV D5W 250 ML IV ONE (08:00)
--- NOTE | 2022-03-14 08:05 | NUR ---
NICO COLLECTED AND SENT
[2022-03-14 08:06] LABS: BASOPHILS % (AUTO) 0.1 % (0.0-2.0); HEMATOCRIT 36 % (39-51); HEMOGLOBIN 11.6 g/dL (13.5-17.5); LYMPHOCYTES # (AUTO) 0.5 K/uL (0.8-4.8); LYMPHOCYTES % (AUTO) 2.9 % (20.0-44.0); MEAN CORPUSCULAR HGB CONC 32 g/dl (31.0-36.0); MEAN CORPUSCULAR VOLUME 91 fL (80-96); MONOCYTES # (AUTO) 1.7 K/uL (0.1-1.30); MONOCYTES % (AUTO) 10.1 % (2.0-12.0); NEUTROPHILS # (AUTO) 14.9 K/uL (1.8-8.9); NEUTROPHILS % (AUTO) 86.9 % (43.0-81.0); PLATELET COUNT (AUTO) 169 K/uL (150-450); WHITE BLOOD COUNT (AUTO) 17.2 K/uL (4.3-11.0)
[2022-03-14] MEDS ORDERED: SACC250C PO (08:09)
[2022-03-14] MEDS ORDERED: IBUP-1953 PO (08:09)
[2022-03-14] MEDS ORDERED: METO25TA20 PO (08:09)
[2022-03-14] MEDS ORDERED: GUAI237L98 PO (08:09)
[2022-03-14] MEDS ORDERED: MAG30ORA PO (08:09)
[2022-03-14] MEDS ORDERED: CALC667C6 PO (08:09)
[2022-03-14] MEDS ORDERED: IPRA0.2S9 IH (08:09)
[2022-03-14] MEDS ORDERED: FAMO20TA8 PO (08:09)
[2022-03-14] MEDS ORDERED: LEVA1.2528 IH (08:09)
[2022-03-14] MEDS ORDERED: NA P133E RC (08:09)
[2022-03-14] MEDS ORDERED: BISA10SU11 RC (08:09)
[2022-03-14 08:30] LABS: BILIRUBIN,URINE SMALL (NEGATIVE); COLOR,URINE YELLOW (YELLOW); LEUKOCYTE ESTERASE ,URINE MODERATE (NEGATIVE); NITRITE, URINE NEGATIVE (NEGATIVE); PROTEIN,URINE 30 mg/dl (NEGATIVE); UGLUCOSE NEGATIVE (NEGATIVE); UROBILINOGEN,URINE 0.2 EU/dL (0.2)
[2022-03-14 08:45] LABS: BACTERIA,URINE Many /HPF (None Seen); RBC,URINE 21-50 /HPF (0-2); SQUAMOUS EPITHELIAL CELL,UR None Seen /HPF (None Seen); WBC,URINE 81-100 /HPF (0-3)
[2022-03-14] MEDS ORDERED: FENTANYL PF 100MCG/2ML AMPUL IV ONE (09:30)
--- NOTE | 2022-03-14 09:32 | NUR ---
REPORT GIVEN TO YULIET FOR LEANNA
--- NOTE | 2022-03-14 10:00 | NUR ---
PT ARRIVED FROM ER AT 0953 VIA GURFRANCO. ZACHARIAH RN AND RT AT BEDSIDE. FENTANYL GTT AND VERSED GTT INFUSING PER MD ORDERS. PT SETTLED IN BED, ICU MONITORING APPLIED. OG TUBE INSERTED PER MD ORDERS. PICTURES TAKEN OF REDDENED AREAS. NO OPEN WOUNDS NOTED. WOUND CARE CONSULT ORDERED. PT CHECKED ON HOURLY AND PRN BY NURSING STAFF.
--- NOTE | 2022-03-14 10:05 | NUR ---
PT TAKEN TO CT VIA ACLS PROTOCOLS ACCOMPANIED BY RT AND TRASNPORTED TO ICU. PT HANDED OFF TO TIFF HORVATH.
[2022-03-14 10:30] LABS: CALCIUM, SERUM 8.8 mg/dL (8.5-10.1); CARBON DIOXIDE 22 mmol/L (21-32); CHLORIDE 104 mmol/L (98-107); CREATININE 3.2 mg/dL (0.6-1.3); GLUCOSE 159 mg/dL (74-106); POTASSIUM 4.7 mmol/L (3.5-5.1); SODIUM SERUM 141 mmol/L (136-145); UREA NITROGEN, BLOOD 63 mg/dL (7-18)
[2022-03-14] MEDS ORDERED: ENOXAPARIN SODIUM 40 MG/0.4 ML DISP.SYRIN SQ SCH (10:30)
[2022-03-14] MEDS ORDERED: PROPOFOL 10MG/ML 50ML 50 ML IV PRN (10:30)
[2022-03-14] MEDS ORDERED: ONDANSETRON HCL/PF 4 MG/2 ML VIAL IVP PRN (10:30)
[2022-03-14 10:36] LABS: ALANINE AMINOTRANSFERASE 14 U/L (12-78); ALBUMIN 2.8 g/dL (3.4-5.0); ALKALINE PHOSPHATASE 158 U/L (46-116); ASPARTATE AMINOTRANSFERASE 39 U/L (15-37); BILIRUBIN,DIRECT 0.1 mg/dL (0.0-0.2); BILIRUBIN,TOTAL 0.6 mg/dL (0.2-1.0); TOTAL PROTEIN, SERUM 6.8 g/dL (6.4-8.2)
[2022-03-14] MEDS: IV NS 0.9% 1,000 ML IV PRN (11:20)
[2022-03-14] MEDS ORDERED: PHARMACY TO CHANGE PO MEDS TO GT/NG XX PRN (11:30)
[2022-03-14] MEDS ORDERED: NOREPINEPHRINE 8 MG in IV NS 0.9% 242 ML IV PRN (11:30)
[2022-03-14] MEDS: ENOXAPARIN SODIUM 30 MG/0.3 ML DISP.SYRIN SQ SCH (11:35)
[2022-03-14] MEDS: FENTANYL CITRAT IV 2,500 MCG in IV NS 0.9% 200 ML IV PRN (13:14)
[2022-03-14] MEDS: MIDAZOLAM HCL 100 MG in IV NS 0.9% 80 ML IV PRN (13:15)
[2022-03-14] MEDS: CEFEPIME 2 GM in IV D5W 100 ML IV SCH (13:36)
[2022-03-14] MEDS: CARBIDOPA/LEVODOPA 25/100 MG 1 UDTAB GT SCH ×2 (13:36→18:00)
--- NOTE | 2022-03-14 17:15 | NUR ---
RT Pt intubated at arrival in ER #8 by MD Suarez. 7.5 ETT 25cm at the lip. Bilateral chest rise and breath sounds noted. Ambu bag at bedside. Vent Settings provided by as noted. Pt transported to ICU on current settings. Stable during transport.
[2022-03-14] MEDS: risperiDONE LIQUID 1 MG/ML ML GT SCH (17:59)
[2022-03-14] MEDS: BENZTROPINE MESYLATE (1 MG) 1 MG TABLET GT SCH (18:00)
--- NOTE | 2022-03-14 18:41 | NUR ---
END OF SHIFT NOTE: PT CONTINUES TO BE MINIMALLY RESPONSIVE, OCCASIONALLY MOVING RIGHT ARM AND EYEBROWS TO PAIN. FENTANYL GTT TITRATED DOWN FROM 100MCG/HR TO 25MCG/HR FOR LOW BLOOD PRESSURE AND LOW HEART RATE. VERSED GTT TITRATED DOWN FROM 7MG/HR TO 3MG/HR FOR THE SAME REASON FENTANYL TITRATION. DR HERNANDEZ AWARE OF PATIENTS HR DOWN TO 36-37. DR HERNANDEZ STATED HE IS NOT WORRIED ABOUT IT IF THE BLOOD PRESSURE IS STABLE. LOW URINE OUTPUT THIS SHIFT, TOTAL [address] HERNANDEZ AWARE OF TROPONIN LEVELS TRENDING DOWN FROM 375 AT THE HIGHEST TO 245, LAST RESULT. PT CHECKED ON HOURLY AND PRN BY NURSING STAFF.
[2022-03-14] MEDS: ATORVASTATIN 10 MG TABLET NG SCH (21:36)
[2022-03-14] MEDS: PRIMIDONE 50 MG TABLET NG SCH (21:36)
[2022-03-15] VITALS (90 sets, daily range): BP systolic 125–181; BP diastolic 49–80
[2022-03-15] MEDS: IV NS 0.9% 1,000 ML IV PRN ×3 (00:55→22:43)
[2022-03-15 04:26] LABS: BASOPHILS % (AUTO) 0.4 % (0.0-2.0); EOSINOPHILS % (AUTO) 1.1 % (0.0-6.0); HEMATOCRIT 31 % (39-51); HEMOGLOBIN 10.3 g/dL (13.5-17.5); LYMPHOCYTES # (AUTO) 1.4 K/uL (0.8-4.8); LYMPHOCYTES % (AUTO) 12.7 % (20.0-44.0); MEAN CORPUSCULAR HGB CONC 33 g/dl (31.0-36.0); MEAN CORPUSCULAR VOLUME 90 fL (80-96); MONOCYTES # (AUTO) 0.9 K/uL (0.1-1.30); MONOCYTES % (AUTO) 8.4 % (2.0-12.0); NEUTROPHILS # (AUTO) 8.4 K/uL (1.8-8.9); NEUTROPHILS % (AUTO) 77.4 % (43.0-81.0); PLATELET COUNT (AUTO) 140 K/uL (150-450); RED BLOOD CELL COUNT(AUTO) 3.43 MIL/uL (4.5-6.0); WHITE BLOOD COUNT (AUTO) 10.9 K/uL (4.3-11.0)
[2022-03-15 04:54] LABS: ALANINE AMINOTRANSFERASE 8 U/L (12-78); ALBUMIN 2.1 g/dL (3.4-5.0); ALKALINE PHOSPHATASE 123 U/L (46-116); ASPARTATE AMINOTRANSFERASE 29 U/L (15-37); BILIRUBIN,TOTAL 0.5 mg/dL (0.2-1.0); CALCIUM, SERUM 8.1 mg/dL (8.5-10.1); CARBON DIOXIDE 22 mmol/L (21-32); CHLORIDE 111 mmol/L (98-107); CREATININE 2.5 mg/dL (0.6-1.3); GLUCOSE 87 mg/dL (74-106); MAGNESIUM 1.8 mg/dL (1.8-2.4); PHOSPHORUS 2.4 mg/dL (2.5-4.9); POTASSIUM 3.4 mmol/L (3.5-5.1); SODIUM SERUM 143 mmol/L (136-145); TOTAL PROTEIN, SERUM 5.4 g/dL (6.4-8.2); UREA NITROGEN, BLOOD 61 mg/dL (7-18)
[2022-03-15 04:57] LABS: CHOLESTEROL 109 mg/dL (<200); HDL CHOLESTEROL 38 mg/dL (40-60); LDL 56 mg/dL (0-99); THYROID STIMULATING HORMONE 1.319 uIU/mL (0.358-3.74); TRIGLYCERIDES 104 mg/dL (30-150)
[2022-03-15 05:26] LABS: IRON, SERUM 32 ug/dl (50-175); TOTAL IRON BINDING CAPACITY 160 ug/dl (250-450)
--- NOTE | 2022-03-15 07:24 | NUR ---
WOUND CARE CONSULT: PT PRESENTS WITH REDNESS/INTACT DEEP TISSUE INJURIES TO BILATERAL HEELS AND LATERAL FEET WELL INTACT DEEP TISSUE INJURY WITH SCARRING TO SACRUM, PRESENT ON ADMISSION. RECOMMENDATIONS MADE FOR SKIN PROTECTION. DISCUSSED WITH NURSING STAFF. DPM CONSULT TO BE CALLED TO DR HOLT THIS AM. FIRST STEP LOW AIRLOSS MATTRESS IS ON ORDER. PT CURRENTLY INTUBATED. MD IN AGREEMENT WITH PLAN OF CARE. Addendum: 03/15/22 at 0727 by MARIE LEONE WNDNU Amended: Links added.
--- NOTE | 2022-03-15 07:30 | NUR ---
RN OPENING NOTE PT OBSERVED IN BED ON MECHANICAL VENT WITH ALL PRESCRIBED SETTINGS TOLERATING WELL WITH NO SIGNS OF LABORED BREATHING OR DISTRESS SAT 98%. PT IS TELE MONITORED SB WITH HR IN THE 30S. PT IS CURRENTLY SEDATED WITH FENTANYL @50MCG/HR AND VERSED @4MG/HR. OG TUBE IS CLAMPED WITH POSITIVE PLACEMENT. FC IS IN PLACE DRAINING URINE TO GRAVITY. IV ACCESS R FEM TLC; L HAND 20G. BED IS LOCKED IN LOWEST POSITION X2 BED RAILS UP AND ALL HOSPITAL SAFETY PROTOCOLS ARE IN PLACE. WILL CONTINUE TO MONITOR THIS SHIFT.
[2022-03-15] MEDS: PANTOPRAZOLE 40 MG VIAL IV SCH (08:31)
[2022-03-15] MEDS: risperiDONE LIQUID 1 MG/ML ML GT SCH ×2 (08:31→17:05)
[2022-03-15] MEDS: BENZTROPINE MESYLATE (1 MG) 1 MG TABLET GT SCH ×2 (08:31→17:05)
[2022-03-15] MEDS: ASPIRIN 81 MG TAB.CHEW GT SCH (08:31)
[2022-03-15] MEDS: CARBIDOPA/LEVODOPA 25/100 MG 1 UDTAB GT SCH ×3 (08:31→17:05)
[2022-03-15] MEDS: ENOXAPARIN SODIUM 30 MG/0.3 ML DISP.SYRIN SQ SCH (08:32)
[2022-03-15] MEDS: IV NS 0.9% 250 ML IV PRN (09:44)
[2022-03-15] MEDS ORDERED: POTASSIUM CL. PREMIX PERIPHER. 50 ML IV SCH (10:00)
[2022-03-15] MEDS: MIDAZOLAM HCL 100 MG in IV NS 0.9% 80 ML IV PRN (10:56)
[2022-03-15] MEDS ORDERED: Sodium Phosphate 30 MMOL in IV NS 0.9% 250 ML IV SCH (11:00)
[2022-03-15] MEDS: FENTANYL CITRAT IV 2,500 MCG in IV NS 0.9% 200 ML IV PRN (11:57)
[2022-03-15] MEDS: CEFEPIME 2 GM in IV D5W 100 ML IV SCH (13:06)
--- NOTE | 2022-03-15 16:00 | NUR ---
RN NOTE: SEDATION FENTANYL AND VERSED ON HOLD AT THIS TIME TO ASSESS FOR PT RESPONSE. PT CONTINUES TO BE DEEPLY SEDATED AND NO SPONTANEOUS BREATHS OVER VENT SETTINGS OF 20. DEEP STERNAL RUB PERFORMED AND NO RESPONSE. HR SB LOW 30S BP 145/76 O2 SAT 100%. WILL CONTINUE TO MONITOR THIS SHIFT.
--- NOTE | 2022-03-15 16:45 | NUR ---
RN NOTE: SEDATION PT RESPONDED TO STERNAL RUB AND OPENED EYES. RESTARTED VERSED AND FENTANYL. HR 51 BP 155/56. WILL CONTINUE TO MONITOR.
[2022-03-15] MEDS: AMMONIUM LACTATE 227 GM BOTTLE TP SCH (17:09)
[2022-03-15] MEDS: CLOTRIMAZOLE 1% 15 GM TUBE TP SCH (17:10)
--- NOTE | 2022-03-15 19:13 | NUR ---
RN CLOSING NOTE PT IS IN BED ON MECHANICAL VENT WITH ALL PRESCRIBED SETTINGS TOLERATING WELL WITH NO SIGNS OF LABORED BREATHING OR DISTRESS SAT 100%. PT IS TELE MONITORED SB WITH HR IN THE 30S AND EPISODES OF ST 100'S. PT IS CURRENTLY SEDATED WITH FENTANYL @50MCG/HR AND VERSED @3MG/HR AND NS @100ML/HR. OG TUBE IS CLAMPED WITH POSITIVE PLACEMENT. FC IS IN PLACE DRAINING URINE TO GRAVITY -550ML. IV ACCESS R FEM TLC; L HAND 20G. BED IS LOCKED IN LOWEST POSITION X2 BED RAILS UP AND ALL HOSPITAL SAFETY PROTOCOLS ARE IN PLACE. WILL ENDORSE TO STEELSCOPE OPERATOR NURSE FOR LEANNA.
[2022-03-15] MEDS: ATORVASTATIN 10 MG TABLET NG SCH (22:44)
[2022-03-15] MEDS: PRIMIDONE 50 MG TABLET NG SCH (22:44)
[2022-03-16] VITALS (87 sets, daily range): BP systolic 112–171; BP diastolic 52–82
[2022-03-16 04:23] LABS: BASOPHILS % (AUTO) 0.4 % (0.0-2.0); HEMATOCRIT 30 % (39-51); HEMOGLOBIN 10.2 g/dL (13.5-17.5); LYMPHOCYTES % (AUTO) 10.5 % (20.0-44.0); MEAN CORPUSCULAR HGB CONC 34 g/dl (31.0-36.0); MEAN CORPUSCULAR VOLUME 90 fL (80-96); MONOCYTES # (AUTO) 0.6 K/uL (0.1-1.30); MONOCYTES % (AUTO) 6.6 % (2.0-12.0); NEUTROPHILS # (AUTO) 7.4 K/uL (1.8-8.9); NEUTROPHILS % (AUTO) 80.5 % (43.0-81.0); PLATELET COUNT (AUTO) 152 K/uL (150-450); RED BLOOD CELL COUNT(AUTO) 3.37 MIL/uL (4.5-6.0); WHITE BLOOD COUNT (AUTO) 9.2 K/uL (4.3-11.0)
[2022-03-16 04:34] LABS: CARBON DIOXIDE 20 mmol/L (21-32); CHLORIDE 114 mmol/L (98-107); CREATININE 1.6 mg/dL (0.6-1.3); GLUCOSE 70 mg/dL (74-106); MAGNESIUM 1.8 mg/dL (1.8-2.4); SODIUM SERUM 147 mmol/L (136-145); UREA NITROGEN, BLOOD 48 mg/dL (7-18)
--- NOTE | 2022-03-16 07:30 | NUR ---
RN OPENING NOTE PT IS IN BED ON MECHANICAL VENT WITH ALL PRESCRIBED SETTINGS TOLERATING WELL WITH NO SIGNS OF LABORED BREATHING OR DISTRESS SAT 100%. PT IS TELE MONITORED SB WITH HR IN THE 30S AND EPISODES OF ST 100'S IF AGITATED AFTER PRN MOUTH CARE OR REPOSITIONING. PT IS CURRENTLY SEDATED WITH FENTANYL @1000MCG/HR AND VERSED @2MG/HR AND NS @100ML/HR. OG TUBE IS CLAMPED WITH POSITIVE PLACEMENT. FC IS IN PLACE DRAINING URINE TO GRAVITY. IV ACCESS R FEM TLC; L HAND 20G. BED IS LOCKED IN LOWEST POSITION X2 BED RAILS UP AND ALL HOSPITAL SAFETY PROTOCOLS ARE IN PLACE. WILL CONTINUE TO MONITOR THIS SHIFT.
[2022-03-16] MEDS ORDERED: VANCOMYCIN 1.25 GM in IV D5W 250 ML IV SCH (08:00)
[2022-03-16] MEDS: Potassium Chloride 20 MEQ in IV NS 0.9% 1,000 ML IV SCH ×3 (08:16→23:01)
[2022-03-16] MEDS: CARBIDOPA/LEVODOPA 25/100 MG 1 UDTAB GT SCH ×3 (08:25→16:10)
[2022-03-16] MEDS: BENZTROPINE MESYLATE (1 MG) 1 MG TABLET GT SCH ×2 (08:26→16:10)
[2022-03-16] MEDS: ASPIRIN 81 MG TAB.CHEW GT SCH (08:26)
[2022-03-16] MEDS: PANTOPRAZOLE 40 MG VIAL IV SCH (08:26)
[2022-03-16] MEDS: risperiDONE LIQUID 1 MG/ML ML GT SCH ×2 (08:27→16:10)
[2022-03-16] MEDS: ENOXAPARIN SODIUM 30 MG/0.3 ML DISP.SYRIN SQ SCH (08:30)
[2022-03-16] MEDS: AMMONIUM LACTATE 227 GM BOTTLE TP SCH ×2 (08:32→16:11)
[2022-03-16] MEDS: CLOTRIMAZOLE 1% 15 GM TUBE TP SCH ×2 (08:32→16:11)
[2022-03-16] MEDS ORDERED: JEVITY 1.2 CAL 1,000 ML BOTTLE GT PRN (09:00)
--- NOTE | 2022-03-16 11:00 | NUR ---
RN NOTE: TUBE FEEDING JEVITY 1.2 STARTED AT THIS TIME @20ML/HR. WILL CHECK FOR TOLERATION AND RESIDUAL DURING SHIFT.
[2022-03-16] MEDS: MIDAZOLAM HCL 100 MG in IV NS 0.9% 80 ML IV PRN (12:01)
[2022-03-16] MEDS: FENTANYL CITRAT IV 2,500 MCG in IV NS 0.9% 200 ML IV PRN (12:02)
[2022-03-16] MEDS: CEFEPIME 2 GM in IV D5W 100 ML IV SCH (12:56)
[2022-03-16] MEDS ORDERED: PIPERACILLIN /TAZOBACTAM 4.5 G in IV D5W 50 ML IV ONE (19:30)
--- NOTE | 2022-03-16 19:30 | NUR ---
RN CLOSING NOTE PT IN BED WITH HOB 30 DEGREES ON MECHANICAL VENT WITH ALL PRESCRIBED SETTINGS TOLERATING WELL WITH NO SIGNS OF LABORED BREATHING OR DISTRESS SAT 99%. PT IS TELE MONITORED SB WITH HR IN THE 30S. PT IS CURRENTLY SEDATED WITH FENTANYL @50MCG/HR AND VERSED @2MG/HR. OG TUBE INFUSING WITH JEVITY 1.2 @20ML/HR WITH GOAL OF [address] FC IS IN PLACE DRAINING URINE TO GRAVITY -600ML. IV ACCESS R FEM TLC; L HAND 20G. BED IS LOCKED IN LOWEST POSITION X2 BED RAILS UP AND ALL HOSPITAL SAFETY PROTOCOLS ARE IN PLACE. WILL ENDORSE TO INTERNATIONAL FIRST OFFICER NURSE FOR LEANNA.
[2022-03-16] MEDS: PRIMIDONE 50 MG TABLET NG SCH (22:12)
[2022-03-16] MEDS: ATORVASTATIN 10 MG TABLET NG SCH (22:12)
[2022-03-16] MEDS: PIPERACILLIN /TAZOBACTAM 3.375 G in IV D5W 100 ML IV SCH (23:01)
[2022-03-16] MEDS: IV NS 0.9% 250 ML IV PRN (23:10)
[2022-03-17] VITALS (47 sets, daily range): BP systolic 102–164; BP diastolic 45–84
[2022-03-17 04:12] LABS: CARBON DIOXIDE 20 mmol/L (21-32); CHLORIDE 117 mmol/L (98-107); CREATININE 1.2 mg/dL (0.6-1.3); GLUCOSE 93 mg/dL (74-106); POTASSIUM 3.3 mmol/L (3.5-5.1); SODIUM SERUM 148 mmol/L (136-145); UREA NITROGEN, BLOOD 33 mg/dL (7-18)
[2022-03-17 04:45] LABS: BASOPHILS % (AUTO) 0.4 % (0.0-2.0); EOSINOPHILS % (AUTO) 3.2 % (0.0-6.0); HEMATOCRIT 31 % (39-51); HEMOGLOBIN 10.4 g/dL (13.5-17.5); LYMPHOCYTES # (AUTO) 0.8 K/uL (0.8-4.8); MEAN CORPUSCULAR HGB CONC 33 g/dl (31.0-36.0); MEAN CORPUSCULAR VOLUME 90 fL (80-96); MONOCYTES # (AUTO) 0.5 K/uL (0.1-1.30); MONOCYTES % (AUTO) 6.5 % (2.0-12.0); NEUTROPHILS # (AUTO) 6.6 K/uL (1.8-8.9); NEUTROPHILS % (AUTO) 79.9 % (43.0-81.0); PLATELET COUNT (AUTO) 176 K/uL (150-450); RED BLOOD CELL COUNT(AUTO) 3.48 MIL/uL (4.5-6.0); WHITE BLOOD COUNT (AUTO) 8.2 K/uL (4.3-11.0)
--- NOTE | 2022-03-17 07:00 | NUR ---
RN NOTE RECEIVED PT ON BED , INTUBATED AND SEDATED ON FENTANYL AND VERSED FOR SEDATION , ON TELE SB HR IN 30'S, OG TUBE IS CLAMPED WITH POSITIVE PLACEMENT. FC IS IN PLACE DRAINING URINE TO GRAVITY. IV ACCESS R FEM TLC; L HAND 20G. BED IS LOCKED IN LOWEST POSITION X2 BED RAILS UPx3 AND ALL HOSPITAL SAFETY PROTOCOLS ARE IN PLACE. WILL CONTINUE TO MONITOR .
[2022-03-17] MEDS ORDERED: VANCOMYCIN 1.25 GM in IV D5W 250 ML IV SCH (08:00)
[2022-03-17] MEDS ORDERED: POTASSIUM CHLORIDE 20 MEQ POWDER PACKET GT ONE (08:00)
[2022-03-17] MEDS: ASPIRIN 81 MG TAB.CHEW GT SCH (08:29)
[2022-03-17] MEDS: risperiDONE LIQUID 1 MG/ML ML GT SCH ×2 (08:29→16:20)
[2022-03-17] MEDS: CARBIDOPA/LEVODOPA 25/100 MG 1 UDTAB GT SCH ×3 (08:29→16:19)
[2022-03-17] MEDS: BENZTROPINE MESYLATE (1 MG) 1 MG TABLET GT SCH ×2 (08:29→16:18)
[2022-03-17] MEDS: PANTOPRAZOLE 40 MG VIAL IV SCH (08:29)
[2022-03-17] MEDS: PIPERACILLIN /TAZOBACTAM 3.375 G in IV D5W 100 ML IV SCH ×3 (08:32→23:45)
[2022-03-17] MEDS: Potassium Chloride 20 MEQ in IV NS 0.9% 1,000 ML IV SCH ×3 (08:34→23:45)
[2022-03-17] MEDS: ENOXAPARIN SODIUM 30 MG/0.3 ML DISP.SYRIN SQ SCH (08:38)
[2022-03-17] MEDS: AMMONIUM LACTATE 227 GM BOTTLE TP SCH ×2 (08:38→16:19)
[2022-03-17] MEDS: CLOTRIMAZOLE 1% 15 GM TUBE TP SCH ×2 (08:39→16:20)
--- NOTE | 2022-03-17 09:30 | NUR ---
RN NOTES PT OFF SEDATION , RESTLESS AND TACHYPNEIC , HR IN 140'S , DR ORTEZ NOTIFIED , ORDER RECEIVED TO START PT ON VERSED . CONTINUE TO MONITOR .
[2022-03-17] MEDS: MIDAZOLAM HCL 100 MG in IV NS 0.9% 80 ML IV PRN ×2 (13:13→23:57)
[2022-03-17] MEDS: JEVITY 1.2 CAL 1,000 ML BOTTLE GT SCH (13:35)
--- NOTE | 2022-03-17 14:00 | NUR ---
RN NOTE ET SUCTIONING AND ORAL CARE DONE .
--- NOTE | 2022-03-17 18:16 | NUR ---
RN NOTES PT REMAINS INTUBATED , SEDATED ON VERSED AT 9 MG/HR , TOLERAING VENT SETTING WELL, ON TELE SB HR IN 50'S , WHITLEY DRAINING TO GRAVITY, TUBE FEEDING AT 65CC/HR, IVF AT 125CC/HR RUNNING, SR UP x3, CALL LIGHT WITHIN EASY REACH, BED LOCKED AND IN LOWEST POSITION, WILL ENDORSE TO POT FLUXER NURSE FOR CONTINUITY OF CARE .
[2022-03-17] MEDS: ATORVASTATIN 10 MG TABLET NG SCH (21:36)
[2022-03-17] MEDS: PRIMIDONE 50 MG TABLET NG SCH (21:37)
[2022-03-18] VITALS (52 sets, daily range): BP systolic 93–170; BP diastolic 52–105
[2022-03-18] MEDS: LORAZEPAM INJ 2 MG/ML VIAL IV PRN ×4 (02:39→20:21)
--- NOTE | 2022-03-18 02:45 | NUR ---
AUTOMOTIVE GENERAL SALES MANAGER VERSED MAX TO 10 MG/HR; PT AWAKE; KICKING TOWARDS STAFF AND REACHING TOWARDS ET TUBE DESPITE BSWR; MANAGER DRIVE NOTIFIED W/ORDERS FOR ATIVAN RECEIVED.
[2022-03-18 06:05] LABS: BASOPHILS % (AUTO) 0.2 % (0.0-2.0); EOSINOPHILS % (AUTO) 3.2 % (0.0-6.0); HEMATOCRIT 28 % (39-51); HEMOGLOBIN 9.1 g/dL (13.5-17.5); LYMPHOCYTES % (AUTO) 10.7 % (20.0-44.0); MEAN CORPUSCULAR HGB CONC 33 g/dl (31.0-36.0); MEAN CORPUSCULAR VOLUME 91 fL (80-96); MONOCYTES # (AUTO) 0.8 K/uL (0.1-1.30); MONOCYTES % (AUTO) 8.3 % (2.0-12.0); NEUTROPHILS # (AUTO) 7.5 K/uL (1.8-8.9); NEUTROPHILS % (AUTO) 77.6 % (43.0-81.0); PLATELET COUNT (AUTO) 191 K/uL (150-450); RED BLOOD CELL COUNT(AUTO) 3.03 MIL/uL (4.5-6.0); WHITE BLOOD COUNT (AUTO) 9.6 K/uL (4.3-11.0)
[2022-03-18 06:17] LABS: CREATININE 1.2 mg/dL (0.6-1.3); POTASSIUM 3.8 mmol/L (3.5-5.1)
[2022-03-18] MEDS: Potassium Chloride 20 MEQ in IV NS 0.9% 1,000 ML IV SCH ×3 (08:50→23:30)
[2022-03-18] MEDS: PIPERACILLIN /TAZOBACTAM 3.375 G in IV D5W 100 ML IV SCH ×3 (08:51→23:30)
[2022-03-18] MEDS: MIDAZOLAM HCL 100 MG in IV NS 0.9% 80 ML IV PRN ×2 (09:17→17:59)
[2022-03-18] MEDS: JEVITY 1.2 CAL 1,000 ML BOTTLE GT SCH ×2 (09:35→23:45)
[2022-03-18] MEDS: BENZTROPINE MESYLATE (1 MG) 1 MG TABLET GT SCH ×2 (09:54→17:05)
[2022-03-18] MEDS: CARBIDOPA/LEVODOPA 25/100 MG 1 UDTAB GT SCH ×3 (09:54→17:06)
[2022-03-18] MEDS: PANTOPRAZOLE 40 MG VIAL IV SCH (09:55)
[2022-03-18] MEDS: risperiDONE LIQUID 1 MG/ML ML GT SCH ×2 (09:55→17:06)
[2022-03-18] MEDS: ASPIRIN 81 MG TAB.CHEW GT SCH (09:55)
[2022-03-18] MEDS: CLOTRIMAZOLE 1% 15 GM TUBE TP SCH ×2 (09:56→17:08)
[2022-03-18] MEDS: ENOXAPARIN SODIUM 30 MG/0.3 ML DISP.SYRIN SQ SCH (10:05)
[2022-03-18] MEDS: AMMONIUM LACTATE 227 GM BOTTLE TP SCH ×2 (10:14→17:07)
[2022-03-18] MEDS: IV NS 0.9% 250 ML IV PRN (12:40)
--- NOTE | 2022-03-18 19:02 | NUR ---
PT. ASLEEP COMFORTABLY ON BED; VERSED DRIP/IVF/ ZOSYN IVPB INFUSING PER MD ORDERS. HOURLY AND PRN PT. ROUNDING DONE ALL THROUGHOUT THE SHIFT. ENDORSED TO PIERO FOR CONTINUITY OF CARE.
[2022-03-18] MEDS: PRIMIDONE 50 MG TABLET NG SCH (21:09)
[2022-03-18] MEDS: ATORVASTATIN 10 MG TABLET NG SCH (21:10)
[2022-03-18] MEDS: PROPOFOL 100 ML IV PRN (21:40)
--- NOTE | 2022-03-18 21:45 | NUR ---
BOBBIN WASHER RCD PT ON VERSED AT 10 MG/HR; PT IS AWAKE ON BSWR HOWEVER PT IS AWAKE KICKING TOWADRS STAFF; PT IS PULLING ARMS UP TOWARDS ET TUBE; PT IS PULLING ON WHITLEY AND CENTRAL LINE; HOLDING TIGHT TO LINES. ATIVAN GIVEN PER ORDER HOWEVER NOT EFFECTIVE; NOTIFIED LABEL REMOVER W/ORDERS RCD TO INITIATE PROPOFOL AND TITRATE DOWN VERSED IT IS NOT EFFECTIVE AT THIS TIME.
[2022-03-18] MEDS ORDERED: LORAZEPAM INJ 2 MG/ML VIAL IV PRN (22:00)
--- NOTE | 2022-03-18 22:45 | NUR ---
SHIPBOARD INTELLIGENCE ANALYST VERSED DRIP TITRATED OFF PT ADEQUATELY SEDATED ON PROPOFOL AT 15 MCG/KG/MIN; PT TIM AT 37.
[2022-03-19] VITALS (49 sets, daily range): BP systolic 127–168; BP diastolic 61–105
[2022-03-19 05:26] LABS: BASOPHILS % (AUTO) 0.3 % (0.0-2.0); EOSINOPHILS % (AUTO) 3.8 % (0.0-6.0); HEMATOCRIT 27 % (39-51); HEMOGLOBIN 9.2 g/dL (13.5-17.5); LYMPHOCYTES # (AUTO) 1.2 K/uL (0.8-4.8); MEAN CORPUSCULAR HGB CONC 34 g/dl (31.0-36.0); MEAN CORPUSCULAR VOLUME 90 fL (80-96); MONOCYTES # (AUTO) 0.8 K/uL (0.1-1.30); MONOCYTES % (AUTO) 7.7 % (2.0-12.0); NEUTROPHILS # (AUTO) 7.8 K/uL (1.8-8.9); NEUTROPHILS % (AUTO) 76.2 % (43.0-81.0); PLATELET COUNT (AUTO) 197 K/uL (150-450); RED BLOOD CELL COUNT(AUTO) 3.02 MIL/uL (4.5-6.0); WHITE BLOOD COUNT (AUTO) 10.2 K/uL (4.3-11.0)
[2022-03-19 05:42] LABS: CALCIUM, SERUM 7.8 mg/dL (8.5-10.1); CARBON DIOXIDE 20 mmol/L (21-32); CHLORIDE 118 mmol/L (98-107); GLUCOSE 97 mg/dL (74-106); POTASSIUM 4.1 mmol/L (3.5-5.1); SODIUM SERUM 145 mmol/L (136-145); UREA NITROGEN, BLOOD 17 mg/dL (7-18)
--- NOTE | 2022-03-19 07:34 | NUR ---
shaila aware on low heart rate. Addendum: 03/19/22 at 0734 by NINO JACOBS RT Amended: Links added.
--- NOTE | 2022-03-19 08:00 | NUR ---
RN NOTES RECEIVED PATIENT IN THE ETT/VENT SETTING 40%, PEEP-0 . PATIENT SEDATED WITH DIPRIVAN @10 MCG/KG/MIN TITRATED UP PER PROTOCOL, HR-35 AT BEDSIDE MONITOR. TITRATED DIPRIVAN TO THE 20MCG/KG/HR. RECHECKED RESIDUAL IS 0. PATIENT TOLERATING FEEDING WELL JEVITY 1.2 @65 ML/HR INTACT, PATIENT DUE MEDICATION ADMINISTERED. IV ACCESS IS RIGHT FEMORAL. WHITLEY DRAINING VIA GRAVITY KEEP HOB ELEVATED ASSIST TURN AND REPOSITION Q 2HR . WILL FOLLOW UP.
[2022-03-19] MEDS: PIPERACILLIN /TAZOBACTAM 3.375 G in IV D5W 100 ML IV SCH ×2 (08:09→15:04)
[2022-03-19] MEDS: PANTOPRAZOLE 40 MG/PACK PACK GT SCH (08:23)
[2022-03-19] MEDS: CARBIDOPA/LEVODOPA 25/100 MG 1 UDTAB GT SCH ×3 (08:23→17:27)
[2022-03-19] MEDS: BENZTROPINE MESYLATE (1 MG) 1 MG TABLET GT SCH ×2 (08:23→17:27)
[2022-03-19] MEDS: ASPIRIN 81 MG TAB.CHEW GT SCH (08:23)
[2022-03-19] MEDS: ENOXAPARIN SODIUM 30 MG/0.3 ML DISP.SYRIN SQ SCH (08:25)
[2022-03-19] MEDS: risperiDONE LIQUID 1 MG/ML ML GT SCH ×2 (08:32→17:28)
[2022-03-19] MEDS: Potassium Chloride 20 MEQ in IV NS 0.9% 1,000 ML IV SCH ×2 (08:33→17:24)
[2022-03-19] MEDS: CLOTRIMAZOLE 1% 15 GM TUBE TP SCH ×2 (08:33→17:25)
[2022-03-19] MEDS: AMMONIUM LACTATE 227 GM BOTTLE TP SCH ×2 (08:34→17:25)
--- NOTE | 2022-03-19 11:30 | NUR ---
RN NOTES PATIENT ON JENNIFER HUGS AT THIS TIME T=96.6F.
[2022-03-19] MEDS: PROPOFOL 100 ML IV PRN ×2 (12:02→18:33)
--- NOTE | 2022-03-19 18:00 | NUR ---
rn notes pm care done, suction mouth care done, due medication administered, rechecked bilateral restrain circulation. Diprivan titrated per protocol, ic access on Right femoral is intact. assist turn and reposition q 2 hr. endorsed oncoming nurse follow plan of care.
--- NOTE | 2022-03-19 19:38 | NUR ---
RN NOTES RECEIVED CARE OF PATIENT WHILE PATIENT SEDATED, ON PROPOFOL DRIP ACCORDING TO HOSPITAL POLICY, PATIENT INTUBATED WITH ORDERED SETTINGS, TOLERATING INTUBATION AND VENTILATION TREATMENT. NO SIGNIFICANT FINDINGS UPON INITIAL NURSING ASSESSMENTS. SAFETY PROTOCOLS INITIATED PER HOSPITAL PROTOCOLS. WILL CONTINUE TO MONITOR PATIENT.
[2022-03-19] MEDS: PRIMIDONE 50 MG TABLET NG SCH (21:47)
[2022-03-19] MEDS: ATORVASTATIN 10 MG TABLET NG SCH (21:47)
[2022-03-20] VITALS (35 sets, daily range): BP systolic 104–184; BP diastolic 48–105
[2022-03-20] MEDS: PIPERACILLIN /TAZOBACTAM 3.375 G in IV D5W 100 ML IV SCH ×4 (00:35→23:14)
[2022-03-20] MEDS: Potassium Chloride 20 MEQ in IV NS 0.9% 1,000 ML IV SCH ×2 (01:03→09:55)
[2022-03-20] MEDS: PROPOFOL 100 ML IV PRN (01:04)
[2022-03-20] MEDS: JEVITY 1.2 CAL 1,000 ML BOTTLE GT SCH (01:53)
--- NOTE | 2022-03-20 06:57 | NUR ---
RN NOTES WILL ENDORSE CARE OF PATIENT TO AM NURSE. PATIENT INTUBATED WITH ORDERED SETTINGS, TOLERATING WELL. VITAL SIGNS WNL THROUGHOUT SHIFT. NO SIGNIFICANT FINDINGS UPON ALL NURSING ASSESSMENTS. PATIENT ON SEDATION WITH PROPOFOL AT 25 MCG/KG/MIN, TOLERATING WELL. ALL DUE MEDS GIVEN, COMFORT MEASURES MAINTAINED THROUGHOUT SHIFT. SAFETY MEASURES IMPLEMENTED PER HOSPITAL PROTOCOLS. WILL ENDORSE TO AM NURSE FOR LEANNA.
--- NOTE | 2022-03-20 08:36 | NUR ---
RN NOTES GET TO PER Dr L[place]ONO ORDER STOP SEDATION. ORDER TAKEN AND CARRIED OUT, TITRATED SEDATION PER PROTOCOL.
[2022-03-20 08:54] LABS: CALCIUM, SERUM 7.4 mg/dL (8.5-10.1); CARBON DIOXIDE 21 mmol/L (21-32); CHLORIDE 117 mmol/L (98-107); CREATININE 1.2 mg/dL (0.6-1.3); GLUCOSE 104 mg/dL (74-106); POTASSIUM 5.3 mmol/L (3.5-5.1); SODIUM SERUM 143 mmol/L (136-145); UREA NITROGEN, BLOOD 16 mg/dL (7-18)
--- NOTE | 2022-03-20 09:00 | NUR ---
RN NOTES PATIENT OFF SEDATION AT THIS TIME. AWAKE, CLM END COOPERATIVE., NO ACUTE RESPIRATORY DISTRESS. WILL FOLLOW UP.
[2022-03-20 09:11] LABS: BASOPHILS # (AUTO) 0.1 K/uL (0.0-0.2); BASOPHILS % (AUTO) 0.5 % (0.0-2.0); EOSINOPHILS % (AUTO) 4.4 % (0.0-6.0); HEMATOCRIT 29 % (39-51); HEMOGLOBIN 9.6 g/dL (13.5-17.5); LYMPHOCYTES # (AUTO) 1.7 K/uL (0.8-4.8); LYMPHOCYTES % (AUTO) 17.2 % (20.0-44.0); MEAN CORPUSCULAR HGB CONC 33 g/dl (31.0-36.0); MEAN CORPUSCULAR VOLUME 91 fL (80-96); MONOCYTES % (AUTO) 9.7 % (2.0-12.0); NEUTROPHILS # (AUTO) 6.9 K/uL (1.8-8.9); NEUTROPHILS % (AUTO) 68.2 % (43.0-81.0); PLATELET COUNT (AUTO) 289 K/uL (150-450); RED BLOOD CELL COUNT(AUTO) 3.21 MIL/uL (4.5-6.0); WHITE BLOOD COUNT (AUTO) 10.2 K/uL (4.3-11.0)
[2022-03-20 09:27] LABS: BAND % (MANUAL) 4 % (0.0-5.0); EOSINOPHILS % (MANUAL) 6 % (0-4); LYMPHOCYTES % (MANUAL) 17 % (16-48); MONOCYTES % (MANUAL) 8 % (0-11.0); MYELOCYTES % 1 % (0-0); NEUTROPHILS % (MANUAL) 64 (42-76)
[2022-03-20] MEDS: risperiDONE LIQUID 1 MG/ML ML GT SCH ×2 (09:56→17:04)
[2022-03-20] MEDS: ASPIRIN 81 MG TAB.CHEW GT SCH (09:57)
[2022-03-20] MEDS: CARBIDOPA/LEVODOPA 25/100 MG 1 UDTAB GT SCH ×3 (09:57→17:04)
[2022-03-20] MEDS: BENZTROPINE MESYLATE (1 MG) 1 MG TABLET GT SCH ×2 (09:57→17:03)
[2022-03-20] MEDS: PANTOPRAZOLE 40 MG/PACK PACK GT SCH (09:57)
--- NOTE | 2022-03-20 10:11 | NUR ---
RN NOTES PATIENT AWAKE, DUE MEDICATION ADMINISTERED, PER DR SUH ORDER RECHECK ABG WITHIN 1 HR, RT WITH THE PATIENT, SUCTION, MOUTH CARE DONE.
[2022-03-20] MEDS: CLOTRIMAZOLE 1% 15 GM TUBE TP SCH ×2 (10:13→17:05)
[2022-03-20] MEDS: AMMONIUM LACTATE 227 GM BOTTLE TP SCH ×2 (10:14→17:05)
[2022-03-20] MEDS: ENOXAPARIN SODIUM 30 MG/0.3 ML DISP.SYRIN SQ SCH (10:15)
[2022-03-20 11:59] LABS: ABG BASE EXCESS -8.5 mmol/L; ABG OXYGEN SATURATION 98.6 % (92.0-98.5); ABG PCO2 32.8 mmHg (35.0-45.0); ABG PH 7.321 (7.350-7.450); ABG PO2 168.8 mmHg (75.0-100.0); AaDO2 78.7 mmHg; COHb 0.3 % (0.5-1.5); MetHb 0.3 % (0.0-1.5); SITE, ABG Right Radial
[2022-03-20] MEDS ORDERED: DC PROPOFOL WHEN EXTUBATED XX PRN (12:00)
--- NOTE | 2022-03-20 12:20 | NUR ---
RN NOTES PATIENT GET EXTUBATED AT THIS TIME AFTER ABG RESULT. PER Dr SUH ORDER. PATIENT ROOM AIR, A/OX3, BP 140/71, P-56, PATIENT WAS COMPLAINING OF GENERALIZED PAIN. MAKE PATIENT COMFORTABLE. KEEP HOB ELEVATED. CALL LIGHT WITHIN TO REACH. BED A;LLARM ON. WILL FOLLOW UP.
[2022-03-20] MEDS: TRAMADOL HCL 50 MG TABLET PO PRN (13:48)
--- NOTE | 2022-03-20 13:48 | NUR ---
rn notes swallow evaluation done patient swallowing ok, administered tramadol 25mg po prn for generalized pain 06/21 per patient request. bp 151//74, p-56. will follow up.
--- NOTE | 2022-03-20 15:00 | NUR ---
RN NOTES MEDICATION WERE ADMINISTERED FOR PAIN EFFECTIVE, PATIENT CONFUSED, AND NEEDY, KEEP YELLING, WILL FOLLOW UP.
[2022-03-20] MEDS: IV D5/0.45 NACL 1,000 ML IV SCH (16:12)
[2022-03-20] MEDS: IV NS 0.9% 250 ML IV PRN (17:06)
--- NOTE | 2022-03-20 18:30 | NUR ---
RN NOTES PM CARE DONE, DUE MEDICATION ADMINISTERED WITH CRUSHED AND MIXED WITH PUDDING. PATIENT GET IRRITABLE EASILY, NEED CONSTANT REDIRECTION. CALL LIGHT WITHIN TO REACH. ENDORSED ONCOMING NURSE FOLLOW PLAN OF CARE.
--- NOTE | 2022-03-20 19:00 | NUR ---
RN NOTE PT RECEIVED IN BED, AGITATED/ANXIOUS, REMOVING CLOTHING, LEADS, EQUIPMENT. SOFT WRIST BILATERAL RESTRAINTS PLACED WITH ALL PROTOCOLS INITIATED/IMPLEMENTED AND SAFETY MEASURES IN PLACE FOR PATIENT SAFETY. PT IS ON ROOM AIR SHOWING NO S/SX OF RESP DISTRESS/SOB. BREATHING EVEN AND UNLABORED. PT IS CONFUSED, A/OX1-2. PT IS ON BEDSIDE/FRONT OFFICE SPEC SHOWING SB WITH BBB, AT TIMES IN SR. WHITLEY CATH NOTED DRAINING YELLOW COLORED URINE. IV ACCESS NOTED ON RIGHT FEMORAL. LINE FLUSHED, PATENT, AND INTACT. D51/2 NS RUNNING AT 75 CC/HR. ALL SAFETY MEASURES IMPLEMENTED. CALL LIGHT WITHIN REACH. HOB ELEVATED. BED LOCKED AND IN LOWEST POSITION. WILL CONTINUE TO MONITOR AND ASSESS FOR ANY CHANGES DURING SHIFT.
--- NOTE | 2022-03-20 20:33 | NUR ---
RN NOTE SPOKE WITH NICKI DILLON IF OKAY TO GIVE PO MEDICATIONS VIA APPLESAUCE OR PUDDING. LONG PT TOLERATES, OKAY TO GIVE MEDICATION UNTIL SWALLOW EVAL IS DONE TOMORROW AND DIET IS UPDATED. ORDER NOTED.
[2022-03-20] MEDS: ATORVASTATIN 10 MG TABLET NG SCH (22:37)
[2022-03-20] MEDS: PRIMIDONE 50 MG TABLET NG SCH (22:37)
[2022-03-21] VITALS (16 sets, daily range): BP systolic 125–168; BP diastolic 52–88
[2022-03-21] MEDS: IV D5/0.45 NACL 1,000 ML IV SCH ×2 (04:40→19:14)
[2022-03-21 05:20] LABS: BASOPHILS # (AUTO) 0.1 K/uL (0.0-0.2); BASOPHILS % (AUTO) 0.8 % (0.0-2.0); CALCIUM, SERUM 8.3 mg/dL (8.5-10.1); CARBON DIOXIDE 22 mmol/L (21-32); CHLORIDE 113 mmol/L (98-107); CREATININE 1.1 mg/dL (0.6-1.3); GLUCOSE 83 mg/dL (74-106); HEMATOCRIT 30 % (39-51); LYMPHOCYTES # (AUTO) 1.6 K/uL (0.8-4.8); LYMPHOCYTES % (AUTO) 19.4 % (20.0-44.0); MAGNESIUM 1.5 mg/dL (1.8-2.4); MEAN CORPUSCULAR HGB CONC 33 g/dl (31.0-36.0); MEAN CORPUSCULAR VOLUME 91 fL (80-96); NEUTROPHILS % (AUTO) 61.8 % (43.0-81.0); PHOSPHORUS 3.4 mg/dL (2.5-4.9); PLATELET COUNT (AUTO) 283 K/uL (150-450); POTASSIUM 4.5 mmol/L (3.5-5.1); RED BLOOD CELL COUNT(AUTO) 3.32 MIL/uL (4.5-6.0); SODIUM SERUM 142 mmol/L (136-145); UREA NITROGEN, BLOOD 15 mg/dL (7-18); WHITE BLOOD COUNT (AUTO) 8.1 K/uL (4.3-11.0)
--- NOTE | 2022-03-21 06:24 | NUR ---
RN NOTE NO CHANGES IN PT CONDITION DURING SHIFT. PT IS ON ROOM AIR SHOWING NO S/SX OF RESP DISTRESS/SOB. BREATHING EVEN AND UNLABORED. SOFT WRIST BILATERAL RESTRAINTS PLACED WITH ALL PROTOCOLS INITIATED/IMPLEMENTED. IV ACCESS NOTED ON RIGHT FEMORAL. LINE FLUSHED, PATENT, AND INTACT. D51/2 NS RUNNING AT 75 CC/HR. ALL SAFETY MEASURES IMPLEMENTED. ALL DUE MEDS GIVEN ORDERED. PT KEPT CLEAN AND COMFORTABLE. HOB ELEVATED. BED LOCKED AND IN LOWEST POSITION. WILL ENDORSE TO MORNING SHIFT RN FOR LEANNA.
[2022-03-21 07:58] LABS: BAND % (MANUAL) 1 % (0.0-5.0); EOSINOPHILS % (MANUAL) 7 % (0-4); LYMPHOCYTES % (MANUAL) 23 % (16-48); MONOCYTES % (MANUAL) 11 % (0-11.0); NEUTROPHILS % (MANUAL) 58 (42-76)
[2022-03-21] MEDS: PIPERACILLIN /TAZOBACTAM 3.375 G in IV D5W 100 ML IV SCH ×2 (08:33→17:48)
[2022-03-21] MEDS: PANTOPRAZOLE 40 MG/PACK PACK GT SCH (09:10)
[2022-03-21] MEDS: BENZTROPINE MESYLATE (1 MG) 1 MG TABLET GT SCH ×2 (09:11→17:49)
[2022-03-21] MEDS: ASPIRIN 81 MG TAB.CHEW GT SCH (09:11)
[2022-03-21] MEDS: CARBIDOPA/LEVODOPA 25/100 MG 1 UDTAB GT SCH ×3 (09:11→17:48)
[2022-03-21] MEDS: AMMONIUM LACTATE 227 GM BOTTLE TP SCH (09:21)
[2022-03-21] MEDS: CLOTRIMAZOLE 1% 15 GM TUBE TP SCH (09:21)
[2022-03-21] MEDS: risperiDONE LIQUID 1 MG/ML ML GT SCH ×2 (09:22→18:49)
[2022-03-21] MEDS: Magnesium 1GM/D5W 100ML PREMIX 100 ML IV SCH ×2 (10:31→11:45)
[2022-03-21] MEDS: ENOXAPARIN SODIUM 40 MG/0.4 ML DISP.SYRIN SQ SCH (10:32)
--- NOTE | 2022-03-21 16:41 | NUR ---
ADMINISTRATIVE MANAGER NOTES PT RECEIVED FROM ICU WITH KHUSHBU ASSISTED AARON.PT AOX1 CONFUSED/ANXIOUS, SOFT WRIST BILATERAL RESTRAINTS IN PLACE. PT IS ON ROOM AIR NO SIGN OF SOB/DISTRESS NOTED.BREATHING EVEN AND UNLABORED. PT IS ON BEDSIDE/EDGE STITCHER SHOWING SB WITH BBB, AT TIMES IN SR. WHITLEY CATH NOTED DRAINING YELLOW COLORED URINE. IV ACCESS NOTED ON RIGHT FEMORAL. PATENT AND INTACT. ALL SAFETY MEASURES IMPLEMENTED. CALL LIGHT WITHIN REACH.BED LOCKED AND IN LOWEST POSITION. WILL CONTINUE TO MONITOR.
[2022-03-21] MEDS: Z GUARD REMEDY 4 OZ OINT TP PRN (19:25)
--- NOTE | 2022-03-21 20:05 | NUR ---
RN CLOSING NOTES TELE PT IN BED SLEEPING AOX1 SOFT WRIST BILATERAL RESTRAINTS IN PLACE.RELEASED EVERY TWO HRS.PT IS ON ROOM AIR NO SIGN OF SOB/DISTRESS NOTED.BREATHING EVEN AND UNLABORED.IV ACCESS NOTED ON RIGHT FEMORAL. PATENT AND INTACT. ALL SAFETY MEASURES IMPLEMENTED. CALL LIGHT WITHIN REACH.BED LOCKED AND IN LOWEST POSITION. WILL CONTINUE TO MONITOR.
[2022-03-21] MEDS: ATORVASTATIN 10 MG TABLET NG SCH (21:52)
[2022-03-21] MEDS: PRIMIDONE 50 MG TABLET NG SCH (22:11)
[2022-03-22 00:01] VITALS: BP 145/67
[2022-03-22] MEDS: PIPERACILLIN /TAZOBACTAM 3.375 G in IV D5W 100 ML IV SCH ×3 (00:14→16:43)
[2022-03-22] MEDS: AMMONIUM LACTATE 227 GM BOTTLE TP SCH ×3 (00:17→17:13)
[2022-03-22] MEDS: CLOTRIMAZOLE 1% 15 GM TUBE TP SCH ×3 (00:17→17:13)
[2022-03-22 04:16] VITALS: BP 156/66
[2022-03-22] MEDS: IV D5/0.45 NACL 1,000 ML IV SCH ×2 (05:52→18:33)
[2022-03-22 06:24] LABS: BASOPHILS # (AUTO) 0.1 K/uL (0.0-0.2); BASOPHILS % (AUTO) 0.9 % (0.0-2.0); EOSINOPHILS % (AUTO) 5.6 % (0.0-6.0); HEMATOCRIT 29 % (39-51); LYMPHOCYTES # (AUTO) 1.4 K/uL (0.8-4.8); LYMPHOCYTES % (AUTO) 21.2 % (20.0-44.0); MEAN CORPUSCULAR HGB CONC 34 g/dl (31.0-36.0); MEAN CORPUSCULAR VOLUME 90 fL (80-96); MONOCYTES # (AUTO) 0.7 K/uL (0.1-1.30); MONOCYTES % (AUTO) 10.9 % (2.0-12.0); NEUTROPHILS # (AUTO) 4.2 K/uL (1.8-8.9); NEUTROPHILS % (AUTO) 61.4 % (43.0-81.0); PLATELET COUNT (AUTO) 290 K/uL (150-450); RED BLOOD CELL COUNT(AUTO) 3.27 MIL/uL (4.5-6.0); WHITE BLOOD COUNT (AUTO) 6.8 K/uL (4.3-11.0)
--- NOTE | 2022-03-22 06:57 | NUR ---
RN ClOSING NOTES TELE PT IN BED SLEEPING AOX1 ANXIOUS/CONFUSED. SOFT WRIST BILATERAL RESTRAINTS IN PLACE.RELEASED EVERY TWO HRS.PT IS ON ROOM AIR NO SIGN OF SOB/DISTRESS NOTED.BREATHING EVEN AND UNLABORED.ALL NEEDS ATTENDED.KEPT PT CLEAN AND DRY AT ALL TIME.IV ACCESS ON RIGHT FEMORAL. PATENT AND INTACT. ALL SAFETY MEASURES IMPLEMENTED. CALL LIGHT WITHIN REACH.BED LOCKED AND IN LOWEST POSITION. WILL CONTINUE TO MONITOR.
[2022-03-22 07:07] LABS: CALCIUM, SERUM 8.5 mg/dL (8.5-10.1); CARBON DIOXIDE 24 mmol/L (21-32); CHLORIDE 112 mmol/L (98-107); GLUCOSE 86 mg/dL (74-106); MAGNESIUM 1.9 mg/dL (1.8-2.4); SODIUM SERUM 143 mmol/L (136-145); UREA NITROGEN, BLOOD 14 mg/dL (7-18)
--- NOTE | 2022-03-22 07:30 | NUR ---
ENGLISH LANGUAGE LEARNER TUTOR OPENING NOTES RECEIVED PT IN BED SLEEPING AOX1 ANXIOUS/CONFUSED. SOFT WRIST BILATERAL RESTRAINTS IN PLACE.RELEASED EVERY TWO HRS.PT IS ON ROOM AIR NO SIGN OF SOB/DISTRESS NOTED.BREATHING EVEN AND UNLABORED.ALL NEEDS ATTENDED.KEPT PT CLEAN AND DRY AT ALL TIME.IV ACCESS ON RIGHT FEMORAL. PATENT AND INTACT. ALL SAFETY MEASURES IMPLEMENTED. CALL LIGHT WITHIN REACH.BED LOCKED AND IN LOWEST POSITION. WILL CONTINUE TO MONITOR FOR LEANNA.
[2022-03-22 08:00] VITALS: BP 152/65
[2022-03-22] MEDS: CARBIDOPA/LEVODOPA 25/100 MG 1 UDTAB GT SCH ×3 (09:33→17:08)
[2022-03-22] MEDS: PANTOPRAZOLE 40 MG/PACK PACK GT SCH (09:33)
[2022-03-22] MEDS: BENZTROPINE MESYLATE (1 MG) 1 MG TABLET GT SCH ×2 (09:33→17:08)
[2022-03-22] MEDS: ENOXAPARIN SODIUM 40 MG/0.4 ML DISP.SYRIN SQ SCH (09:34)
[2022-03-22] MEDS: ASPIRIN 81 MG TAB.CHEW GT SCH (09:36)
[2022-03-22] MEDS: risperiDONE LIQUID 1 MG/ML ML GT SCH ×2 (09:36→17:13)
[2022-03-22 12:00] VITALS: BP_SYST 144; BP_SYST 159; BP_DIAS 54; BP_DIAS 74
[2022-03-22 16:00] VITALS: BP 162/71
--- NOTE | 2022-03-22 18:51 | NUR ---
HOME WORKER OPENING NOTES PATIENT ON BED RESTING, EASY TO AWAKEN AND AOX1 ANXIOUS/CONFUSED. ON SOFT WRIST BILATERAL RESTRAINTS IN PLACED. RELEASED EVERY TWO HRS. ON ROOM AIR TOLERATING WELL. NO SOB NOTED. NOT IN DISTRESS. WITHIV ACCESS ON RIGHT FEMORAL PICC LINE WITH D5 1/2NS AT 75ML/HR INFUSING WELL. ALL SAFETY MEASURES IMPLEMENTED. CALL LIGHT WITHIN REACH. BED ON LOWEST LOCKED POSITION, SIDE RAILS UP X2. WILL ENDORSE TO NEXT SHIFT FOR LEANNA.
--- NOTE | 2022-03-22 18:54 | NUR ---
RN NOTE ON TELE MONITOR CURRENTLY READING SINUS BRADYCARDIA AT 55BPM.
--- NOTE | 2022-03-22 19:49 | NUR ---
PIN BALL MACHINE MECHANIC OPENING RECEIVED PATIENT IN BED WITH HOB ELEVATED. PATIENT A/OX2 AND PER PATIENT HE IS BLIND. NO S/S OF APPARENT DISTRESS ON ROOM AIR WITH EVEN AND UNLABORED BREATHING. TELE MONITOR READING SINUS TIM WITH 58 BPM. WHITLEY CATHETER NOTED IN PLACE DRAINING CLEAR YELLOW URINE. R. FEMORAL PICC LINE INTACT AND PATENT RUNNING D5 1/2 NS @75ML/HR. SAFETY IN PLACE. WILL CONTINUE WITH PLAN OF CARE FOR PATIENT.
[2022-03-22 20:00] VITALS: BP 149/65
[2022-03-22] MEDS: ATORVASTATIN 10 MG TABLET NG SCH (22:41)
[2022-03-22] MEDS: TRAMADOL HCL 50 MG TABLET PO PRN (22:41)
[2022-03-22] MEDS: PRIMIDONE 50 MG TABLET NG SCH (22:41)
[2022-03-23] VITALS: BP_SYST 136; BP_SYST 142; BP_DIAS 70; BP_DIAS 76
[2022-03-23] MEDS: PIPERACILLIN /TAZOBACTAM 3.375 G in IV D5W 100 ML IV SCH ×3 (00:12→15:05)
[2022-03-23 04:00] VITALS: BP 136/76
--- NOTE | 2022-03-23 06:58 | NUR ---
CONTACT LENS INSPECTOR CLOSING PATIENT IN BED A/OX3. NO S/S OF APPARENT DISTRESS ON ROOM AIR. NO C/O PAIN AT THIS TIME. PATIENT ON RESTRAINT VACATION-- QUIET. PATIENT NOTED TO BE EDEMATOUS ON BILATERAL UPPER EXTREMITIES. TELE READING SINUS TIM WITH 41 BPM. WHITLEY DRAINING CLEAR YELLOW URINE. R. FEMORAL PICC LINE RUNNING D51/2 NS @75CC/HR. NEEDS ATTENDED. ALL SCHEDULED MEDS ADMINISTERED. WILL ENDORSE TO MORNING RN FOR CONTINUITY OF CARE.
[2022-03-23 07:13] LABS: CALCIUM, SERUM 8.1 mg/dL (8.5-10.1); CARBON DIOXIDE 24 mmol/L (21-32); CHLORIDE 110 mmol/L (98-107); GLUCOSE 116 mg/dL (74-106); MAGNESIUM 1.6 mg/dL (1.8-2.4); PHOSPHORUS 3.3 mg/dL (2.5-4.9); POTASSIUM 3.5 mmol/L (3.5-5.1); SODIUM SERUM 141 mmol/L (136-145); UREA NITROGEN, BLOOD 11 mg/dL (7-18)
[2022-03-23 07:16] LABS: BASOPHILS % (AUTO) 0.5 % (0.0-2.0); EOSINOPHILS % (AUTO) 2.6 % (0.0-6.0); HEMATOCRIT 32 % (39-51); HEMOGLOBIN 10.5 g/dL (13.5-17.5); LYMPHOCYTES # (AUTO) 1.5 K/uL (0.8-4.8); MEAN CORPUSCULAR HGB CONC 33 g/dl (31.0-36.0); MEAN CORPUSCULAR VOLUME 90 fL (80-96); MONOCYTES # (AUTO) 0.8 K/uL (0.1-1.30); NEUTROPHILS # (AUTO) 5.5 K/uL (1.8-8.9); NEUTROPHILS % (AUTO) 67.9 % (43.0-81.0); PLATELET COUNT (AUTO) 339 K/uL (150-450); RED BLOOD CELL COUNT(AUTO) 3.51 MIL/uL (4.5-6.0); WHITE BLOOD COUNT (AUTO) 8.1 K/uL (4.3-11.0)
--- NOTE | 2022-03-23 07:45 | NUR ---
RN NOTES IN BED RESTING, ABLE TO BE AWAKENED. VERBALLY RESPONSIVE AND ABLE TO MAKE NEEDS KNOWN. NOT IN ACUTE DISTRESS. PICC LINE INTACT AND PATENT. SAFETY MEASURES IN PLACE. WILL CONTINUE TO MONITOR,
[2022-03-23 08:00] VITALS: BP 146/62
[2022-03-23] MEDS: ENOXAPARIN SODIUM 40 MG/0.4 ML DISP.SYRIN SQ SCH (09:15)
[2022-03-23] MEDS: BENZTROPINE MESYLATE (1 MG) 1 MG TABLET GT SCH ×2 (09:16→16:28)
[2022-03-23] MEDS: ASPIRIN 81 MG TAB.CHEW GT SCH (09:16)
[2022-03-23] MEDS: PANTOPRAZOLE 40 MG/PACK PACK GT SCH (09:16)
[2022-03-23] MEDS: CARBIDOPA/LEVODOPA 25/100 MG 1 UDTAB GT SCH ×3 (09:16→16:28)
[2022-03-23] MEDS: CLOTRIMAZOLE 1% 15 GM TUBE TP SCH ×2 (09:16→16:28)
[2022-03-23] MEDS: risperiDONE LIQUID 1 MG/ML ML GT SCH ×2 (09:16→16:28)
--- NOTE | 2022-03-23 09:30 | NUR ---
RN NOTES PATIENT ABLE TO TAKE MEDS CRUSHED W/ VANILLA PUDDING. NO ASPIRATION NOTED.
[2022-03-23] MEDS: AMMONIUM LACTATE 227 GM BOTTLE TP SCH ×2 (10:04→16:28)
[2022-03-23] MEDS: Magnesium 1GM/D5W 100ML PREMIX 100 ML IV SCH ×2 (10:04→11:19)
[2022-03-23] MEDS: IV D5/0.45 NACL 1,000 ML IV SCH ×2 (10:05→22:16)
--- NOTE | 2022-03-23 12:45 | NUR ---
RN NOTES PATIENT SEEN BY HOSPITALIST TODAY W/ ORDER NOTED.
[2022-03-23 16:00] VITALS: BP 151/72
[2022-03-23] MEDS: TRAMADOL HCL 50 MG TABLET PO PRN (16:35)
--- NOTE | 2022-03-23 18:45 | NUR ---
RN NOTES SAFETY MEASURES MAINTAINED. DUE MEDS GIVEN. IVF CONTINUOUS. WILL ENDORSE TO SUPPORT SERVICE TECH RN FOR LEANNA.
--- NOTE | 2022-03-23 19:30 | NUR ---
RN OPENING NOTES RECEIVED PT IN BED, AWAKE, SITTING UPRIGHT. AOx2. ON RA AND TOLERATING WELL. NO SOB NOTED. NO S/SX OF RESPIRATORY DISTRESS NOTED. TELE MONITOR DETECTS SINUS BRADYCARDIA WITH RATE OF 58. IV ACCES IN R FEMORAL PICC LINE RUNNING D5 1/2NS @ 75 ML/HR. SAFETY PRECAUTIONS IN PLACE: BED IN LOWEST, LOCKED POSITION, SIDERAILS UPx2, AND BRAKES ON. TABLE AND CALL LIGHT WITHIN REACH. WILL CONTINUE TO MONITOR.
[2022-03-23 20:00] VITALS: BP 152/69
[2022-03-23] MEDS: PRIMIDONE 50 MG TABLET NG SCH (22:15)
[2022-03-23] MEDS: ATORVASTATIN 10 MG TABLET NG SCH (22:15)
[2022-03-24] VITALS: BP 143/72
[2022-03-24] MEDS: PIPERACILLIN /TAZOBACTAM 3.375 G in IV D5W 100 ML IV SCH ×2 (00:04→07:58)
[2022-03-24 03:16] VITALS: BP 152/69
[2022-03-24 04:00] VITALS: BP 135/58
[2022-03-24 06:24] LABS: BASOPHILS # (AUTO) 0.1 K/uL (0.0-0.2); BASOPHILS % (AUTO) 0.6 % (0.0-2.0); EOSINOPHILS % (AUTO) 3.3 % (0.0-6.0); HEMATOCRIT 32 % (39-51); HEMOGLOBIN 10.7 g/dL (13.5-17.5); LYMPHOCYTES # (AUTO) 1.7 K/uL (0.8-4.8); LYMPHOCYTES % (AUTO) 21.5 % (20.0-44.0); MEAN CORPUSCULAR HGB CONC 34 g/dl (31.0-36.0); MEAN CORPUSCULAR VOLUME 91 fL (80-96); MONOCYTES # (AUTO) 0.7 K/uL (0.1-1.30); MONOCYTES % (AUTO) 8.7 % (2.0-12.0); NEUTROPHILS # (AUTO) 5.1 K/uL (1.8-8.9); NEUTROPHILS % (AUTO) 65.9 % (43.0-81.0); PLATELET COUNT (AUTO) 350 K/uL (150-450); RED BLOOD CELL COUNT(AUTO) 3.49 MIL/uL (4.5-6.0); WHITE BLOOD COUNT (AUTO) 7.8 K/uL (4.3-11.0)
--- NOTE | 2022-03-24 06:49 | NUR ---
RN CLOSING NOTES PT IN BED, ASLEEP, AWAKENS TO VERBAL STIMULI. AOx2. ON RA AND TOLERATING WELL. NO SOB NOTED. NO S/SX OF RESPIRATORY DISTRESS NOTED. TELE MONITOR DETECTS SINUS BRADYCARDIA WITH RATE OF 58. IV ACCES IN R FEMORAL PICC LINE RUNNING D5 1/2NS @ 75 ML/HR. ALL ORDERS CARRIED OUT. ALL NEEDS MET. PT KEPT CLEAN AND DRY. SAFETY PRECAUTIONS IN PLACE: BED IN LOWEST, LOCKED POSITION, SIDERAILS UPx2, AND BRAKES ON. TABLE AND CALL LIGHT WITHIN REACH. WILL ENDORSE TO ONCOMING SHIFT FOR LEANNA.
[2022-03-24 07:23] LABS: CALCIUM, SERUM 7.8 mg/dL (8.5-10.1); CARBON DIOXIDE 22 mmol/L (21-32); CHLORIDE 113 mmol/L (98-107); CREATININE 1.1 mg/dL (0.6-1.3); GLUCOSE 88 mg/dL (74-106); MAGNESIUM 1.9 mg/dL (1.8-2.4); PHOSPHORUS 3.4 mg/dL (2.5-4.9); POTASSIUM 3.6 mmol/L (3.5-5.1); SODIUM SERUM 144 mmol/L (136-145); UREA NITROGEN, BLOOD 10 mg/dL (7-18)
[2022-03-24 08:00] VITALS: BP 147/58
[2022-03-24] MEDS: risperiDONE LIQUID 1 MG/ML ML GT SCH ×2 (09:20→16:22)
[2022-03-24] MEDS: PANTOPRAZOLE 40 MG/PACK PACK GT SCH (09:21)
[2022-03-24] MEDS: AMMONIUM LACTATE 227 GM BOTTLE TP SCH ×2 (09:21→16:22)
[2022-03-24] MEDS: CARBIDOPA/LEVODOPA 25/100 MG 1 UDTAB GT SCH ×3 (09:21→16:22)
[2022-03-24] MEDS: BENZTROPINE MESYLATE (1 MG) 1 MG TABLET GT SCH ×2 (09:21→16:22)
[2022-03-24] MEDS: ASPIRIN 81 MG TAB.CHEW GT SCH (09:21)
[2022-03-24] MEDS: CLOTRIMAZOLE 1% 15 GM TUBE TP SCH ×2 (09:21→16:22)
[2022-03-24] MEDS: ENOXAPARIN SODIUM 40 MG/0.4 ML DISP.SYRIN SQ SCH (09:22)
[2022-03-24] MEDS: IV D5/0.45 NACL 1,000 ML IV SCH (14:58)
--- NOTE | 2022-03-24 15:12 | NUR ---
RN NOTES COVID SWAB SPECIMEN SAMPLE TAKEN; WILL DELIVER TO LAB.
--- NOTE | 2022-03-24 15:57 | NUR ---
RN NOTES COVID SPECIMEN SENT TO LAB.
[2022-03-24 16:00] VITALS: BP 166/62
--- NOTE | 2022-03-24 18:32 | NUR ---
RN NOTES PATIENT CLEANED AND REPOSITIONED IN BED. ASSISTED W/ ADLS AND MEALS APPLICABLE. ABLE TO EAT AND DRINK W/ ASSISTANCE. IVF CONTINUOUS. DUE MEDS GIVEN TODAY. WHITLEY CATH INTACT AND DRAINING YELLOW-COLORED URINE. SAFETY MEASURES MAINTAINED.
--- NOTE | 2022-03-24 19:10 | NUR ---
STUDENT SERVICES REPRESENTATIVE OPENING NOTES: RECEIVED PATIENT IN BED, AWAKE, A/O X2-3, NO S/S OF DISTRESS NOTED. NO COMPLAIN OF PAIN. CALL LIGHT WITHIN REACH. BED ALARM ON. BED IN LOWEST AND LOCKED POSITION. HOB ELEVATED AT ALL TIMES. WITH WHITLEY CATHETER INTACT.
[2022-03-24 20:10] VITALS: BP 154/64
[2022-03-24] MEDS: ATORVASTATIN 10 MG TABLET NG SCH (21:18)
[2022-03-24] MEDS: PRIMIDONE 50 MG TABLET NG SCH (21:18)
[2022-03-24] MEDS: Z GUARD REMEDY 4 OZ OINT TP PRN (22:24)
[2022-03-25 00:11] VITALS: BP 136/54
[2022-03-25 04:27] VITALS: BP 142/55
[2022-03-25] MEDS: IV D5/0.45 NACL 1,000 ML IV SCH (06:02)
--- NOTE | 2022-03-25 07:20 | NUR ---
STRATEGIC MARKETING SPECIALIST OPENING NOTES RECEIVED PATIENT IN BED, AWAKE, A/O X2-3, NO S/SX OF DISTRESS NOTED. NO PAIN VERBALIZED AT THIS TIME. TELE MONITOR READING SB [address] DRAINING YELLOW URINE. SAFETY PRECAUTIONS IN PLACE. CALL LIGHT WITHIN REACH. WILL CONTINUE TO MONITOR
[2022-03-25 08:00] VITALS: BP 144/67
[2022-03-25] MEDS: BENZTROPINE MESYLATE (1 MG) 1 MG TABLET GT SCH (08:17)
[2022-03-25] MEDS: CARBIDOPA/LEVODOPA 25/100 MG 1 UDTAB GT SCH (08:17)
[2022-03-25] MEDS: PANTOPRAZOLE 40 MG/PACK PACK GT SCH (08:17)
[2022-03-25] MEDS: ASPIRIN 81 MG TAB.CHEW GT SCH (08:17)
[2022-03-25] MEDS: risperiDONE LIQUID 1 MG/ML ML GT SCH (08:18)
[2022-03-25] MEDS: AMMONIUM LACTATE 227 GM BOTTLE TP SCH (08:18)
[2022-03-25] MEDS: CLOTRIMAZOLE 1% 15 GM TUBE TP SCH (08:19)
[2022-03-25] MEDS: ENOXAPARIN SODIUM 40 MG/0.4 ML DISP.SYRIN SQ SCH (09:47)
--- NOTE | 2022-03-25 13:56 | NUR ---
RN NOTES PATIENT CLEARED FOR DISCHARGE. REFUSING TO HAVE PICTURES TAKEN OF SKIN. PATIENT STATES "I HAD PICTURES TAKEN LAST NIGHT".
--- NOTE | 2022-03-25 15:30 | NUR ---
AERONAUTICAL INSPECTOR NOTES PATIENT MEDICALLY STABLE FOR DISCHARGE. NO BELONGINGS BROUGHT WITH PATIENT. IV ACCESS REMOVED. PRESSURED APPLIED TO SITE UNTIL BLEEDING STOPPED. WHITLEY CATH KEPT IN PLACE AND INTACT. TOTAL OUTPUT WAS 900ML YELLOW URINE. REPORT GIVEN TO TIFF JORDAN AT [facility] FOR LEANNA. PATIENT LEFT FACILITY VIA GURNEY BY AMBULANCE.
== END 2022-03-25 15:45 | DRG 870 ==
LOC: ER 07:09 → ICU 08:04 → TELE 03-21 16:04 → MED 03-25 11:56
PROVIDERS: ADMIT Nurse Practitioner Acute Care; ATTEND Student in an Organized Health Care Education/Training Program
PROC: 5A1955Z Respiratory Ventilation, Greater than 96 Consecutive Hours (ICD-10-PCS; principal; 2022-03-14)
PROC: 0BH18EZ Insertion of Endotracheal Airway into Trachea, Via Natural or Artificial Opening Endoscopic (ICD-10-PCS; 2022-03-14)
DX: A41.9 Sepsis, unspecified organism (principal); G93.41 Metabolic encephalopathy; J96.01 Acute respiratory failure with hypoxia; J15.9 Unspecified bacterial pneumonia; J15.6 Pneumonia due to other Gram-negative bacteria; R65.21 Severe sepsis with septic shock; I21.A1 Myocardial infarction type 2; N17.0 Acute kidney failure with tubular necrosis; D68.59 Other primary thrombophilia; E87.2 Acidosis; J44.0 Chronic obstructive pulmonary disease with (acute) lower respiratory infection; N39.0 Urinary tract infection, site not specified; E46 Unspecified protein-calorie malnutrition; I12.9 Hypertensive chronic kidney disease with stage 1 through stage 4 chronic kidney disease, or unspecified chronic kidney disease; N18.9 Chronic kidney disease, unspecified; Z20.822 Contact with and (suspected) exposure to COVID-19; E11.22 Type 2 diabetes mellitus with diabetic chronic kidney disease; B35.1 Tinea unguium; E78.5 Hyperlipidemia, unspecified; I25.10 Atherosclerotic heart disease of native coronary artery without angina pectoris; I48.91 Unspecified atrial fibrillation; F02.80 Dementia in other diseases classified elsewhere, unspecified severity, without behavioral disturbance, psychotic disturbance, mood disturbance, and anxiety; I25.2 Old myocardial infarction; G20 Parkinson's disease; Z86.73 Personal history of transient ischemic attack (TIA), and cerebral infarction without residual deficits; G40.909 Epilepsy, unspecified, not intractable, without status epilepticus; D64.9 Anemia, unspecified; K21.9 Gastro-esophageal reflux disease without esophagitis; R13.10 Dysphagia, unspecified; Z93.1 Gastrostomy status; R27.0 Ataxia, unspecified; M19.90 Unspecified osteoarthritis, unspecified site; F39 Unspecified mood [affective] disorder; F32.A Depression, unspecified; L40.9 Psoriasis, unspecified; Z88.6 Allergy status to analgesic agent; Z79.51 Long term (current) use of inhaled steroids; Z79.82 Long term (current) use of aspirin; Z79.899 Other long term (current) drug therapy; Y95 Nosocomial condition; Z90.49 Acquired absence of other specified parts of digestive tract; Z87.891 Personal history of nicotine dependence; N40.0 Benign prostatic hyperplasia without lower urinary tract symptoms; E87.6 Hypokalemia; R00.1 Bradycardia, unspecified; L89.621 Pressure ulcer of left heel, stage 1; L89.611 Pressure ulcer of right heel, stage 1; B95.2 Enterococcus as the cause of diseases classified elsewhere; B96.4 Proteus (mirabilis) (morganii) as the cause of diseases classified elsewhere
CPT/HCPCS: 31720; 36415; 36600; 70450-TC; 71045-TC; 76770-TC; 80048-TC; 80053-TC; 80061-TC; 80076-TC; 80202-TC; 81001; 82803-TC; 83540-TC; 83605-TC; 83735-TC; 84100-TC; 84443-TC; 84484-TC; 85025-TC; 85730-TC; 87040-TC; 87081-TC; 87086-TC; 87186-TC; 92526; 92611-TC; 93307-TC; 94002-TC; 94003-TC; 94760-TC; 94799-TC; 97112-TC; 97530-TC; A4623; A9563; C9113; G0378; J0330; J0692; J1650; J2060; J2250; J2543; J3010; J3370; J3475; J3480; J3490; J7030; J7040; J7042; J7050; J7060

== ENCOUNTER 2022-05-21 06:05 | Inpatient (IN) | payer MEDICARE, OTHER ==
[~2022-05-21] VITALS: Ht 172.7 cm; Wt 76.2 kg
[2022-05-21] VITALS (11 sets, daily range): BP systolic 125–150; BP diastolic 57–77
[~2022-05-21 06:05] MED LIST changes: +BISA10SU11 RC; +CALC667C6 PO; +FAMO20TA8 PO; +GUAI237L98 PO; -HYDR-4209 PO; +IBUP-1953 PO; +IPRA0.2S9 IH; -IPRA3AMP23 IH; +LEVA1.2528 IH; -LEVO500T90 PO; +MAG30ORA PO; +METO25TA20 PO; +NA P133E RC; +SACC250C PO; -ZINC1CAP3 PO
--- NOTE | 2022-05-21 06:09 | NUR ---
[id number] FROM [facility] FOR O2 DESAT IN THE [facility]'S-[facility]'S. PT FOUND UNRESPONSIVE TO PAIN STIMULI. GIVEN 2MG NARCAN IV GROCERY STORE CLERK ON 15L NONREBREATHER SATING 92%. CONNECTED PT TO POX AND MONITOR. SAFETY MEASURES IN PLACE.
--- NOTE | 2022-05-21 06:10 | NUR ---
RT PAGED FOR INTUBATION
--- NOTE | 2022-05-21 06:12 | NUR ---
BLOOD AND CULTURES COLLECTED AND SENT TO LAB
--- NOTE | 2022-05-21 06:13 | NUR ---
COVID SWAB DONE AND SENT TO LAB
--- NOTE | 2022-05-21 06:20 | NUR ---
0617 ETOMIDATE 20MG AND 90 MG ROCURONIUM ADMISTERRED IVP 0618 INTUBATED; SIZE 7.5, 24 AT THE LIP WITH POSITIVE COLOR CHANGE XRAY PAGED FOR PLACEMENT CONFIRMATION
--- NOTE | 2022-05-21 06:24 | NUR ---
XRAY AT BEDSIDE
--- NOTE | 2022-05-21 06:29 | NUR ---
PT BEING TRANSPORTED TO CT VIA GURNEY VIA ACLS
[2022-05-21] MEDS ORDERED: IV NS 0.9% 1,000 ML BAG IV ONE (06:30)
[2022-05-21] MEDS ORDERED: NOREPINEPHRINE 4 MG/4 ML AMPUL IV ONE (06:32)
--- NOTE | 2022-05-21 06:34 | NUR ---
PATIENT BACK FROM CT.
--- NOTE | 2022-05-21 06:35 | NUR ---
PT TOELRATING VENT SETTINGS AT 100%: FIO2 100 VT 500 RR 16 I:E - 1:2
--- NOTE | 2022-05-21 06:45 | NUR ---
F/C 16FR INSERTED; URINE COLLECTED AND SENT TO LAB. NGT 16 INSERTED TO L NARE; POSITIVE AUSCULTATION AND ASPIRATION FOR PLACEMENT.
--- NOTE | 2022-05-21 06:47 | NUR ---
LEVOPHED DRIP INITIATED AT 0.2MCG/KG/MIN FOR HYPOTENSION AT LAC 18G
--- NOTE | 2022-05-21 06:47 | NUR ---
RT ADVANCED INTUBATED TO 26CM; DR. ZAMBRANO AWARE
[2022-05-21 07:00] LABS: SERUM AMMONIA 40 umol/L (11-32)
[2022-05-21] MEDS ORDERED: NOREPINEPHRINE 8 MG in IV NS 0.9% 250 ML IV ONE (07:00)
--- NOTE | 2022-05-21 07:01 | NUR ---
WORKERS COMPENSATION CONSULTANT AT PT'S BEDSIDE
[2022-05-21 07:03] LABS: BASOPHILS # (AUTO) 0.1 K/uL (0.0-0.2); BASOPHILS % (AUTO) 0.5 % (0.0-2.0); EOSINOPHILS % (AUTO) 0.3 % (0.0-6.0); HEMATOCRIT 38 % (39-51); HEMOGLOBIN 12.2 g/dL (13.5-17.5); LYMPHOCYTES # (AUTO) 1.2 K/uL (0.8-4.8); LYMPHOCYTES % (AUTO) 8.3 % (20.0-44.0); MEAN CORPUSCULAR HGB CONC 32 g/dl (31.0-36.0); MEAN CORPUSCULAR VOLUME 95 fL (80-96); MONOCYTES # (AUTO) 1.2 K/uL (0.1-1.30); MONOCYTES % (AUTO) 8.3 % (2.0-12.0); NEUTROPHILS # (AUTO) 11.6 K/uL (1.8-8.9); NEUTROPHILS % (AUTO) 82.6 % (43.0-81.0); PLATELET COUNT (AUTO) 258 K/uL (150-450); RED BLOOD CELL COUNT(AUTO) 4.05 MIL/uL (4.5-6.0); WHITE BLOOD COUNT (AUTO) 14.1 K/uL (4.3-11.0)
--- NOTE | 2022-05-21 07:03 | NUR ---
RT NOTE UPON ARRIVAL TO ED, PT ON NRB MASK @ 15LPM. PT SHOWED SIGNS OF RESP DISTRESS. PT ORALLY INTUBATED VIA ETT SZ 7.5 SECURED AT 26CM AT THE LIPLINE. CO2 DETECTOR COLOR CHANGE NOTED. BILATERAL BREATH SOUNDS HEARD ON AUSCULTATION. PT PLACED ON [facility] VENT ON AC MODE SETTINGS CHARTED. ALARMS ARE SET AND AUDIBLE. AMBU BAG AT BEDSIDE. VENT PLUGGED INTO RED OUTLET. Addendum: 05/21/22 at 0706 by KOBY FORTUNE RT Amended: Links added.
--- NOTE | 2022-05-21 07:13 | NUR ---
CRITICAL LAB: [facility] - 156; DR. LAW BURKETT AWARE
[2022-05-21 07:41] LABS: ABG BASE EXCESS -1.7 mmol/L; ABG PCO2 55.3 mmHg (35.0-45.0); ABG PH 7.284 (7.350-7.450); ABG PO2 229.5 mmHg (75.0-100.0); COHb 0.3 % (0.5-1.5); MetHb 0.6 % (0.0-1.5); O2Hb 98.3 % (94.0-97.0); PEEP,BG 0 cm H2O; SITE, ABG Left Radial; VENT MODE, BG AC 100 % FIO2; VT, ABG 500 mL
[2022-05-21 07:42] LABS: BILIRUBIN,URINE SMALL (NEGATIVE); COLOR,URINE YELLOW (YELLOW); LEUKOCYTE ESTERASE ,URINE NEGATIVE (NEGATIVE); NITRITE, URINE NEGATIVE (NEGATIVE); PROTEIN,URINE 30 mg/dl (NEGATIVE); UGLUCOSE NEGATIVE (NEGATIVE); UROBILINOGEN,URINE 0.2 EU/dL (0.2)
[2022-05-21 07:45] LABS: CALCIUM, SERUM 9.1 mg/dL (8.5-10.1); CARBON DIOXIDE 28 mmol/L (21-32); CHLORIDE 108 mmol/L (98-107); CREATININE 1.9 mg/dL (0.6-1.3); GLUCOSE 141 mg/dL (74-106); POTASSIUM 5.1 mmol/L (3.5-5.1); SODIUM SERUM 144 mmol/L (136-145); UREA NITROGEN, BLOOD 30 mg/dL (7-18)
[2022-05-21] MEDS ORDERED: VANCOMYCIN 1 GM in IV D5W 250 ML IV ONE (08:00)
[2022-05-21] MEDS ORDERED: CEFEPIME 1 GM in IV D5W 50 ML IV ONE (08:00)
[2022-05-21 08:02] LABS: ALANINE AMINOTRANSFERASE 6 U/L (12-78); ALBUMIN 3.1 g/dL (3.4-5.0); ALKALINE PHOSPHATASE 163 U/L (46-116); ASPARTATE AMINOTRANSFERASE 15 U/L (15-37); BILIRUBIN,TOTAL 0.1 mg/dL (0.2-1.0); TOTAL PROTEIN, SERUM 7.4 g/dL (6.4-8.2)
[2022-05-21 08:02] LABS: BACTERIA,URINE Few /HPF (None Seen)
[2022-05-21 08:05] LABS: ACETAMINOPHEN < 0 ug/ml (10-30); ALCOHOL, BLOOD < 3 mg/dL (0-0)
[2022-05-21 08:07] LABS: THYROID STIMULATING HORMONE 0.927 uIU/mL (0.358-3.74)
[2022-05-21] MEDS ORDERED: ENOXAPARIN SODIUM 60 MG/0.6 ML DISP.SYRIN SQ ONE ×2 (08:30→09:01)
[2022-05-21] MEDS ORDERED: Z GUARD REMEDY 4 OZ OINT TP PRN (09:30)
[2022-05-21] MEDS ORDERED: MAGNESIUM HYDROXIDE 30 ML UDC PO PRN (09:30)
[2022-05-21] MEDS ORDERED: ACETAMINOPHEN 325 MG TABLET PO PRN (09:30)
[2022-05-21] MEDS ORDERED: ONDANSETRON HCL/PF 4 MG/2 ML VIAL IVP PRN (09:30)
[2022-05-21] MEDS ORDERED: MAG HYDROX/AL HYDROX/SIMETH 30 ML UDC PO PRN (09:30)
[2022-05-21 10:28] LABS: ABG BASE EXCESS -5.1 mmol/L; ABG PCO2 43.1 mmHg (35.0-45.0); ABG PH 7.306 (7.350-7.450); ABG PO2 80.3 mmHg (75.0-100.0); COHb 0.3 % (0.5-1.5); MetHb 0.3 % (0.0-1.5); O2Hb 95.1 % (94.0-97.0); SITE, ABG Left Brachial; VENT MODE, BG ac 16 500 0 50%
[2022-05-21] MEDS ORDERED: methylPREDNISolone SOD SUCC 125 MG/2ML VIAL IV SCH (10:30)
[2022-05-21] MEDS ORDERED: methylPREDNISolone SOD SUCC 125 MG/2ML VIAL ONE (11:13)
[2022-05-21] MEDS: IPRATROPIUM NEB FS 0.5 MG/2.5 ML AMPUL.NEB NEB SCH ×4 (11:30→22:42)
[2022-05-21] MEDS: IV NS 0.9% 1,000 ML IV PRN (14:42)
[2022-05-21] MEDS ORDERED: PROPOFOL 100 ML ONE (14:51)
[2022-05-21] MEDS ORDERED: ETOMIDATE 2 MG/ML VIAL IV ONE (15:07)
[2022-05-21] MEDS ORDERED: ROCURONIUM BROMIDE 50 MG/5 ML IV ONE (15:07)
--- NOTE | 2022-05-21 15:17 | NUR ---
GOT BED. ROOM 257. NURSE NOTIFIED, ADMITTING DEPT NOTIFIED.
[2022-05-21] MEDS ORDERED: PROPOFOL 1,000 MG/100 ML BOTTLE IV ONE (15:30)
[2022-05-21] MEDS: PROPOFOL 100 ML IV PRN (17:27)
--- NOTE | 2022-05-21 18:41 | NUR ---
PICK PACK WORKER, ADMISSION, RECEIVED THE PT FROM ER VIA [facility]. ORALLY INTUBATED. SEDATED WITH PROPOFOL 5MCG/KG/MIN, FC PATENT. IV RT AND LT HAND IVF NS 75ML/H. ETT 7.5,LIP 26,AC 16,TV 500, FIO2 50%. SAT 98%. NO ACUTE DISTRESS NOTED. PRODUCTION LINE MECHANIC SHOWING S TIM. HOB ELEAVTED. RT NARE NGT CLAMPED. WILL CONTINUE TO MONITOR VITALS,
--- NOTE | 2022-05-21 18:41 | NUR ---
SHADER AND TONER. I
[2022-05-21] MEDS: methylPREDNISolone SOD SUCC 125 MG/2ML VIAL IV SCH (21:30)
[2022-05-21] MEDS: CEFEPIME 2 GM in IV D5W 100 ML IV SCH (21:30)
[2022-05-22] VITALS (42 sets, daily range): BP systolic 106–151; BP diastolic 52–77
[2022-05-22] MEDS: IPRATROPIUM NEB FS 0.5 MG/2.5 ML AMPUL.NEB NEB SCH ×6 (03:35→22:53)
[2022-05-22] MEDS: IV NS 0.9% 1,000 ML IV PRN ×2 (03:43→16:39)
--- NOTE | 2022-05-22 04:05 | NUR ---
silviculturist. am care given. remaining same vent settings tolerated well. sat 98%. no acute distress noted.youth nutritional monitor showing s shay. lt upper arm mid line.ivf ns 75 ml/h. propofol 5mcg/kg/min, hob elevated. ngt clamped. turn and reposition q2h. will continue to monitor vitals.
[2022-05-22 04:33] LABS: HEMATOCRIT 33 % (39-51); HEMOGLOBIN 10.8 g/dL (13.5-17.5); LYMPHOCYTES # (AUTO) 0.9 K/uL (0.8-4.8); MEAN CORPUSCULAR HGB CONC 33 g/dl (31.0-36.0); MEAN CORPUSCULAR VOLUME 93 fL (80-96); MONOCYTES # (AUTO) 0.9 K/uL (0.1-1.30); MONOCYTES % (AUTO) 7.3 % (2.0-12.0); NEUTROPHILS % (AUTO) 84.7 % (43.0-81.0); PLATELET COUNT (AUTO) 233 K/uL (150-450); RED BLOOD CELL COUNT(AUTO) 3.58 MIL/uL (4.5-6.0); WHITE BLOOD COUNT (AUTO) 11.8 K/uL (4.3-11.0)
[2022-05-22 04:52] LABS: CALCIUM, SERUM 8.6 mg/dL (8.5-10.1); CARBON DIOXIDE 24 mmol/L (21-32); CHLORIDE 111 mmol/L (98-107); CREATININE 1.6 mg/dL (0.6-1.3); GLUCOSE 137 mg/dL (74-106); MAGNESIUM 1.8 mg/dL (1.8-2.4); PHOSPHORUS 3.6 mg/dL (2.5-4.9); POTASSIUM 5.3 mmol/L (3.5-5.1); SODIUM SERUM 144 mmol/L (136-145); UREA NITROGEN, BLOOD 32 mg/dL (7-18)
[2022-05-22] MEDS: methylPREDNISolone SOD SUCC 125 MG/2ML VIAL IV SCH ×3 (05:19→20:55)
[2022-05-22] MEDS: PROPOFOL 100 ML IV PRN ×2 (05:19→16:38)
[2022-05-22] MEDS: VANCOMYCIN 1 GM in IV D5W 250 ML IV SCH (08:10)
--- NOTE | 2022-05-22 08:12 | NUR ---
WOUND CARE CONSULT: PT PRESENTS WITH DRY ABRASION TO RT KNEE, DUSKY COLOR TO BILATERAL FEET AND SACRAL SCAR, PRESENT ON ADMISSION. RECOMMENDATIONS MADE FOR SKIN PROTECTION. DISCUSSED WITH NURSING STAFF. FIRST STEP LOW AIRLOSS MATTRESS IS ON ORDER. MD IN AGREEMENT WITH PLAN OF CARE. Addendum: 05/22/22 at 0813 by MARIE LEONE WNDNU Amended: Links added.
[2022-05-22 08:22] LABS: ABG BASE EXCESS -4.3 mmol/L; ABG OXYGEN SATURATION 97.2 % (92.0-98.5); ABG PCO2 33.2 mmHg (35.0-45.0); ABG PH 7.393 (7.350-7.450); ABG PO2 97.9 mmHg (75.0-100.0); AaDO2 221.3 mmHg; COHb 0.1 % (0.5-1.5); MetHb 0.2 % (0.0-1.5); O2Hb 96.9 % (94.0-97.0); SITE, ABG Right Radial; VENT MODE, BG AC16 500 50% +0
[2022-05-22] MEDS: CEFEPIME 2 GM in IV D5W 100 ML IV SCH ×2 (09:10→20:55)
[2022-05-22] MEDS ORDERED: SODIUM POLYSTYRENE SULFONATE 15 G/60 ML BOTTLE PO ONE (10:00)
[2022-05-22] MEDS: JEVITY 1.2 CAL 1,000 ML BOTTLE GT PRN (13:29)
--- NOTE | 2022-05-22 20:05 | NUR ---
STORY ANALYST. INITIAL ASSESSMENT. RECEIVED THE PT REST IN BED. ORALLY INTUBATED.SEDATED WITH PROPOFOL 5 MCG/KG/MIN, ETT 7.5, AC 16,TV 500, FIO2 40 %. SAT 98%. NO ACUTE DISTRESS NOTED. CHILD LIFE SPECIALIST SHOWING S TIM. IV LT UPPEWR ARM MID LINE. IVF NS 75 ML/H. FC PATENT. PAOLA SOFT WRIST RESTRAINT CHECKED AND RELEASED. NO INJURY OR REDNESS NOTED. WILL CONTINUE TO MONITOR VITALS.
[2022-05-23] VITALS (25 sets, daily range): BP systolic 125–162; BP diastolic 48–73
--- NOTE | 2022-05-23 03:37 | NUR ---
RN OSTOMY. AM CARE GIVEN. REMAINING SAME VENT SETTINGS TOLERATED WELL. SAT 98%. NO ACUTE DISTRESS NOTED. LEAD TECHNICAL ARCHITECT SHOWING S TIM. IV LT UPPER ARM MID LINE. HOB ELEVATED. LT NARE NGT INTACT. TUBE FEEDING TOLERATED WELL. FC PATENT. TURN AND REPOSITION Q2H. WILL CONTINUE TO MONITOR VITALS.
[2022-05-23] MEDS: IPRATROPIUM NEB FS 0.5 MG/2.5 ML AMPUL.NEB NEB SCH ×5 (03:38→20:15)
[2022-05-23 04:48] LABS: BASOPHILS % (AUTO) 0.1 % (0.0-2.0); HEMATOCRIT 32 % (39-51); HEMOGLOBIN 10.3 g/dL (13.5-17.5); LYMPHOCYTES # (AUTO) 0.8 K/uL (0.8-4.8); MEAN CORPUSCULAR HGB CONC 33 g/dl (31.0-36.0); MEAN CORPUSCULAR VOLUME 93 fL (80-96); MONOCYTES # (AUTO) 0.4 K/uL (0.1-1.30); MONOCYTES % (AUTO) 3.9 % (2.0-12.0); NEUTROPHILS # (AUTO) 9.3 K/uL (1.8-8.9); PLATELET COUNT (AUTO) 239 K/uL (150-450); WHITE BLOOD COUNT (AUTO) 10.5 K/uL (4.3-11.0)
[2022-05-23 05:02] LABS: CALCIUM, SERUM 7.9 mg/dL (8.5-10.1); CARBON DIOXIDE 25 mmol/L (21-32); CHLORIDE 109 mmol/L (98-107); CREATININE 1.5 mg/dL (0.6-1.3); GLUCOSE 189 mg/dL (74-106); MAGNESIUM 1.9 mg/dL (1.8-2.4); PHOSPHORUS 3.5 mg/dL (2.5-4.9); POTASSIUM 3.1 mmol/L (3.5-5.1); SODIUM SERUM 146 mmol/L (136-145); UREA NITROGEN, BLOOD 38 mg/dL (7-18)
[2022-05-23] MEDS: methylPREDNISolone SOD SUCC 125 MG/2ML VIAL IV SCH ×3 (05:32→20:58)
[2022-05-23] MEDS: IV NS 0.9% 1,000 ML IV PRN ×2 (05:32→18:56)
[2022-05-23] MEDS: PROPOFOL 100 ML IV PRN (05:33)
--- NOTE | 2022-05-23 07:15 | NUR ---
RN NOTE PT RECEIVED IN BED, CURRENTLY SEDATED. PROPOFOL RUNNING AT 5 MCG/KG/MIN. PT ORALLY INTUBATED WITH SETTINGS AT ETT 7.5, AC: 16, TV: 500, & FIO2: 40%. NO ACUTE DISTRESS NOTED. ON TYPEWRITER RIBBON WINDER SHOWING SB. IV NOTED ON LEFT UPPER ARM MIDLINE AND RIGHT HAND. NS RUNNING AT 75 CC/HR. WHITLEY CATH NOTED DRAINING YELLOW COLORED UIRNE. G-TUBE INTACT AND PATENT RUNNING JEVITY AT 65 CC/HR. PT TOLERATING WELL. PT CURRENTLY ON SOFT WRIST BILATERAL WRIST RESTRAINTS. WILL IMPLEMENT/INITIATE ALL SAFETY PROTOCOLS THROUGHOUT SHIFT. ALL SAFETY MEASURES IMPLEMENTED. HOB ELEVATED. BED LOCKED AND IN LOWEST POSITION. SIDE RAILS UP X2. WILL CONTINUE TO MONITOR AND ASSESS FOR ANY CHANGES DURING SHIFT.
[2022-05-23] MEDS: VANCOMYCIN 1 GM in IV D5W 250 ML IV SCH (08:11)
--- NOTE | 2022-05-23 08:36 | NUR ---
PT. IS AWAKE BUT UNABLE TO FOLLOW COMMANDS PLACED INTO SIMV 4 /PS 15 AND PEEP +5 FOR WEANING TRIAL PER DR. ORTEZ. Addendum: 05/23/22 at 0838 by NINO JACOBS RT Amended: Links added.
[2022-05-23] MEDS ORDERED: DC PROPOFOL WHEN EXTUBATED XX PRN (09:00)
[2022-05-23] MEDS: POTASSIUM CL. PREMIX PERIPHER. 50 ML IV SCH ×4 (09:11→12:25)
[2022-05-23] MEDS: CEFEPIME 2 GM in IV D5W 100 ML IV SCH ×2 (09:37→20:56)
[2022-05-23 09:49] LABS: ABG BASE EXCESS -1.7 mmol/L; ABG OXYGEN SATURATION 98.5 % (92.0-98.5); ABG PH 7.439 (7.350-7.450); ABG PO2 134.3 mmHg (75.0-100.0); COHb 0.3 % (0.5-1.5); MetHb 0.2 % (0.0-1.5); PEEP,BG 5 cm H2O; SITE, ABG Right Brachial; VT, ABG 500 mL
--- NOTE | 2022-05-23 10:18 | NUR ---
pt. is awake and alert extubated per dr. hawkins and placed into room air with 100% spo2 Addendum: 05/23/22 at 1019 by NINO JACOBS RT Amended: Links added.
--- NOTE | 2022-05-23 13:08 | NUR ---
RN NOTE PT RESTING IN BED, A/OX3. TOLERATING ROOM AIR WELL WITH OXYGEN SATURATION CURRENTLY AT 100%. WILL CONTINUE TO MONITOR POST-EXTUBATION.
[2022-05-23] MEDS: JEVITY 1.2 CAL 1,000 ML BOTTLE GT PRN (14:31)
[2022-05-23 15:26] LABS: BILIRUBIN,URINE NEGATIVE (NEGATIVE); COLOR,URINE YELLOW (YELLOW); LEUKOCYTE ESTERASE ,URINE NEGATIVE (NEGATIVE); NITRITE, URINE NEGATIVE (NEGATIVE); PH,URINE 5.5 (5.0-8.0); PROTEIN,URINE NEGATIVE (NEGATIVE); UGLUCOSE NEGATIVE (NEGATIVE); UROBILINOGEN,URINE 0.2 EU/dL (0.2)
[2022-05-23 15:43] LABS: BACTERIA,URINE Many /HPF (None Seen); SQUAMOUS EPITHELIAL CELL,UR Moderate /HPF (None Seen); URINE AMORPHOUS URATE Few /HPF (None Seen)
--- NOTE | 2022-05-23 18:16 | NUR ---
RN NOTE ENDORSED TO TIFF BERMAN FOR LEANNA.
--- NOTE | 2022-05-23 18:54 | NUR ---
RN CLOSING NOTE PT IN BED, A/OX4 ON BABYSITTER SHOWING SB. IV NOTED ON LEFT UPPER ARM MIDLINE AND RIGHT HAND. NS RUNNING AT 75 CC/HR. WHITLEY CATH NOTED DRAINING YELLOW COLORED URINE. NG-TUBE INTACT AND PATENT RUNNING JEVITY AT 65 CC/HR. PT TOLERATING WELL. PT CURRENTLY ON SOFT WRIST BILATERAL WRIST RESTRAINTS. WILL IMPLEMENT/INITIATE ALL SAFETY PROTOCOLS THROUGHOUT SHIFT. ALL SAFETY MEASURES IMPLEMENTED. HOB ELEVATED. BED LOCKED AND IN LOWEST POSITION. SIDE RAILS UP X2. WILL ENDORSE TO NIGHT NURSE FOR LEANNA.
--- NOTE | 2022-05-23 19:30 | NUR ---
MICHAEL RN OPENING NOTE RECEIVED PATIENT IN BED, A/OX3, YELLING TO CAREGIVERS, ON CARDIAC MONITORING SHOWING SB. IV NOTED ON LEFT UPPER ARM MIDLINE AND RIGHT HAND WITH NS RUNNING AT 75 CC/HR. WHITLEY CATH NOTED DRAINING YELLOW COLORED URINE. NG-TUBE INTACT AND PATENT RUNNING JEVITY AT 65 CC/HR. PT TOLERATING WELL. PT NOTED WITH SOFT BILATERAL WRIST RESTRAINTS. WILL IMPLEMENT/INITIATE ALL SAFETY PROTOCOLS THROUGHOUT SHIFT. ALL SAFETY MEASURES IMPLEMENTED. HOB ELEVATED. BED LOCKED AND IN LOWEST POSITION. SIDE RAILS UP X2. CALL LIGHT WITHIN REACH, WILL CONTINUE TO MONITOR THROUGHOUT THE SHIFT.
[2022-05-23 19:58] LABS: CREATININE, URINE 136.1 MG/DL (30.0-125.0)
--- NOTE | 2022-05-23 23:10 | NUR ---
RN NOTE INFORMED ONCALL DOCTOR DAYNA ABOUT PATIENT HAVING CONSISTENT HR AROUND 30's SINCE AM SHIFT, DR SCHULER WAS CONSULTED NNO, PT A/O X3 YELLING AT CAREGIVERS, BP CHECKED AT 136/52, PACER PADS PLACED ORDERED, WILL CONT TO MONITOR
[2022-05-24] VITALS: BP 150/73
[2022-05-24] MEDS: IPRATROPIUM NEB FS 0.5 MG/2.5 ML AMPUL.NEB NEB SCH ×7 (00:58→23:40)
[2022-05-24 04:00] VITALS: BP 140/60
[2022-05-24] MEDS: methylPREDNISolone SOD SUCC 125 MG/2ML VIAL IV SCH ×3 (05:05→21:03)
[2022-05-24] MEDS: JEVITY 1.2 CAL 1,000 ML BOTTLE GT PRN ×2 (05:54→23:05)
--- NOTE | 2022-05-24 06:39 | NUR ---
MICHAEL RN CLOSING NOTE PATIENT REMAINS IN BED, A/OX 3, ON CARDIAC MONITORING SHOWING SB. IV NOTED ON LEFT UPPER ARM MIDLINE AND RIGHT HAND WITH NS RUNNING AT 75 CC/HR. WHITLEY CATH NOTED DRAINING YELLOW COLORED URINE. NG-TUBE INTACT AND PATENT RUNNING JEVITY AT 65 CC/HR. PT TOLERATING WELL. PT NOTED WITH SOFT BILATERAL WRIST RESTRAINTS. ALL SAFETY MEASURES IMPLEMENTED. HOB ELEVATED. ALL DUE MEDS GIVEN, KEPT DRY AND CLEAN, BED LOCKED AND IN LOWEST POSITION. SIDE RAILS UP X2. CALL LIGHT WITHIN REACH, WILL ENDORSE TO AM SHIFT NURSE
--- NOTE | 2022-05-24 07:20 | NUR ---
MICHAEL RN OPENING NOTE REPORT RECEIVED FROM CHRISTIAN. PATIENT LAYING ON BED AWAKE, A&OX2-3.ALL VSS. PATIENT SATTING AT 97% ON ROOM AIR. SB. PATIENT VOIDING VIA WHITLEY CATHETER PATENT AND DRAINING BELOW BLADDER. PATIENT ON HD LAST REMOVAL 1.75L ON 05/23/2022. DIET JEVITY 1.2 @65ML/HR 0 RESIDUAL. IV ZHENG MIDLINE PATENT AND INTACT NO INFILTRATION NOTED, L HAND 20G. SAFETY FALL PRECAUTIONS IN PLACE BED IN LOWEST POSITION, SIDE RAILS UP, BED ALARM ON, CALL LIGHT WITHIN REACH. WILL CONTINUE TO MONITOR.
[2022-05-24 08:00] VITALS: BP 151/51
[2022-05-24 08:02] LABS: CALCIUM, SERUM 8.1 mg/dL (8.5-10.1); CARBON DIOXIDE 20 mmol/L (21-32); CHLORIDE 114 mmol/L (98-107); GLUCOSE 192 mg/dL (74-106); MAGNESIUM 2.2 mg/dL (1.8-2.4); PHOSPHORUS 2.5 mg/dL (2.5-4.9); POTASSIUM 3.7 mmol/L (3.5-5.1); SODIUM SERUM 144 mmol/L (136-145); UREA NITROGEN, BLOOD 43 mg/dL (7-18)
[2022-05-24] MEDS: VANCOMYCIN 1 GM in IV D5W 250 ML IV SCH (08:28)
[2022-05-24] MEDS: CEFEPIME 2 GM in IV D5W 100 ML IV SCH ×2 (09:40→21:03)
[2022-05-24 12:00] VITALS: BP 143/57
[2022-05-24 14:43] LABS: EOSINOPHILS % (AUTO) 0.1 % (0.0-6.0); HEMATOCRIT 34 % (39-51); HEMOGLOBIN 10.9 g/dL (13.5-17.5); LYMPHOCYTES # (AUTO) 0.6 K/uL (0.8-4.8); LYMPHOCYTES % (AUTO) 4.3 % (20.0-44.0); MEAN CORPUSCULAR HGB CONC 32 g/dl (31.0-36.0); MEAN CORPUSCULAR VOLUME 93 fL (80-96); MONOCYTES # (AUTO) 0.8 K/uL (0.1-1.30); MONOCYTES % (AUTO) 6.1 % (2.0-12.0); NEUTROPHILS # (AUTO) 12.5 K/uL (1.8-8.9); NEUTROPHILS % (AUTO) 89.5 % (43.0-81.0); PLATELET COUNT (AUTO) 241 K/uL (150-450); RED BLOOD CELL COUNT(AUTO) 3.67 MIL/uL (4.5-6.0)
[2022-05-24 16:00] VITALS: BP 160/64
[2022-05-24] MEDS: IV NS 0.9% 1,000 ML IV PRN ×2 (17:10→21:33)
--- NOTE | 2022-05-24 19:01 | NUR ---
RN CLOSING NOTE PATIENT IS IN STABLE CONDITION THROUGHOUT SHIFT. PATIENT IS STILL CONFUSED. ON ROOM AIR SATTING AT 97%. STILL ON BILATERAL SOFT WRIST RESTRAINTS, CIRCULATION ON BOTH HANDS ADEQUATE. IV ON RIGHT FOREARM INTACT AND PATENT. WHITLEY CATHETER INTACT. ALL HOSPITAL PRECAUTIONS IN PLACE. BED IS LOCKED ON LOWEST POSITION, 3 SIDE RAILS UP, CALL LIGHT WITHIN REACH. REPORT GIVEN TO PURA FOR CONTINUITY OF CARE.
--- NOTE | 2022-05-24 19:22 | NUR ---
MICHAEL RN OPENING NOTE RECEIVED PATIENT IN BED, A/OX2-3, YELLING TO CAREGIVERS, ON CARDIAC MONITORING SHOWING SB. IV NOTED ON LEFT UPPER ARM MIDLINE AND RIGHT HAND WITH NS RUNNING AT 75 CC/HR. WHITLEY CATH NOTED DRAINING YELLOW COLORED URINE. NG-TUBE INTACT AND PATENT RUNNING JEVITY AT 65 CC/HR. PT TOLERATING WELL. PT NOTED WITH SOFT BILATERAL WRIST RESTRAINTS. WILL IMPLEMENT/INITIATE ALL SAFETY PROTOCOLS THROUGHOUT SHIFT. ALL SAFETY MEASURES IMPLEMENTED. HOB ELEVATED. BED LOCKED AND IN LOWEST POSITION. SIDE RAILS UP X2. CALL LIGHT WITHIN REACH, WILL CONTINUE TO MONITOR THROUGHOUT THE SHIFT.
[2022-05-24 20:00] VITALS: BP 155/70
[2022-05-25] VITALS: BP 128/70
[2022-05-25 04:00] VITALS: BP 158/75
[2022-05-25] MEDS: IPRATROPIUM NEB FS 0.5 MG/2.5 ML AMPUL.NEB NEB SCH ×6 (04:03→23:35)
[2022-05-25] MEDS: methylPREDNISolone SOD SUCC 125 MG/2ML VIAL IV SCH ×3 (05:18→20:17)
--- NOTE | 2022-05-25 06:47 | NUR ---
VIOLIN MECHANIC CLOSING NOTE PATIENT IN BED SLEEPING BUT EASILY AROUSABLE TO TOUCH AND VOICE, A/OX 3, ON CARDIAC MONITORING SHOWING SB AT 45 BPM. IV ON LEFT UPPER ARM MIDLINE AND RIGHT HAND WITH NS RUNNING AT 75 CC/HR. WHITLEY CATH NOTED DRAINING YELLOW COLORED URINE. NG-TUBE INTACT AND PATENT RUNNING JEVITY AT 65 CC/HR. PT TOLERATING WELL. PT WITH SOFT BILATERAL WRIST RESTRAINTS. ALL SAFETY MEASURES IMPLEMENTED. HOB ELEVATED. ALL DUE MEDS GIVEN, V/S TAKEN AND RECORDED, KEPT DRY AND CLEAN, BED LOCKED AND IN LOWEST POSITION. SIDE RAILS UP X2. CALL LIGHT WITHIN REACH, WILL ENDORSE TO AM SHIFT NURSE
--- NOTE | 2022-05-25 07:30 | NUR ---
RN open note RN open note PATIENT IS IN BED, A/OX3, YELLING TO CAREGIVERS, AGITATED ON CARDIAC MONITORING SHOWING SB. HAS IV ACCESS ON LEFT UPPER ARM MIDLINE AND RIGHT HAND WITH NS RUNNING AT 75 CC/HR. WHITLEY CATH IN PLACE DRAINING YELLOW COLORED URINE. NG-TUBE INTACT AND PATENT RUNNING JEVITY AT 65 CC/HR. PT TOLERATING WELL. PT NOTED WITH SOFT BILATERAL WRIST RESTRAINTS. WILL IMPLEMENT/INITIATE ALL SAFETY PROTOCOLS THROUGHOUT SHIFT. ALL SAFETY MEASURES IMPLEMENTED. HOB ELEVATED. BED LOCKED AND IN LOWEST POSITION. SIDE RAILS UP X2. CALL LIGHT WITHIN REACH, WILL CONTINUE TO MONITOR THROUGHOUT THE SHIFT.
[2022-05-25] MEDS: VANCOMYCIN 1.25 GM in IV D5W 250 ML IV SCH (07:41)
[2022-05-25 08:00] VITALS: BP 145/78
[2022-05-25 09:44] LABS: HEMATOCRIT 33 % (39-51); HEMOGLOBIN 10.8 g/dL (13.5-17.5); LYMPHOCYTES # (AUTO) 0.5 K/uL (0.8-4.8); LYMPHOCYTES % (AUTO) 3.9 % (20.0-44.0); MEAN CORPUSCULAR HGB CONC 33 g/dl (31.0-36.0); MEAN CORPUSCULAR VOLUME 92 fL (80-96); MONOCYTES # (AUTO) 0.4 K/uL (0.1-1.30); MONOCYTES % (AUTO) 2.9 % (2.0-12.0); NEUTROPHILS % (AUTO) 93.2 % (43.0-81.0); PLATELET COUNT (AUTO) 227 K/uL (150-450); WHITE BLOOD COUNT (AUTO) 12.9 K/uL (4.3-11.0)
[2022-05-25] MEDS: CEFEPIME 2 GM in IV D5W 100 ML IV SCH ×2 (09:51→20:16)
[2022-05-25 10:46] LABS: CALCIUM, SERUM 8.1 mg/dL (8.5-10.1); CREATININE 1.1 mg/dL (0.6-1.3); POTASSIUM 3.4 mmol/L (3.5-5.1)
[2022-05-25 12:00] VITALS: BP 160/72
[2022-05-25 16:51] VITALS: BP 165/74
--- NOTE | 2022-05-25 18:38 | NUR ---
RN CLOSING NOTE PATIENT IS IN BED THIS MORNING BY DOCTOR CHULA MADISON NG TUBE WAS REMOVED , PATIENT STARTED WITH CLEAR LIQUID DIET FOR THE BREAKFAST , TOLERATED WELL , FOR LUNCH AND DINNER HAD SOFT DIET , TOLERATED WELL . PATIENT HAS ZHENG MID LINE RUNNING 75 ML/HR OF NS, WHITLEY CATH IN PLACE , DRAINING CLEAR YELLOW URINE , PATIENT WAS ON ROOM AIR ALMOST ALL DAY BY THE 5 PM O2 SAT DROPPED TO 90 % PLACED BACK TO 02 ,2L VIA N/C , BREATHING NON LABORED , NO SIGHS OF DISTRESS.ALL MEDICATIONS WERE ADMINISTERED , ALL NEEDS WERE MET .BED IS AT LOWEST POSITION , BED SIDE RAILS ARE UP , CALL LIGHT WITHIN REACH .
--- NOTE | 2022-05-25 19:40 | NUR ---
SKIP LOCATOR OPENING NOTE RECEIVED PATIENT IN BED, A/OX3. NO S/S OF APPARENT DISTRESS IN 2 LPM OF O2 VIA NC. NO C/O PAIN AT THIS TIMETELE MONITOR READING SB WITH 53 BPM AT THIS TIME. ZHENG MIDLINE RUNNING NS @75MLS/HR. SAFETY IN PLACE. WILL CONTINUE WITH PLAN OF CARE FOR PATIENT.
[2022-05-25 20:00] VITALS: BP 151/65
[2022-05-25] MEDS: IV NS 0.9% 1,000 ML IV PRN (20:01)
--- NOTE | 2022-05-26 01:30 | NUR ---
PENAL OFFICER NOTE ADAMANTLY REFUSED MIDNIGHT VITAL SIGNS.
[2022-05-26] MEDS: IPRATROPIUM NEB FS 0.5 MG/2.5 ML AMPUL.NEB NEB SCH ×6 (03:22→23:12)
--- NOTE | 2022-05-26 04:30 | NUR ---
DOCK OPERATOR NOTE ADAMANTLY REFUSED V/S AND WANTS TO TAKE IT AT 8 AM.
[2022-05-26] MEDS: methylPREDNISolone SOD SUCC 125 MG/2ML VIAL IV SCH ×2 (05:01→12:34)
--- NOTE | 2022-05-26 07:15 | NUR ---
ASSISTANT AT SURGERY CLOSING NOTE PATIENT IN BED WITH EYES CLOSED, EASY TO AROUSE. A/OX3. NO S/S OF APPARENT DISTRESS IN TWO LPM OF O2 VIA NC. NO C/O PAIN NOR DISCOMFORT AT THIS TIME. NEEDS ATTENDED. ALL SCHEDULED MEDICATIONS ADMINISTERED. ENDORSED TO TIFF WALL FOR CONTINUITY OF CARE.
--- NOTE | 2022-05-26 07:29 | NUR ---
rn OPEN NOTE PATIENT IS IN BED , ALERT , ORIENTED TIMES 3 , NON AMBULATORY , BED RIDDEN , REQUIRES ASSISTANCE WITH MEALS HAS ZHENG MID LINE RUNNING AT 75 ML/HR , WHITLEY CATH IN PLACE DRAINING CLEAR YELLOW URINE . PATIENT IS ON O2 2L VIA N/C , BREATHING EASILY , NO SIGHS OF DISTRESS ,BED IS AT LOWEST POSITION, BED SIDE RAILS ARE UP, CALL LIGHT WITHIN REACH .
[2022-05-26 08:00] VITALS: BP 163/85
[2022-05-26] MEDS: VANCOMYCIN 1.25 GM in IV D5W 250 ML IV SCH (08:58)
[2022-05-26 09:31] LABS: HEMATOCRIT 34 % (39-51); HEMOGLOBIN 11.1 g/dL (13.5-17.5); LYMPHOCYTES # (AUTO) 0.6 K/uL (0.8-4.8); LYMPHOCYTES % (AUTO) 3.6 % (20.0-44.0); MEAN CORPUSCULAR HGB CONC 33 g/dl (31.0-36.0); MEAN CORPUSCULAR VOLUME 92 fL (80-96); MONOCYTES # (AUTO) 0.4 K/uL (0.1-1.30); MONOCYTES % (AUTO) 2.6 % (2.0-12.0); NEUTROPHILS # (AUTO) 16.1 K/uL (1.8-8.9); NEUTROPHILS % (AUTO) 93.8 % (43.0-81.0); PLATELET COUNT (AUTO) 231 K/uL (150-450); RED BLOOD CELL COUNT(AUTO) 3.67 MIL/uL (4.5-6.0); WHITE BLOOD COUNT (AUTO) 17.2 K/uL (4.3-11.0)
[2022-05-26 09:41] LABS: CALCIUM, SERUM 7.8 mg/dL (8.5-10.1); CREATININE 1.1 mg/dL (0.6-1.3); POTASSIUM 3.4 mmol/L (3.5-5.1)
[2022-05-26] MEDS: CEFEPIME 2 GM in IV D5W 100 ML IV SCH ×2 (10:49→21:22)
--- NOTE | 2022-05-26 10:50 | NUR ---
RT Patient received on 2L nasal cannula. Awake and alert. Breathing tx given and tolerated well. No SOB or respiratory distress noted at this time.
[2022-05-26] MEDS ORDERED: POTASSIUM CHLORIDE 20 MEQ POWDER PACKET GT SCH (11:00)
[2022-05-26 12:00] VITALS: BP 192/85
[2022-05-26 12:00] LABS: BAND % (MANUAL) 1 % (0.0-5.0); LYMPHOCYTES % (MANUAL) 4 % (16-48); MONOCYTES % (MANUAL) 1 % (0-11.0); NEUTROPHILS % (MANUAL) 92 (42-76)
--- NOTE | 2022-05-26 12:06 | NUR ---
RN note Patient developed BP 192/86 , HR [address] Keesha Lassiter notified , order received Hydralazine 10 mg IV every 6 hr as needed if SBP above 160 mmhg
[2022-05-26] MEDS: hydrALAZINE HCL IV 20 MG VIAL IV PRN ×2 (12:56→23:09)
[2022-05-26] MEDS ORDERED: FUROSEMIDE 40 MG/4 ML VIAL IV ONE (14:00)
[2022-05-26 16:00] VITALS: BP 120/66
[2022-05-26] MEDS: methylPREDNISolone SOD SUCC 40 MG/ML VIAL IV SCH (17:38)
--- NOTE | 2022-05-26 18:52 | NUR ---
RN CLOSING NOTE PATIENT IS IN BED , ALERT , ORIENTED TIMES 3 , ON SOFT DIET TOLERATED WELL . PATIENT HAS ZHENG MID LINE RUNNING 75 ML/HR OF NS, WHITLEY CATH IN PLACE , DRAINING CLEAR YELLOW URINE , PATIENT IS ON 02 2L VIA N/C , BREATHING NON LABORED , NO SIGHS OF DISTRESS.ALL MEDICATIONS WERE ADMINISTERED , ALL NEEDS WERE MET .BED IS AT LOWEST POSITION , BED SIDE RAILS ARE UP , CALL LIGHT WITHIN REACH .
--- NOTE | 2022-05-26 19:10 | NUR ---
[facility]IN[facility] POULTRY OPENING NOTE RECEIVED PATIENT IN BED, A/OX3. NO S/S OF APPARENT DISTRESS IN 2 LPM OF O2 VIA NC. NO C/O PAIN AT THIS TIME. TELE MONITOR READING SB WITH 56 BPM AT THIS TIME. ZHENG MIDLINE PATENT FLUSHES WELL.ALL SAFETY MEASURES IN PLACE AT ALL TIMES. HOB ELEVATED. CALL LIGHT WITHIN REACH.WILL CONTINUE WITH PLAN OF CARE FOR PATIENT.
--- NOTE | 2022-05-26 19:38 | NUR ---
Patient received awake on 2LPM nasal cannula. Q4 breathing treatment given and tolerated well without adverse effect. No respiratory distress noted at this time. Will continue to monitor t/o shift.
[2022-05-26 20:00] VITALS: BP 155/87
--- NOTE | 2022-05-26 23:00 | NUR ---
RN NOTES BP 183/73, HR 55 DR MCINTOSH INFORMED HR IS 55.DR MCINTOSH SAID OKAY TO GIVE. WILL CONTINUE TO MONITOR
[2022-05-27] VITALS: BP 145/97
--- NOTE | 2022-05-27 00:10 | NUR ---
RN NOTES BP WENT DOWN 145/97. WILL CONTINUE TO MONITOR THE PATIENT .
[2022-05-27] MEDS: IPRATROPIUM NEB FS 0.5 MG/2.5 ML AMPUL.NEB NEB SCH ×6 (03:27→23:33)
[2022-05-27 04:00] VITALS: BP 158/69
--- NOTE | 2022-05-27 06:57 | NUR ---
RN CLOSING NOTE PATIENT IS IN BED , A/O X 3 , ON SOFT DIET TOLERATED WELL . PATIENT HAS ZHENG MIDLINE FLUSHES WELL WHITLEY CATH IN PLACE , DRAINING CLEAR YELLOW URINE , PATIENT IS ON 02 2L VIA N/C , BREATHING NON LABORED , NO SIGHS OF DISTRESS.ALL MEDICATIONS WERE ADMINISTERED , ALL NEEDS WERE MET .BED IS AT LOWEST POSITION , BED SIDE RAILS ARE UP , CALL LIGHT WITHIN REACH .
[2022-05-27 07:09] LABS: HEMATOCRIT 34 % (39-51); HEMOGLOBIN 11.3 g/dL (13.5-17.5); LYMPHOCYTES # (AUTO) 0.7 K/uL (0.8-4.8); LYMPHOCYTES % (AUTO) 4.2 % (20.0-44.0); MEAN CORPUSCULAR HGB CONC 33 g/dl (31.0-36.0); MEAN CORPUSCULAR VOLUME 91 fL (80-96); MONOCYTES # (AUTO) 0.7 K/uL (0.1-1.30); MONOCYTES % (AUTO) 4.2 % (2.0-12.0); NEUTROPHILS # (AUTO) 15.1 K/uL (1.8-8.9); NEUTROPHILS % (AUTO) 91.6 % (43.0-81.0); PLATELET COUNT (AUTO) 241 K/uL (150-450); RED BLOOD CELL COUNT(AUTO) 3.76 MIL/uL (4.5-6.0); WHITE BLOOD COUNT (AUTO) 16.5 K/uL (4.3-11.0)
[2022-05-27 07:21] LABS: CALCIUM, SERUM 7.8 mg/dL (8.5-10.1); CARBON DIOXIDE 27 mmol/L (21-32); CHLORIDE 109 mmol/L (98-107); CREATININE 0.9 mg/dL (0.6-1.3); GLUCOSE 155 mg/dL (74-106); POTASSIUM 3.9 mmol/L (3.5-5.1); SODIUM SERUM 143 mmol/L (136-145); UREA NITROGEN, BLOOD 47 mg/dL (7-18)
--- NOTE | 2022-05-27 07:30 | NUR ---
RN OPENING NOTE PATIENT IS IN BED, AWAKE, ALERT ORIENTED X 3. WITH OXYGEN VIA NASAL CANNULA AT 2L/MIN, OXYGEN SATURATION AT 95%. SINUS BRADYCARDIA AT 55 BPM ON DRILL PRESS TENDER. LEFT UPPER ARM MIDLINE SALINE LOCK INTACT AND PATENT, NO SIGNS OF INFILTRATION OR PHLEBITIS NOTED. WHITLEY CATHETER INTACT AND ATTACHED TO URINE BAG DRAINING TO A CLEAR YELLOW URINE. DENIES PAIN, BREATHING UNLABORED, AND NOT IN ANY FORM OF DISTRESS. BED IS LOCKED IN LOWEST POSITION, 3 SIDE RAILS UP, CALL LIGHT WITHIN REACH. WILL CONTINUE TO MONITOR THROUGHOUT SHIFT.
[2022-05-27 08:00] VITALS: BP 162/65
[2022-05-27] MEDS: CEFEPIME 2 GM in IV D5W 100 ML IV SCH ×2 (08:20→21:16)
[2022-05-27] MEDS: methylPREDNISolone SOD SUCC 40 MG/ML VIAL IV SCH ×2 (09:11→16:51)
[2022-05-27] MEDS: VANCOMYCIN 1.25 GM in IV D5W 250 ML IV SCH (09:11)
[2022-05-27] MEDS ORDERED: POTASSIUM CHLORIDE 20 MEQ POWDER PACKET NG SCH ×2 (09:30→11:30)
[2022-05-27] MEDS ORDERED: FUROSEMIDE 40 MG/4 ML VIAL IV SCH ×2 (09:30→15:00)
[2022-05-27 12:00] VITALS: BP 150/68
[2022-05-27 16:04] VITALS: BP 154/69
--- NOTE | 2022-05-27 18:59 | NUR ---
RN CLOSING NOTE PATIENT IS RESTING COMFORTABLY IN BED AND REMAINED STABLE THROUGHOUT SHIFT. TOLERATES OXYGEN VIA NASAL CANNULA AT 2L/MIN, SATTING AT 96%. IV MIDLINE ON RIGHT ARM REMAINS INTACT AND PATENT. WHITLEY CATHETER INTACT AND PATENT. NOT IN ANY FORM OF DISTRESS. BED IS LOCKED IN LOWEST POSITION, 3 SIDE RAILS UP, CALL LIGHT WITHIN REACH. WILL ENDORSE TO COMPLIANCE AUDITOR NURSE.
[2022-05-27 20:00] VITALS: BP 143/71
--- NOTE | 2022-05-27 20:00 | NUR ---
GUARD MUSEUM OPENING NOTE RECEIVED PATIENT IN BED, A/OX3. SCREAMS AT TIMES , V/S STABLE AFEBRILE NO SOB NO DISTRESS NOTED ,NO S/S OF APPARENT DISTRESS IN 2 LPM OF O2 VIA NC. NO C/O PAIN AT THIS TIME. TELE MONITOR READING SB WITH 55 BPM AT THIS TIME. ZHENG MIDLINE PATENT FLUSHES WELL.ALL SAFETY MEASURES IN PLACE AT ALL TIMES. HOB ELEVATED. CALL LIGHT WITHIN REACH. DUE MEDS GIVEN ORDERED NO ASE NOTED ,ALL NEEDS ATTENDED TOO . WITH F/C INTACT AND PATENT DRAINING WITH YELLOWISH URINE OUTPUT .WILL CONTINUE WITH PLAN OF CARE FOR PATIENT.
[2022-05-28] VITALS: BP 160/84
[2022-05-28] MEDS: IPRATROPIUM NEB FS 0.5 MG/2.5 ML AMPUL.NEB NEB SCH ×4 (03:34→15:22)
[2022-05-28 04:00] VITALS: BP 140/71
--- NOTE | 2022-05-28 07:16 | NUR ---
td rn notes Pts remains in bed awake on 2 liters of o2 via nc remains on tele monitor sb no sob no distress noted , v/s stable afebrile , f/c draining will yellowish urine output.will endorse to rn day shift for continuity of care.
[2022-05-28 07:28] LABS: HEMATOCRIT 33 % (39-51); HEMOGLOBIN 10.9 g/dL (13.5-17.5); LYMPHOCYTES # (AUTO) 0.7 K/uL (0.8-4.8); LYMPHOCYTES % (AUTO) 4.4 % (20.0-44.0); MEAN CORPUSCULAR HGB CONC 33 g/dl (31.0-36.0); MEAN CORPUSCULAR VOLUME 92 fL (80-96); MONOCYTES # (AUTO) 0.6 K/uL (0.1-1.30); MONOCYTES % (AUTO) 3.7 % (2.0-12.0); NEUTROPHILS # (AUTO) 15.6 K/uL (1.8-8.9); NEUTROPHILS % (AUTO) 91.9 % (43.0-81.0); PLATELET COUNT (AUTO) 263 K/uL (150-450); RED BLOOD CELL COUNT(AUTO) 3.62 MIL/uL (4.5-6.0)
--- NOTE | 2022-05-28 07:30 | NUR ---
RN OPENING NOTES RECEIVED PATIENT IN BED, AWAKE, ALERT ORIENTED X 3. WITH OXYGEN VIA NASAL CANNULA AT 2LPM,TOLERATING WELL.ON TELE MONITOR READING SINUS BRADYCARDIA WITH HR OF 57. BREATHING IS UNLABORED.NO SOB OR ANY ACUTE RESPIRATORY DISTRESS NOTED. NOTED WITH LEFT UPPER ARM MIDLINE SALINE LOCK INTACT AND PATENT, NO SIGNS OF INFILTRATION NOTED. WHITLEY CATHETER INTACT AND ATTACHED TO URINE BAG DRAINING VIA GRAVITY WITH YELLOW URINE. ALL SAFETY MEASURES IN PLACE; BED IS LOCKED IN LOWEST POSITION, 3 SIDE RAILS UP, CALL LIGHT WITHIN REACH. WILL CONTINUE TO MONITOR AND REASSESS PATIENT THROUGHOUT SHIFT.
[2022-05-28 07:41] LABS: ALANINE AMINOTRANSFERASE 32 U/L (12-78); ALKALINE PHOSPHATASE 76 U/L (46-116); ASPARTATE AMINOTRANSFERASE 18 U/L (15-37); BILIRUBIN,TOTAL 0.3 mg/dL (0.2-1.0); CALCIUM, SERUM 7.5 mg/dL (8.5-10.1); CARBON DIOXIDE 28 mmol/L (21-32); CHLORIDE 104 mmol/L (98-107); CREATININE 1.2 mg/dL (0.6-1.3); GLUCOSE 190 mg/dL (74-106); PHOSPHORUS 2.8 mg/dL (2.5-4.9); POTASSIUM 3.7 mmol/L (3.5-5.1); SODIUM SERUM 138 mmol/L (136-145); TOTAL PROTEIN, SERUM 5.1 g/dL (6.4-8.2); UREA NITROGEN, BLOOD 58 mg/dL (7-18)
[2022-05-28 08:00] VITALS: BP 138/95
[2022-05-28] MEDS: methylPREDNISolone SOD SUCC 40 MG/ML VIAL IV SCH ×2 (08:28→16:37)
[2022-05-28] MEDS: FUROSEMIDE 40 MG/4 ML VIAL IV SCH ×3 (09:42→16:36)
[2022-05-28] MEDS: POTASSIUM CHLORIDE 20 MEQ TAB.PRT.SR PO SCH ×3 (09:42→11:50)
[2022-05-28] MEDS ORDERED: POTA10CA43 PO (11:19)
[2022-05-28] MEDS ORDERED: FURO-145 PO (11:19)
[2022-05-28] MEDS ORDERED: PRED20TA PO (11:19)
[2022-05-28 12:00] VITALS: BP 156/85
--- NOTE | 2022-05-28 15:16 | NUR ---
RN NOTE ATTEMPTED TO CALL [facility] [place] 2[place] TO GIVE REPORT, EDILMA GET AHOLD OF NURSE. WILL ATTEMPT AT A LATER TIME. ALL PATIENT NEEDS ANTICIPATED. NO SOB OR ANY ACUTE RESPIRATORY DISTRESS NOTED AT THE TIME. PATIENT CURRENTLY ON ROOM AIR, TOLERATING WELL WITH SATURATION OF 94%. ALL SAFETY MEASURES IMPLEMENTED.
--- NOTE | 2022-05-28 15:25 | NUR ---
RN NOTE REPORT GIVEN TO AMISHA BURCIAGA AT [facility] [place].
[2022-05-28 16:00] VITALS: BP 152/87
[2022-05-28 17:35] VITALS: BP 180/85
[2022-05-28] MEDS: hydrALAZINE HCL IV 20 MG VIAL IV PRN (17:35)
--- NOTE | 2022-05-28 18:21 | NUR ---
RN NOTE PATIENT DISCHARGED IN STABLE CONDITION. PATIENT AWAKE, ALERT/ORIENTED X 3, VERBALLY RESPONSIVE. ON ROOM AIR TOLERATING WELL SATURATION AT 96%. NO SOB OR ANY ACUTE RESPIRATORY DISTRESS NOTED AT THE TIME. PATIENT HAS NO BELONGINGS. DISCHARGE INSTRUCTIONS GIVEN TO EMT LIME PLANT OPERATOR. ALL DUE MEDS GIVEN ORDERED. KEPT PATIENT CLEAN DRY AND COMFORTABLE. ALL NEEDS ANTICIPATED. IV ACCESS REMOVED, NO BLEEDING OTED. PATIENT LEFT HOSPITAL IN STABLE CONDITION WITH 3 EMT CREW VIA [facility].
== END 2022-05-28 18:16 | DRG 208 ==
LOC: ER 06:10 → TRANSITION 10:36 → ICU 15:31 → TELE-TD 05-23 18:51 → TELE1 05-24 09:19
PROVIDERS: ADMIT Internal Medicine; ATTEND Internal Medicine
PROC: 5A1945Z Respiratory Ventilation, 24-96 Consecutive Hours (ICD-10-PCS; principal; 2022-05-21)
PROC: 0BH18EZ Insertion of Endotracheal Airway into Trachea, Via Natural or Artificial Opening Endoscopic (ICD-10-PCS; 2022-05-21)
PROC: 05HC33Z Insertion of Infusion Device into Left Basilic Vein, Percutaneous Approach (ICD-10-PCS; 2022-05-21)
DX: J15.6 Pneumonia due to other Gram-negative bacteria (principal); E43 Unspecified severe protein-calorie malnutrition; J96.22 Acute and chronic respiratory failure with hypercapnia; J96.21 Acute and chronic respiratory failure with hypoxia; N17.0 Acute kidney failure with tubular necrosis; I21.A1 Myocardial infarction type 2; G93.41 Metabolic encephalopathy; E87.2 Acidosis; J44.0 Chronic obstructive pulmonary disease with (acute) lower respiratory infection; J44.1 Chronic obstructive pulmonary disease with (acute) exacerbation; J98.11 Atelectasis; E86.0 Dehydration; I48.0 Paroxysmal atrial fibrillation; Z20.822 Contact with and (suspected) exposure to COVID-19; D63.8 Anemia in other chronic diseases classified elsewhere; E88.09 Other disorders of plasma-protein metabolism, not elsewhere classified; F02.80 Dementia in other diseases classified elsewhere, unspecified severity, without behavioral disturbance, psychotic disturbance, mood disturbance, and anxiety; G20 Parkinson's disease; G30.9 Alzheimer's disease, unspecified; G40.909 Epilepsy, unspecified, not intractable, without status epilepticus; I25.10 Atherosclerotic heart disease of native coronary artery without angina pectoris; E78.5 Hyperlipidemia, unspecified; N18.9 Chronic kidney disease, unspecified; I25.2 Old myocardial infarction; N40.0 Benign prostatic hyperplasia without lower urinary tract symptoms; Y95 Nosocomial condition; Z86.73 Personal history of transient ischemic attack (TIA), and cerebral infarction without residual deficits; Z90.49 Acquired absence of other specified parts of digestive tract; I12.9 Hypertensive chronic kidney disease with stage 1 through stage 4 chronic kidney disease, or unspecified chronic kidney disease; K21.9 Gastro-esophageal reflux disease without esophagitis; R27.0 Ataxia, unspecified; M19.90 Unspecified osteoarthritis, unspecified site; F39 Unspecified mood [affective] disorder; F32.9 Major depressive disorder, single episode, unspecified; L40.9 Psoriasis, unspecified; Z88.6 Allergy status to analgesic agent; Z95.1 Presence of aortocoronary bypass graft; Z79.82 Long term (current) use of aspirin; Z79.899 Other long term (current) drug therapy; Z87.891 Personal history of nicotine dependence; N28.1 Cyst of kidney, acquired; E87.5 Hyperkalemia; E87.6 Hypokalemia; R00.1 Bradycardia, unspecified
CPT/HCPCS: 31720; 36415; 36600; 70450-TC; 71045-TC; 74018; 76770-TC; 80048-TC; 80053-TC; 80076-TC; 80202-TC; 81001; 82140-TC; 82570-TC; 82803-TC; 82962-TC; 83605-TC; 83735-TC; 84100-TC; 84300-TC; 84443-TC; 84484-TC; 85025-TC; 85730-TC; 87040-TC; 87081-TC; 87086-TC; 94002-TC; 94003-TC; 94762-TC; 94799-TC; 99082-TC; C9803; G0378; G0480; J0360; J0692; J1650; J1940; J2920; J2930; J3370; J3480; J3490; J7030; J7050; J7060

== ENCOUNTER 2023-01-18 22:23 | Emergency (ER) | payer MEDICARE, OTHER ==
[~2023-01-18] VITALS: Ht 170.2 cm; Wt 73.0 kg
[~2023-01-18 22:23] MED LIST changes: +FURO-145 PO; -GUAI237L98 PO; -IPRA0.2S9 IH; -IPRA4AER IH; -MAG30ORA PO; +POTA10CA43 PO; +PRED20TA PO; -ZOLP5TAB8 PO
[2023-01-18] MEDS ORDERED: DIATR MEGLU/DIATRIZOATE SODIUM 120 ML BOTTLE (GASTROGRAPHIN) ONE (23:10)
[2023-01-18 23:57] VITALS: BP 105/54
== END 2023-01-18 23:58 ==
LOC: ER 22:34
DX: Z43.1 Encounter for attention to gastrostomy (principal); I10 Essential (primary) hypertension; E78.5 Hyperlipidemia, unspecified; I25.2 Old myocardial infarction; I48.91 Unspecified atrial fibrillation; J44.9 Chronic obstructive pulmonary disease, unspecified; K21.9 Gastro-esophageal reflux disease without esophagitis; F32.9 Major depressive disorder, single episode, unspecified; G20 Parkinson's disease; Z86.73 Personal history of transient ischemic attack (TIA), and cerebral infarction without residual deficits; Z88.8 Allergy status to other drugs, medicaments and biological substances; Z79.899 Other long term (current) drug therapy
CPT/HCPCS: 99284; 43762; 74018; Q9963